=== PATIENT | male | born 1960 | race Caucasian/White ===

== ENCOUNTER → 2017-07-13 10:50 | Outpatient (CLI) | payer MEDICAID, SELFPAY ==
--- NOTE | 2017-07-13 11:01 | RAD_ITS ---
STUDY: X-RAY - RIGHT SHOULDER REASON FOR EXAM: Male, 56 years old. Shoulder pain TECHNIQUE: 4 view(s) of the shoulder. COMPARISON: None. FINDINGS: Normal glenohumeral articulation. There is degenerative arthrosis of the acromioclavicular joint without inferior osseous spur formation. Normal acromion. Normal humeral head and visualized proximal humerus. The soft tissue structures are unremarkable. Normal visualized pulmonary apex. RAD/Shoulder min 2 Views IMPRESSION: There is degenerative arthrosis of the acromioclavicular joint without inferior osseous spur formation. Electronically Signed: Lukas Fry MD at 16:56 EST , Service support ,
--- NOTE | 2017-07-13 11:01 | RAD_ITS ---
STUDY: X-RAY - LEFT KNEE REASON FOR EXAM: Male, 56 years old. BILATERAL KNEE PAIN TECHNIQUE: 4 view(s) of the knee. COMPARISON: None. FINDINGS: Normal visualized distal femur. Normal visualized proximal tibia and fibula. Normal proximal tibiofibular articulation. There is severe degenerative arthrosis of the medial femorotibial compartment with severe joint space narrowing. There is moderate degenerative arthrosis of the lateral femorotibial compartment with moderate joint space narrowing. There is severe degenerative arthrosis of the patellofemoral articulation. The soft tissue structures are unremarkable. RAD/Knee 4 or More Views IMPRESSION: Degenerative arthrosis. Electronically Signed: Lukas Fry MD at 16:56 EST , Service support ,
--- NOTE | 2017-07-13 11:01 | RAD_ITS ---
STUDY: X-RAY - LEFT SHOULDER REASON FOR EXAM: Male, 56 years old. Shoulder pain TECHNIQUE: 4 view(s) of the shoulder. COMPARISON: None. FINDINGS: Normal glenohumeral articulation. Normal acromioclavicular joint. Normal acromion. Normal humeral head and visualized proximal humerus. The soft tissue structures are unremarkable. Normal visualized pulmonary apex. RAD/Shoulder min 2 Views IMPRESSION: Normal x-ray examination of the shoulder. Electronically Signed: Lukas Fry MD at 16:55 EST , Service support ,
--- NOTE | 2017-07-13 11:01 | RAD_ITS ---
STUDY: X-RAY - CERVICAL SPINE REASON FOR EXAM: Male, 56 years old. Neck pain TECHNIQUE: 5 view(s) of the cervical spine were obtained. COMPARISON: None FINDINGS: Normal anterior atlantoaxial articulation. Normal odontoid process. There is straightening of the normal cervical lordosis. There is multi-level endplate spondylosis. There is multi-level degenerative disc disease with multilevel disc space narrowing. There is multi-level osseous foraminal stenosis. The soft tissue structures are unremarkable. RAD/Cerv Spine 4 or 5 Views IMPRESSION: There are degenerative changes as noted above. Electronically Signed: Lukas Fry MD at 16:54 EST , Service support ,
--- NOTE | 2017-07-13 11:01 | RAD_ITS ---
STUDY: X-RAY - RIGHT KNEE REASON FOR EXAM: Male, 56 years old. Bilateral knee pain. TECHNIQUE: 4 view(s) of the knee. COMPARISON: None. FINDINGS: Degenerative spurring along the medial femoral condyle. Degenerative spurring along the medial aspect of the medial tibial plateau. Normal visualized proximal tibia and fibula. Normal proximal tibiofibular articulation. There is severe degenerative arthrosis of the medial femorotibial compartment with severe joint space narrowing. Normal lateral femorotibial compartment. There is moderate degenerative arthrosis of the patellofemoral articulation. The soft tissue structures are unremarkable. RAD/Knee 4 or More Views IMPRESSION: Degenerative arthrosis. Electronically Signed: Roe Kwon MD at 15:33 EST Tel [phone], Service support ,
== END ==
PROVIDERS: Family Provider Internal Medicine; PCP Internal Medicine; Visit Provider Anesthesiology Pain Medicine
DX: M54.2 Cervicalgia (principal); M17.0 Bilateral primary osteoarthritis of knee; M75.102 Unspecified rotator cuff tear or rupture of left shoulder, not specified as traumatic; M75.101 Unspecified rotator cuff tear or rupture of right shoulder, not specified as traumatic
CPT/HCPCS: 72050; 73030; 73564

== ENCOUNTER → 2018-02-10 09:02 | Outpatient (CLI) | payer OTHER, SELFPAY ==
[2018-02-10 10:19] LABS: Microalbumin,Random Urine 13.5 mg/L (NO RANGE EST.); Microalbumin:Creatinine Ratio 14.2 mg/g CRE (<30 mg/g CRE)
[2018-02-10 10:20] LABS: Absolute Lymphocyte Count 1.97 X10^3/ul (0.83-4.51); Absolute Neutrophil Count 2.5 X10^3/uL (2.0-7.7); Basophil# 0.02 X10^3/uL; Basophil% 0.4 % (0-1); Eosinophil# 0.11 X10^3/uL; Eosinophils% 2.1 % (0-5); Hematocrit 38.7 % (40-54); Hemoglobin 13.2 g/dl (13.0-16.5); Lymphocyte # 1.97 X10^3/ul (4.0); Mean Corp Hgb Conc 34.1 g/gl (32-36); Mean Corpuscular Hgb 29.5 pg (27.0-32.0); Mean Corpuscular Volume 86.4 fL (80-94); Mean Platelet Vol. 9.7 fl (6.2-12.0); Monocyte# 0.57 X10^3/uL; Neutrophil # 2.49 X10^3/uL (2.7-7.7); Neutrophil % 48.1 % (47-70); POSITIVE COUNT NO; POSITIVE DIFFERENTIAL NO; POSITIVE MORPHOLOGY NO; Platelet Count 330 K/mm3 (150-450); RBC Distribution Width CV 12.7 % (11.6-14.6); RBC Distribution Width SD 38.9 fl (35.1-43.9); Red Blood Count 4.48 M/mm3 (4.6-6.2); White Blood Count 5.2 K/mm3 (4.4-11.0)
[2018-02-10 10:39] LABS: ALB/GLOB Ratio 1.2 RATIO (0.9-2.4); AST(SGOT) 22 U/L (15-37); Alanine Aminotransfer ALT/SGPT 41 U/L (16-61); Albumin, Serum 3.8 g/dL (3.2-5.0); Alkaline Phosphatase 74 U/L (45-117); Anion Gap 11 (5-15); BUN 24 mg/dL (7-18); BUN/Creat Ratio 28.4 RATIO (10-20); Calcium,Total 8.7 mg/dL (8.5-10.1); Chloride 105 mmol/L (98-107); Cholesterol 223 mg/dL (200); Creatinine, Serum 0.84 mg/dL (0.70-1.30); EST Glomerular Filtration Rate 100 mL/min (>60); Est Glom Filt Rate - Afr Amer 121 mL/min (>60); Globulin 3.3 g/dL (2.2-4.2); Glucose 118 mg/dL (74-106); High Density Lipoprotein 38 mg/dL; Potassium 3.7 mmol/L (3.5-5.1); Protein, Total 7.1 g/dL (6.4-8.2); Sodium Level 142 mmol/L (136-145); Triglycerides 268 mg/dL; Very Low Density Lipoprotein 54 mg/dL (5-40)
[2018-02-10 10:55] LABS: Hemoglobin A1c 6.7 % (4.2-6.3)
== END ==
PROVIDERS: Family Provider Internal Medicine; PCP Internal Medicine; Visit Provider Internal Medicine
DX: E11.9 Type 2 diabetes mellitus without complications (principal); E78.5 Hyperlipidemia, unspecified
CPT/HCPCS: 36415; 80053; 80061; 82043; 82570; 83036; 85025

== ENCOUNTER → 2018-06-19 07:45 | Outpatient (CLI) | payer OTHER, SELFPAY ==
[2018-06-19 10:23] LABS: ALB/GLOB Ratio 1.2 RATIO (0.9-2.4); AST(SGOT) 23 U/L (15-37); Alanine Aminotransfer ALT/SGPT 42 U/L (16-61); Albumin, Serum 3.9 g/dL (3.2-5.0); Alkaline Phosphatase 95 U/L (45-117); Anion Gap 9 (5-15); BUN 18 mg/dL (7-18); BUN/Creat Ratio 21.7 RATIO (10-20); Chloride 103 mmol/L (98-107); Creatinine, Serum 0.83 mg/dL (0.70-1.30); EST Glomerular Filtration Rate 102 mL/min (>60); Est Glom Filt Rate - Afr Amer 124 mL/min (>60); Globulin 3.3 g/dL (2.2-4.2); Glucose 148 mg/dL (74-106); Potassium 3.9 mmol/L (3.5-5.1); Protein, Total 7.2 g/dL (6.4-8.2); Sodium Level 140 mmol/L (136-145)
[2018-06-19 10:26] LABS: Hemoglobin A1c 7.6 % (4.2-6.3)
--- OUTSIDE RECORDS SUMMARY | 2018-08-21 15:14 | XMS RPT_ITS ---
:1960 Author Organization OHIP Care Team Providers Name Role Phone Vijaya Silva Attending Unavailable Shagufta Fam Primary Care Unavailable Lianne Mary Attending Unavailable Cristel, Shagufta Referring Unavailable Cristel, Shagufta Primary Care Unavailable Melanie Alaniz Attending Unavailable Nurse, Surgery Attending Unavailable Oleghe, Efewongbe Referring Unavailable Oleghe, Efewongbe Attending Unavailable Oleghe, Efewongbe Referring Unavailable Oleghe, Efewongbe Primary Care Unavailable Oleghe, Efewongbe Attending Unavailable Oleghe, Efewongbe Referring Unavailable Oleghe, Efewongbe Primary Care Unavailable Oleghe, Efewongbe Attending Unavailable Oleghe, Efewongbe Referring Unavailable Oleghe, Efewongbe Primary Care Unavailable Prachi Antonio Attending Unavailable No Doctor Assigned, Nodr Primary Care Unavailable Alecia Bruno Attending Unavailable Vijaya Silva Attending Unavailable Vijaya Silva Attending Unavailable Cristel, Shagufta Primary Care Unavailable Vijaya Silva Attending Unavailable No Family Physician given Primary Care Unavailable Vijaya Silva Attending Unavailable No Family Physician given Primary Care Unavailable Vijaya Silva Attending Unavailable No Family Physician given Primary Care Unavailable PROBLEMS PROBLEMS DATE TYPE CONDITION / CODE ATTENDING STATUS SOURCE 02/17/2018 Unknown E78.5 - Oleghe, Active [place] Hyperlipidemia, [facility] unspecified / Hospital E78.5(ICD-10) Repository 02/17/2018 Unknown E11.9 - Type 2 [place]leghe, Active [place] diabetes mellitus [facility] without Hospital complications / Repository E11.9(ICD-10) 02/17/2018 Unknown I10 - Essential [place]leghe, Active [place] (primary) [facility] hypertension / Hospital I10(ICD-10) Repository 02/17/2018 Unknown E66.9 - Obesity, [place], Active [place] unspecified / [facility] E66.9(ICD-10) Hospital Repository 01/09/2018 Unknown Z12.11 - Encounter [place]he, Active [place] for screening for [facility] malignant neoplasm [facility] colon / Repository Z12.11(ICD-10) 07/21/2017 Admitting Unknown / Fautas, Active [facility] Medical diagnosis UNK(Unknown) Alecia Cassidy [facility] Repository PROCEDURES PROCEDURES No Procedure Records FoundRESULTS RESULTS TOXASSURE COMPR Collected: 06/19/2018 Status: F Source: [facility] 10:48 AM [facility] REPOSITORY TYPE CODE TESTS RESULT OUT OF RANGE REFERENCE UNITS LAB L600.28481 () Normal TOXASSURE COMPR FINAL Result Comment: TOXASSURE COMP DRUG ANALYSIS,UR 6-Acetylmorphine,ToxAssure Add CREATININE,URINE Test Result Flag Units Drug Present Hydrocodone 384 ng/mg creat Norhydrocodone 861 ng/mg creat Sources of hydrocodone include scheduled prescription medications. Norhydrocodone is an expected metabolite of hydrocodone. Gabapentin PRESENT Bupropion PRESENT Hydroxybupropion PRESENT Hydroxybupropion is an expected metabolite of bupropion. Fluoxetine PRESENT Norfluoxetine PRESENT Norfluoxetine is an expected metabolite of fluoxetine. Acetaminophen PRESENT Test Result Flag Units Ref Range Creatinine 90 mg/dL >=20 Declared Medications: Medication list was not provided. For clinical consultation, please call . Performed By: #### L600.81573, L600.29389 #### [facility] [address] [place] [address] 6-ACETYLMORPHIN Collected: 06/19/2018 Status: F Source: [place] 10:48 AM [facility] REPOSITORY TYPE CODE TESTS RESULT OUT OF RANGE REFERENCE UNITS LAB L600.54167 () 6-JENNIFER Normal TOXASSURE NEGATIVE Performed By: #### L600.63363, L600.22896 #### [facility] [address] [place] [address] COMPREHENSIVE METABOLIC Collected: 06/19/2018 Status: F Source: [place] 7:50 AM [facility] REPOSITORY TYPE CODE TESTS RESULT OUT OF RANGE REFERENCE UNITS LAB L501.0100 74-106 mg/dL High GLU 148 Result Comment: Fasting Glucose result greater than or equal to 126 mg/dL suggests DIABETES MELLITUS per A.D.A. criteria. Please note revised GLUCOSE reference range effective 2017. LAB L501.1000 7-18 mg/dL Normal BUN 18 LAB L501.1100 0.70-1.30 mg/dL Normal CREAT,SERUM 0.83 Result Comment: The validity of the calculated GFR AND GFRAA in patients over 70 years has not been determined. Clinical correlation is essential. LAB L501.1110 >60 mL/min Normal EST GFR 102 Result Comment: Non- GFR Calc LAB L501.1115 >60 mL/min Normal EST GFR - AA 124 Result Comment: GFR Calc LAB L501.1300 10-20 RATIO High BUN/CRE 21.7 LAB L501.1500 6.4-8.2 g/dL T Normal PROT 7.2 LAB L501.1800 3.2-5.0 g/dL Normal ALB 3.9 LAB L501.1950 2.2-4.2 g/dL Normal GLOB 3.3 LAB L501.2000 0.9-2.4 RATIO Normal A/G 1.2 LAB L501.2200 8.5-10.1 mg/dL CA Normal 9.0 LAB L501.4100 15-37 U/L Normal AST 23 LAB L501.4305 45-117 U/L Normal ALK P 95 LAB L501.4405 16-61 U/L Normal ALT 42 LAB L501.4600 0.20-1.00 mg/dL T Normal BILI 0.60 LAB L501.5300 136-145 mmol/L NA Normal 140 LAB L501.5600 3.5-5.1 mmol/L K Normal 3.9 LAB L501.5900 98-107 mmol/L CL Normal 103 LAB L501.6100 21.0-32.0 mmol/L Normal CO2 28.0 LAB L501.6200 5-15 Normal GAP 9 Performed By: #### L500.4050 #### [facility] [address] [place], [address] HEMOGLOBIN A1C Collected: 06/19/2018 Status: F Source: [place] 7:50 AM [facility] REPOSITORY TYPE CODE TESTS RESULT OUT OF RANGE REFERENCE UNITS LAB L501.9985 4.2-6.3 % High HGB A1C 7.6 Performed By: #### L501.9985 #### [facility] [address] [facility] [place], [address] INTERNAL MEDICINE Observed: 02/17/2018 Status: F Source: [place] OFFICE VISIT 1:23 PM [facility] REPOSITORY [facility] [address] [place] [address] [place] [address] OFFICE VISIT Date of Service: 02/17/18 MR#: [id number] Acct: [id number] Name: WALEKARENABONY Rep #: [id number] : 1960 Provider: Lianne Mary MD Age/Sex: 57/M Location: [facility] Status: Signed Intake Vital Signs02/17/18 Height 5 ft 6 in 02/17/18 Weight: 233 lb 02/17/18 Body Mass Index (BMI) 37.5 02/17/18 Blood Pressure 146/88 Intake Visit Reasons: 1 MO FU Chief Complaint: 1 Mo FU Is patient in pain?: No Allergies No Known Allergies Allergy (Unverified 02/17/18 10:59) Medications budesonide-formoterol HFA 160 mcg-4.5 mcg/actuation aerosol inhaler 2 puff INHALATION BID #6 g 01/09/18 [Rx Confirmed 02/17/18] cholecalciferol (vitamin D3) 2,000 unit capsule 2,000 unit PO QDAY #60 cap 01/09/18 [Rx Confirmed 02/17/18] hydrocodone 7.5 mg-acetaminophen 325 mg tablet 1 tab PO TID PRN tab 01/09/18 [History Confirmed 02/17/18] ibuprofen 800 mg-famotidine 26.6 mg tablet 1 tab PO TID 01/09/18 [History Confirmed 02/17/18] omega-3 fatty acids 1,000 mg capsule 1,000 mg PO QDAY 01/09/18 [History Confirmed 02/17/18] pioglitazone 15 mg tablet 15 mg PO QDAY #60 tab 01/09/18 [Rx Confirmed 02/17/18] sitagliptin 100 mg tablet 100 mg PO QDAY #60 tab 01/09/18 [Rx Confirmed 02/17/18] gabapentin 300 mg capsule 600 mg PO TID #90 cap 01/10/18 [Rx Confirmed 02/17/18] bupropion HCl XL 300 mg 24 hr tablet, extended release 300 mg PO QAM #90 tab 01/20/18 [Rx Confirmed 02/17/18] fluoxetine 40 mg capsule 40 mg PO QDAY #60 cap 02/07/18 [Rx Confirmed 02/17/18] glimepiride 4 mg tablet 4 mg PO BID #60 tab 02/07/18 [Rx Confirmed 02/17/18] metformin 1,000 mg tablet 1,000 mg PO BID #60 tab 02/07/18 [Rx Confirmed 02/17/18] hydrochlorothiazide 25 mg tablet 25 mg PO DAILY #90 tab 02/17/18 [Rx Confirmed 02/17/18] lisinopril 40 mg tablet 40 mg PO QPM #90 tab 02/17/18 [Rx Confirmed 02/17/18] rosuvastatin 10 mg tablet 10 mg PO DAILY #90 tab 02/17/18 [Rx Confirmed 02/17/18] PFSH Medical History Asthma (Chronic) Neuropathy (Chronic) Hyperlipemia (Chronic) Hypertension (Chronic) Chronic pain (Chronic) Type 2 diabetes mellitus (Chronic) Arthritis (Chronic) History of traumatic head injury (Acute) Surgical History History of foot surgery (Acute) Family History Mother Hypertension Father Hyperlipemia Aunt Diabetes Social History Smoking Status: Former smoker how long ago did patient quit smokin alcohol intake: current alcohol intake frequency: holidays/special occasions only substance use type: does not use what type of physical activity do you participate in: none HPI HPI Chief Complaint: 1 Mo FU Details: BONY PAREKH, is a 57 M who presents to the office today for follow-up of the chronic medical conditions and to review blood work done. He has no acute complaints at this time. He reports compliance with his medications. ROS Const Constitutional: No chills, fatigue, fever(s), frequent falls, malaise, weakness, sleep problems or change in appetite Eyes Eyes: No blurry vision, change in vision, double vision, discharge or visual disturbances ENT ENT: No abnormal hearing, ear pain, ear pressure, tinnitus or dizziness/vertigo Resp Respiratory: No cough, shortness of breath or wheezing Cardio Cardiology: No chest pain at rest, chest pain with exertion, shortness of breath, dyspnea on exertion, generalized swelling, irregular heart rhythm, lightheadedness, orthopnea, fast heart rate or palpitations Gastro GI: No abdominal pain, change in bowel habits, constipation, diarrhea, nausea/dyspepsia or vomiting Genitourinary Male: No difficulty urinating, burning urination, painful urination, urinary incontinence, urinary frequency, urinary urgency, urinary hesitancy, urinary retention, blood in urine, Frequent nighttime urination/ nocturia, sexual problems, testicle lump or testicle pain Musc Musculoskeletal: No joint pain, back pain, joint swelling or limited range of motion Skin Skin: No change in skin color, itching, rash or wounds Breast Breast: No breast lump or breast pain Neuro Neurology: No frequent falls, weakness, abnormal hearing, unsteady gait/balance, dizziness, loss of vision, memory loss or visual disturbances Psych Psychiatric: No memory loss, No anxiety, No change in appetite, No depression, No Thoughts of harming yourself/Others Endo Endocrine: No fatigue, heat intolerance, increased thirst/drinking, increased hunger or increased urination Aller/Imm Allergy/Immunologic: No wheezing, itchy eyes or seasonal allergy symptoms Quinn/Lymp Hematologic/Lymphatic: No easy bleeding, easy bruising or enlarged lymph nodes Exam Const General: cooperative, no acute distress Orientation: alert, awake, oriented x3 HENWV Head: atraumatic, normocephalic Ears: hearing grossly normal bilaterally Resp Effort AND Inspection: normal respiratory effort, able to speak in complete sentences Auscultation: Bilateral: Clear to Auscultation Cardio Rate: regular rate Rhythm: regular rhythm Heart Sounds: S1 normal, S2 normal GI Palpation: soft, no hepatosplenomegaly Neuro General: alert, awake, oriented x3, moves all extremities, CN's II-XI intact bilaterally Extrem General: no clubbing, cyanosis or edema Psych Appearance: grossly normal Mood: congruent mood Affect: normal affect Assessment AND Plan 1. Hypertension I10 Plan Still not optimally controlled. I believe lifestyle changes will significantly help. Advised to take hydrochlorothiazide in the morning on 40 mg of lisinopril in the evenings. Dietary modifications discussed. Referred to the why weight program. Follow-up in 3 months Orders Orders: 2. Hyperlipemia E78.5 Plan Poorly controlled. Has been poorly tolerant of statins in the past. Will start on Crestor. Continue other management. CMP in 3 months. Orders Orders: 3. Type 2 diabetes mellitus E11.9 Plan Last A1c of 6.7. Continue current medications. I believe he will benefit from weight loss and education on his diet. Referred to the [facility] weight program. Repeat A1c in 3 month. Orders Orders: Referrals: 4. Obesity E66.9 Plan [facility] Weight program as above. This note was generated with [employer] dictation software. It may contain incorrect words, spelling, and punctuation that were not noted in checking the note before signing. Orders Referrals: Plan Detail Other Medications New: Discontinued: lisinopril-hydrochlorothiazide 20-25 mg Discontinued Reason: Order Chang1 tab PO BID ed Coding Level of Care Code Off vis,est,level 4 Diagnoses Hypertension I10 Hyperlipemia E78.5 Type 2 diabetes mellitus E11.9 Obesity E66.9 02/17/18 1323 <Electronically signed by Lianne Mary MD> Date Lianne Mary MD Cosigner Signature: Date (if applicable) CC: MICROALB:CREAT Collected: 02/10/2018 Status: F Source: [facility] 9:06 AM [facility] REPOSITORY TYPE CODE TESTS RESULT OUT OF RANGE REFERENCE UNITS LAB L501.1200 NO RANGE EST. mg/dL Normal UR CREAT 95.10 LAB L502.0500 NO RANGE EST. mg/L Normal 13.5 MICROALBUMIN ,UR LAB L502.0600 <30 mg/g CRE mg/g CRE Normal 14.2 MALB:CREAT Performed By: #### L502.0250 #### [facility] [place], [address] CBC W/DIFF, AUTOMATED Collected: 02/10/2018 Status: F Source: [place] 9:06 AM [facility] REPOSITORY TYPE CODE TESTS RESULT OUT OF RANGE REFERENCE UNITS LAB L100.1000 4.4-11.0 K/mm3 Normal WBC 5.2 LAB L100.1200 4.6-6.2 M/mm3 Low RBC 4.48 LAB L100.1300 13.0-16.5 g/dl Normal HGB 13.2 LAB L100.1400 40-54 % Low HCT 38.7 LAB L100.1500 80-94 fL Normal MCV 86.4 LAB L100.1600 27.0-32.0 pg Normal MCH 29.5 LAB L100.1700 32-36 g/gl Normal MCHC 34.1 LAB L100.1810 11.6-14.6 % Normal RDW CV 12.7 LAB L100.1820 35.1-43.9 fl Normal RDW SD 38.9 LAB L100.1900 150-450 K/mm3 Normal PLT 330 LAB L100.2000 6.2-12.0 fl Normal MPV 9.7 LAB L100.2100 47-70 % Normal NEUT% 48.1 LAB L100.2200 19-41 % Normal LY% 38.0 LAB L100.2300 0-10 % High MONO% 11.0 LAB L100.2400 0-5 % Normal EO% 2.1 LAB L100.2500 0-1 % Normal BASO% 0.4 LAB L100.2550 0.0-0.9 % Normal IM GRAN % 0.400 Result Comment: IG% - Immature Granulocytes (promyelocytes, myelocytes and metamyelocytes) > 1% indicates that a LEFT SHIFT is Present. LAB L100.2620 2.0-7.7 X10 3/uL Normal Absolute Neut 2.5 LAB L100.2720 0.83-4.51 X10 3/ul Normal Absolute Lymph 1.97 Performed By: #### L100.0100 #### [facility] [address] [place], [address] COMPREHENSIVE METABOLIC Collected: 02/10/2018 Status: F Source: [facility] 9:06 AM [facility] REPOSITORY TYPE CODE TESTS RESULT OUT OF RANGE REFERENCE UNITS LAB L501.0100 74-106 mg/dL High GLU 118 Result Comment: Fasting Glucose result from 100 to 125 mg/dL suggests IMPAIRED HOMEOSTASIS per A.D.A. criteria. Please note revised GLUCOSE reference range effective 2017. LAB L501.1000 7-18 mg/dL High BUN 24 LAB L501.1100 0.70-1.30 mg/dL Normal CREAT,SERUM 0.84 Result Comment: The validity of the calculated GFR AND GFRAA in patients over 70 years has not been determined. Clinical correlation is essential. LAB L501.1110 >60 mL/min Normal EST GFR 100 Result Comment: Non- GFR Calc LAB L501.1115 >60 mL/min Normal EST GFR - AA 121 Result Comment: GFR Calc LAB L501.1300 10-20 RATIO High BUN/CRE 28.4 LAB L501.1500 6.4-8.2 g/dL T Normal PROT 7.1 LAB L501.1800 3.2-5.0 g/dL Normal ALB 3.8 LAB L501.1950 2.2-4.2 g/dL Normal GLOB 3.3 LAB L501.2000 0.9-2.4 RATIO Normal A/G 1.2 LAB L501.2200 8.5-10.1 mg/dL CA Normal 8.7 LAB L501.4100 15-37 U/L Normal AST 22 LAB L501.4305 45-117 U/L Normal ALK P 74 LAB L501.4405 16-61 U/L Normal ALT 41 LAB L501.4600 0.20-1.00 mg/dL T Normal BILI 0.50 LAB L501.5300 136-145 mmol/L NA Normal 142 LAB L501.5600 3.5-5.1 mmol/L K Normal 3.7 LAB L501.5900 98-107 mmol/L CL Normal 105 LAB L501.6100 21.0-32.0 mmol/L Normal CO2 26.0 LAB L501.6200 5-15 Normal GAP 11 Performed By: #### L500.4050, L500.4100 #### [facility] [address] [place], [place], [address] LIPID PROFILE Collected: 02/10/2018 Status: F Source: [place] 9:06 AM [facility] REPOSITORY TYPE CODE TESTS RESULT OUT OF RANGE REFERENCE UNITS LAB L501.4900 200 mg/dL High CHOL 223 Result Comment: <200 mg/dL Desirable 200-240 mg/dL Borderline >240 mg/dL High Risk LAB L501.5000 mg/dL High TRIG 268 Result Comment: The drugs N-Acetylcysteine and Metamizole may falsely depress this assay. Serum Triglycerides Reference Interval Normal <150 mg/dL Borderline high 150 - 199 mg/dL High 200 - 499 mg/dL Very High > or = 500 mg/dL LAB L501.6400 mg/dL Low HDL 38 Result Comment: The drugs N-Acetylcysteine and Metamizole may falsely depress this assay. Reference Range HDL <40 mg/dL Low HDL Cholesterol HDL >or= 60 mg/dL High HDL Cholesterol LAB L501.6500 0-130 mg/dL High LDL 131 LAB L501.6600 5-40 mg/dL High VLDL 54 Performed By: #### L500.4050, L500.4100 #### [facility] [address] [place], [address] HEMOGLOBIN A1C Collected: 02/10/2018 Status: F Source: [place] 9:06 AM [facility] REPOSITORY TYPE CODE TESTS RESULT OUT OF RANGE REFERENCE UNITS LAB L501.9985 4.2-6.3 % High HGB A1C 6.7 Performed By: #### L501.9985 #### [facility] [address] [place], [address] INTERNAL MEDICINE Observed: 01/10/2018 Status: F Source: [place] OFFICE VISIT 4:28 PM [facility] REPOSITORY [facility] [address] [place] [address] [place] [address] OFFICE VISIT Date of Service: 01/09/18 MR#: [id number] Acct: [id number] Name: BONY PAREKH Rep #: [id number] : 1960 Provider: Lianne Mary MD Age/Sex: 57/M Location: [facility] Status: Signed Intake Vital Signs01/09/18 Height 5 ft 6 in Intake Visit Reasons: EST CARE, DIABETIC Chief Complaint: establish care Is patient in pain?: Yes (knees) Pain scale (1-10): 7 Allergies No Known Allergies Allergy (Unverified 01/09/18 08:09) Medications budesonide-formoterol HFA 160 mcg-4.5 mcg/actuation aerosol inhaler 2 puff INHALATION BID #6 g 01/09/18 [Rx Confirmed 01/09/18] cholecalciferol (vitamin D3) 2,000 unit capsule 2,000 unit PO QDAY #60 cap 01/09/18 [Rx Confirmed 01/09/18] fluoxetine 40 mg capsule 40 mg PO QDAY #60 cap 01/09/18 [Rx Confirmed 01/09/18] hydrocodone 7.5 mg-acetaminophen 325 mg tablet 1 tab PO TID PRN tab 01/09/18 [History Confirmed 01/09/18] ibuprofen 800 mg-famotidine 26.6 mg tablet 1 tab PO TID 01/09/18 [History Confirmed 01/09/18] lisinopril 20 mg-hydrochlorothiazide 25 mg tablet 1 tab PO BID #60 tab 01/09/18 [Rx Confirmed 01/09/18] metformin 1,000 mg tablet 1,000 mg PO BID #60 tab 01/09/18 [Rx Confirmed 01/09/18] omega-3 fatty acids 1,000 mg capsule 1,000 mg PO QDAY 01/09/18 [History Confirmed 01/09/18] pioglitazone 15 mg tablet 15 mg PO QDAY #60 tab 01/09/18 [Rx Confirmed 01/09/18] sitagliptin 100 mg tablet 100 mg PO QDAY #60 tab 01/09/18 [Rx Confirmed 01/09/18] gabapentin 300 mg capsule 600 mg PO TID #90 cap 01/10/18 [Rx] glimepiride 4 mg tablet 4 mg PO BID #60 tab 01/10/18 [Rx] PFSH Medical History Asthma (Chronic) Neuropathy (Chronic) Hyperlipemia (Chronic) Hypertension (Chronic) Chronic pain (Chronic) Type 2 diabetes mellitus (Chronic) Arthritis (Chronic) History of traumatic head injury (Acute) Surgical History History of foot surgery (Acute) Family History Mother Hypertension Father Hyperlipemia Aunt Diabetes Social History Smoking Status: Former smoker how long ago did patient quit smokin alcohol intake: current alcohol intake frequency: holidays/special occasions only substance use type: does not use what type of physical activity do you participate in: none HPI HPI Chief Complaint: establish care Details: BONY PAREKH, is a 57yo M who presents to the office today to establish care. He has no acute complaints. He has past medical history as stated above. He had followed up previously with [facility]. Last blood work was said to be several months ago. His last A1c was said to be somewhere around 6. He has been diabetic for at least 15 years. He has not had a screening colonoscopy done however, he is now open to this. ROS Const Constitutional: No weight change, body ache, chills, fatigue, sleep problems, fever(s), change in appetite, snoring, weakness, frequent falls, headache(s) or excessive sweating Eyes Eyes: No change in vision, eye pain, light sensitivity or blurry vision ENT ENT: No headache(s), abnormal hearing, ear pain, tinnitus, nasal congestion or sore throat Resp Respiratory: No snoring, cough, shortness of breath or wheezing Cardio Cardiology: No excessive sweating, chest pain at rest, chest pain with exertion, shortness of breath, dyspnea on exertion, palpitations, orthopnea or lightheadedness Gastro GI: No abdominal pain, change in bowel habits, constipation, diarrhea, vomiting, nausea/dyspepsia or cramping Genitourinary Male: No painful urination, urinary incontinence, urinary frequency, urinary urgency, blood in urine, testicle pain or other Musc Musculoskeletal: Positive for joint pain, back pain, numbness (hands) and tingling; no abnormal walking or limited range of motion Skin Skin: No redness, dry skin, itching, lesions, wounds or rash Neuro Neurology: Positive for numbness (hands) and tingling; no weakness, frequent falls, headache(s), abnormal hearing, abnormal walking, abnormal speech, dizziness or memory loss Psych Psychiatric: No change in appetite, No memory loss, No anxiety, No depression, No Thoughts of harming yourself/Others Endo Endocrine: No fatigue, excessive sweating, cold intolerance, increased thirst/drinking, heat intolerance, flushing or increased hunger Aller/Imm Allergy/Immunologic: No wheezing, itchy eyes, hives or seasonal allergy symptoms Quinn/Lymp Hematologic/Lymphatic: No easy bleeding, easy bruising or enlarged lymph nodes Exam Const General: cooperative, no acute distress Orientation: alert, awake, oriented x3 [facility] Head: atraumatic, normocephalic Ears: hearing grossly normal bilaterally Resp Effort AND Inspection: normal respiratory effort, able to speak in complete sentences Auscultation: Bilateral: Clear to Auscultation Cardio Rate: regular rate Rhythm: regular rhythm Heart Sounds: S1 normal, S2 normal GI Palpation: soft, no hepatosplenomegaly Neuro General: alert, awake, oriented x3, moves all extremities, CN's II-XI intact bilaterally Extrem General: no clubbing, cyanosis or edema Psych Appearance: grossly normal Mood: congruent mood Affect: normal affect Assessment AND Plan 1. Type 2 diabetes mellitus E11.9 Plan ? Controlled. A1c ordered. Microalbumin creatinine ratio also ordered. Continue current medications for now. As adjust meds as necessary. Orders Orders: Referrals: 2. Hypertension I10 Plan Stable. Slightly elevated during this office visit. Patient however states that he only just took his medications. Continue current medication and lifestyle modifications. Follow-up at next visit. 3. Hyperlipemia E78.5 Plan Stable. Lipid profile ordered. Follow-up with results. Orders Orders: 4. Neuropathy G62.9 Plan Possibly secondary to poor poorly controlled diabetes and DDD. 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 Optimal blood sugar control discussed. 5. Anxiety F41.9 Plan Chronic, stable. Continue fluoxetine 40 mg daily. Follow-up at next visit. 6. Health care maintenance Z00.00 Plan Referred for screening colonoscopy. This note was generated with [employer] software. It may contain incorrect words, spelling, and punctuation that were not noted in checking the note before signing. Plan Detail Other Orders Referrals: Other Medications New: Follow Up 1 Month Coding Level of Care Code Off vis,new,level 4 Diagnoses Type 2 diabetes mellitus E11.9 Hypertension I10 Hyperlipemia E78.5 Neuropathy G62.9 Anxiety F41.9 Health care maintenance Z00.00 01/10/18 1628 <Electronically signed by Lianne Mary MD> Date Lianne Mary MD Cosigner Signature: Date (if applicable) CC: FLUOROSCOPY IN OR/PAIN Observed: 08/24/2017 Status: F Source: [facility] MGT 7[facility] FLUOROSCOPY IN OR/PAIN MGT Ordering Physician: Vijaya Silva DO 08/24/2017 7:41 AM FLUOROSCOPY AND SPOT RADIOGRAPHS: Clinical Statement: Pain Comparison: None FINDINGS: 14.8 seconds of fluoroscopic time was utilized. Two spot radiographs were obtained. IMPRESSION: 1. Documentation of utilization of 14.8 seconds fluoroscopic time. 2. Two spot radiographs obtained. For details, refer to the procedure note by the physician performing this procedure. This report is for fluoroscopy documentation purposes only. ---- Electronic Signature on File ---- Signed By: Tracie De La Cruz MD [email or web address] Dictated: 08/24/2017 2:49 PM Signed: 08/24/2017 2:49 PM Reported By: TRACIE DE LA CRUZ M.D. Signed By: TRACIE DE LA CRUZ M.D. KNEE 4 OR MORE Observed: 07/13/2017 Status: F Source: [place] VIEWS 11:02 AM [facility] REPOSITORY [facility] Imaging Services [address] [place] [address] Knee 4 or More Views MR#: [id number] Acct: [id number] Name: BONY PAREKH Rep #: [id number] : 1960 M 56 From: Roe Kwon MD PCP: Shagufta Fam DO Status: REG CLI Study: Knee 4 or More Views Date of Exam: 07/13/17 Exam# [id number] Ordering Dr: Vijaya Silva DO STUDY: X-RAY - RIGHT KNEE REASON FOR EXAM: Male, 56 years old. Bilateral knee pain. TECHNIQUE: 4 view(s) of the knee. COMPARISON: None. FINDINGS: Degenerative spurring along the medial femoral condyle. Degenerative spurring along the medial aspect of the medial tibial plateau. Normal visualized proximal tibia and fibula. Normal proximal tibiofibular articulation. There is severe degenerative arthrosis of the medial femorotibial compartment with severe joint space narrowing. Normal lateral femorotibial compartment. There is moderate degenerative arthrosis of the patellofemoral articulation. The soft tissue structures are unremarkable. RAD/Knee 4 or More Views IMPRESSION: Degenerative arthrosis. Electronically Signed: Roe Kwon MD at 15:33 EST Tel [phone], Service support , CC: Vijaya Fam DO Ethnographic Materials Conservator: Signed CERV SPINE 4 OR 5 Observed: 07/13/2017 Status: F Source: [place] VIEWS 11:02 AM [facility] REPOSITORY [facility] Imaging Services [address] [place] [address] Cerv Spine 4 or 5 Views MR#: [id number] Acct: [id number] Name: BONY PAREKH Rep #: [id number] : 1960 M 56 From: Lukas Fry MD PCP: Shagufta aFm DO Status: REG CLI Study: Cerv Spine 4 or 5 Views Date of Exam: 07/13/17 Exam# [id number] Ordering Dr: Vijaya Silva DO STUDY: X-RAY - CERVICAL SPINE REASON FOR EXAM: Male, 56 years old. Neck pain TECHNIQUE: 5 view(s) of the cervical spine were obtained. COMPARISON: None FINDINGS: Normal anterior atlantoaxial articulation. Normal odontoid process. There is straightening of the normal cervical lordosis. There is multi-level endplate spondylosis. There is multi-level degenerative disc disease with multilevel disc space narrowing. There is multi- level osseous foraminal stenosis. The soft tissue structures are unremarkable. RAD/Cerv Spine 4 or 5 Views IMPRESSION: There are degenerative changes as noted above. Electronically Signed: Lukas Fry MD at 16:54 EST , Service support , CC: Vijaya Fam DO Ethnographic Materials Conservator: Signed SHOULDER MIN 2 VIEWS Observed: 07/13/2017 Status: F Source: [place] 11:02 AM [facility] REPOSITORY [facility] Imaging Services [address] [place] [address] Shoulder min 2 Views MR#: [id number] Acct: [id number] Name: BONY PAREKH Rep #: [id number] : 1960 M 56 From: Lukas Fry MD PCP: Shagufta Fam DO Status: REG CLI Study: Shoulder min 2 Views Date of Exam: 07/13/17 Exam# [id number] Ordering Dr: Vijaya Silva DO STUDY: X-RAY - LEFT SHOULDER REASON FOR EXAM: Male, 56 years old. Shoulder pain TECHNIQUE: 4 view(s) of the shoulder. COMPARISON: None. FINDINGS: Normal glenohumeral articulation. Normal acromioclavicular joint. Normal acromion. Normal humeral head and visualized proximal humerus. The soft tissue structures are unremarkable. Normal visualized pulmonary apex. RAD/Shoulder min 2 Views IMPRESSION: Normal x-ray examination of the shoulder. Electronically Signed: Lukas Fry MD at 16:55 EST , Service support , CC: Vijaya Silva; Shagufta Fam DO Ethnographic Materials Conservator: Signed SHOULDER MIN 2 VIEWS Observed: 07/13/2017 Status: F Source: [place] 11:02 AM [facility] Imaging Services [address] [place] [address] Shoulder min 2 Views MR#: [id number] Acct: [id number] Name: BONY PAREKH Rep #: [id number] : 1960 M 56 From: Lukas Fyr MD PCP: Shagufta Fam DO Status: REG CLI Study: Shoulder min 2 Views Date of Exam: 07/13/17 Exam# [id number] Ordering Dr: Vijaya Silva DO STUDY: X-RAY - RIGHT SHOULDER REASON FOR EXAM: Male, 56 years old. Shoulder pain TECHNIQUE: 4 view(s) of the shoulder. COMPARISON: None. FINDINGS: Normal glenohumeral articulation. There is degenerative arthrosis of the acromioclavicular joint without inferior osseous spur formation. Normal acromion. Normal humeral head and visualized proximal humerus. The soft tissue structures are unremarkable. Normal visualized pulmonary apex. RAD/Shoulder min 2 Views IMPRESSION: There is degenerative arthrosis of the acromioclavicular joint without inferior osseous spur formation. Electronically Signed: Lukas Fry MD at 16:56 EST , Service support , CC: Vijaya Silva; Shagufta Fam DO Ethnographic Materials Conservator: Signed KNEE 4 OR MORE Observed: 07/13/2017 Status: F Source: [facility] 11:02 AM [facility] REPOSITORY [facility] Imaging Services [address] [place] [address] Knee 4 or More Views MR#: [id number] Acct: [id number] Name: BONY PAREKH Rep #: [id number] : 1960 M 56 From: Lukas Fry MD PCP: Shagufta Fam DO Status: REG CLI Study: Knee 4 or More Views Date of Exam: 07/13/17 Exam# [id number] Ordering Dr: Vijaya Silva DO STUDY: X-RAY - LEFT KNEE REASON FOR EXAM: Male, 56 years old. BILATERAL KNEE PAIN TECHNIQUE: 4 view(s) of the knee. COMPARISON: None. FINDINGS: Normal visualized distal femur. Normal visualized proximal tibia and fibula. Normal proximal tibiofibular articulation. There is severe degenerative arthrosis of the medial femorotibial compartment with severe joint space narrowing. There is moderate degenerative arthrosis of the lateral femorotibial compartment with moderate joint space narrowing. There is severe degenerative arthrosis of the patellofemoral articulation. The soft tissue structures are unremarkable. RAD/Knee 4 or More Views IMPRESSION: Degenerative arthrosis. Electronically Signed: Lukas Fry MD at 16:56 EST , Service support , CC: Vijaya Silva; Shagufta Fam DO Ethnographic Materials Conservator: Signed ALLERGIES ALLERGIES DATE TYPE / CODE NAME / CODE REACTION SEVERITY SOURCE 02/17/2018 Drug No Known Unknown [place] Allergy/416 Allergies/[id number] Community 233913(SNOM 388(RXNORM) [facility] ED CT) Repository Drug/140036 No Known [facility] System Repository ENCOUNTERS ENCOUNTERS ADMIT/DISCHARGE ACCOUNT NUMBER ADMITTING ENCOUNTER LOCATION SOURCE CLASS 06/19/2018 [id number] Ambulatory [facility] Repository ng:H.PM 06/19/2018 [id number] Ambulatory [facility] ding:MTLAB Repository 03/20/2018 [id number] [facility] Repository ng:H.PM 02/17/2018/02/18/20 [id number] Ambulatory BMSBuilding: Thomas 18 BMS.[facility] Repository 02/10/2018 [id number] Ambulatory [facility] ding:MTLAB Repository 01/25/2018/01/26/20 [id number] Ambulatory BMSBuilding: [place]bel 18 BMS.[facility] Repository 01/20/2018 [id number] Ambulatory BMSBuilding: [place] BMS.[facility] Repository 01/09/2018/01/10/20 [id number] Ambulatory BMSBuilding: [place]bel 18 BMS.[facility] Repository 12/21/2017/12/22/19 [id number] Ambulatory [address] [facility] 12/20/2017 [id number] Ambulatory [facility] Repository ng:H.PM 11/08/2017 [id number] Ambulatory [facility] Repository ng:H.PM 08/24/2017 [id number] Inpatient [facility] Repository ng:H.PM 07/21/2017 [id number] Ambulatory [facility] Repository ng:H.PM 07/13/2017 [id number] Ambulatory [place]bel Rebel [facility] ding:MTRAD Repository PAYERS PAYERS ENCOUNTER GUARANTOR PAYER SUBSCRIBER SOURCE 06/19/2018 BONY L [facility] [id number] E Insurance:Mitchpedro ECHEVARRIA[address] [place]ository [place] [address]Kdj: Number: [id number] (HP) Date:[id number] [address] [address]OS: 06/19/2018 BONY L Primary BONY L [place]bel [id number] Insurance:CARECED[facility] HOSPITALLisbeth [facility]OSPITALB: [place] [address] [place] [address] Number: Repository [id number]: [phone] [id number] [phone] (HP) Date:[id number] [address] [address]TN: 06/19/2018 Secondary NOT GIVENUNK Rebel Insurance:SELF PAY [facility] Number: Effective Repository Date:2018-06-19 03/20/2018 BONY L Primary BONY L [facility] [id number] E Insurance:[facility] Hospitalpedro ECHEVARRIA[address] Repository [place] [address]Yzy: Number: [id number] (HP) Date:[id number] [address] [address]UL: 02/17/2018 BONY Primary BONY Rebel [id number] Insurance:[facility]ITALB: [address] [id number], [place] Number: 123Effective Repository [address]Kaw: [phone]) Date:5265-49-66VY [phone] (HP) [address], [place] [address]PX: 02/17/2018 Secondary NOT GIVENUNK Rebel Insurance:SELF PAY [facility] Number: Effective Repository Date:2018-02-17 02/10/2018 BONY Primary BONY [place] [id number] Insurance:CARESOURCE SHENBERGERDOB: [address] FOR [facility] [id number], [place] Number: Repository [address]Ene: [phone] [id number] [phone] (HP) Date:[id number], [place] [address]JF: 02/10/2018 Secondary NOT GIVENUNK [place] Insurance:SELF PAY [facility] Number: Effective Repository Date:2018-02-10 01/25/2018 BONY Primary BONY [place] [id number] Insurance:CARESOURCEPo IZABELLADOB: [address] Number: [id number], [place] [id number] Repository [address]Tpq: [phone] Date:2018-01-25[phone] (HP) [address]ATTN: [place] [address]TT: 01/25/2018 Secondary NOT GIVENUNK [place] Insurance:SELF PAY [facility] Number: Effective Repository Date:2018-01-25 01/20/2018 BONY Primary BONY [place] [id number] Insurance:CARESOJESSIEEPo IZABELLADOB: [address] Number: [id number], [place] [id number] Repository [address]Nqp: ([phone] Date:2018-01-20[phone] (HP) 2430ATTN: [place] [address]GX: 01/20/2018 Secondary NOT GIVENUNK Rebel Insurance:SELF PAY [facility] Number: Effective Repository Date:2018-01-20 01/09/2018 BONY Primary BONY [place] [id number] Insurance:CAREURCEPo [facility]: [facility] Number: [id number], [place] [id number] Repository [address]Hkv: [phone]) Date:2017-12-14[phone] (HP) 8730ATTN: [place] [address]CK: 01/09/2018 Secondary NOT GIVENUNK Rebel Insurance:SELF PAY [facility] Number: Effective Repository Date:2018-01-09 12/21/2017 BONY L Primary RADHA Pa [facility]ENTERD[facility]: Insurance:Medical SHENLOS ANGELESDOB: [facility] Number: [id number] E System [facility], Effective [address] [place] [address] Repository [place] Date:2017-12-07Tel: [phone]: [id number] Name:Medical MutualPO ()Tel: ([phone]) (HP) [address]EFYOMUZJU, [place] [phone] () [id number]: 12/20/2017 BONY L Primary BONY Cassidy [facility]342 E Insurance:[address] Repository [place] [address]Thg: Number: [id number] (HP) Date:2788-57-86JP [address] [place] [address]AH: 11/08/2017 BONY L Primary BONY L [facility]342 E Insurance:[address] Repository [place] [address]Goh: Number: [id number] (HP) Date:3177-95-48QE [address] [place] [address]HJ: 08/24/2017 BONY L Primary BONY Cassidy [facility]342 E Insurance:Milagro ECHEVARRIA[address] [place]ository [place] [address]Sii: Number: [id number] (HP) Date:3986-50-32YT [address] [place] [address]MH: 07/21/2017 bony Primary BONY [facility]342 E Insurance:Mitchpedro ECHEVARRIA[address] Repository [place] [address]Hli: Number: [id number] (HP) Date:[address] [place] [address]CW: 07/13/2017 BONY L Primary BONY Cassidy [facility]342 Insurance:Rinku IZABELLADOB: [facility] Number: [id number], [place] [id number] Repository [address]Cgp: ([phone] Date:2017-07-13[phone] (HP) 87[address]ATTN: [place] [address]KF: 07/13/2017 Secondary NOT GIVENUNK Rebel Insurance:SELF PAY [facility] Number: Effective Repository Date:2017-07-13
== END ==
LOC: MTLAB 07:47
PROVIDERS: Family Provider Internal Medicine; PCP Internal Medicine; Referring Provider Internal Medicine; Visit Provider Internal Medicine
DX: I10 Essential (primary) hypertension (principal); E11.9 Type 2 diabetes mellitus without complications; E78.5 Hyperlipidemia, unspecified
CPT/HCPCS: 36415; 80053; 83036

== ENCOUNTER → 2019-03-13 09:47 | Outpatient (CLI) | payer OTHER, SELFPAY ==
[2019-02-28 10:59] VITALS: BMI 37.3
[2019-03-13 12:25] LABS: Hematocrit 36.8 % (40-54); Hemoglobin 12.4 g/dL (13.0-16.5); Mean Corp Hgb Conc 33.7 g/dL (32-36); Mean Corpuscular Hgb 28.8 pg (27.0-32.0); Mean Corpuscular Volume 85.6 fL (80-94); Mean Platelet Vol. 9.7 fl (6.2-12.0); Platelet Count 349 K/mm3 (150-450); RBC Distribution Width CV 12.3 % (11.6-14.6); RBC Distribution Width SD 37.9 fl (35.1-43.9); White Blood Count 6.4 K/mm3 (4.4-11.0)
[2019-03-13 12:44] LABS: Microalbumin,Random Urine 14.6 mg/L (NO RANGE EST.); Microalbumin:Creatinine Ratio 18.4 mg/g CRE (<30 mg/g CRE)
[2019-03-13 13:02] LABS: ALB/GLOB Ratio 1.2 RATIO (0.9-2.4); AST(SGOT) 17 U/L (15-37); Alanine Aminotransfer ALT/SGPT 38 U/L (16-61); Alkaline Phosphatase 99 U/L (45-117); Anion Gap 6 (5-15); BUN 24 mg/dL (7-18); BUN/Creat Ratio 30.9 RATIO (10-20); Calcium,Total 9.2 mg/dL (8.5-10.1); Chloride 105 mmol/L (98-107); Cholesterol 147 mg/dL (200); Creatinine, Serum 0.78 mg/dL (0.70-1.30); EST Glomerular Filtration Rate 110 mL/min (>60); Est Glom Filt Rate - Afr Amer 133 mL/min (>60); Globulin 3.2 g/dL (2.2-4.2); Glucose 110 mg/dL (74-106); High Density Lipoprotein 44 mg/dL; PSA,Total - Annual Screen 1.27 ng/mL (0.00-4.00); Potassium 3.9 mmol/L (3.5-5.1); Protein, Total 7.2 g/dL (6.4-8.2); Sodium Level 139 mmol/L (136-145); Thyroid Stim Hormone (TSH) 0.46 uIU/mL (0.358-3.74); Triglycerides 242 mg/dL; Very Low Density Lipoprotein 48 mg/dL (5-40)
== END ==
PROVIDERS: Family Provider Internal Medicine; PCP Internal Medicine; Visit Provider Nurse Practitioner Family
DX: E11.9 Type 2 diabetes mellitus without complications (principal); I10 Essential (primary) hypertension; Z12.5 Encounter for screening for malignant neoplasm of prostate
CPT/HCPCS: 36415; 80053; 80061; 82043; 82570; 84153; 84443; 85027; G0103

== ENCOUNTER → 2019-12-12 10:20 | Outpatient (CLI) | payer OTHER, SELFPAY ==
[2019-12-12 09:55] VITALS: BMI 39.9
[2019-12-12 12:52] LABS: Absolute Lymphocyte Count 1.91 X10^3/uL (0.83-4.51); Absolute Neutrophil Count 3.8 X10^3/uL (2.0-7.7); Basophil# 0.02 X10^3/uL; Basophil% 0.3 % (0-1); Eosinophil# 0.15 X10^3/uL; Eosinophils% 2.3 % (0-5); Hematocrit 38.9 % (40-54); Hemoglobin 12.7 g/dL (13.0-16.5); Lymphocyte # 1.91 X10^3/ul (4.0); Lymphocyte % 29.7 % (19-41); Mean Corp Hgb Conc 32.6 g/dL (32-36); Mean Corpuscular Hgb 29.4 pg (27.0-32.0); Mean Platelet Vol. 9.9 fl (6.2-12.0); Monocyte# 0.49 X10^3/uL; Monocyte% 7.6 % (0-10); NRBC Flagged by Analyzer 0 % (0-5); Neutrophil # 3.83 X10^3/uL (2.7-7.7); Neutrophil % 59.6 % (47-70); Platelet Count 308 K/mm3 (150-450); RBC Distribution Width CV 12.4 % (11.6-14.6); RBC Distribution Width SD 40.6 fl (35.1-43.9); Red Blood Count 4.32 M/mm3 (4.6-6.2); White Blood Count 6.4 K/mm3 (4.4-11.0)
[2019-12-12 13:09] LABS: Microalbumin:Creatinine Ratio 13.6 mg/g CRE (<30 mg/g CRE)
[2019-12-12 14:13] LABS: ALB/GLOB Ratio 1.2 RATIO (0.9-2.4); AST(SGOT) 17 U/L (15-37); Alanine Aminotransfer ALT/SGPT 39 U/L (16-61); Alkaline Phosphatase 92 U/L (45-117); Anion Gap 9 (5-15); BUN 26 mg/dL (7-18); BUN/Creat Ratio 29.4 RATIO (10-20); Calcium,Total 9.4 mg/dL (8.5-10.1); Chloride 102 mmol/L (98-107); Cholesterol 126 mg/dL (200); Creatinine, Serum 0.88 mg/dL (0.70-1.30); EST Glomerular Filtration Rate 95 mL/min (>60); Est Glom Filt Rate - Afr Amer 114 mL/min (>60); Globulin 3.2 g/dL (2.2-4.2); Glucose 167 mg/dL (74-106); High Density Lipoprotein 40 mg/dL; Potassium 4.1 mmol/L (3.5-5.1); Protein, Total 7.2 g/dL (6.4-8.2); Sodium Level 138 mmol/L (136-145); Thyroid Stim Hormone (TSH) 0.27 uIU/mL (0.358-3.74); Triglycerides 153 mg/dL; Very Low Density Lipoprotein 31 mg/dL (5-40)
== END ==
PROVIDERS: PCP Internal Medicine; Referring Provider Nurse Practitioner Family; Visit Provider Nurse Practitioner Family
DX: E11.9 Type 2 diabetes mellitus without complications (principal); E78.5 Hyperlipidemia, unspecified; I10 Essential (primary) hypertension
CPT/HCPCS: 36415; 80053; 80061; 82043; 82570; 84443; 85025

== ENCOUNTER → 2020-08-22 11:41 | Outpatient (CLI) | payer OTHER, SELFPAY ==
[2020-08-22 10:33] VITALS: BMI 40.2
[2020-08-22 15:13] LABS: Hematocrit 41.3 % (40-54); Hemoglobin 13.6 g/dL (13.0-16.5); Mean Corp Hgb Conc 32.9 g/dL (32-36); Mean Corpuscular Hgb 29.6 pg (27.0-32.0); Mean Platelet Vol. 10.2 fl (6.2-12.0); Platelet Count 333 K/mm3 (150-450); RBC Distribution Width SD 39.6 fl (35.1-43.9); Red Blood Count 4.59 M/mm3 (4.6-6.2); White Blood Count 7.1 K/mm3 (4.4-11.0)
[2020-08-22 15:20] LABS: Vitamin D,25 Hydroxy 26.3 ng/mL
[2020-08-22 15:26] LABS: Anion Gap 7 (5-15); BUN 21 mg/dL (7-18); BUN/Creat Ratio 21.8 RATIO (10-20); Calcium,Total 9.8 mg/dL (8.5-10.1); Chloride 102 mmol/L (98-107); Cholesterol 167 mg/dL (200); Creatinine, Serum 0.96 mg/dL (0.70-1.30); EST Glomerular Filtration Rate 85 mL/min (>60); Est Glom Filt Rate - Afr Amer 103 mL/min (>60); Glucose 240 mg/dL (74-106); High Density Lipoprotein 43 mg/dL; Potassium 4.1 mmol/L (3.5-5.1); Sodium Level 140 mmol/L (136-145); T4 Free Direct 0.91 ng/dL (0.76-1.46); Thyroid Stim Hormone (TSH) 0.37 uIU/mL (0.358-3.74); Triglycerides 290 mg/dL; Very Low Density Lipoprotein 58 mg/dL (5-40)
[2020-08-22 16:06] LABS: Vitamin B12 > 2000 pg/mL (211-911)
== END ==
PROVIDERS: PCP Internal Medicine; Referring Provider Nurse Practitioner Family; Visit Provider Nurse Practitioner Family
DX: I10 Essential (primary) hypertension (principal); E78.5 Hyperlipidemia, unspecified; E11.9 Type 2 diabetes mellitus without complications; E56.9 Vitamin deficiency, unspecified; R79.89 Other specified abnormal findings of blood chemistry
CPT/HCPCS: 36415; 80048; 80061; 82306; 82607; 84439; 84443; 85027

== ENCOUNTER → 2020-11-04 13:38 | Outpatient (CLI) | payer OTHER, SELFPAY ==
[2020-09-10 08:57] VITALS: BMI 39.5
--- NOTE | 2020-11-04 13:45 | CT_ITS ---
STUDY: CT SCAN LOWER EXTREMITY LEFT.[facility] protocol. REASON FOR EXAM: Male, [address] TEMPLATING FOR LEFT TKA RADIATION DOSAGE (If Supplied By Facility): CTDIvol = ( 18.76 ) mGy, DLP = ( 2282.72 ) mGycm. Individualized dose optimization techniques were used for this CT.? TECHNIQUE: Multiple axial tomographic images were obtained of the left hip joint and left knee joint. Coronal and sagittal reconstruction were obtained as well. COMPARISON: None. FINDINGS: Imaging of the left hip joint was obtained. No significant abnormality is seen. Imaging of the left knee joint was then obtained. There is a marked degree of joint space narrowing with degenerative spur formation involving the medial compartment of the knee joint. Mild degree of joint space narrowing involving the lateral compartment of the knee joint with degenerative spurring of the distal femur. There is a moderate degree of joint space narrowing with degenerative spur formation of the patellofemoral joint. There is a 5 mm bony density in the midportion of the knee joint suggestive of a possible loose body. CT/Extremity Lower without Contra IMPRESSION: Marked degree of joint space narrowing of the medial compartment of the knee joint as well as moderate degree of joint space narrowing in the patellofemoral joint. Findings suggestive of a 5 mm loose body in the synovial cavity. Electronically Signed: Roe Kwon MD at 15:19 EDT , Service support ,
== END ==
PROVIDERS: PCP Internal Medicine; Referring Provider Orthopaedic Surgery; Visit Provider Orthopaedic Surgery
DX: M17.12 Unilateral primary osteoarthritis, left knee (principal)
CPT/HCPCS: 73700

== ENCOUNTER → 2020-11-05 13:54 | Outpatient (CLI) | payer OTHER, SELFPAY ==
[2020-11-05 13:26] VITALS: BMI 39.5
[2020-11-05 15:07] LABS: Absolute Lymphocyte Count 2.26 X10^3/uL (0.83-4.51); Absolute Neutrophil Count 5.3 X10^3/uL (2.0-7.7); Basophil# 0.02 X10^3/uL; Basophil% 0.2 % (0-1); Eosinophil# 0.11 X10^3/uL; Eosinophils% 1.3 % (0-5); Hematocrit 40.7 % (40-54); Hemoglobin 13.6 g/dL (13.0-16.5); Lymphocyte # 2.26 X10^3/ul (0.83-4.51); Lymphocyte % 27.2 % (19-41); Mean Corp Hgb Conc 33.4 g/dL (32-36); Mean Corpuscular Hgb 29.3 pg (27.0-32.0); Mean Corpuscular Volume 87.7 fL (80-94); Mean Platelet Vol. 9.7 fl (6.2-12.0); Monocyte# 0.58 X10^3/uL; NRBC Flagged by Analyzer 0 % (0-5); Neutrophil % 63.8 % (47-70); Platelet Count 339 K/mm3 (150-450); RBC Distribution Width CV 11.9 % (11.6-14.6); RBC Distribution Width SD 38.2 fl (35.1-43.9); Red Blood Count 4.64 M/mm3 (4.6-6.2); White Blood Count 8.3 K/mm3 (4.4-11.0)
[2020-11-05 15:32] LABS: Hemoglobin A1c 6.9 % (3.8-5.6)
[2020-11-05 15:35] LABS: Microalbumin,Random Urine 10.1 mg/L (NO RANGE EST.); Microalbumin:Creatinine Ratio 11.9 mg/g CRE (<30 mg/g CRE)
[2020-11-05 16:22] LABS: ALB/GLOB Ratio 1.2 RATIO (0.9-2.4); AST(SGOT) 27 U/L (15-37); Alanine Aminotransfer ALT/SGPT 49 U/L (16-61); Albumin, Serum 4.2 g/dL (3.2-5.0); Alkaline Phosphatase 107 U/L (45-117); Anion Gap 7 (5-15); BUN 19 mg/dL (7-18); BUN/Creat Ratio 22.3 RATIO (10-20); Calcium,Total 9.8 mg/dL (8.5-10.1); Chloride 103 mmol/L (98-107); Creatinine, Serum 0.85 mg/dL (0.70-1.30); EST Glomerular Filtration Rate 98 mL/min (>60); Est Glom Filt Rate - Afr Amer 119 mL/min (>60); Globulin 3.4 g/dL (2.2-4.2); Glucose 122 mg/dL (74-106); Potassium 4.1 mmol/L (3.5-5.1); Protein, Total 7.6 g/dL (6.4-8.2); Sodium Level 140 mmol/L (136-145); Thyroid Stim Hormone (TSH) 0.53 uIU/mL (0.358-3.74)
== END ==
PROVIDERS: PCP Internal Medicine; Referring Provider Nurse Practitioner Family; Visit Provider Nurse Practitioner Family
DX: Z01.818 Encounter for other preprocedural examination (principal); M17.10 Unilateral primary osteoarthritis, unspecified knee
CPT/HCPCS: 36415; 80053; 82043; 82570; 83036; 84443; 85025

== ENCOUNTER 2020-11-25 05:21 | Day surgery (SDC) | payer OTHER, SELFPAY ==
[2020-09-10 08:57] VITALS: BMI 39.5
[2020-11-05 13:26] VITALS: BMI 39.5
--- NOTE | 2020-11-10 09:58 | EKG12_ITS ---
Test Reason : PREOP Blood Pressure : / mmHG Vent. Rate : 092 BPM Atrial Rate : 092 BPM P-R Int : 164 ms QRS Dur : 084 ms QT Int : 350 ms P-R-T Axes : 037 -09 043 degrees QTc Int : 432 ms Normal sinus rhythm Normal ECG Confirmed by DONAL LYNCH, JEREMI ([id number]), social media editor JOSSY TURNER ([id number]) on 11/11/2020 9:03:55 AM Referred By: Tre Rhoades Confirmed By:JEREMI MANSFIELD MD
--- NOTE | 2020-11-10 10:03 | RAD_ITS ---
STUDY: X-RAY CHEST REASON FOR EXAM: Male, 59 years old. Preop TECHNIQUE: PA and lateral views of the chest. COMPARISON: None. FINDINGS: Mild increased linear markings at the lung bases likely more prominent on the right side suggestive of mild basilar scarring. The lungs are clear and expanded. There is no demonstrated pleural abnormality. Normal size heart. Normal mediastinum and shy. Normal visualized pulmonary arteries. Normal visualized aortic arch and descending thoracic aorta. There are diffuse degenerative changes of the visualized thoracic spine. Normal visualized ribs, clavicles, and shoulders. There is no demonstrated abnormality of the visualized soft tissue structures of the upper abdomen. RAD/Chest PA and Lateral IMPRESSION: Findings suggestive of mild scarring at the lung bases more prominent on the right side. Electronically Signed: Roe Kwon MD at 12:40 EDT , Service support ,
[2020-11-12 11:38] LABS: Hematocrit 38.9 % (40-54); Hemoglobin 12.8 g/dL (13.0-16.5); Mean Corp Hgb Conc 32.9 g/dL (32-36); Mean Corpuscular Hgb 29.1 pg (27.0-32.0); Mean Corpuscular Volume 88.4 fL (80-94); Platelet Count 325 K/mm3 (150-450); RBC Distribution Width CV 11.9 % (11.6-14.6); RBC Distribution Width SD 38.2 fl (35.1-43.9); White Blood Count 6.2 K/mm3 (4.4-11.0)
[2020-11-12 11:49] LABS: Prothrombin Time (Protime)PT. 12.4 SECONDS (11.7-14.9)
[2020-11-12 11:50] LABS: Partial Thromboplast Time 29.2 Seconds (24.1-36.2)
[2020-11-12 12:06] LABS: Magnesium 1.8 mg/dL (1.6-2.6)
[2020-11-13 10:21] LABS: Fructosamine 291 umol/L (0-285)
--- NOTE | 2020-11-24 15:48 | PCM.HP.BLA ---
History and Physical Date of Admission: 11/25/20 Date of Service: 09/10/20 MR#:[id number]:[id number]: BONY PAREKH [facility] #:[id number]:1960 Provider:Dr. Tre Rhoades, DOAge/Sex: 59/M [facility] [place]Signed Intake Vital Signs 09/10/20 Height 5 ft 6 in 09/10/20 Weight: 245 lb 09/10/20 BMI 39.5 Intake Visit Reasons: Bilat knee pain Accompanied by: Spouse Is patient in pain?: Yes Pain scale (1-10): 10 Allergies No Known Allergies Allergy (Verified 09/10/20 08:57) Medications ibuprofen 800 mg-famotidine 26.6 mg tablet 1 tab PO TID 01/09/18 [History Confirmed 09/10/20] gabapentin 300 mg capsule 600 mg PO TID #90 cap 02/22/18 [Rx Confirmed 09/10/20] glimepiride 4 mg tablet 4 mg PO BID #180 tab 10/05/19 [Rx Confirmed 09/10/20] duloxetine 30 mg capsule,delayed release 30 mg PO BID #180 cap 11/06/19 [Rx Confirmed 09/10/20] metformin 1,000 mg tablet 1,000 mg PO BID #180 tab 11/06/19 [Rx Confirmed 09/10/20] albuterol sulfate 90 mcg/actuation aerosol inhaler 2 puff INHALATION Q6H PRN #8.5 g 12/07/19 [Rx Confirmed 09/10/20] bupropion HCl 300 mg 24 hr tablet, extended release 300 mg PO QAM #90 tab 01/31/20 [Rx Confirmed 09/10/20] doxazosin 2 mg tablet 2 mg PO BID #180 tab 04/30/20 [Rx Confirmed 09/10/20] hydrochlorothiazide 25 mg tablet 25 mg PO DAILY #90 tab 04/30/20 [Rx Confirmed 09/10/20] lisinopril 40 mg tablet 40 mg PO QPM #90 tab 04/30/20 [Rx Confirmed 09/10/20] pioglitazone 30 mg tablet 30 mg PO QDAY #90 tab 04/30/20 [Rx Confirmed 09/10/20] beclomethasone dipropionate 40 mcg/actuation HFA breath activated aerosol 2 inh INHALATION BID #10.6 g 07/14/20 [Rx Confirmed 09/10/20] amlodipine 10 mg tablet 10 mg PO DAILY #30 tab 07/31/20 [Rx Confirmed 09/10/20] rosuvastatin 10 mg tablet 10 mg PO DAILY #60 tablet 08/20/20 [Rx Confirmed 09/10/20] cyanocobalamin (vitamin B-12) 1,000 mcg capsule 1,000 mcg PO DAILY 08/22/20 [History Confirmed 09/10/20] semaglutide 0.25 mg SC QWEEK 90 Days #1.5 ml 08/22/20 [Rx Confirmed 09/10/20] cetirizine 10 mg capsule 10 mg PO DAILY PRN 09/10/20 [History Confirmed 09/10/20] lactobacillus combination no.4 3 billion cell capsule 3,000 mmu cells PO DAILY 09/10/20 [History Confirmed 09/10/20] PFSH Medical History Asthma (Chronic) Neuropathy (Chronic) Hyperlipemia (Chronic) Hypertension (Chronic) Chronic pain (Chronic) Type 2 diabetes mellitus (Chronic) Arthritis (Chronic) History of traumatic head injury (Acute) Surgical History History of foot surgery (Acute) Family History Mother Hypertension Father Hyperlipemia Aunt Diabetes Social History (Updated 09/10/20 @ 10:[address] Tre Rhoades DO) household members: spouse housing: house Smoking Status: Former smoker how long ago did patient quit smokin alcohol intake: current alcohol intake frequency: holidays/special occasions only substance use type: does not use what type of physical activity do you participate in: none do you feel safe at home: Yes HPI Bilat knee pain: Details: Parts of this documentation were recorded by a scribe, this documentation accurately reflects the service provided and the decisions made by me, Dr. Tre Rhoades DO 09/10/20 0753. BONY PAREKH is a 59 year old M here today to establish as a new patient. Referred by Dr. Mary for bilateral knee pain. Onset: five years, worsening. Patient voiced in the past two years he has been going to pain management. Patient has been getting injections and nerve burning as well as viscosupplementation. Patient voiced the gel injection approx one month ago, did not provide any relief. Patient and spouse cannot recall which gel injection he received, however voiced it was just one. Voiced he has tried and failed knee bracing. Patient is currently on gabapentin, ibuprofen and oxycodone prescribed by Dr. Silva in pain management. Pain left knee: anterior and medial pain. Denies lateral and posterior pain. Patient voices popping, clicking and snapping. Voiced his left knee has gave out on him. Pain with his right knee: anterior and medial pain. Denies lateral and posterior pain. Voiced popping, clicking and snapping as well. Right knee has gave out at times, but not as severe as his left. Denies radiation of pain bilaterally. Patient denies previous formal physical therapy, previous injures and surgeries. Denies previous MRI's bilaterally. Denies previous hip surgery. Pain with stairs. ROS Const Denies system reviewed and no additional complaints, except as docu, Denies chills, Denies fatigue, Denies headache(s), Reports weakness ENT Denies headache(s) Card Denies system reviewed and no additional complaints, except as docu, Denies chest pain, Denies shortness of breath Resp Denies system reviewed and no additional complaints, except as docu, Denies cough, Denies shortness of breath GI Denies system reviewed and no additional complaints, except as docu, Denies abdominal pain, Denies constipation, Denies loose stools, Denies incontinent of stools, Denies nausea, Denies vomiting Denies system reviewed and no additional complaints, except as docu, Denies urinary incontinence Musc Reports system reviewed and no additional complaints, except as docu, Reports joint pain, Denies joint swelling, Denies numbness, Reports stiffness, Denies tingling Neuro Yes system reviewed and no additional complaints, except as docu, No headache(s), No numbness, No tingling, Yes weakness Endo Denies fatigue Ortho Exam General General: Yes no acute distress Neurologic: Yes alert Psychologic: Yes reasonable and appropriate Right Knee Skin/Wound: No erythema, No ecchymosis, No swelling Knee ROM: Yes ROM-Extension -20 to 0, No ROM-Flexion 0-140 (118) Examination: Yes Med jt line tenderness, Yes Lat jt line tenderness Stability: NML: Anterior Drawer, NML: Posterior Drawer, NML: Valgus 0, NML: Valgus 30, NML: Varus 0 Patella Translation: 1 Apprehension with Lateral Translation: No Patella Grind: Yes KNEE: no joint effusion fixed varus Left Knee Skin/Wound: No ecchymosis, No erythema, No swelling Knee ROM: Yes ROM-Extension -20 to 0, No ROM-Flexion 0-140 (115) Examination: Yes med jt line tenderness, Yes Lat jt line tenderness (mild), Yes Crepitus Stability: NML: Anterior Drawer, NML: Posterior Drawer, NML: Valgus 0, NML: Valgus 30, NML: Varus 0, NML: Varus 30 Apprehension with Lateral Translation: No Patella Translation: 1 Patella Grind: Yes KNEE: no joint effusion fixed varus deformity Supplemental Info 09/10/2020 x-ray left knee advanced knee arthrosis with varus deformity patellofemoral and medial compartments 09/10/2020 x-ray right knee: Similar to left to a lesser degree Assessment & Plan Problems 1. Primary osteoarthritis of both knees M17.0 Plan Personally reviewed the patient's medical history, medications, surgeries and recent exams if available. Obtained X-rays of patient's bilateral knees. Personally reviewed X-rays. See chart for further details. Advised patient he has advanced knee arthrosis worse on the left. Patient is bone on bone. Discussed treatment options: repeat steroid injections, formal physical therapy, bracing, weight loss and/or viscosupplementation. Demonstrated on a knee model on discussing a knee replacement. Explained and educated on where incisions are made for surgeries. Patient would start physical therapy in the first week, also educated on preventing stiffness to avoid manipulation. Explained patient will be on a blood thinner post-op for two weeks. Patient can take Tylenol for pain, however seven days prior to surgery he needs to stop NSAIDs. Recovery time, is said you are happy you had it done by three months and will continue to improve for up to two years. Discussed and educated on IOVERA treatment prior to surgery. Explained patient's last A1C was fine to keep up with his monitoring of his blood sugars. Advised patient he would need to have his pain medication managed by his pain management doctor out of [facility], Dr. Silva as he is already on 7.5 mg of oxycodone 3 times daily. Spoke with Nursing staff of Dr. Silva, patient recieved Gel-One on 08/13/2020. Patient does have to wait three month from his last injection to have surgery. Will sign surgery consent during his IOVERA treatment. All questions answered. Patient in agreement of plan. Risks, benefits and alternatives of surgery reviewed including but not limited to bleeding, infection, nerve, artery and/or tissue damage, fracture, VTE, mechanical feel of the knee, continued pain, stiffness and expected post-operative course. Follow up with IOVERA or sooner if pain, swelling, numbness or associated symptoms, or concerns develop. Will forward a copy of today's note to Dr. Mary Orders Orders: Knee 4 or More Views Today M25.561 Knee 4 or More Views Today M25.562 Coding Level of Care Code 92420 Diagnoses Primary osteoarthritis of both knees M17.0 09/10/20 1029<Electronically signed by Tre Rhoades DO>Date Tre Rhoades DO Cosigner Signature:Date I have re-examined the patient. There are no clinical changes since date of exam
[2020-11-25] VITALS (9 sets, daily range): BP systolic 121–152; BP diastolic 63–81; PULSE 77–88; RESP 16; TEMP 36.2–37.4; O2SAT 94–99; BMI 40.9
[2020-11-25] MEDS: Lactated Ringers 1,000 ML 100 ML IV (05:35)
[2020-11-25] MEDS: Celecoxib 200 MG Capsule 400 MG PO (06:22)
[2020-11-25] MEDS: Scopolamine 1mg/72hr Patch 1 PATCH TD (06:23)
[2020-11-25] MEDS: Insulin Lispro 100 UNIT/ML INSULN.PEN SC ×2 (06:23→10:15)
[2020-11-25] MEDS: Acetaminophen 500 MG Tablet 1000 MG PO ×2 (06:23→13:49)
[2020-11-25] MEDS: Gabapentin 600 MG Tablet PO (06:23)
[2020-11-25 06:36] LABS: Bedside Glucose 181 mg/dL (70-110)
[2020-11-25] MEDS: Cefazolin 2 GM in 0.9% Normal Saline 100 ML IV (07:36)
--- NOTE | 2020-11-25 07:45 | KNEE_PTH ---
PATIENT: BONY PAREKH LOC: [facility] [place] U#:[id number] AGE/SX: 59/M ROOM: RE11/25/[address]: Dr. Tre Rhoades DO : 1960 BED: DIS: 11/25/2020 SPEC #: [id number] RECD: 11/25/20 10:27 STATUS: MARIA GUADALUPE REJosefa #: [id number] MICHELLE: 11/25/20 07:[address]: Tre Rhoades DEPT: SURGICAL PATHOLOGY RECD BY: Jodie Estrada ENTERED: 11/25/20 13:01 SP TYPE: TOTAL KNEE OTHR DR: Dr. Lianne Mary MD Tissues: Knee, NOS Procedures: Decalcification bone/plaque Surgery Specimen Level IV HEADER OPERATION: ERAS, total knee replacement robotic arm assist PRE-OP DIAGNOSIS: Osteoarthritis of both knees TISSUE SUBMITTED: Bone and soft tissue left knee MICROSCOPIC DIAGNOSIS Bone and soft tissue, left knee, total knee replacement/resection: Pieces of bone with degenerative osteoarthritic changes. Fragments of fibrocartilaginous tissue. MARII:bill 11/28/2020 MICROSCOPIC DESCRIPTION Slides are reviewed. GROSS DESCRIPTION Received is one container designated bone and soft tissue left knee. The specimen consists of multiple fragments of church-yellow bone measuring in aggregate 11 x 10 x 3 cm. Also in the specimen container are multiple fragments of yellow-white soft tissue predominantly consisting of fibrocartilaginous tissue measuring in aggregate 6.5 x 1.5 x 1 cm. A number of bony fragments contain articular surfaces consistent with tibial plateau and femoral condyle and displaying prominent osteophyte formation, eburnation, and bone erosion. [employer] sections are submitted in three cassettes as follows: 1??fibrocartilaginous tissue, 2 & 3 - bone after decalcification. / MARII:bill 11/25/20 TC:5 CPT: 59793, 15213
[2020-11-25] MEDS: dexAMETHasone 10 MG/ML Vial IV (08:04)
[2020-11-25] MEDS: Epinephrine (1 mg/ml) 1 MG/ML VIAL (09:26)
[2020-11-25] MEDS: Betamethasone/Betamethasone 30 MG/5 ML Vial (09:27)
[2020-11-25] MEDS: 0.9% Normal Saline (Pres. free 10 ML Vial (09:27)
[2020-11-25] MEDS: Bupivacaine Mpf 0.5% 30 ML VIAL (09:27)
--- NOTE | 2020-11-25 09:58 | RAD_ITS ---
STUDY: X-RAY - LEFT KNEE REASON FOR EXAM: Postop left total knee arthroplasty. TECHNIQUE: 2 view(s) of the knee. COMPARISON: Radiographs 09/10/2020. FINDINGS: There is a left total knee arthroplasty without evidence of complication. There is postoperative gas in the soft tissues and overlying skin palmer. RAD/Knee 1 or 2 Views IMPRESSION: Uncomplicated left total knee arthroplasty. Electronically Signed: Onel Elliott MD at 15:00 EDT Tel , Service support ,
--- NOTE | 2020-11-25 10:00 | OP.PCM_ITS ---
Report of Operation Date of Procedure: 11/25/20 Description of Surgical Findings:: Preoperative diagnosis: Left knee DJD Postoperative diagnosis: Same Procedure: Left total knee arthroplasty CT guided Robotic Assisted Implant: Arnaud triathlon press fit femoral component size 4, press-fit tibial baseplate size 5, press fit asymmetric patella size 35, polyethylene X3 size 9 CS Anesthesia: Spinal with adductor canal block Tourniquet time: 51 minutes at 300 mmHg Complications: None Condition: Stable to PACU Estimated blood loss: 150 cc Indication for procedure: This is a 59-year-old male with long standing degenerative joint disease of the knee who has failed conservative treatment and wished to proceed with elective total knee arthroplasty. Risk benefits and alternatives were reviewed including; risk of bleeding, infection, nerve artery and tissue damage, continued pain, postoperative stiffness, venous thromboembolism, need for postoperative rehabilitation, mechanical feel to the knee, and expected postoperative course. The operative CT and templating was performed with component sizing Procedure: The patient was met in the preoperative holding area. The operative extremity was identified by both patient and physician and was marked. Patient was met by anesthesia. An adductor canal block was placed by anesthesia postoperatively the patient was brought back to the operating room on a wheeled cart and transferred to the operating table in the supine position. Anesthesia was started. A well-padded tourniquet was placed on the operative extremity. The patient was prepped and draped in the usual sterile fashion. A timeout was called to ensure the proper patient procedure and extremity were being contemplated. An Esmarch was used to exsanguinate the extremity. The tourniquet was inflated. A 10 blade scalpel was used to make a midline incision down through the skin and subcutaneous tissue. Skin retractors placed. Bovie was used to perform meticulous hemostasis. full-thickness flaps were elevated medial and lateral along the joint capsule. A deep blade scalpel was used to perform a medial parapatellar arthrotomy. The knee was brought to full extension. A Bovie was used to release the soft tissues off the most proximal aspect of the medial tibial plateau, a three-quarter inch curved osteotome was also used for this process. The infrapatellar fat pad was excised. The superior fat pad was excised partially anteriorolateraly and portion the anterioromedial pad was elevated from the femur. At this point our intra- articular femoral array was placed of a 45 degree angle proximal and posterior to the medial epicondyle. Our tibial array was placed greater than 1 hands breath below the incision at a 20 degree angle stab incisions were used for this case were attached and checked with the robotic software. Tourniquet was let down. At this point registration valenzuela were taken throughout the knee as well as checkpoints placed in the femur and tibia once the knee was registered then tensioned the medial and lateral ligaments in extension and 90 degrees of flexion. We then used these numbers to adjust our components within parameters to balance the knee in both flexion and extension once this was done on our monitor we then proceeded with using the robotic arm to make our tibial plateau cut and anterior posterior and chamfer cuts and distal on the femur we then trialed and achieved the desired plan with a well-balanced knee. Lug holes were drilled in the femur the tibia preparation was completed with a fin punch and the patella was prepared by first using a caliper to ensure sufficient bone stock and a patellar reamer to remove the desired amount of bone locals were drilled for an asymmetric poly-. We then brought the knee through range of motion with excellent patellar tracking. We thoroughly irrigated the knee with a trial components were removed a posterior capsular injection with her standard cocktail was performed the aqua Mantis was also used to aid in hemostasis. Betadine rinse was allowed to sit and washed out components were press-fit into place. Aricept rinse was then used followed by several more rate liters of irrigation after it was allowed to sit. Joint capsule was closed with #1 Ethibond [id number] followed by Vicryl in the subcutaneous tissues staple in the skin arrays and checkpoints were removed prior to closure all counts were correct stab incisions were closed with a stable standard dressing in the form of Mepilex for the main incision Xeroform 4 x 4 and Tegaderm over pin site holes. Thigh-high SHIRA hose applied over top of dressing. Patient tolerated the procedure well and was directed to PACU in stable condition no intraoperative complications
--- NOTE | 2020-11-25 10:10 | PCM.DC ---
Discharge Instructions Diet Discharge Diet: 2000 Calorie Control Diet (High sugar diet increases risk of infection keep sweets to a minimum) Activity Weight Bearing Status: Weight bearing as tolerated Keep extremity elevated above heart level: Operative Extremity Dressing / Incision Additional Dressing/Incision Instructions:: Ice and elevate one week while not ambulating. Ambulation is encouraged, however do not overdo it as too much activity will slow recovery and increased swelling, no strenuous activity. Weightbearing as tolerated. Use assistive devise for stability. Encourage FULL knee extension and flexion 1 time EVERY time you get up and down and MULTIPLE times per day. No showering 72 hours after surgery. Begin showering postop day #3. Remove the dressing prior to shower and gently wash with warm water and antibacterial soap then pat dry and place abdominal pad (or plain gauze) and SHIRA hose over top. This is to be done daily. Do not submerge for 3 weeks. If not showering daily after the initial 72 hours then you must clean incision and change dressing daily. Do not allow animals near the incision area. Keep clean. Follow anticoagulation recommendations as prescribed. Do not take any NSAIDs while on blood thinner. Do not take any additional narcotic pain medication other than what was prescribed on your surgery day without discussing with physician. Narcotic medication can be addictive. Do not drink alcohol while taking narcotics. Start physical therapy. If you are not currently scheduled for physical therapy or you are unsure of appointment time please call office [facility] to arrange. Call Dr. Rhoades with any concerns. Follow Up Care Please Follow Up With: Tre Rhoades DO When: 2 weeks Test Results: Test results from this visit will be discussed in further detail at your follow-up appointment, if applicable. Discharge Plan Admission Attending Provider: Tre Rhoades Primary Care Provider: Lianne Mary Discharge Orders/Prescriptions Prescriptions: New acetaminophen [acetaminophen] 500 MG tablet 1,000 mg PO Q6H PRN Qty: 100 RF: 0 cephalexin [cephalexin] 500 MG capsule 1,000 mg PO Q8 Qty: 4 RF: 0 oxycodone 5 mg capsule 5 mg PO Q4H PRN (Reason: pain) 7 Days Qty: 60 RF: 0 Eliquis 2.5 MG tablet 2.5 mg PO BID Qty: 30 RF: 0 ondansetron HCl [Zofran] 4 MG tablet 4 mg PO Q6H PRN PRN (Reason: Nausea) 5 Days Qty: 5 RF: 0 Continued cyanocobalamin (vitamin B-12) 1,000 mcg capsule 1,000 mcg PO DAILY RF: 0 Probiotic 3 billion cell capsule 3,000 mmu cells PO DAILY RF: 0 Allergy Relief (cetirizine) 10 mg capsule 10 mg PO DAILY PRN (Reason: ALLERGIES) RF: 0 gabapentin 300 mg capsule 600 mg PO TID Qty: 90 RF: 1 metformin 1,000 mg tablet 1,000 mg PO BID Qty: 180 RF: 3 albuterol sulfate 90 mcg/actuation HFA aerosol inhaler 2 puff INHALATION Q6H PRN (Reason: shortness of breath or wheezing) Qty: 8.5 RF: 3 bupropion HCl 300 mg tablet extended release 24 hr 300 mg PO QAM Qty: 90 RF: 3 hydrochlorothiazide 25 mg tablet 25 mg PO DAILY Qty: 90 RF: 3 lisinopril 40 mg tablet 40 mg PO QPM Qty: 90 RF: 3 Qvar RediHaler 40 mcg/actuation HFA aerosol breath activated 2 inh INHALATION BID Qty: 10.6 RF: 3 glimepiride 4 mg tablet 4 mg PO BID Qty: 180 RF: 3 duloxetine 30 mg capsule,delayed release(DR/EC) 30 mg PO BID Qty: 180 RF: 3 amlodipine 10 mg tablet 10 mg PO DAILY Qty: 90 RF: 3 doxazosin 2 mg tablet 2 mg PO BID Qty: 180 RF: 3 pioglitazone 30 mg tablet 30 mg PO QDAY Qty: 90 RF: 3 rosuvastatin 10 mg tablet 10 mg PO DAILY Qty: 90 RF: 3 Ozempic 0.25 mg or 0.5 mg(2 mg/1.5 mL) pen injector 0.25 mg SC FR Qty: 1.5 RF: 1 Discontinued ibuprofen-famotidine [Duexis] 800-26.6 mg tablet 1 tab PO TID RF: 0 Referrals / Follow Up: Lianne Mary MD [Primary Care Provider] - Disposition Disposition (needs filled in before D/C Order can be placed): Home, Self Care
[2020-11-25 10:21] LABS: Bedside Glucose 213 mg/dL (70-110)
[2020-11-25] MEDS: Cefazolin 1 GM/50 ML BAG IV (13:49)
[2020-11-25] MEDS: oxyCODONE 5 MG Tablet PO (13:49)
== END 2020-11-25 13:59 ==
LOC: SDC 05:21 → AC 05:22
PROVIDERS: Anesthesiology; PCP Internal Medicine; Referring Provider Orthopaedic Surgery; Visit Provider Orthopaedic Surgery
PROC: 0SRD0JZ Replacement of Left Knee Joint with Synthetic Substitute, Open Approach (ICD-10-PCS; CPT 27447; principal; 2020-11-25 07:15)
DX: M17.0 Bilateral primary osteoarthritis of knee (principal); G89.29 Other chronic pain; E11.42 Type 2 diabetes mellitus with diabetic polyneuropathy; I10 Essential (primary) hypertension; E78.5 Hyperlipidemia, unspecified; J45.909 Unspecified asthma, uncomplicated; Z79.1 Long term (current) use of non-steroidal anti-inflammatories (NSAID); Z79.84 Long term (current) use of oral hypoglycemic drugs; Z87.891 Personal history of nicotine dependence; Z96.652 Presence of left artificial knee joint
CPT/HCPCS: 01402; 27447; 64447; S2900; 36415; 71046; 73560; 82962; 82985; 83735; 85027; 85610; 85730; 86850; 86900; 86901; 87081; 88305; 88311; 93005; 97162; C1776; J7120; J0702; J2405; J3490

== ENCOUNTER 2021-01-02 09:00 | Outpatient (RCR) | payer OTHER, SELFPAY ==
[2020-09-10 08:57] VITALS: BMI 39.5
[2020-11-25 06:24] VITALS: BMI 40.9
--- NOTE | 2020-11-27 11:00 | HP.PTEVAL_ITS ---
Patient's Visit Information BONY PAREKH is a 59 year old M referred to Physical Therapy by Dr. Tre Rhoades DO with a diagnosis of L TKA. Date of Evaluation: 11/27/20 Physical Therapist: Lukas Baird PT, ATC - Visit Plan Frequency: 3x /Week Duration: 6 Weeks Plan: L knee PROM/mobs, stretching and strengthening, balance and proprio, core strengthening, wilda, and HEP - Subjective DOS: 11/25/2020. Pt reports having L knee pain for 3 years prior to having his L TKR. Pt reports there was nothing left in his knee prior to having this surgery. Pt reports he is glad he had the surgery at this time. Pt reports he is still in a lot of pain this date. Pt notes he is still having sleep difficulty at this time secondary to pain. Pt reports tingling down his L LE at toes, but notes he has neuropathy which may be causing it. Pt notes no L LE numbness. Pt reports he is still having a hard time lifting his leg which makes stair negotiation and ambulation difficult. 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 six stairs to go into house, and 13 steps to go up to the top level of his 2 story house. 9/10 pain at rest, 10/10 pain at worst. - Pain L TKA Pain Intensity (Out of 10): 9 Pain Intensity Range: 10 - Objective Neuro: B LE sensation is WNL to light touch. ROM: R knee 0-5-125, L knee 0-20-80. MMT: flex= 23.7, ext= 20.7 R knee, L knee flex= 6.7, ext= 9.7. Girth at patella: L knee 49 cm, L knee 42 cm. Tu.53 - Goals Goal 1:: Decrease L knee pain x 50% to aid with sleep Goal Time Frame: 4-6 Weeks Goal 2:: Increase L knee ROM x 40 degrees to aid with restoring a more normalized gait pattern Goal Time Frame: 4-6 Weeks Goal 3:: Increase L knee strength x 10-15 #F to aid with stair negotiation Goal Time Frame: 4-6 Weeks Goal 4:: I with HEP Goal Time Frame: 4-6 Weeks - Rehabilitation Potential Physical Therapy Diagnosis: L knee pain, weakness, and limited ROM secondary to L TKA Rehabilitation Potential: Good - Anticipated Interventions Patient/Client Instruction: Educate patient on: Condition, Plan of Care For the Purpose of:: To improve self management Therapeutic Exercise to Include: Strength training, Endurance training, Balance training, Flexibilty training, Gait and locomotor training, Passive ROM, Active ROM, Dynamic Lumbar Stabilization For the Purpose of:: To decrease pain, To increase ROM, To improve muscle performance and motor function Cryotherapy (ice pack, ice massage): Yes For the Purpose of:: To decrease pain Thank you for the opportunity to evaluate your patient. For Medicare and Medicare HMO plans, please review the plan of care and approve it. It will need to be FAXED BACK to us at [phone] for Medicare purposes. For Medicare only, by signing this I certify the plan of care. Please let me know if there are questions or concerns regarding this plan of care. Physician Signature: Date:
--- NOTE | 2020-12-29 10:28 | HP.PTREVAL ---
Dr. Tre Rhoades, DO, It has been my pleasure to treat BONY PAREKH over the last 12 visits for L TKA - 11/25. Please see the progress note below for an update on the physical therapy plan of care! Subjective: Pt reports mild pain this date Objective/Function: L knee pain is consistently rated at 2/10. L knee ROM: 0-5-105. L knee MMT: L knee flex and ext are rated at 4/5. Pt is progressing well towards Rx goals but needs further skilled therapy to progress L knee ROM and strength Plan Plan: L knee PROM/mobs, stretching and strengthening, balance and proprio, core strengthening, bike, and HEP Balance/Gait/Functional tests - Balance/Special Test Scores Lower Extremity Functional Score: 15 Goals Goal 1:: Decrease L knee pain x 50% to aid with sleep Goal Time Frame: 4-6 Weeks Goal 2:: Increase L knee ROM x 40 degrees to aid with restoring a more normalized gait pattern Goal Time Frame: 4-6 Weeks Goal 3:: Increase L knee strength x 10-15 #F to aid with stair negotiation Goal Time Frame: 4-6 Weeks Goal 4:: I with HEP Goal Time Frame: 4-6 Weeks Anticipated Interventions Patient/Client Instruction: Educate patient on: Condition, Plan of Care For the Purpose of:: To improve self management Therapeutic Exercise to Include: Strength training, Endurance training, Balance training, Flexibilty training, Gait and locomotor training, Passive ROM, Active ROM, Dynamic Lumbar Stabilization For the Purpose of:: To decrease pain, To increase ROM, To improve muscle performance and motor function Cryotherapy (ice pack, ice massage): Yes For the Purpose of:: To decrease pain Please do not hesitate to contact me at [phone] by phone or if you have questions or concerns regarding this new plan of care! Sincerely, Lukas Baird, PT, ATC
--- NOTE | 2021-06-15 14:36 | HP.PT.NRP ---
BONY PAREKH was seen in my office for initial evaluation on 11/27/20. The following Plan of Care was established for this patient: Initial Frequency: 3x /Week Initial Duration: 6 Weeks Patient/Client Instruction: Educate patient on: Condition, Plan of Care For the Purpose of:: To improve self management Therapeutic Exercise to Include: Strength training, Endurance training, Balance training, Flexibilty training, Gait and locomotor training, Passive ROM, Active ROM, Dynamic Lumbar Stabilization For the Purpose of:: To decrease pain, To increase ROM, To improve muscle performance and motor function Cryotherapy (ice pack, ice massage): Yes For the Purpose of:: To decrease pain This patient was last seen in our office . Pertinent comments regarding their Physical therapy will appear below: Pt was treated for 13 PT visits for L TKA through the date of 01/02/21. Pt has not returned today and is therefore discontinued at this time. At this point I will be discontinuing this patient from physical therapy. I would be happy to see this patient again in the future if found appropriate by the physician. Thank you! Lukas Baird, PT, ATC Balance/Gait/Functional tests - Balance/Special Test Scores Lower Extremity Functional Score: 15
== END 2021-01-02 19:00 | disposition home or self-care (01) ==
LOC: PT 09:00
PROVIDERS: PCP Internal Medicine; Referring Provider Orthopaedic Surgery; Visit Provider Orthopaedic Surgery
DX: Z98.890 Other specified postprocedural states (principal)
CPT/HCPCS: 97110; 97140; 97161; 97164

== ENCOUNTER → 2022-02-26 | Outpatient (CLI) | payer OTHER, SELFPAY ==
[2022-02-26 12:04] LABS: Absolute Lymphocyte Count 2.03 X10^3/uL (0.83-4.51); Absolute Neutrophil Count 3.1 X10^3/uL (2.0-7.7); Basophil# 0.02 X10^3/uL; Basophil% 0.3 % (0-1); Eosinophil# 0.13 X10^3/uL; Eosinophils% 2.2 % (0-5); Hematocrit 37.3 % (40-54); Hemoglobin 12.5 g/dL (13.0-16.5); Lymphocyte # 2.03 X10^3/ul (0.83-4.51); Lymphocyte % 34.9 % (19-41); Mean Corp Hgb Conc 33.5 g/dL (32-36); Mean Corpuscular Hgb 29.6 pg (27.0-32.0); Mean Corpuscular Volume 88.4 fL (80-94); Mean Platelet Vol. 10.4 fl (6.2-12.0); Monocyte% 8.6 % (0-10); NRBC Flagged by Analyzer 0 % (0-5); Neutrophil # 3.11 X10^3/uL (2.7-7.7); Neutrophil % 53.5 % (47-70); Platelet Count 294 K/mm3 (150-450); RBC Distribution Width CV 12.3 % (11.6-14.6); RBC Distribution Width SD 38.8 fl (35.1-43.9); Red Blood Count 4.22 M/mm3 (4.6-6.2); White Blood Count 5.8 K/mm3 (4.4-11.0)
[2022-02-26 12:27] LABS: Microalbumin,Random Urine 10.6 mg/L (NO RANGE EST.); Microalbumin:Creatinine Ratio 7.3 mg/g CRE (<30 mg/g CRE)
[2022-02-26 12:31] LABS: ALB/GLOB Ratio 1.2 RATIO (0.9-2.4); AST(SGOT) 19 U/L (15-37); Alanine Aminotransfer ALT/SGPT 38 U/L (16-61); Albumin, Serum 3.8 g/dL (3.2-5.0); Alkaline Phosphatase 96 U/L (45-117); Anion Gap 8 (5-15); BUN 18 mg/dL (7-18); BUN/Creat Ratio 20.8 RATIO (10-20); Calcium,Total 9.4 mg/dL (8.5-10.1); Chloride 105 mmol/L (98-107); Cholesterol 133 mg/dL (200); Creatinine, Serum 0.87 mg/dL (0.70-1.30); EST Glomerular Filtration Rate 96 mL/min (>60); Est Glom Filt Rate - Afr Amer 116 mL/min (>60); Globulin 3.2 g/dL (2.2-4.2); Glucose 215 mg/dL (74-106); High Density Lipoprotein 38 mg/dL; Sodium Level 140 mmol/L (136-145); Triglycerides 209 mg/dL; Very Low Density Lipoprotein 42 mg/dL (5-40)
== END | disposition home or self-care (01) ==
LOC: BIMLAB 10:22
PROVIDERS: PCP Internal Medicine; Referring Provider Nurse Practitioner Family; Visit Provider Nurse Practitioner Family
DX: I10 Essential (primary) hypertension (principal); E11.9 Type 2 diabetes mellitus without complications; E78.5 Hyperlipidemia, unspecified
CPT/HCPCS: 36415; 80053; 80061; 82043; 82570; 84443; 85025

== ENCOUNTER → 2023-10-13 | Outpatient (CLI) | payer OTHER, SELFPAY ==
[2023-10-13 12:30] LABS: Absolute Lymphocyte Count 1.85 X10^3/uL (0.83-4.51); Absolute Neutrophil Count 4.1 X10^3/uL (2.0-7.7); Basophil# 0.03 X10^3/uL; Basophil% 0.5 % (0-1); Eosinophil# 0.08 X10^3/uL; Eosinophils% 1.2 % (0-5); Hematocrit 41.6 % (40-54); Hemoglobin 14.1 g/dL (13.0-16.5); Lymphocyte # 1.85 X10^3/ul (0.83-4.51); Lymphocyte % 28.5 % (19-41); Mean Corp Hgb Conc 33.9 g/dL (32-36); Mean Corpuscular Hgb 28.8 pg (27.0-32.0); Mean Corpuscular Volume 84.9 fL (80-94); Mean Platelet Vol. 10.3 fl (6.2-12.0); Monocyte# 0.45 X10^3/uL; Monocyte% 6.9 % (0-10); NRBC Flagged by Analyzer 0 % (0-5); Neutrophil # 4.08 X10^3/uL (2.7-7.7); Neutrophil % 62.7 % (47-70); Platelet Count 319 K/mm3 (150-450); RBC Distribution Width CV 11.8 % (11.6-14.6); RBC Distribution Width SD 35.9 fl (35.1-43.9); White Blood Count 6.5 K/mm3 (4.4-11.0)
[2023-10-13 13:08] LABS: ALB/GLOB Ratio 1.1 RATIO (0.9-2.4); AST(SGOT) 21 U/L (15-37); Alanine Aminotransfer ALT/SGPT 34 U/L (16-61); Alkaline Phosphatase 94 U/L (45-117); Anion Gap 4 (5-15); BUN 14 mg/dL (7-18); BUN/Creat Ratio 15.7 RATIO (10-20); Calcium,Total 9.5 mg/dL (8.5-10.1); Chloride 103 mmol/L (98-107); Cholesterol 111 mg/dL (200); Creatinine, Serum 0.89 mg/dL (0.70-1.30); EST Glomerular Filtration Rate 93 mL/min (>60); Est Glom Filt Rate - Afr Amer 112 mL/min (>60); Globulin 3.5 g/dL (2.2-4.2); Glucose 252 mg/dL (74-106); High Density Lipoprotein 39 mg/dL; PSA,Total- Diagnostic 1.51 ng/mL (0.0-4.0); Protein, Total 7.5 g/dL (6.4-8.2); Sodium Level 136 mmol/L (136-145); Thyroid Stim Hormone (TSH) 0.46 uIU/mL (0.358-3.74); Triglycerides 197 mg/dL; Very Low Density Lipoprotein 39 mg/dL (5-40)
[2023-10-13 13:24] LABS: Microalbumin,Random Urine 9.9 mg/L (NO RANGE EST.)
== END | disposition home or self-care (01) ==
LOC: MTLAB 11:02
PROVIDERS: PCP Nurse Practitioner Family; Referring Provider Nurse Practitioner Family; Visit Provider Nurse Practitioner Family
DX: E11.9 Type 2 diabetes mellitus without complications (principal)
CPT/HCPCS: 36415; 80053; 80061; 82043; 84153; 84443; 85025

== ENCOUNTER → 2024-02-02 | Outpatient (CLI) | payer OTHER, SELFPAY ==
[2024-02-03 12:09] LABS: Fructosamine 286 umol/L (0-285)
== END | disposition home or self-care (01) ==
LOC: MTLAB 09:30
PROVIDERS: PCP Nurse Practitioner Family; Referring Provider Orthopaedic Surgery; Visit Provider Orthopaedic Surgery
DX: E11.9 Type 2 diabetes mellitus without complications (principal)
CPT/HCPCS: 36415; 82985

== ENCOUNTER → 2024-03-13 | Outpatient (CLI) | payer OTHER, SELFPAY ==
--- NOTE | 2024-03-13 13:03 | CT_ITS ---
EXAM: CT RIGHT LOWER EXTREMITY WITHOUT INTRAVENOUS CONTRAST CLINICAL INDICATION: templating for right TKA TECHNIQUE: Helically acquired images were obtained of the right lower extremity without intravenous contrast. 2-D reformats were performed by the technologist. CTDIvol = ( 27.35 ) mGy, DLP = ( 1833.60 ) mGycm This CT exam was performed using one or more of the following dose reduction techniques: automated exposure control, adjustment of the mA and/or kV according to patient size, and/or use of iterative reconstruction technique. COMPARISON: October 26, 2023 FINDINGS: BONES/JOINTS: Moderate hip osteoarthrosis. Severe right knee tricompartmental osteoarthrosis, worse at the medial femorotibial compartment with mild lateral subluxation of the tibia relative to the femur. Preservation of the joint space. No sclerotic or destructive changes. No acute or healing fracture or other malalignment. SOFT TISSUES: Small fat-containing inguinal hernias bilaterally, right larger than left. [id number] suprapatellar joint effusion. Herzog''s cyst measuring 2.8 x 2.4 cm is identified also. No soft tissue swelling or gas. No radiopaque foreign body. CT/Extremity Lower without Contra IMPRESSION: 1. Severe right knee tricompartmental osteoarthrosis, worse at the medial femorotibial compartment with mild lateral subluxation of the tibia relative to the femur. 2. [id number] suprapatellar joint effusion. Herzog''s cyst measuring 2.8 x 2.4 cm is identified also. Electronically Signed: Adrian Artis MD at 23:00 EDT ,
== END | disposition home or self-care (01) ==
LOC: CT 12:58
PROVIDERS: PCP Nurse Practitioner Family; Referring Provider Orthopaedic Surgery; Visit Provider Orthopaedic Surgery
DX: M17.11 Unilateral primary osteoarthritis, right knee (principal)
CPT/HCPCS: 73700

== ENCOUNTER 2024-03-27 05:17 | Day surgery (SDC) | payer OTHER, SELFPAY ==
[2024-03-13 14:02] LABS: Absolute Lymphocyte Count 2.31 X10^3/uL (0.83-4.51); Absolute Neutrophil Count 3.9 X10^3/uL (2.0-7.7); Basophil# 0.03 X10^3/uL; Basophil% 0.4 % (0-1); Eosinophil# 0.09 X10^3/uL; Eosinophils% 1.3 % (0-5); Hematocrit 44.3 % (40-54); Hemoglobin 14.8 g/dL (13.0-16.5); Lymphocyte # 2.31 X10^3/ul (0.83-4.51); Mean Corp Hgb Conc 33.4 g/dL (32-36); Mean Corpuscular Hgb 28.8 pg (27.0-32.0); Mean Corpuscular Volume 86.4 fL (80-94); Mean Platelet Vol. 9.5 fl (6.2-12.0); Monocyte# 0.62 X10^3/uL; Monocyte% 8.8 % (0-10); NRBC Flagged by Analyzer 0 % (0-5); Neutrophil # 3.94 X10^3/uL (2.7-7.7); Neutrophil % 56.2 % (47-70); Platelet Count 326 K/mm3 (150-450); RBC Distribution Width CV 11.9 % (11.6-14.6); RBC Distribution Width SD 37.9 fl (35.1-43.9); Red Blood Count 5.13 M/mm3 (4.6-6.2)
[2024-03-13 14:15] LABS: Prothrombin Time (Protime)PT. 12.9 SECONDS (11.7-14.9)
[2024-03-13 14:33] LABS: Anion Gap 6 (5-15); BUN 26 mg/dL (7-18); Calcium,Total 9.8 mg/dL (8.5-10.1); Chloride 107 mmol/L (98-107); Creatinine, Serum 0.93 mg/dL (0.70-1.30); EST Glomerular Filtration Rate 88 mL/min (>60); Est Glom Filt Rate - Afr Amer 107 mL/min (>60); Glucose 110 mg/dL (74-106); Sodium Level 139 mmol/L (136-145)
[2024-03-13 14:41] LABS: Partial Thromboplast Time 26.9 Seconds (24.1-36.2)
[2024-03-13 15:29] LABS: AST(SGOT) 18 U/L (15-37); Alanine Aminotransfer ALT/SGPT 31 U/L (16-61); Albumin, Serum 4.2 g/dL (3.2-5.0); Alkaline Phosphatase 99 U/L (45-117); Bilirubin, Direct 0.15 mg/dL (0.00-0.30); Globulin 3.4 g/dL (2.2-4.2); Protein, Total 7.6 g/dL (6.4-8.2)
[2024-03-13 15:36] LABS: Hemoglobin A1c 6.9 % (3.8-5.6)
[2024-03-20 09:09] LABS: Fructosamine 288 umol/L (0-285)
[2024-03-27] VITALS (10 sets, daily range): BP systolic 110–150; BP diastolic 54–70; PULSE 51–85; RESP 16–18; TEMP 36.3–37.1; O2SAT 93–96; BMI 38.3
--- OUTSIDE RECORDS SUMMARY | 2024-03-27 05:22 | XMS RPT_ITS | CCD ---
Author Organization [facility] Care Team Providers Care Label Tacker Name Role Phone Braulio Antonioah Clement Unavailable Unavailable No Doctor Assigned, Nodr Unavailable Unavail able Cristel Shagufta Unavailable Ludmila Silva Unavailable Salbador Conner Unavailable Jamar Olivas Unavailable Bessy Marley Unavailable Unavailable Barby Alfaro Unavailable Unavailable Unavailable Unavailable Unavailable Primary Care Provider Unavailabl e Unavailable Primary Care Provider Unavailabl e Miranda Argueta (Physical Scientist) Primary Care Provider Miranda Argueta (Physical Scientist) Primary Care Provider Argueta Miranda MOORE Primary Care Provider Argueta Miranda MOORE Primary Care Provider SALBADOR GORE Attending Unavailable SALBADOR GORE Referring Unavailable ARGUETA, MIRANDA Primary Care Unavailable SALBADOR GORE Attending Unavailable SALBADOR GORE Referring Unavailable ARGUETA, MIRANDA Primary Care Unavailable SALBADOR GORE Attending Unavailable SALBADOR GORE Referring Unavailable ARGUETA, MIRANDA Primary Care Unavailable SALBADOR GORE Attending Unavailable SALBADOR GORE Referring Unavailable ARGUETA, MIRANDA Primary Care Unavailable Allergies Allergy Classification Reported Allergen(s) Allergy Type Date of Onset Reaction(s) Facility (1 source) No Known Medication Allergies; Translations: [No Known Medication Allergies] Propensity to adverse reactions to drug (disorder) [facility] Medications Current Medications Medication Drug Class(es) Dates Sig (Normalized) Sig (Original) acetaminophen 325 mg / HYDROcodone bitartrate 10 mg oral tablet (20 sources) Opioid Agonist Start: 02-07-2023 End: 01-12-2024 take 1 tablet by mouth three times daily as needed for pain HYDROcodone-Aceta minophen (NORCO) 10-325 mg per tablet Indications: Chronic pain syndrome , Myofascial pain syndrome Take 1 tablet by mouth three times a day as needed for pain for up to 30 days. 90 tablet 0 05/11/2023 06/10/2023 Active Start: 01-06-2023 End: 02-05-2023 take 1 tablet by mouth three times daily as needed for pain HYDROcodone-Acetaminophen (NORCO) 10-325 mg per tablet Indications: Chronic pain syndrome , Myofascial pain syndrome Take 1 tablet by mouth three times daily as needed for pain for up to 30 days. 90 tablet 0 01/06/2023 02/05/2023 Active Start: 06-28-2015 End: 05-27-2022 HYDROcodone-acetaminophen (N ORCO) 5-325 mg per tablet Start: 06-27-2015 End: 10-24-2015 take 1 tablet by mouth every six hours NORCO, 5-325MG (Oral Tablet) 1 (one) Tab let Tablet every six hours, as needed for 0 days Quantity: 30 {Tablet} Refills: 0 Ordered: 24-Oct-2015 Bessy Marley LPN Start : 27-Jun-2015 End : 24-Oct-2015 Inactive Comments: Medication taken as needed. thirty Comment on above: Medication taken as needed. thirty Take 1 tablet by leroy th three times daily as needed for pain for up to 30 days. Take 1 tablet by leroy th three times daily as needed for pain for up to 30 days. Do not start before February 07, 2023. Take 1 tablet by leroy th three times a day as needed for pain for up to 30 days. Take 1 tablet by leroy th three times a day as needed for pain for up to 30 days. Do not start before March 09, 2023. Take 1 tablet by leroy th three times a day as needed for pain for up to 30 days. Do not start before April 08, 2023. acetaminophen 325 mg / oxyCODONE hydrochloride 7.5 mg oral tablet (20 sources) Opioid Agonist Start: 4 End: 4 take 1 tablet by mouth three times daily as needed for pain oxyCODONE-acetamino phen (PERCOCET) 7.5-325 mg tablet Indications: High risk medication use , Chronic pain syndrome Take 1 tablet by mouth three times a day as needed for pain for up to 30 days. 90 tablet 02/07/2024 Active Start: 11-08-2022 End: 01-07-2023 take 1 tablet by mouth three times daily as needed for pain oxyCODONE-acetaminophen (PERCOCET) 7.5-3 25 mg tablet Indications: High risk medication use , Chronic pain syndrome Take 1 tablet by mouth three times daily as needed for pain for up to 30 days. 90 tablet 0 12/08/2022 Active Start: 09-19-2022 End: 10-21-2022 take 1 tablet by mouth three times daily as needed for pain oxyCODONE-acetaminophen (PERCOCET) 7.5-3 25 mg tablet Indications: High risk medication use , Chronic pain syndrome Take 1 tablet by mouth three times daily as needed for pain for up to 30 days. 90 tablet 0 10/07/2022 10/07/2022 Discontinued Start: 03-23-2022 End: 08-20-2022 take 1 tablet by mouth three times daily as needed for pain oxyCODONE-acetaminophen (PERCOCET) 7.5-3 25 mg tablet Indications: High risk medication use , Chronic pain syndrome Take 1 tablet by mouth three times daily as needed for pain for up to 30 days. DTF 05/23/22 OK TO FILL 05/22/22 D/T THE HOLIDAY Do not start before June 21, 2022. 90 tablet 0 06/21/2022 07/16/2022 Discontinued Start: 11-20-2021 End: 03-21-2022 take 1 tablet by mouth three times daily as needed for pain oxyCODONE-acetaminophen (PERCOCET) 7.5-3 25 mg tablet Indications: High risk medication use , Chronic pain syndrome Take 1 tablet by mouth three times daily as needed for pain for up to 30 days. Do not start before February 19, 2022. 90 tablet 0 02/19/2022 03/21/2022 Active Start: 10-21-2021 oxyCODONE-acet aminophen (PERCOCET) 7.5-325 mg tablet Comment on above: Take 1 tablet by leroy th three times daily as needed for pain for up to 30 days. Do not start before November 20, 2021. Take 1 tablet by leroy th three times daily as needed for pain for up to 30 days. Do not start before December 20, 2021. Take 1 tablet by leroy th three times daily as needed for pain for up to 30 days. Take 1 tablet by leroy th three times daily as needed for pain for up to 30 days. Do not start before February 19, 2022. Take 1 tablet by leroy th three times daily as needed for pain for up to 30 days. Do not start before April 23, 2022. Take 1 tablet by leroy th three times daily as needed for pain for up to 30 days. DTF 05/23/22 OK TO FILL 05/22/22 D/T THE HOLIDAY Do not start before May 22, 2022. Take 1 tablet by leroy th three times daily as needed for pain for up to 30 days. DTF 05/23/22 OK TO FILL 05/22/22 D/T THE HOLIDAY Do not start before June 21, 2022. Take 1 tablet by leroy th three times daily as needed for pain for up to 30 days. DTF 05/23/22 OK TO FILL 05/22/22 D/T THE HOLIDAY Do not start before July 21, 2022. Take 1 tablet by leroy th three times daily as needed for pain for up to 30 days. Do not start before September 19, 2022. Take 1 tablet by leroy th three times a day as needed for pain for up to 30 days. [id number] 200 actuat albuterol 0.09 mg/actuat metered dose inhaler (20 sources) beta2-Adrenergic Agonist Start: 01-15-2022 albuterol HFA (PROVENTIL HFA, VENTOLIN HFA) 90 mcg/actuation inhaler 01/15/2022 Active Start: 12-07-2019 albuterol HFA (PROVENTIL HFA, VENTOLIN HFA) 90 mcg/actuation inhaler Inhale as instructed. 0 12/07/2019 Active Comment on above: Inhale as instructed . amLODIPine 10 mg oral tablet (20 sources) Dihydropyridine Calcium Channel Harman Start: 12-30-19 amLODIPine (NORVASC) 10 mg tablet 12/29/2021 Active 12 hr buPROPion hydrochloride 200 mg extended release oral tablet (20 sources) Aminoketone Start: 10-13-19 take 1 tablet by mouth every twelve hours buPROPion SR (WELLBUTRIN SR) 200 mg 12 hr tablet Take 1 tablet by mouth every 12 hours. 10/13/2023 Active Start: 07-15-2023 take 1 tablet by leroy th twice daily buPROPion SR (WELLBUTRIN SR) 150 mg 12 hr tablet 1 TAB BY MOUTH TWICE A DAY, DAILY FOR THE FIRST WEEK 07/15/2023 Active Start: 12-22-2017 take 1 tablet by leroy th once daily BuPROPion HCl ER (XL) 300 MG Oral Tablet Extended Release 24 Hour 1 (one) Tablet ER 24HR daily for 0 days Quantity: 21 {Tablet} Refills: 0 Ordered: 22-Dec-2017 Shagufta Fam DO, DO, Kathleen Start : 22-Dec-2017 Active Start: 10-27-2016 End: 05-27-2022 buPROPion XL (WELLBUTRIN XL) 300 mg 24 hr tablet bupropion HCl 300 mg tablet extended release 24 hr 0 10/27/2016 05/27/2022 Discontinued Start: 02-04-2015 End: 06-12-2015 take 1 tablet by mouth once daily WELLBUTRIN XL, 300MG (Oral Tablet Extended Release 24 Hour) 1 (one) Tablet ER 24HR qd for 0 days Quantity: 30 {Tablet} Refills: 3 Ordered: 12-Jun-2015 Bessy Marley LPN Start : 04-Feb-2015 End : 12-Jun-2015 Inactive Comment on above: bupropion HCl 300 mg tablet extended release 24 hr 1 TAB BY MOUTH TWICE A DAY, DAILY FOR THE FIRST WEEK chlorhexidine gluconate 1.2 mg/ml mouthwash (10 sources) Start: 4 Chlorhexidine Gluconate (PERIDEX) 0.12 % solution RINSE MOUTH WITH 15ML (1 CAPFUL) FOR 30 SECONDS IN MORNING AND EVENING AFTER BRUSHING, THEN SPIT 11/17/2023 Active doxazosin 2 mg oral tablet (20 sources) alpha-Adrenergic Harman Start: 3 take 1 tablet by mouth twice daily doxazosin (CARDURA) 2 mg tablet Take 2 mg by mouth twice daily. 08/16/2022 Active Comment on above: Take 2 mg by mouth t wice daily. FLUoxetine 40 mg oral capsule (20 sources) Serotonin Reuptake Inhibitor Start: 7 End: 8 FLUoxetine (PROZAC) 40 mg capsule fluoxetine 40 mg capsule 10/27/2016 Active Comment on above: fluoxetine 40 mg cap cy gabapentin 600 mg oral tablet (20 sources) Anti-epileptic Agent Start: End: take 1 tablet by mouth three times daily gabapentin (NEURONTIN) 600 mg tablet Take 1 tablet by mouth three times a day for 90 days. 90 tablet 02/20/2024 05/20/2024 Active Start: 11-18-2022 End: 04-18-2023 take 1 tablet by mouth three times daily gabapentin (NEURONTIN) 600 mg tablet Take 1 tablet by mouth three times a day for 30 days. Do not start before March 18, 2023. 90 tablet 0 03/18/2023 04/18/2023 Discontinued Start: 10-19-2022 End: 11-15-2022 take 1 tablet by mouth three times daily gabapentin (NEURONTIN) 600 mg tablet Take 1 tablet by mouth three times daily for 30 days. 90 tablet 0 10/19/2022 11/15/2022 Discontinued Start: 08-30-2022 End: 09-29-2022 take 1 tablet by mouth three times daily gabapentin (NEURONTIN) 600 mg tablet Take 1 tablet by mouth three times daily for 30 days. 90 tablet 0 08/30/2022 Active Start: 11-23-2021 End: 05-31-2022 gabapentin (NEURONTIN) 600 m g tablet Take 1 tablet by mouth three times daily for 30 days. Do not start before May 01, 2022. 90 tablet 0 05/01/2022 05/27/2022 Discontinued Start: 10-24-2021 gabapentin (NE URONTIN) 600 mg tablet Comment on above: Take 1 tablet by leroy th three times daily for 30 days. Do not start before November 23, 2021. Take 1 tablet by leroy th three times daily for 30 days. Take 1 tablet by leroy th three times daily for 30 days. Do not start before May 01, 2022. Take 1 tablet by leroy th three times daily for 30 days. Do not start before November 18, 2022. Take 1 tablet by leory th three times daily for 30 days. Do not start before December 18, 2022. Take 1 tablet by leroy th three times a day for 30 days. Do not start before March 18, 2023. Take 1 tablet by leroy th three times a day for 30 days. Take 1 tablet by leroy th three times a day for 90 days. glimepiride 4 mg oral tablet (20 sources) Sulfonylurea Start: 09-08-2021 glimepiride (AMARYL) 4 mg tablet 09/08/2021 Active Start: 12-08-2017 End: 12-22-2017 take 1 tablet by mouth twice daily Glimepiride 4 MG Oral Tablet 1 (one) Tablet bid for 14 days Quantity: 30 {Tablet} Refills: 0 Ordered: 08-Dec-2017 Shagufta Fam DO, DO, Kathleen Start : 08-Dec-2017 End : 22-Dec-2017 Inactive hydroCHLOROthiazide 25 mg oral tablet (20 sources) Thiazide Diuretic Start: 02-25-2022 hydroCHLOROthiazide (HYDRODIURIL, ESIDRIX) 25 mg tablet 02/25/2022 Active ibuprofen 800 mg oral tablet (20 sources) Nonsteroidal Anti-inflammator y Drug Start: 04-20-2023 End: 09-18-2023 take 1 tablet by mouth every eight hours as needed ibuprofen (MOTRIN) 800 mg tablet Take 1 tablet by mouth three times a day as needed for pain. 90 tablet 08/19/2023 Active Start: 10-19-2022 End: 04-18-2023 take 1 tablet by mouth every eight hours as needed ibuprofen (MOTRIN) 800 mg tablet Take 1 tablet by mouth three times a day as needed for pain. 90 tablet 0 03/14/2023 04/18/2023 Discontinued Start: 09-15-2022 End: 10-15-2022 take 1 tablet by mouth every eight hours as needed ibuprofen (MOTRIN) 800 mg tablet Take 1 tablet by mouth three times daily as needed for pain. 90 tablet 0 09/15/2022 10/15/2022 Active Start: 06-16-2022 End: 08-15-2022 take 1 tablet by mouth every eight hours as needed ibuprofen (MOTRIN) 800 mg tablet Take 1 tablet by mouth three times daily as needed for pain. 90 tablet 0 07/16/2022 08/15/2022 Active Start: 02-12-2022 End: 06-14-2022 take 1 tablet by mouth every eight hours as needed ibuprofen (MOTRIN) 800 mg tablet Take 1 tablet by mouth three times daily as needed for pain. 90 tablet 0 05/15/2022 06/14/2022 Active Start: 10-11-2021 End: 01-29-2022 take 1 tablet by mouth every eight hours as needed ibuprofen (MOTRIN) 800 mg tablet Take 1 tablet by mouth three times daily as needed for pain. 90 tablet 0 12/30/2021 01/29/2022 Active Comment on above: Take 1 tablet by leroy th three times daily as needed for pain. Take 1 tablet by leroy th three times a day as needed for pain. take 1 tablet by leroy th three times a day as needed for pain 3 ml insulin glargine 100 unt/ml pen injector (20 sources) Insulin Analog Start: 2022 BASAGLAR KWIKPEN U-100 INSULIN 100 unit/mL (3 mL) INJECT 20 UNITS EVERY DAY AT BEDTIME 02/09/2023 Active Comment on above: INJECT 20 UNITS EVER Y DAY AT BEDTIME lisinopril 40 mg oral tablet (20 sources) Angiotensin Converting Enzyme Inhibitor Start: 2022 take 1 tablet by mouth once daily at bedtime lisinopril (ZESTRIL) 40 mg tablet Take 40 mg by mouth daily at bedtime. 06/30/2022 Active Comment on above: Take 40 mg by mouth daily at bedtime. meloxicam 15 mg oral tablet (10 sources) Nonsteroidal Anti-inflammatory Drug Start: 2023 take 1 tablet by mouth once meloxicam (MOBIC) 15 mg tablet Take 1 tablet by mouth every afternoon. 10/13/2023 Active metFORMIN hydrochloride 1000 mg oral tablet (20 sources) Biguanide Start: 2016 End: 2017 metFORMIN (GLUCOPHAGE) 1,000 mg tablet metformin 1,000 mg tablet 10/27/2016 Active Comment on above: metformin 1,000 mg t ablet methylPREDNISolone (20 sources) Corticosteroid Start: 2017 methylPREDNISolone (MEDROL DOSE-PACK) 4 mg Dose-Pack Medrol (Jonnie) 4 mg tablets,dose pack 06/23/2017 Active Start: 06-23-2017 methylPREDNISo lone (MEDROL DOSE-PACK) 4 mg Dose-Pack Medrol (Jonnie) 4 mg tablets,dose pack 0 06/23/2017 Active Start: 06-23-2017 methylPREDNISo lone (MEDROL, JONNIE,) 4 mg Dose-Pack Medrol (Jonnie) 4 mg tablets,dose pack 0 06/23/2017 Active Start: 06-04-2015 End: 06-12-2015 MEDROL (JONNIE), 4MG (Oral Tabl et) 1 (one) Tablet TAD for 0 days Quantity: 1 {Package} Refills: 0 Ordered: 12-Jun-2015 Bessy Marley LPN Start : 04-Jun-2015 End : 12-Jun-2015 Inactive Comment on above: Medrol (Jonnie) 4 mg ta blets,dose pack montelukast 10 mg oral tablet (20 sources) Leukotriene Receptor Antagonist Start: 01-16-20 montelukast (SINGULAIR) 10 mg tablet 01/15/2022 Active nystatin 288940 unt/ml oral suspension (20 sources) Polyene Antifungal Start: 01-16-20 nystatin (MYCOSTATIN) 100,000 unit/mL suspension 01/15/2022 Active rosuvastatin calcium 20 mg oral tablet (20 sources) HMG-CoA Reductase Inhibitor Start: 01-20-20 23 take 1 tablet by mouth once daily at bedtime rosuvastatin (CRESTOR) 20 mg tablet Take 20 mg by mouth daily at bedtime. 01/19/2023 Active Start: 09-21-2021 End: 03-14-2023 rosuvastatin (CRESTOR) 10 mg tablet Comment on above: Take 20 mg by mouth daily at bedtime. sertraline 100 mg oral tablet (20 sources) Serotonin Reuptake Inhibitor Start: 3 take 1 tablet by mouth once daily sertraline (ZOLOFT) 100 mg tablet Take 100 mg by mouth once daily. 05/31/2022 Active Comment on above: Take 100 mg by mouth once daily. SITagliptin 100 mg oral tablet (20 sources) Dipeptidyl Peptidase 4 Inhibitor Start: 7 SITagliptin (JANUVIA) 100 mg tablet Januvia 100 mg tablet 10/27/2016 Active Comment on above: Januvia 100 mg table t Completed/Discontinued Medications Medication Drug Class(es) Dates Sig (Normalized) Sig (Original) ABC PLUS (Oral Tablet) (3 sources) Start: 04-29-2014 End: 05-29-2014 take 1 tablet by mouth once daily ABC PLUS (Oral Tablet) 1 (one) Tablet qd for 30 days Quantity: 30 {Tablet} Refills: 0 Ordered: 17-Jun-2014 Shagufta Fam DO, DO, Kathleen Start : 29-Apr-2014 End : 29-May-2014 Inactive amLODIPine 5 mg / olmesartan medoxomil 20 mg oral tablet (18 sources) Dihydropyridine Calcium Channel Harman, Angiotensin 2 Receptor Harman Start: 09-20-2018 End: 05-27-2022 amLODIPine-[place] 5-20 mg tab amlodipine-[place] 5-20 mg tablet 0 09/20/2018 05/27/2022 Discontinued Comment on above: amlodipine-olmesarta n 5-20 mg tablet amoxicillin 875 mg / clavulanate 125 mg oral tablet (3 sources) Penicillin-class Antibacterial Start: 07-22-2015 End: 08-01-2015 take 1 tablet by mouth twice daily AUGMENTIN, 875-125MG (Oral Tablet) 1 (one) Tablet bid for 10 days Quantity: 20 {Tablet} Refills: 0 Ordered: 22-Jul-2015 Laurenanaliangel Christin MOORE Start : 22-Jul-2015 End : 01-Aug-2015 Inactive 60 actuat budesonide 0.16 mg/actuat / formoterol fumarate 0.0045 mg/actuat metered dose inhaler (20 sources) Corticosteroid, beta2-Adrenergic Agonist Start: 12-08-2017 End: 12-22-2017 Symbicort 160-4.5 MCG/ACT Inhalation Aerosol 2 (two) Aerosol bid for 14 days Quantity: 1 {Box} Refills: 0 Ordered: 08-Dec-2017 Shagufta Fam DO, DO, Kathleen Start : 08-Dec-2017 End : 22-Dec-2017 Inactive Start: 06-23-2017 End: 05-27-2022 budesonide-formoterol (SYMBI GREGORY) 160-4.5 mcg/actuation inhaler Symbicort 160-4.5 mcg/actuation HFA aerosol inhaler 0 06/23/2017 05/27/2022 Discontinued Start: 06-23-2017 budesonide-for moterol (SYMBICORT) 160-4.5 mcg/actuation inhaler Symbicort 160-4.5 mcg/actuation HFA aerosol inhaler 0 06/23/2017 Active Comment on above: Symbicort 160-4.5 mc g/actuation HFA aerosol inhaler canagliflozin 100 mg oral tablet (3 sources) Sodium-Glucose Cotransporter 2 Inhibitor Start: End: take 1 tablet by mouth once daily Invokana 100 MG Oral Tablet 1 (one) Tablet Tablet qd for 30 days Quantity: 30 {Tablet} Refills: 2 Ordered: 25-Aug-2016 Bessy Marley LPN Start : 24-Feb-2016 End : 25-Aug-2016 Inactive Comments: #20 pills given Comment on above: #20 pills given cholecalciferol 1000 unt oral capsule (3 sources) Vitamin D take 1 [IU] by mouth once daily Vitamin D3 1000 UNIT Oral Capsule qd (1000 UNIT) Active chromium picolinate 0.5 mg oral tablet (3 sources) Start: End: take 1 tablet by mouth once daily CHROMIUM PICOLINATE, 500MCG (Oral Tablet) 1 (one) Tablet qd for 30 days Quantity: 30 {Tablet} Refills: 0 Ordered: 17-Jun-2014 Shagufta Fam DO, DO, Kathleen Start : 29-Apr-2014 End : 29-May-2014 Inactive cinnamon bark 500 mg oral capsule (3 sources) Start: End: take 1 capsule by mouth once daily CINNAMON, 500MG (Oral Capsule) 1 (one) Capsule qd for 30 days Quantity: 30 {Capsule} Refills: 0 Ordered: 17-Jun-2014 Shagufta Fam DO, DO, Kathleen Start : 29-Apr-2014 End : 29-May-2014 Inactive clarithromycin 500 mg oral tablet (3 sources) Macrolide Antimicrobial Start: End: take 2 tablets by mouth once daily BIAXIN XL PAC, 500MG (Oral Tablet Extended Release 24 Hour) 2 (two) Tablet ER 24HR daily for 10 days Quantity: 20 {Tablet} Refills: 0 Ordered: 11-Dec-2014 Christin Loredo CNP Start : 11-Dec-2014 End : 21-Dec-2014 Inactive DEPLIN 15, 15-90.314MG (Oral Capsule) (3 sources) Start: End: take 1 capsule by mouth once daily DEPLIN 15, 15-90.314MG (Oral Capsule) 1 (one) Capsule qd for 0 days Quantity: 30 {Capsule} Refills: 1 Ordered: 24-Oct-2015 Bessy Marley GAGE Start : 04-Apr-2015 End : 24-Oct-2015 Inactive diclofenac sodium 75 mg delayed release oral tablet (3 sources) Nonsteroidal Anti-inflammatory Drug take 1 mg by mouth once daily Diclofenac Sodium 75 MG Oral Tablet Delayed Release qd (75 MG) Active 0.5 ml dulaglutide 3 mg/ml auto-injector (3 sources) GLP-1 Receptor Agonist Start: End: TRULICITY, 1.5MG/0.5ML (Subcutaneous Solution Pen-injector) 1 (one) Soln Pen-inj qweek for 0 days Quantity: 4 {Box} Refills: 0 Ordered: 05-Nov-2014 Bettye Waldrop Start : 23-Oct-2014 End : 05-Nov-2014 Discontinued DULoxetine 20 mg delayed release oral capsule (18 sources) Serotonin and Norepinephrine Reuptake Inhibitor Start: End: DULoxetine (CYMBALTA) 20 mg capsule duloxetine 20 mg capsule,delayed release(DR/EC) 0 09/20/2018 05/27/2022 Discontinued Comment on above: duloxetine 20 mg cap cy,delayed release(DR/EC) empagliflozin 25 mg oral tablet (3 sources) Sodium-Glucose Cotransporter 2 Inhibitor Start: take 1 tablet by mouth once daily Jardiance 25 MG Oral Tablet 1 (one) Tablet qd for 0 days Quantity: 30 {Tablet} Refills: 1 Ordered: 29-Jun-2017 Shagufta Fam DO, DO, Kathleen Start : 29-Jun-2017 Active 24 hr etodolac 400 mg extended release oral tablet (3 sources) Nonsteroidal Anti-inflammatory Drug Start: End: 017 take 2 tablets by mouth every twenty-four hours, then take 1 tablet by mouth once daily Etodolac ER 400 MG Oral Tablet Extended Release 24 Hour 2 (two) Tablet ER 24HR Tablet ER 24HR qd for 0 days Quantity: 60 {Tablet} Refills: 0 Ordered: 25-Aug-2016 Bessy Marley LPN Start : 21-Nov-2015 End : 25-Aug-2016 Inactive ezetimibe 10 mg oral tablet (3 sources) Dietary Cholesterol Absorption Inhibitor Start: 016 End: 017 take 1 tablet by mouth once daily Zetia 10 MG Oral Tablet 1 (one) Tablet qd for 0 days Quantity: 90 {Tablet} Refills: 0 Ordered: 25-Aug-2016 Bessy Marley LPN Start : 31-Oct-2015 End : 25-Aug-2016 Inactive hydroCHLOROthiazide 25 mg / lisinopril 20 mg oral tablet (20 sources) Thiazide Diuretic, Angiotensin Converting Enzyme Inhibitor Start: 018 End: take 1 tablet by mouth twice daily Lisinopril-Hydroch lorothiazide 20-25 MG Oral Tablet 1 (one) Tablet bid for 14 days Quantity: 30 {Tablet} Refills: 0 Ordered: 08-Dec-2017 Shagufta Fam DO, DO, Kathleen Start : 08-Dec-2017 End : 22-Dec-2017 Inactive Start: 10-27-2016 lisinopril-hyd roCHLOROthiazide (PRINZIDE, ZESTORETIC) 20-25 mg per tablet lisinopril-hydrochlorothiazide 20-25 mg tablet 10/27/2016 Active Comment on above: lisinopril-hydrochlo rothiazide 20-25 mg tablet icosapent ethyl 1000 mg oral capsule (3 sources) Star t: 09-28 16 End: 07-29 17 take 2 capsules by mouth twice daily Vascepa 1 GM Oral Capsule 2 (two) Capsule Capsule bid for 0 days Quantity: 120 {Capsule} Refills: 3 Ordered: 25-Aug-2016 Bessy Marley LPN Start : 24-Oct-2015 End : 25-Aug-2016 Inactive levoFLOXacin 500 mg oral tablet (3 sources) Quinolone Antimicrobial Star t: 07-01 16 End: 09-28 16 take 1 tablet by mouth once daily LEVAQUIN, 500MG (Oral Tablet) 1 (one) Tablet daily for 0 days Quantity: 10 {Tablet} Refills: 0 Ordered: 24-Oct-2015 Bessy Marely LPN Start : 24-Jul-2015 End : 24-Oct-2015 Inactive 3 ml liraglutide 6 mg/ml pen injector (3 sources) GLP-1 Receptor Agonist Star t: 03-30 14 End: 05-31 15 VICTOZA, 18MG/3ML (Subcutaneous Solution Pen-injector) 1 (one) Soln Pen-inj Soln Pen-inj qd 0.6 x 1 wk, 1.2 x 1 wk, 1.8 there after for 0 days Quantity: 3 {Each} Refills: 2 Ordered: 18-Jun-2014 Ling Grande Start : 09-Apr-2014 End : 18-Jun-2014 Inactive Comments: 3 pens Comment on above: 3 pens Lutein (3 sources) Star t: 06-18 14 End: 05-01 14 take 1 capsule by mouth once daily LUTEIN 20 (Oral Capsule) 1 (one) Capsule qd for 30 days Quantity: 30 {Capsule} Refills: 0 Ordered: 17-Jun-2014 Shagufta Fam DO, DO, Kathleen Start : 29-Apr-2014 End : 29-May-2014 Inactive meclizine hydrochloride 25 mg oral tablet (3 sources) Antiemetic Star t: 09-28 16 End: 07-29 17 take 1 tablet by mouth every eight hours as needed Meclizine HCl 25 MG Oral Tablet 1 (one) Tablet Tablet q 8hrs prn for 0 days Quantity: 60 {Tablet} Refills: 3 Ordered: 25-Aug-2016 Bessy Marley LPN Start : 24-Oct-2015 End : 25-Aug-2016 Inactive mometasone furoate 0.05 mg/actuat metered dose nasal spray (3 sources) Corticosteroid Star t: 11-28 14 End: 12-16 14 NASONEX, 50MCG/ACT (Nasal Suspension) 2 (two) [place] daily for 0 days Quantity: 1 {[place]} Refills: 0 Ordered: 05-Apr-2014 Bessy Marley LPN Start : 19-Dec-2013 End : 05-Apr-2014 Inactive oxyCODONE hydrochloride 5 mg oral capsule (9 sources) Opioid Agonist Star t: 10-29 21 End: 04-30 22 oxyCODONE ir (OXYIR) 5 mg capsule Take by mouth. 0 11/25/2020 05/27/2022 Discontinued Comment on above: Take by mouth. pioglitazone 30 mg oral tablet (13 sources) Peroxisome Proliferator Receptor alpha Agonist, Peroxisome Proliferator Receptor gamma Agonist, Thiazolidinedione Star t: 08-16 End: 09-16 pioglitazone (ACTOS) 30 mg tablet Start: 12-22-2017 take 1 tablet by leroy once daily Actos 15 MG Oral Tablet 1 (one) Tablet qd for 0 days Quantity: 21 {Tablet} Refills: 0 Ordered: 22-Dec-2017 Shagufta Fam DO, DO, Kathleen Start : 22-Dec-2017 Active pravastatin sodium 40 mg oral tablet (3 sources) HMG-CoA Reductase Inhibitor Start: 11-09-2013 End: 11-09-2013 take 1 tablet by mouth once daily PRAVASTATIN SODIUM, 40MG (Oral Tablet) 1 (one) Tablet qd for 30 days Refills: 0 Ordered: 09-Nov-2013 Shaugfta Fam DO, DO, Kathleen Start : 09-Nov-2013 End : 09-Nov-2013 Discontinued Comments: bones hurt Comment on above: bones hurt predniSONE 20 mg oral tablet (3 sources) Start: 07-24-2015 End: 10-24-2015 take 1 tablet by mouth once daily PREDNISONE, 20MG (Oral Tablet) 1 (one) Tablet daily for 0 days Quantity: 7 {Tablet} Refills: 0 Ordered: 24-Oct-2015 Bessy Marley LPN Start : 24-Jul-2015 End : 24-Oct-2015 Inactive thioctic acid 200 mg oral capsule (3 sources) Start: 04-29-2014 End: 05-29-2014 take 1 capsule by mouth once daily ALPHA LIPOIC ACID, 200MG (Oral Capsule) 1 (one) Capsule qd for 30 days Quantity: 30 {Capsule} Refills: 0 Ordered: 17-Jun-2014 Shagufta Fam DO, DO, Kathleen Start : 29-Apr-2014 End : 29-May-2014 Inactive vitamin b 12 0.1 mg oral tablet (3 sources) Vitamin B12 Start: 04-29-2014 End: 05-29-2014 take 1 tablet by mouth once daily VITAMIN B12, 100MCG (Oral Tablet) 1 (one) Tablet qd for 30 days Quantity: 30 {Tablet} Refills: 0 Ordered: 17-Jun-2014 Cristel GODINEZ Shaguftajosseline Fam DO Shagufta Start : 29-Apr-2014 End : 29-May-2014 Inactive VITAMIN D3 COMPLETE (Oral Tablet) (3 sources) Start: 10-24-2015 End: 11-23-2015 take 1 tablet by mouth once daily VITAMIN D3 COMPLETE (Oral Tablet) 1 (one) Tablet Tablet qd for 30 days Quantity: 30 {Tablet} Refills: 0 Ordered: 24-Oct-2015 Cristel GODINEZShagufta Cristel DO, Shagufta Start : 24-Oct-2015 End : 23-Nov-2015 Inactive Problems Active Problems Problem Classification Problem Date Documented Date Episodic/Chronic Anxiety disorders (20 sources) Anxiety; Translations: [Anxiety disorder, unspecified] Onset: 2 03-02-2022 Chronic Asthma (20 sources) Asthma; Translations: [Cough variant asthma] Resolved: 4 04-28-2017 Chronic Diabetes mellitus with complications (20 sources) Type II diabetes mellitus uncontrolled; Translations: [Uncontrolled type 2 diabetes mellitus] Onset: 2 04-28-2017 Chronic Diabetes mellitus with complications (6 sources) Diabetes mellitus with complications Diabetes mellitus without complication (20 sources) Type 2 diabetes mellitus without complication; Translations: [Type 2 diabetes mellitus without complications] Onset: 2 04-28-2017 Chronic Diabetes mellitus without complication (20 sources) Diabetes mellitus without complication Diseases of white blood cells (20 sources) Leukocytosis; Translations: [Elevated white blood cell count, unspecified] Onset: 2 04-28-2017 Chronic Disorders of lipid metabolism (20 sources) Hypercholesterolemia; Translations: [Hyperlipidemia] Onset: 2 04-28-2017 Chronic Essential hypertension (20 sources) Benign essential hypertension; Translations: [Essential hypertension] Onset: 2 Resolved: 5 11-05-2014 Chronic Mood disorders (20 sources) Depression; Translations: [Depressive disorder] Onset: 2 04-28-2017 Chronic Comment on above: stable Nutritional deficiencies (20 sources) Vitamin D deficiency, unspecified; Translations: [Vitamin D deficiency] Onset: 2 04-28-2017 Chronic Osteoarthritis (20 sources) Arthritis; Translations: [Degenerative joint disease involving multiple joints] Onset: 7 04-28-2017 Chronic Other connective tissue disease (1 source) Bilateral weakness of upper limbs; Translations: [Other symptoms and signs involving the musculoskeletal system] 03-14-2023 Episodic Other endocrine disorders (20 sources) Hypoglycemia; Translations: [Hypoglycemia, unspecified] Onset: 2 04-28-2017 Chronic Other nervous system disorders (20 sources) Chronic pain syndrome; Translations: [Chronic pain syndrome] Onset: 7 11-03-2021 Chronic Other nervous system disorders (20 sources) Chronic pain; Translations: [Other chronic pain] Onset: 7 03-02-2022 Chronic Other nervous system disorders (20 sources) Bilateral carpal tunnel syndrome; Translations: [Carpal tunnel syndrome, bilateral upper limbs] Onset: 2 03-02-2022 Chronic Other nervous system disorders (20 sources) Neuropathy; Translations: [Polyneuropathy, unspecified] Onset: 2 03-02-2022 Chronic Other nervous system disorders (1 source) Other chronic pain; Translations: [Other chronic pain] Onset: 2 Chronic Other nervous system disorders (1 source) Chronic pain syndrome; Translations: [Chronic pain syndrome] Onset: 2 Chronic Other nutritional; endocrine; and metabolic disorders (3 sources) Body mass index 30+ - obesity; Translations: [BMI 39.0-39.9,adult] 04-28-2017 Chronic Other nutritional; endocrine; and metabolic disorders (9 sources) Morbid obesity; Translations: [Morbid (severe) obesity due to excess calories] Onset: 7 11-03-2021 Chronic Other nutritional; endocrine; and metabolic disorders (20 sources) Obesity; Translations: [Obesity, unspecified] Onset: 7 03-02-2022 Chronic Other nutritional; endocrine; and metabolic disorders (20 sources) Body mass index 40+ - severely obese; Translations: [Morbid (severe) obesity due to excess calories] Onset: 2 04-11-2022 Chronic Other upper respiratory disease (20 sources) Allergic rhinitis; Translations: [Allergic rhinitis, unspecified] Onset: 2 04-28-2017 Chronic Paralysis (20 sources) Right hemiparesis; Translations: [Hemiplegia, unspecified affecting right dominant side] Onset: 2 04-28-2017 Chronic Substance-related disorders (20 sources) Tobacco dependence in remission; Translations: [Nicotine dependence, unspecified, in remission] Onset: 2 04-28-2017 Chronic Unclassified (20 sources) Deficiency of vitamin B12 Unclassified (12 sources) Benign essential HTN Unclassified (15 sources) Hypercholesteremia (272.0) Unclassified (20 sources) Unclassified (3 sources) Witnessed apneic spells Unclassified (9 sources) Screening status; Translations: [Encounter for screening for malignant neoplasm of colon (Renamed from Special screening for malignant neoplasms, colon)] Resolved: 04-28-2017 Comment on above: ordered cologard Unclassified (6 sources) Dizzy Unclassified (6 sources) Influenza vaccination declined; Translations: [Influenza vaccination declined (Renamed from Refused influenza vaccine)] 04-28-2017 Unclassified (9 sources) Non-smoker; Translations: [Non-smoker] 04-28-2017 Unclassified (3 sources) Carpal tunnel syndrome, bilateral Unclassified (12 sources) Polyarthralgia Unclassified (12 sources) Hypercholesteremia Unclassified (3 sources) BMI 39.0-39.9,adult Past or Other Problems Problem Classification Problem Date Documented Da te Episodic/Chronic Chronic obstructive pulmonary disease and bronchiectasis (9 sources) Bronchitis; Translations: [Bronchitis] Resolved: 07-24-2015 07-24-2015 Episodic Conditions associated with dizziness or vertigo (3 sources) Dizziness and giddiness; Translations: [Dizzy] Resolved: 07-24-2015 07-24-2015 Episodic Comment on above: occurs with bending down neg thu halpike Essential hypertension (3 sources) Essential hypertension Mycoses (20 sources) Candidiasis of mouth; Translations: [Candidal stomatitis] Onset: 12-27-2022 12-27-2022 Episodic Nutritional deficiencies (20 sources) Cobalamin deficiency; Translations: [Deficiency of other specified B group vitamins] Onset: 03-02-2022 04-28-2017 Episodic Other aftercare (20 sources) Patient encounter status; Translations: [rat exterminator (current) use of opiate analgesic] Onset: 10-27-2016 11-03-2021 Episodic Other aftercare (20 sources) Taking high risk medication; Translations: [Other mcc (current) drug therapy] Onset: 08-30-2022 Episodic Other aftercare (8 sources) Long-term current use of drug therapy; Translations: [long-term (current) use of opiate analgesic] Onset: 10-27-2016 11-03-2021 Episodic Other bone disease and musculoskeletal deformities (20 sources) Disorder of skull; Translations: [Disorder of bone, unspecified] Onset: 06-26-2015 03-02-2022 Episodic Other connective tissue disease (20 sources) Fibromyositis; Translations: [Fibromyalgia] Onset: 12-20-2017 11-03-2021 Episodic Other connective tissue disease (20 sources) Disorder of rotator cuff; Translations: [Unspecified rotator cuff tear or rupture of unspecified shoulder, not specified as traumatic] Onset: 10-27-2016 11-03-2021 Episodic Other connective tissue disease (20 sources) Myofascial pain syndrome; Translations: [Myalgia, other site] Onset: 08-30-2022 08-30-2022 Episodic Other ear and sense organ disorders (3 sources) Impacted cerumen; Translations: [Cerumen impaction] Resolved: 04-05-2014 03-04-2015 Episodic Other lower respiratory disease (18 sources) Cough; Translations: [Cough] Resolved: 10-24-2015 07-24-2015 Episodic Other lower respiratory disease (20 sources) Apnea; Translations: [Apnea, not elsewhere classified] Onset: 03-02-2022 Resolved: 11-05-2022 04-28-2017 Episodic Other nervous system disorders (20 sources) Acute postoperative pain; Translations: [Other acute postprocedural pain] Onset: 03-02-2022 03-02-2022 Episodic Other nervous system disorders (3 sources) Bilateral carpal tunnel syndrome; Translations: [Carpal tunnel syndrome, bilateral] 04-28-2017 Comment on above: wear otc splints and see if helps -- neck painas well so will need ncs and emg to determine level of compression Other non-traumatic joint disorders (20 sources) Multiple joint pain; Translations: [Pain in unspecified joint] Onset: 03-02-2022 04-28-2017 Episodic Comment on above: unable to get out of bed without help, Other non-traumatic joint disorders (20 sources) Pain in lower limb; Translations: [Pain in unspecified knee] Onset: 06-23-2017 11-03-2021 Episodic Other screening for suspected conditions (not mental disorders or infectious disease) (9 sources) CT of head abnormal; Translations: [Blood chemistry abnormal] Resolved: 04-28-2017 04-28-2017 Episodic Comment on above: elev crp and elev Rh factor Other upper respiratory infections (9 sources) Acute sinusitis; Translations: [Acute maxillary sinusitis] Resolved: 10-24-2015 09-23-2016 Episodic Comment on above: willnot resolve on inex augmentin and nasal spray. add oral prednisone change to levaquin and nettipo. if not better by tuesday then CT sinus. consider ENT for cx use nornv have for pain from cough and cough Residual codes; unclassified (3 sources) Influenza-like symptoms; Translations: [Flu-like symptoms] Resolved: 07-24-2015 07-24-2015 Episodic Residual codes; unclassified (20 sources) Non-smoker; Translations: [Other specified health status] Onset: 03-02-2022 03-02-2022 Episodic Spondylosis; intervertebral disc disorders; other back problems (20 sources) Neck pain; Translations: [Cervicalgia] Onset: 06-23-2017 04-28-2017 Episodic Unclassified (3 sources) BMI 39.0-39.9, ADULT (V85.39) Unclassified (3 sources) SCREENING FOR CANCER OF THE PROSTATE (V76.44) Unclassified (6 sources) Abnormal TSH (794.5) Unclassified (3 sources) Cerumen Impaction (380.4) Unclassified (3 sources) Weakness of right side of body Unclassified (6 sources) Abnormal CT of the head Unclassified (3 sources) Leukocytosis, unspecified type Unclassified (3 sources) Abnormal blood chemistry Unclassified (3 sources) Rhinitis, allergic Unclassified (3 sources) Flu-like symptoms Unclassified (3 sources) Tobacco abuse, in remission (Renamed from Tobacco dependence in remission) Unclassified (3 sources) Acute maxillary sinusitis, recurrence not specified Results Test Name Value Interpretation Reference Range Facility CNOV 03-14-2024 CNOV Office Visit (YAYA ) ----- JEREMY FREEMAN ([id number]) 1960 M Date Time Provider Department 03/14/24 10:15 AM SALBADOR GORE During your visit today, we recorded the following information about you: Pulse Respiration Blood pressure Weight 84/minute 16/minute 140/77 108.5 kg Height 1.651 m Salbador Gore MD 03/14/2024 10:39 AM Signed Dragon was used to dictate this note and therefore there may be some typographical errors. I attest to the fact that I spent a total of 16 min with the patient to include: Face to face time and non face to face time such as: Reviewing test's, reviewing medical records, reviewing imaging studies, ordering tests, etc. The patient was last seen on 12/14/2023. Treatment plan at that time included the following: Continue on Percocet as prescribed by Dr. Silva and her staff, patient was scheduled to have upcoming knee surgery. He was awaiting dental and medical clearance. I spoke with him in depth about weaning off the Percocet prior to surgery in order to up regulate or reset his opioid receptors. He voiced understanding and told me that this is something his surgeon had mentioned to him as well. He returns today for follow-up visit. PE: Alert and oriented no acute distress. Mood and affect within normal limits. Vital signs as indicated. Slightly antalgic gait favoring his right leg putting more weight on the left. Dx: Right knee osteoarthritis, right knee pain, severe degenerative changes right knee with [id number] phenomena, status post left total knee arthroplasty, gait disturbance, cervical DDD, cervical DJD, cervical's arthropathy, cervical set syndrome, cervical spondylosis, cervical radiculitis, cervical pain, history of right-sided hemiparesis, hypertension, hyperlipidemia, diabetes with diabetic neuropathy, history of rotator cuff syndrome, chronic pain syndrome, chronic opioid usage. Patient is on the above analgesic regimen. Patient denies any systemic side effects. Patient believes the pain meds have helped (as indicated by VAS). Patient has signed Medication Management Agreement and Informed Consent Form ( contract ). I have also utilized the Intractable Pain and Drug Prescription Checklist as promulgated by [facility] Board. Furthermore, I have adhered to the [facility] Administrative Code 4731-11. The medication clearly improves this patient's functionality and quality of life as evidence by improved social, recreational activities. There is no evidence of any: drug abuse, drug addiction nor drug diversion. The patient has never called in early for a refill, is not particularly focused on pain medication, has never shown up in our office unexpectedly without appointment, nor called in stating a lost prescription. The patient has been instructed not to drive if any [employer] side effects to pain medication. The patient has been informed that the analgesics are potentially addicting and need to be taken strictly as prescribed. I have checked an OARRS on this patient which came back as expected. The patient has received an opioid education handout and filled out an opioid screener (SOAPP). I have had the patient submit a random urine drug screen AND the patient does have biological markers which would corroborate and substantiate chronic pain (see prior imaging studies). Additionally I did discuss Narcan with the patient and informed the patient that Narcan is now available at their pharmacy if they so request. Plan: As above, patient was last seen on 12/14/2023. Treatment plan at that time included the following: Continue on Percocet as prescribed by Dr. Silva and her staff, patient was scheduled to have upcoming knee surgery. He was awaiting dental and medical clearance. I spoke with him in depth about weaning off the Percocet prior to surgery in order to up regulate or reset his opioid receptors. He voiced understanding and told me that this is something his surgeon had mentioned to him as well. Patient is having upcoming right total knee arthroplasty with orthopedic surgeon in [place]. He states that postoperatively, he will not need any more pain medication. He has been weaning himself off of the Percocet in preparation for surgery and also weaning himself off of the gabapentin. He again reiterated that he will not be any more pain medicine from our office after surgery If he recovers from surgery. He therefore we will follow-up with us on appearing basis only. Patient is much to be commended. Referring Provider: SALBADOR GORE [[id number]] Allergies As of Date: 03/14/2024 (No Known Allergies) Date Reviewed: 03/14/2024 Reviewed by: Sade Truong MA - Fully Assessed Reason for Visit: Knee Pain [132] Cmt: Right Primary Visit Diagnosis:Chronic pain syndrome [G89.4] Other Visit Diagnosis:O (more content not included)... [facility] 02-07-2024 CNPN Telephone (YAYA) ----- JEREMY FREEMAN ([id number]) 1960 M Date Time Provider Department 02/07/24 SALBADOR GORE During your visit today, we recorded the following information about you: Bessy Bojorquez MA 02/07/2024 11:36 AM Signed Oxycodone acetaminophen pa sent through [facility]: [id number] Bessy Bojorquez MA February 07, 2024 11:36 AM Allergies As of Date: 02/07/2024 (No Known Allergies) Date Reviewed: 12/14/2023 Reviewed by: Tarun Trejo MA - Fully Assessed Reason for Visit: oxycodone samina pa [Other] Prescriptions as of 02/07/2024 - oxyCODONE-acetaminophen (PERCOCET) 7.5-325 mg tablet Take 1 tablet by mouth three times a day as needed for pain for up to 30 days. - gabapentin (NEURONTIN) 600 mg tablet Take 1 tablet by mouth three times a day for 90 days. - buPROPion SR (WELLBUTRIN SR) 200 mg 12 hr tablet Take 1 tablet by mouth every 12 hours. - meloxicam (MOBIC) 15 mg tablet Take 1 tablet by mouth every afternoon. - Chlorhexidine Gluconate (PERIDEX) 0.12 % solution RINSE MOUTH WITH 15ML (1 CAPFUL) FOR 30 SECONDS IN MORNING AND EVENING AFTER BRUSHING, THEN SPIT - buPROPion SR (WELLBUTRIN SR) 150 mg 12 hr tablet 1 TAB BY MOUTH TWICE A DAY, DAILY FOR THE FIRST WEEK - ibuprofen (MOTRIN) 800 mg tablet Take 1 tablet by mouth three times a day as needed for pain. - BASAGLAR SANDRO U-100 INSULIN 100 unit/mL (3 mL) INJECT 20 UNITS EVERY DAY AT BEDTIME - BD ULTRAFINE III MINI PEN 31 gauge x 3/16 USE THREE TIMES A DAY FOR DM 2 - rosuvastatin (CRESTOR) 20 mg tablet Take 20 mg by mouth daily at bedtime. - doxazosin (CARDURA) 2 mg tablet Take 2 mg by mouth twice daily. - lisinopril (ZESTRIL) 40 mg tablet Take 40 mg by mouth daily at bedtime. - sertraline (ZOLOFT) 100 mg tablet Take 100 mg by mouth once daily. - albuterol HFA (PROVENTIL HFA, VENTOLIN HFA) 90 mcg/actuation inhaler - hydroCHLOROthiazide (HYDRODIURIL, ESIDRIX) 25 mg tablet - amLODIPine (NORVASC) 10 mg tablet - montelukast (SINGULAIR) 10 mg tablet - nystatin (MYCOSTATIN) 100,000 unit/mL suspension - FLUoxetine (PROZAC) 40 mg capsule fluoxetine 40 mg capsule - glimepiride (AMARYL) 4 mg tablet - lisinopril-hydroCHLOROthi azide (PRINZIDE, ZESTORETIC) 20-25 mg per tablet lisinopril-hydrochlorothi azide 20-25 mg tablet - metFORMIN (GLUCOPHAGE) 1,000 mg tablet metformin 1,000 mg tablet - methylPREDNISolone (MEDROL DOSE-PACK) 4 mg Dose-Pack Medrol (Jonnie) 4 mg tablets,dose pack - SITagliptin (JANUVIA) 100 mg tablet Januvia 100 mg tablet Problem List As Of Date 02/07/2024 Noted Resolved Neck pain [M54.2] 06/23/2017 Chronic pain [G89.29] 10/27/2016 Encounter for long-term methadone use [Z79.891] 10/27/2016 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] 12/20/2017 Generalized osteoarthritis [M15.9] 10/27/2016 Obesity [E66.9] 10/27/2016 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] 01/15/2019 Osteoarthritis of right knee [M17.11] 10/27/2016 Pain in joint, lower leg [M25.569] 06/23/2017 Rotator cuff syndrome [M75.100] 10/27/2016 Acute postoperative pain [G89.18] 03/02/2022 Allergic rhinitis [J30.9] 03/02/2022 Anxiety [F41.9] 03/02/2022 Apnea [R06.81] 03/02/2022 11/05/2022 Arthralgia of multiple joints [M25.50] 03/02/2022 DJD (degenerative joint disease) [M19.90] 03/02/2022 Bilateral carpal tunnel syndrome [G56.03] 03/02/2022 Cobalamin deficiency [E53.8] 03/02/2022 Depressive disorder [F32.A] 03/02/2022 Essential (primary) hypertension [I10] 02/26/2022 Hyperlipidemia, unspecified [E78.5] 02/26/2022 Hypoglycemia [E16.2] 03/02/2022 Leukocytosis [D72.829] 03/02/2022 Neuropathy [G62.9] 03/02/2022 Non-smoker [Z78.9] 03/02/2022 Right hemiparesis (HCC) [G81.91] 03/02/2022 Skull lesion [M89.9] 06/26/2015 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] 03/02/2022 Type 2 diabetes mellitus without complications *08/14/2021 Uncontrolled type 2 diabetes mellitus [[id number]] 03/02/2022 Vitamin D deficiency [E55.9] 03/02/2022 Obesity, Class III, BMI >= 40 [E66.01] 04/11/2022 High risk medication use [Z79.899] 08/30/2022 Myofascial pain syndrome [M79.18] 08/30/2022 Candidiasis of mouth [B37.0] 12/27/2022 Diagnosed: 12/27/2022 Encounter Status:Closed by BESSY BOJORQUEZ on 02/07/24 [facility] CNPN Telephone (PAIMER) ----- JEREMY FREEMAN ([id number]) 1960 M Date Time Provider Department 02/07/24 SALBADOR GORE During your visit today, we recorded the following information about you: Cyndy La MA 02/07/2024 1:38 PM Signed oxyCODONE-acetaminophen (PERCOCET) 7.5-325 mg tablet APPROVED Letter index to chart Cyndy La MA February 07, 2024 1:38 PM Allergies As of Date: 02/07/2024 (No Known Allergies) Date Reviewed: 12/14/2023 Reviewed by: Tarun Trejo MA - Fully Assessed Reason for Visit: percocet approved [Other] Prescriptions as of 02/07/2024 - oxyCODONE-acetaminophen (PERCOCET) 7.5-325 mg tablet Take 1 tablet by mouth three times a day as needed for pain for up to 30 days. - gabapentin (NEURONTIN) 600 mg tablet Take 1 tablet by mouth three times a day for 90 days. - buPROPion SR (WELLBUTRIN SR) 200 mg 12 hr tablet Take 1 tablet by mouth every 12 hours. - meloxicam (MOBIC) 15 mg tablet Take 1 tablet by mouth every afternoon. - Chlorhexidine Gluconate (PERIDEX) 0.12 % solution RINSE MOUTH WITH 15ML (1 CAPFUL) FOR 30 SECONDS IN MORNING AND EVENING AFTER BRUSHING, THEN SPIT - buPROPion SR (WELLBUTRIN SR) 150 mg 12 hr tablet 1 TAB BY MOUTH TWICE A DAY, DAILY FOR THE FIRST WEEK - ibuprofen (MOTRIN) 800 mg tablet Take 1 tablet by mouth three times a day as needed for pain. - BASAGLAR KWIKPEN U-100 INSULIN 100 unit/mL (3 mL) INJECT 20 UNITS EVERY DAY AT BEDTIME - BD ULTRAFINE III MINI PEN 31 gauge x 3/16 USE THREE TIMES A DAY FOR DM 2 - rosuvastatin (CRESTOR) 20 mg tablet Take 20 mg by mouth daily at bedtime. - doxazosin (CARDURA) 2 mg tablet Take 2 mg by mouth twice daily. - lisinopril (ZESTRIL) 40 mg tablet Take 40 mg by mouth daily at bedtime. - sertraline (ZOLOFT) 100 mg tablet Take 100 mg by mouth once daily. - albuterol HFA (PROVENTIL HFA, VENTOLIN HFA) 90 mcg/actuation inhaler - hydroCHLOROthiazide (HYDRODIURIL, ESIDRIX) 25 mg tablet - amLODIPine (NORVASC) 10 mg tablet - montelukast (SINGULAIR) 10 mg tablet - nystatin (MYCOSTATIN) 100,000 unit/mL suspension - FLUoxetine (PROZAC) 40 mg capsule fluoxetine 40 mg capsule - glimepiride (AMARYL) 4 mg tablet - lisinopril-hydroCHLOROthi azide (PRINZIDE, ZESTORETIC) 20-25 mg per tablet lisinopril-hydrochlorothi azide 20-25 mg tablet - metFORMIN (GLUCOPHAGE) 1,000 mg tablet metformin 1,000 mg tablet - methylPREDNISolone (MEDROL DOSE-PACK) 4 mg Dose-Pack Medrol (Jonnie) 4 mg tablets,dose pack - SITagliptin (JANUVIA) 100 mg tablet Januvia 100 mg tablet Problem List As Of Date 02/07/2024 Noted Resolved Neck pain [M54.2] 06/23/2017 Chronic pain [G89.29] 10/27/2016 Encounter for long-term methadone use [Z79.891] 10/27/2016 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] 12/20/2017 Generalized osteoarthritis [M15.9] 10/27/2016 Obesity [E66.9] 10/27/2016 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] 01/15/2019 Osteoarthritis of right knee [M17.11] 10/27/2016 Pain in joint, lower leg [M25.569] 06/23/2017 Rotator cuff syndrome [M75.100] 10/27/2016 Acute postoperative pain [G89.18] 03/02/2022 Allergic rhinitis [J30.9] 03/02/2022 Anxiety [F41.9] 03/02/2022 Apnea [R06.81] 03/02/2022 11/05/2022 Arthralgia of multiple joints [M25.50] 03/02/2022 DJD (degenerative joint disease) [M19.90] 03/02/2022 Bilateral carpal tunnel syndrome [G56.03] 03/02/2022 Cobalamin deficiency [E53.8] 03/02/2022 Depressive disorder [F32.A] 03/02/2022 Essential (primary) hypertension [I10] 02/26/2022 Hyperlipidemia, unspecified [E78.5] 02/26/2022 Hypoglycemia [E16.2] 03/02/2022 Leukocytosis [D72.829] 03/02/2022 Neuropathy [G62.9] 03/02/2022 Non-smoker [Z78.9] 03/02/2022 Right hemiparesis (HCC) [G81.91] 03/02/2022 Skull lesion [M89.9] 06/26/2015 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] 03/02/2022 Type 2 diabetes mellitus without complications *08/14/2021 Uncontrolled type 2 diabetes mellitus [[id number]] 03/02/2022 Vitamin D deficiency [E55.9] 03/02/2022 Obesity, Class III, BMI >= 40 [E66.01] 04/11/2022 High risk medication use [Z79.899] 08/30/2022 Myofascial pain syndrome [M79.18] 08/30/2022 Candidiasis of mouth [B37.0] 12/27/2022 Diagnosed: 12/27/2022 Encounter Status:Closed by CYNDY LA on 02/07/24 [facility] CNOVon 12-14-2023 CN Office Visit (YAYA ) ----- JEREMY FREEMAN ([id number]) 1960 M Date Time Provider Department 12/14/23 9:15 AM [facility] GORE During your visit today, we recorded the following information about you: Pulse Blood pressure Weight 83/minute 142/71 110.7 kg Salbador Gore MD 12/14/2023 9:36 AM Signed Tree was used to dictate this note and therefore there may be some typographical errors. I attest to the fact that I spent a total of 16 min with the patient to include: Face to face time and non face to face time such as: Reviewing test's, reviewing medical records, reviewing imaging studies, ordering tests, etc. The patient was last seen on 09/15/2023. Treatment plan at that time included the following: Urine drug screen updated. Patient was doing fairly well on Percocet. No side effects. He wanted to hold off on the EMG nerve conduction study for presumed carpal tunnel syndrome. We spoke about using cock-up splints. He voiced understanding. I again spoke with him about the possibility of total knee arthroplasty and weaning off of medications prior to surgery in order to up regulate or reset his opioid receptors. He voiced understanding. He asked for refill his Motrin which she had been on for 10 years. He indicated to me that no one checks his blood work during that time. Explained to him this something he would have to address with his primary care physician he voiced understanding. The chronic Percocet have been prescribed by Dr. Silva and her staff. He returns today for follow-up visit. PE: Alert and oriented no acute distress. Mood and affect within normal limits. Vital signs as indicated. No difficulty rising from a chair and or descending into a chair. Gait within normal limits. Dx: Right knee osteoarthritis, right knee pain, severe degenerative changes right knee with [id number] phenomena, status post left total knee arthroplasty, gait disturbance, cervical DDD, cervical DJD, cervical's arthropathy, cervical set syndrome, cervical spondylosis, cervical radiculitis, cervical pain, history of right-sided hemiparesis, hypertension, hyperlipidemia, diabetes with diabetic neuropathy, history of rotator cuff syndrome, chronic pain syndrome, chronic opioid usage. Patient is on the above analgesic regimen. Patient denies any systemic side effects. Patient believes the pain meds have helped (as indicated by VAS). Patient has signed Medication Management Agreement and Informed Consent Form ( contract ). I have also utilized the Intractable Pain and Drug Prescription Checklist as promulgated by [facility]. Furthermore, I have adhered to the [facility] Medical Board [facility] Administrative Code 4731-11. The medication clearly improves this patient's functionality and quality of life as evidence by improved social, recreational activities. There is no evidence of any: drug abuse, drug addiction nor drug diversion. The patient has never called in early for a refill, is not particularly focused on pain medication, has never shown up in our office unexpectedly without appointment, nor called in stating a lost prescription. The patient has been instructed not to drive if any [employer] side effects to pain medication. The patient has been informed that the analgesics are potentially addicting and need to be taken strictly as prescribed. I have checked an OARRS on this patient which came back as expected. The patient has received an opioid education handout and filled out an opioid screener (SOAPP). I have had the patient submit a random urine drug screen AND the patient does have biological markers which would corroborate and substantiate chronic pain (see prior imaging studies). Additionally I did discuss Narcan with the patient and informed the patient that Narcan is now available at their pharmacy if they so request. Plan: As above, the patient was last seen on 09/15/2023. Treatment plan at that time included the following: Urine drug screen updated. Patient was doing fairly well on Percocet. No side effects. He wanted to hold off on the EMG nerve conduction study for presumed carpal tunnel syndrome. We spoke about using cock-up splints. He voiced understanding. I again spoke with him about the possibility of total knee arthroplasty and weaning off of medications prior to surgery in order to up regulate or reset his opioid receptors. He voiced understanding. He asked for refill his Motrin which she had been on for 10 years. He indicated to me that no one checks his blood work during that time. Explained to him this something he would have to address with his primary care physician he voiced understanding. The chronic Percocet have been prescribed by Dr. Silva and her staff. I again spoke with the patient about his upcoming knee surgery. He is waiting for dental and m (more content not included)... [facility] CNOVon 09-15-2023 CNOV Office Visit (YAYA ) ----- JEREMY FREEMAN ([id number]) 1960 M Date Time Provider Department 09/15/23 9:30 AM [facility]BADOR GORE During your visit today, we recorded the following information about you: Pulse Blood pressure Weight 72/minute 160/82 114 kg Salbador Gore MD 09/15/2023 9:43 AM Signed Dragon was used to dictate this note and therefore there may be some typographical errors. I attest to the fact that I spent a total of 16 min with the patient to include: Face to face time and non face to face time such as: Reviewing test's, reviewing medical records, reviewing imaging studies, ordering tests, etc. The patient was last seen on 06/22/2023 by me. Treatment plan at that time included the following: We spoke with the fact that he should consider weaning off of his opioids if indeed he needs a total knee arthroplasty in the future, possibly EMG nerve conduction study of the upper extremities to confirm diagnosis of carpal tunnel syndrome (he wanted to hold off on that), continue on gabapentin 6 mg 3 times a day, and Percocet 7.5/325 as prescribed [address] Dr[address] Silva. He returns today for follow-up visit. PE: Alert and oriented no acute distress. Mood and affect within normal limits. Vital signs as indicated. No difficulty rising from a chair and or descending into a chair. Dx: Right knee osteoarthritis, right knee pain, severe degenerative changes right knee with [id number] phenomena, status post left total knee arthroplasty, gait disturbance, cervical DDD, cervical DJD, cervical's arthropathy, cervical set syndrome, cervical spondylosis, cervical radiculitis, cervical pain, history of right-sided hemiparesis, hypertension, hyperlipidemia, diabetes with diabetic neuropathy, history of rotator cuff syndrome, chronic pain syndrome, chronic opioid usage. Patient is on the above analgesic regimen. Patient denies any systemic side effects. Patient believes the pain meds have helped (as indicated by VAS). Patient has signed Medication Management Agreement and Informed Consent Form ( contract ). I have also utilized the Intractable Pain and Drug Prescription Checklist as promulgated by [facility]. Furthermore, I have adhered to the [facility] Administrative Code 4731-11. The medication clearly improves this patient's functionality and quality of life as evidence by improved social, recreational activities. There is no evidence of any: drug abuse, drug addiction nor drug diversion. The patient has never called in early for a refill, is not particularly focused on pain medication, has never shown up in our office unexpectedly without appointment, nor called in stating a lost prescription. The patient has been instructed not to drive if any FIELD C[employer] ADVOCATE side effects to pain medication. The patient has been informed that the analgesics are potentially addicting and need to be taken strictly as prescribed. I have checked an OARRS on this patient which came back as expected. The patient has received an opioid education handout and filled out an opioid screener (SOAPP). I have had the patient submit a random urine drug screen AND the patient does have biological markers which would corroborate and substantiate chronic pain (see prior imaging studies). Additionally I did discuss Narcan with the patient and informed the patient that Narcan is now available at their pharmacy if they so request. Plan: As above, patient The patient was last seen on 06/22/2023 by me. Treatment plan at that time included the following: We spoke with the fact that he should consider weaning off of his opioids if indeed he needs a total knee arthroplasty in the future, possibly EMG nerve conduction study of the upper extremities to confirm diagnosis of carpal tunnel syndrome (he wanted to hold off on that), continue on gabapentin 600 mg 3 times a day, and Percocet 7.5/325 [address] prescribed [address] Silva. UDS updated Patient is doing fairly well on the Percocet. No side effects. He again wants to hold off on EMG nerve conduction study for presumed carpal tunnel syndrome. We spoke about possibility of using cock-up splints. He voiced understanding. We again discussed the possibility of a total knee arthroplasty and weaning off medications prior to surgery in order to up regulate or reset his opioid receptors. He voiced understanding. He did ask for refill of his Motrin. Apparently he has been on this medication for 10 years. He states no one has checked blood work and he does not history of hypertension. I explained to him this is something I would not be willing to write for since he is at increased risk of stroke and heart attack and certainly elevated blood pressure and renal dysfunction on this medication. He will need to address this with his primary care phys (more content not included)... [facility] 07-12-2023 OSCARN Telephone (YAYA) ----- JEREMY FREEMAN ([id number]) 1960 M Date Time Provider Department 07/12/23 [facility] During your visit today, we recorded the following information about you: Bessy Bojorquez MA 07/12/2023 7:08 AM Signed Oxycodone acetaminophen pa sent through the [facility] Allergies As of Date: 07/12/2023 (No Known Allergies) Date Reviewed: 06/22/2023 Reviewed by: Tejal-Eliane Alcantar MA - Fully Assessed Reason for Visit: oxycodone acetaminophen pa [Other] Prescriptions as of 07/12/2023 - oxyCODONE-acetaminophen (PERCOCET) 7.5-325 mg tablet Take 1 tablet by mouth three times a day as needed for pain for up to 30 days. - ibuprofen (MOTRIN) 800 mg tablet Take 1 tablet by mouth three times a day as needed for pain. - gabapentin (NEURONTIN) 600 mg tablet Take 1 tablet by mouth three times a day for 30 days. - BASAGLAR KWIKPEN U-100 INSULIN 100 unit/mL (3 mL) INJECT 20 UNITS EVERY DAY AT BEDTIME - BD ULTRAFINE III MINI PEN 31 gauge x 3/16 USE THREE TIMES A DAY FOR DM 2 - rosuvastatin (CRESTOR) 20 mg tablet Take 20 mg by mouth daily at bedtime. - doxazosin (CARDURA) 2 mg tablet Take 2 mg by mouth twice daily. - lisinopril (ZESTRIL) 40 mg tablet Take 40 mg by mouth daily at bedtime. - sertraline (ZOLOFT) 100 mg tablet Take 100 mg by mouth once daily. - albuterol HFA (PROVENTIL HFA, VENTOLIN HFA) 90 mcg/actuation inhaler - hydroCHLOROthiazide (HYDRODIURIL, ESIDRIX) 25 mg tablet - amLODIPine (NORVASC) 10 mg tablet - montelukast (SINGULAIR) 10 mg tablet - nystatin (MYCOSTATIN) 100,000 unit/mL suspension - FLUoxetine (PROZAC) 40 mg capsule fluoxetine 40 mg capsule - glimepiride (AMARYL) 4 mg tablet - lisinopril-hydroCHLOROthi azide (PRINZIDE, ZESTORETIC) 20-25 mg per tablet lisinopril-hydrochlorothi azide 20-25 mg tablet - metFORMIN (GLUCOPHAGE) 1,000 mg tablet metformin 1,000 mg tablet - methylPREDNISolone (MEDROL DOSE-PACK) 4 mg Dose-Pack Medrol (Jonnie) 4 mg tablets,dose pack - SITagliptin (JANUVIA) 100 mg tablet Januvia 100 mg tablet Problem List As Of Date 07/12/2023 Noted Resolved Neck pain [M54.2] 06/23/2017 Chronic pain [G89.29] 10/27/2016 Encounter for long-term methadone use [Z79.891] 10/27/2016 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] 12/20/2017 Generalized osteoarthritis [M15.9] 10/27/2016 Obesity [E66.9] 10/27/2016 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] 01/15/2019 Osteoarthritis of right knee [M17.11] 10/27/2016 Pain in joint, lower leg [M25.569] 06/23/2017 Rotator cuff syndrome [M75.100] 10/27/2016 Acute postoperative pain [G89.18] 03/02/2022 Allergic rhinitis [J30.9] 03/02/2022 Anxiety [F41.9] 03/02/2022 Apnea [R06.81] 03/02/2022 11/05/2022 Arthralgia of multiple joints [M25.50] 03/02/2022 DJD (degenerative joint disease) [M19.90] 03/02/2022 Bilateral carpal tunnel syndrome [G56.03] 03/02/2022 Cobalamin deficiency [E53.8] 03/02/2022 Depressive disorder [F32.A] 03/02/2022 Essential (primary) hypertension [I10] 02/26/2022 Hyperlipidemia, unspecified [E78.5] 02/26/2022 Hypoglycemia [E16.2] 03/02/2022 Leukocytosis [D72.829] 03/02/2022 Neuropathy [G62.9] 03/02/2022 Non-smoker [Z78.9] 03/02/2022 Right hemiparesis (HCC) [G81.91] 03/02/2022 Skull lesion [M89.9] 06/26/2015 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] 03/02/2022 Type 2 diabetes mellitus without complications *08/14/2021 Uncontrolled type 2 diabetes mellitus [[id number]] 03/02/2022 Vitamin D deficiency [E55.9] 03/02/2022 Obesity, Class III, BMI >= 40 [E66.01] 04/11/2022 High risk medication use [Z79.899] 08/30/2022 Myofascial pain syndrome [M79.18] 08/30/2022 Candidiasis of mouth [B37.0] 12/27/2022 Encounter Status:Closed by BESSY BOJORQUEZ on 07/12/23 [facility] CNPN Telephone (YAYA) ----- JEREMY FREEMAN ([id number]) 1960 Date Time Provider Department 07/12/23 [facility] During your visit today, we recorded the following information about you: Cyndy La MA 07/12/2023 10:42 AM Signed Items addressed in this encounter: Prior Authorization Percocet was approved Prior authorization approved Case ID: [id number] Payer: [facility] Approved. Approval Details Authorized from June 11, 2023 to January 10, 2024 Able to close encounter. Cyndy La MA July 12, 2023 10:41 AM 10:41 AM Allergies As of Date: 07/12/2023 (No Known Allergies) Date Reviewed: 06/22/2023 Reviewed by: Tejal-Eliane Alcantar MA - Fully Assessed Reason for Visit: percocet approved [Other] Prescriptions as of 07/12/2023 - oxyCODONE-acetaminophen (PERCOCET) 7.5-325 mg tablet Take 1 tablet by mouth three times a day as needed for pain for up to 30 days. - ibuprofen (MOTRIN) 800 mg tablet Take 1 tablet by mouth three times a day as needed for pain. - gabapentin (NEURONTIN) 600 mg tablet Take 1 tablet by mouth three times a day for 30 days. - BASAGLAR KWIKPEN U-100 INSULIN 100 unit/mL (3 mL) INJECT 20 UNITS EVERY DAY AT BEDTIME - BD ULTRAFINE III MINI PEN 31 gauge x 3/16 USE THREE TIMES A DAY FOR DM 2 - rosuvastatin (CRESTOR) 20 mg tablet Take 20 mg by mouth daily at bedtime. - doxazosin (CARDURA) 2 mg tablet Take 2 mg by mouth twice daily. - lisinopril (ZESTRIL) 40 mg tablet Take 40 mg by mouth daily at bedtime. - sertraline (ZOLOFT) 100 mg tablet Take 100 mg by mouth once daily. - albuterol HFA (PROVENTIL HFA, VENTOLIN HFA) 90 mcg/actuation inhaler - hydroCHLOROthiazide (HYDRODIURIL, ESIDRIX) 25 mg tablet - amLODIPine (NORVASC) 10 mg tablet - montelukast (SINGULAIR) 10 mg tablet - nystatin (MYCOSTATIN) 100,000 unit/mL suspension - FLUoxetine (PROZAC) 40 mg capsule fluoxetine 40 mg capsule - glimepiride (AMARYL) 4 mg tablet - lisinopril-hydroCHLOROthi azide (PRINZIDE, ZESTORETIC) 20-25 mg per tablet lisinopril-hydrochlorothi azide 20-25 mg tablet - metFORMIN (GLUCOPHAGE) 1,000 mg tablet metformin 1,000 mg tablet - methylPREDNISolone (MEDROL DOSE-PACK) 4 mg Dose-Pack Medrol (Jonnie) 4 mg tablets,dose pack - SITagliptin (JANUVIA) 100 mg tablet Januvia 100 mg tablet Problem List As Of Date 07/12/2023 Noted Resolved Neck pain [M54.2] 06/23/2017 Chronic pain [G89.29] 10/27/2016 Encounter for long-term methadone use [Z79.891] 10/27/2016 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] 12/20/2017 Generalized osteoarthritis [M15.9] 10/27/2016 Obesity [E66.9] 10/27/2016 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] 01/15/2019 Osteoarthritis of right knee [M17.11] 10/27/2016 Pain in joint, lower leg [M25.569] 06/23/2017 Rotator cuff syndrome [M75.100] 10/27/2016 Acute postoperative pain [G89.18] 03/02/2022 Allergic rhinitis [J30.9] 03/02/2022 Anxiety [F41.9] 03/02/2022 Apnea [R06.81] 03/02/2022 11/05/2022 Arthralgia of multiple joints [M25.50] 03/02/2022 DJD (degenerative joint disease) [M19.90] 03/02/2022 Bilateral carpal tunnel syndrome [G56.03] 03/02/2022 Cobalamin deficiency [E53.8] 03/02/2022 Depressive disorder [F32.A] 03/02/2022 Essential (primary) hypertension [I10] 02/26/2022 Hyperlipidemia, unspecified [E78.5] 02/26/2022 Hypoglycemia [E16.2] 03/02/2022 Leukocytosis [D72.829] 03/02/2022 Neuropathy [G62.9] 03/02/2022 Non-smoker [Z78.9] 03/02/2022 Right hemiparesis (HCC) [G81.91] 03/02/2022 Skull lesion [M89.9] 06/26/2015 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] 03/02/2022 Type 2 diabetes mellitus without complications *08/14/2021 Uncontrolled type 2 diabetes mellitus [[id number]] 03/02/2022 Vitamin D deficiency [E55.9] 03/02/2022 Obesity, Class III, BMI >= 40 [E66.01] 04/11/2022 High risk medication use [Z79.899] 08/30/2022 Myofascial pain syndrome [M79.18] 08/30/2022 Candidiasis of mouth [B37.0] 12/27/2022 Encounter Status:Closed by CYNDY LA on 07/12/23 [facility] CNPN Telephone (YAYA) ----- IZABELLAJEREMY ([id number]) 1960 M Date Time Provider Department 07/12/23 [facility] During your visit today, we recorded the following information about you: Bessy Bojorquez MA 07/12/2023 11:02 AM Signed Indexed approval letter Bessy Bojorquez MA July 12, 2023 11:01 AM Allergies As of Date: 07/12/2023 (No Known Allergies) Date Reviewed: 06/22/2023 Reviewed by: Eliane Dior MA - Fully Assessed Reason for Visit: indexed approval letter [Other] Prescriptions as of 07/12/2023 - oxyCODONE-acetaminophen (PERCOCET) 7.5-325 mg tablet Take 1 tablet by mouth three times a day as needed for pain for up to 30 days. - ibuprofen (MOTRIN) 800 mg tablet Take 1 tablet by mouth three times a day as needed for pain. - gabapentin (NEURONTIN) 600 mg tablet Take 1 tablet by mouth three times a day for 30 days. - BASAGLAR KWIKPEN U-100 INSULIN 100 unit/mL (3 mL) INJECT 20 UNITS EVERY DAY AT BEDTIME - BD ULTRAFINE III MINI PEN 31 gauge x 3/16 USE THREE TIMES A DAY FOR DM 2 - rosuvastatin (CRESTOR) 20 mg tablet Take 20 mg by mouth daily at bedtime. - doxazosin (CARDURA) 2 mg tablet Take 2 mg by mouth twice daily. - lisinopril (ZESTRIL) 40 mg tablet Take 40 mg by mouth daily at bedtime. - sertraline (ZOLOFT) 100 mg tablet Take 100 mg by mouth once daily. - albuterol HFA (PROVENTIL HFA, VENTOLIN HFA) 90 mcg/actuation inhaler - hydroCHLOROthiazide (HYDRODIURIL, ESIDRIX) 25 mg tablet - amLODIPine (NORVASC) 10 mg tablet - montelukast (SINGULAIR) 10 mg tablet - nystatin (MYCOSTATIN) 100,000 unit/mL suspension - FLUoxetine (PROZAC) 40 mg capsule fluoxetine 40 mg capsule - glimepiride (AMARYL) 4 mg tablet - lisinopril-hydroCHLOROthi azide (PRINZIDE, ZESTORETIC) 20-25 mg per tablet lisinopril-hydrochlorothi azide 20-25 mg tablet - metFORMIN (GLUCOPHAGE) 1,000 mg tablet metformin 1,000 mg tablet - methylPREDNISolone (MEDROL DOSE-PACK) 4 mg Dose-Pack Medrol (Jonnie) 4 mg tablets,dose pack - SITagliptin (JANUVIA) 100 mg tablet Januvia 100 mg tablet Problem List As Of Date 07/12/2023 Noted Resolved Neck pain [M54.2] 06/23/2017 Chronic pain [G89.29] 10/27/2016 Encounter for long-term methadone use [Z79.891] 10/27/2016 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] 12/20/2017 Generalized osteoarthritis [M15.9] 10/27/2016 Obesity [E66.9] 10/27/2016 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] 01/15/2019 Osteoarthritis of right knee [M17.11] 10/27/2016 Pain in joint, lower leg [M25.569] 06/23/2017 Rotator cuff syndrome [M75.100] 10/27/2016 Acute postoperative pain [G89.18] 03/02/2022 Allergic rhinitis [J30.9] 03/02/2022 Anxiety [F41.9] 03/02/2022 Apnea [R06.81] 03/02/2022 11/05/2022 Arthralgia of multiple joints [M25.50] 03/02/2022 DJD (degenerative joint disease) [M19.90] 03/02/2022 Bilateral carpal tunnel syndrome [G56.03] 03/02/2022 Cobalamin deficiency [E53.8] 03/02/2022 Depressive disorder [F32.A] 03/02/2022 Essential (primary) hypertension [I10] 02/26/2022 Hyperlipidemia, unspecified [E78.5] 02/26/2022 Hypoglycemia [E16.2] 03/02/2022 Leukocytosis [D72.829] 03/02/2022 Neuropathy [G62.9] 03/02/2022 Non-smoker [Z78.9] 03/02/2022 Right hemiparesis (HCC) [G81.91] 03/02/2022 Skull lesion [M89.9] 06/26/2015 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] 03/02/2022 Type 2 diabetes mellitus without complications *08/14/2021 Uncontrolled type 2 diabetes mellitus [[id number]] 03/02/2022 Vitamin D deficiency [E55.9] 03/02/2022 Obesity, Class III, BMI >= 40 [E66.01] 04/11/2022 High risk medication use [Z79.899] 08/30/2022 Myofascial pain syndrome [M79.18] 08/30/2022 Candidiasis of mouth [B37.0] 12/27/2022 Encounter Status:Closed by BESSY BOJORQUEZ on 07/12/23 [facility] CNPN Telephone (YAYA) ----- JEREMY FREEMAN ([id number]) 1960 [place] Date Time Provider Department 07/12/23 [facility] During your visit today, we recorded the following information about you: Lauren Couch MA 07/12/2023 12:56 PM Signed Items addressed in this encounter: Prior Authorization Able to close encounter. Lauren Couch MA July 12, 2023 12:54 PM 12:54 PM Allergies As of Date: 07/12/2023 (No Known Allergies) Date Reviewed: 06/22/2023 Reviewed by: Tejal-Eliane Alcantar MA - Fully Assessed Reason for Visit: Other [1320] Prescriptions as of 07/12/2023 - oxyCODONE-acetaminophen (PERCOCET) 7.5-325 mg tablet Take 1 tablet by mouth three times a day as needed for pain for up to 30 days. - ibuprofen (MOTRIN) 800 mg tablet Take 1 tablet by mouth three times a day as needed for pain. - gabapentin (NEURONTIN) 600 mg tablet Take 1 tablet by mouth three times a day for 30 days. - BASAGLAR KWIKPEN U-100 INSULIN 100 unit/mL (3 mL) INJECT 20 UNITS EVERY DAY AT BEDTIME - BD ULTRAFINE III MINI PEN 31 gauge x 3/16 USE THREE TIMES A DAY FOR DM 2 - rosuvastatin (CRESTOR) 20 mg tablet Take 20 mg by mouth daily at bedtime. - doxazosin (CARDURA) 2 mg tablet Take 2 mg by mouth twice daily. - lisinopril (ZESTRIL) 40 mg tablet Take 40 mg by mouth daily at bedtime. - sertraline (ZOLOFT) 100 mg tablet Take 100 mg by mouth once daily. - albuterol HFA (PROVENTIL HFA, VENTOLIN HFA) 90 mcg/actuation inhaler - hydroCHLOROthiazide (HYDRODIURIL, ESIDRIX) 25 mg tablet - amLODIPine (NORVASC) 10 mg tablet - montelukast (SINGULAIR) 10 mg tablet - nystatin (MYCOSTATIN) 100,000 unit/mL suspension - FLUoxetine (PROZAC) 40 mg capsule fluoxetine 40 mg capsule - glimepiride (AMARYL) 4 mg tablet - lisinopril-hydroCHLOROthi azide (PRINZIDE, ZESTORETIC) 20-25 mg per tablet lisinopril-hydrochlorothi azide 20-25 mg tablet - metFORMIN (GLUCOPHAGE) 1,000 mg tablet metformin 1,000 mg tablet - methylPREDNISolone (MEDROL DOSE-PACK) 4 mg Dose-Pack Medrol (Jonnie) 4 mg tablets,dose pack - SITagliptin (JANUVIA) 100 mg tablet Januvia 100 mg tablet Problem List As Of Date 07/12/2023 Noted Resolved Neck pain [M54.2] 06/23/2017 Chronic pain [G89.29] 10/27/2016 Encounter for long-term methadone use [Z79.891] 10/27/2016 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] 12/20/2017 Generalized osteoarthritis [M15.9] 10/27/2016 Obesity [E66.9] 10/27/2016 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] 01/15/2019 Osteoarthritis of right knee [M17.11] 10/27/2016 Pain in joint, lower leg [M25.569] 06/23/2017 Rotator cuff syndrome [M75.100] 10/27/2016 Acute postoperative pain [G89.18] 03/02/2022 Allergic rhinitis [J30.9] 03/02/2022 Anxiety [F41.9] 03/02/2022 Apnea [R06.81] 03/02/2022 11/05/2022 Arthralgia of multiple joints [M25.50] 03/02/2022 DJD (degenerative joint disease) [M19.90] 03/02/2022 Bilateral carpal tunnel syndrome [G56.03] 03/02/2022 Cobalamin deficiency [E53.8] 03/02/2022 Depressive disorder [F32.A] 03/02/2022 Essential (primary) hypertension [I10] 02/26/2022 Hyperlipidemia, unspecified [E78.5] 02/26/2022 Hypoglycemia [E16.2] 03/02/2022 Leukocytosis [D72.829] 03/02/2022 Neuropathy [G62.9] 03/02/2022 Non-smoker [Z78.9] 03/02/2022 Right hemiparesis (HCC) [G81.91] 03/02/2022 Skull lesion [M89.9] 06/26/2015 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] 03/02/2022 Type 2 diabetes mellitus without complications *08/14/2021 Uncontrolled type 2 diabetes mellitus [RKJ3759] 03/02/2022 Vitamin D deficiency [E55.9] 03/02/2022 Obesity, Class III, BMI >= 40 [E66.01] 04/11/2022 High risk medication use [Z79.899] 08/30/2022 Myofascial pain syndrome [M79.18] 08/30/2022 Candidiasis of mouth [B37.0] 12/27/2022 Encounter Status:Closed by HAREN, LAUREN M on 07/12/23 [facility] CNOVon 06-22-2023 CNOV Office Visit (YAYA ) ----- IZABELLAJEREMY ([id number]) 1960 M Date Time Provider Department 06/22/23 3:45 PM SALBADOR GORE During your visit today, we recorded the following information about you: Pulse Respiration Blood pressure Weight 85/minute 19/minute 164/95 114.8 kg Height 1.676 m Salbador Gore MD 06/22/2023 3:58 PM Signed Dragon was used to dictate this note and therefore there may be some typographical errors. I attest to the fact that I spent a total of 21 min with the patient to include: Face to face time and non face to face time such as: Reviewing test's, reviewing medical records, reviewing imaging studies, ordering tests, etc. Patient was last seen by Dr. Silva on 03/14/2023. The patient is been followed by Dr. Silva and her staff. This is a first visit for this patient with me. The notes indicate the patient was to be maintained on gabapentin 600 mg 3 times a day, continue Percocet 7.5/325 3 times a day, continue to be as active as possible. This again is a first visit for this patient with me. PE: Alert and oriented in some discomfort. Mood and affect within normal limits. Vital signs indicated. Antalgic gait favoring his right leg and right knee more than his left. Dx: Right knee osteoarthritis, right knee pain, severe degenerative changes right knee with [id number] phenomena, status post left total knee arthroplasty, gait disturbance, cervical DDD, cervical DJD, cervical's arthropathy, cervical set syndrome, cervical spondylosis, cervical radiculitis, cervical pain, history of right-sided hemiparesis, hypertension, hyperlipidemia, diabetes with diabetic neuropathy, history of rotator cuff syndrome, chronic pain syndrome, chronic opioid usage. Patient is on the above analgesic regimen. Patient denies any systemic side effects. Patient believes the pain meds have helped (as indicated by VAS). Patient has signed Medication Management Agreement and Informed Consent Form ( contract ). I have also utilized the Intractable Pain and Drug Prescription Checklist as promulgated by [facility]. Furthermore, I have adhered to the [facility] Administrative Code 4731-11. The medication clearly improves this patient's functionality and quality of life as evidence by improved social, recreational activities. There is no evidence of any: drug abuse, drug addiction nor drug diversion. The patient has never called in early for a refill, is not particularly focused on pain medication, has never shown up in our office unexpectedly without appointment, nor called in stating a lost prescription. The patient has been instructed not to drive if any [employer] side effects to pain medication. The patient has been informed that the analgesics are potentially addicting and need to be taken strictly as prescribed. I have checked an OARRS on this patient which came back as expected. The patient has received an opioid education handout and filled out an opioid screener (SOAPP). I have had the patient submit a random urine drug screen AND the patient does have biological markers which would corroborate and substantiate chronic pain (see prior imaging studies). Additionally I did discuss Narcan with the patient and informed the patient that Narcan is now available at their pharmacy if they so request. Plan: As above, the patient was last seen by Dr. Silva on 03/14/2023. The patient is been followed by Dr. Silva and her staff. This is a first visit for this patient with me. The notes indicate the patient was to be maintained on gabapentin 600 mg 3 times a day, continue Percocet 7.5/325 3 times a day, continue to be as active as possible. This again is a first visit for this patient with me. Patient counseled about chronic opioids, tolerance, the moderate dose of opioids that he is currently taking, the need to wean off of the opioids IF indeed he is going to have a painful elective surgery in the future, compliant usage, etc. 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 Etc. Clearly His quality life is improved on the above medication. He denies any systemic side effects such as [employer] side effects, constipation, etc. And agrees to continue to use the medication compliantly. He has been told that he will need a right total knee arthroplasty. He already did have the left side done. We again spoke about weaning off his medication to reset her up regulate his opioid receptors if indeed he needs a total knee arthroplasty in the future. He voiced understanding. Patient continues to work in a demanding position. We did speak about his bilateral upper extremity paresthesias dysesthesias in his hands espec (more content not included)... Normal [facility] CBC W Auto Differential pane l (Bld)on 01-11-2023 Basophils (Bld) [#/Vol] 0.04 10*3/uL Normal <0.11 [facility] Comment on above: Order Comment: Raza yi Type: BLOOD SPECIMEN Ordering Facility: [facility] Address: [address] [place] [address] Performed By: #### 5 7021-8 #### [facility] CLIA [id number] [address] [place] [address] [place] Basophils/100 WBC (Bld) 0.6 % Normal [facility] Comment on above: Order Comment: Raza yi Type: BLOOD SPECIMEN Ordering Facility: [facility] Address: [address] [place] [address] Performed By: #### 5 7021-8 #### [facility] CLIA [id number] [address] [place] [address] [place] Differential cell count method Nom (Bld) Auto Normal [facility] Comment on above: Order Comment: Raza yi Type: BLOOD SPECIMEN Ordering Facility: [facility] Address: [address] [place] [address] Performed By: #### 5 7021-8 #### [facility] CLIA [id number] [address] [place] [id number] [place] Eosinophils (Bld) [#/Vol] 0.13 10*3/uL Normal <0.46 [facility] Comment on above: Order Comment: Speci men Type: BLOOD SPECIMEN Ordering Facility: [facility] Address: [address] [place] [address], [place] [address] Performed By: #### 5 7021-8 #### [facility] CLIA [id number] [address] [place] [address] [place] Eosinophils/100 WBC (Bld) 1.9 % Normal [facility] Comment on above: Order Comment: Speci men Type: BLOOD SPECIMEN Ordering Facility: [facility] Address: [address] [place] [address] Performed By: #### 5 7021-8 #### [facility] CLIA [id number] [address] [place] [address] [place] Erythrocyte distribution width (RBC) [Ratio] 12.3 % Normal 11.5-15.0 [facility] Comment on above: Order Comment: Speci men Type: BLOOD SPECIMEN Ordering Facility: [facility] Address: [address] [place] [address] Performed By: #### 5 7021-8 #### [facility] CLIA [id number] [address] [place] [address] [place] Hematocrit (Bld) [Volume fraction] 39.3 % Normal 39.0-51.0 [facility] Comment on above: Order Comment: Speci men Type: BLOOD SPECIMEN Ordering Facility: [facility] Address: [address] [place] [address], [place] [address] Performed By: #### 5 7021-8 #### [facility] CLIA [id number] [address] [place] [address] [place] Hemoglobin (Bld) [Mass/Vol] 13.2 g/dL Normal 13.0-17.0 [facility] Comment on above: Order Comment: Speci men Type: BLOOD SPECIMEN Ordering Facility: [facility] Address: [address] [place] [address] Performed By: #### 5 7021-8 #### [facility] CLIA [id number] [address] [place] [address] [place] Immature granulocytes (Bld) [#/Vol] 10*3/uL Normal <0.10 [facility] Comment on above: Order Comment: Speci men Type: BLOOD SPECIMEN Ordering Facility: [facility] Address: [address] [place] [address] Performed By: #### 5 7021-8 #### [facility] CLIA [id number] [address] [place] [address] [place] Immature granulocytes/100 WBC (Bld) 0.3 % Normal [facility] Comment on above: Order Comment: Speci men Type: BLOOD SPECIMEN Ordering Facility: [facility] Address: [address] [place] [address] Performed By: #### 5 7021-8 #### [facility] CLIA [id number] [address] [place] [address] [place] Lymphocytes (Bld) [#/Vol] 1.76 10*3/uL Normal 1.00-4.00 [facility] Comment on above: Order Comment: Speci men Type: BLOOD SPECIMEN Ordering Facility: [facility] Address: [address] [place] [address] Performed By: #### 5 7021-8 #### [facility] CLIA [id number] [address] [place] [address] [place] Lymphocytes/100 WBC (Bld) 25.5 % Normal [facility] Comment on above: Order Comment: Speci men Type: BLOOD SPECIMEN Ordering Facility: [facility] Address: [address] [place] [address] Performed By: #### 5 7021-8 #### [facility] CLIA [id number] [address] [place] [address] [place] MCH (RBC) [Entitic mass] 29.4 pg Normal 26.0-34.0 [facility] Comment on above: Order Comment: Speci men Type: BLOOD SPECIMEN Ordering Facility: [facility] Address: [address] [place] [address] Performed By: #### 5 7021-8 #### [facility] CLIA [id number] [address] [place] [address] [place] MCHC (RBC) [Mass/Vol] 33.6 g/dL Normal 30.5-36.0 [facility] Comment on above: Order Comment: Speci men Type: BLOOD SPECIMEN Ordering Facility: [facility] Address: [address] [place] [address] Performed By: #### 5 7021-8 #### [facility] CLIA [id number] [address] [place] [address] [place] MCV (RBC) [Entitic vol] 87.5 fL Normal 80.0-100.0 [facility] Comment on above: Order Comment: Speci men Type: BLOOD SPECIMEN Ordering Facility: [facility] Address: [address] [place] [address] Performed By: #### 5 7021-8 #### [facility] CLIA [id number] [address] [place] [address] [place] Monocytes (Bld) [#/Vol] 0.53 10*3/uL Normal <0.87 [facility] Comment on above: Order Comment: Speci men Type: BLOOD SPECIMEN Ordering Facility: [facility] Address: [address] [place] [address] Performed By: #### 5 7021-8 #### [facility] CLIA [id number] [address] [place] [address] [place] Monocytes/100 WBC (Bld) 7.7 % Normal [facility] Comment on above: Order Comment: Speci men Type: BLOOD SPECIMEN Ordering Facility: [facility] Address: [address] [place] [address], [place] [address] Performed By: #### 5 7021-8 #### [facility] CLIA [id number] [address] [place] [address] [place] Neutrophils (Bld) [#/Vol] 4.42 10*3/uL Normal 1.45-7.50 [facility] Comment on above: Order Comment: Speci men Type: BLOOD SPECIMEN Ordering Facility: [facility] Address: [address] [place] [address], [place] [address] Performed By: #### 5 7021-8 #### [facility] CLIA [id number] [address] [place] [address] [place] Neutrophils/100 WBC (Bld) 64.0 % Normal [facility] Comment on above: Order Comment: Speci men Type: BLOOD SPECIMEN Ordering Facility: [facility] Address: [address] [place] [address] Performed By: #### 5 7021-8 #### [facility] CLIA [id number] [address] [place] [address] [place] Nucleated RBC (Bld) [#/Vol] 10*3/uL Normal <0.01 [facility] Comment on above: Order Comment: Speci men Type: BLOOD SPECIMEN Ordering Facility: [facility] Address: [address] [place] [address], [place] [address] Performed By: #### 5 7021-8 #### [facility] CLIA [id number] [address] [place] [address] [place] Nucleated RBC/100 WBC (Bld) [Ratio] 0.0 /100 WBC Normal [facility] Comment on above: Order Comment: Speci men Type: BLOOD SPECIMEN Ordering Facility: [facility] Address: [address] [place] [address] Performed By: #### 5 7021-8 #### [facility] CLIA [id number] [address] [place] [address] [place] Platelet mean volume (Bld) [Entitic vol] 10.8 fL Normal 9.0-12.7 [facility] Comment on above: Order Comment: Speci men Type: BLOOD SPECIMEN Ordering Facility: [facility] Address: [address] [place] [address] Performed By: #### 5 7021-8 #### [facility] CLIA [id number] [address] [place] [address] [place] Platelets (Bld) [#/Vol] 302 10*3/uL Normal 150-400 [facility] Comment on above: Order Comment: Speci men Type: BLOOD SPECIMEN Ordering Facility: [facility] Address: [address] [place] [address] Performed By: #### 5 7021-8 #### [facility] CLIA [id number] [address] [place] [address] [place] RBC (Bld) [#/Vol] 4.49 10*6/uL Normal 4.20-6.00 [facility] Comment on above: Order Comment: Speci men Type: BLOOD SPECIMEN Ordering Facility: [facility] Address: [address] [place] [address] Performed By: #### 5 7021-8 #### [facility] CLIA [id number] [address] [place] [address] [place] WBC (Bld) [#/Vol] 6.90 10*3/uL Normal 3.70-11.00 [facility] Comment on above: Order Comment: Speci men Type: BLOOD SPECIMEN Ordering Facility: [facility] Address: [address] [place] [address] Performed By: #### 5 7021-8 #### [facility] CLIA [id number] [address] [place] [address] [place] Comprehensive metabolic 2000 panelon 01-11-2023 Albumin [Mass/Vol] 4.7 g/dL Normal 3.9-4.9 [facility] Comment on above: Order Comment: Speci men Type: BLOOD SPECIMEN Ordering Facility: [facility] Address: [address] [place] [address], [place] [address] Performed By: #### 2 4331-1, 55571-0 #### [facility] CLIA [id number] [address] [place] [address] [place] ALP [Catalytic activity/Vol] 88 U/L Normal 38-113 [facility] Comment on above: Order Comment: Speci men Type: BLOOD SPECIMEN Ordering Facility: [facility] Address: [address] [place] [address], [place] [address] Performed By: #### 2 4331-1, 99442-7 #### [facility] CLIA [id number] [address] [place] [address] [place] ALT [Catalytic activity/Vol] 25 U/L Normal 10-54 [facility] Comment on above: Order Comment: Speci men Type: BLOOD SPECIMEN Ordering Facility: [facility] Address: [address] [place] [address], [place] [address] Performed By: #### 2 4331-1, 53594-3 #### [facility] CLIA [id number] [address] [place] [address] [place] Anion gap [Moles/Vol] 15 mmol/L Normal 9-18 [facility] Comment on above: Order Comment: Speci men Type: BLOOD SPECIMEN Ordering Facility: [facility] Address: [address] [place] [address], [place] [address] Performed By: #### 2 4331-1, 40314-4 #### [facility] CLIA [id number] [address] [place] [id number] [place] AST [Catalytic activity/Vol] 23 U/L Normal 14-40 [facility] Comment on above: Order Comment: Speci men Type: BLOOD SPECIMEN Ordering Facility: [facility] Address: [address], [place] [address] Performed By: #### 2 4331-1, 29731-7 #### [facility] CLIA [id number] [address] [place] [id number] [place] Bilirubin [Mass/Vol] 0.5 mg/dL Normal 0.2-1.3 [facility] Comment on above: Order Comment: Speci men Type: BLOOD SPECIMEN Ordering Facility: [facility] Address: [address] [facility], [place] [address] Performed By: #### 2 4331-1, 33675-7 #### [facility] CLIA [id number] [address] [place] [address] [place] Calcium [Mass/Vol] 10.0 mg/dL Normal 8.5-10.2 [facility] Comment on above: Order Comment: Speci men Type: BLOOD SPECIMEN Ordering Facility: [facility] Address: [address] [place] [address], [place] [address] Performed By: #### 2 4331-1, 02489-3 #### [facility] CLIA [id number] [address] [place] [address] [place] Chloride [Moles/Vol] 101 mmol/L Normal 97-105 [facility] Comment on above: Order Comment: Speci men Type: BLOOD SPECIMEN Ordering Facility: [facility] Address: [address], [place] [address] Performed By: #### 2 4331-1, 24556-0 #### [facility] CLIA [id number] [address] [place] [id number] [place] CO2 [Moles/Vol] 24 mmol/L Normal 22-30 [facility] Comment on above: Order Comment: Speci men Type: BLOOD SPECIMEN Ordering Facility: [facility] Address: [address] [facility], [place] [address] Performed By: #### 2 4331-1, 64752-1 #### [facility] CLIA [id number] [address] [place] [address] [place] Creatinine [Mass/Vol] 0.70 mg/dL Low 0.73-1.22 [facility] Comment on above: Order Comment: Speci men Type: BLOOD SPECIMEN Ordering Facility: [facility] Address: [address] [place] [address], [place] [address] Performed By: #### 2 4331-1, 13312-1 #### [facility] IA [id number] [address] [place] [address] [place] Creatinine and Glomerular filtration rate.predicted panel (S/P/Bld) 105 mL/min/1.73m??? Normal >=60 [facility] Comment on above: Order Comment: Raza yi Type: BLOOD SPECIMEN Ordering Facility: [facility] Address: [address] [place] [address], [place] [address] Result Comment: Tika mated Glomerular Filtration Rate (eGFR) is calculated using the 2020 CKD-EPI creatinine equation. This equation utilizes serum creatinine, sex, and age as parameters. The creatinine assay has traceable calibration to isotope dilution-mass spectrometry. Refer to KDIGO guidelines for clinical interpretation. In patients with unstable renal function, e.g. those with acute kidney injury, the eGFR may not accurately reflect actual GFR. Performed By: #### 2 4331-1, 53386-8 #### [facility] CLIA [id number] [address] [place] [address] [place] Glucose [Mass/Vol] 192 mg/dL High 74-99 [facility] Comment on above: Order Comment: Speci men Type: BLOOD SPECIMEN Ordering Facility: [facility] Address: [address] [place] [address], [place] [address] Result Comment: The [place] [employer] (ADA) provides guidance for cutoff values for fasting glucose and random glucose. The ADA defines fasting as no caloric intake for at least 8 hours. Fasting plasma glucose results between 100 to 125 mg/dL indicate increased risk for diabetes (prediabetes). Fasting plasma glucose results greater than or equal to 126 mg/dL meet the criteria for diagnosis of diabetes. In the absence of unequivocal hyperglycemia, results should be confirmed by repeat testing. In a patient with classic symptoms of hyperglycemia or hyperglycemic crisis, random plasma glucose results greater than or equal to 200 mg/dL meet the criteria for diagnosis of diabetes. Reference: Standards of Medical Care in Diabetes 2016, [place] [employer]. Diabetes Care. 2016.39(Suppl 1). Performed By: #### 2 4331-1, #### [facility] CLIA [id number] [address] [place] [address] [place] Potassium [Moles/Vol] 3.8 mmol/L Normal 3.7-5.1 [facility] Comment on above: Order Comment: Speci men Type: BLOOD SPECIMEN Ordering Facility: [facility] Address: [address] [place] [address] Performed By: #### 2 433-, 43722-1 #### [facility] CLIA [id number] [address] [place] [address] [place] Protein [Mass/Vol] 7.3 g/dL Normal 6.3-8.0 [facility] Comment on above: Order Comment: Speci men Type: BLOOD SPECIMEN Ordering Facility: [facility] Address: [address] [place] [address] Performed By: #### 2 433-, 70245-6 #### [facility] CLIA [id number] [address] [place] [id number] [place] Sodium [Moles/Vol] 140 mmol/L Normal 136-144 [facility] Comment on above: Order Comment: Speci men Type: BLOOD SPECIMEN Ordering Facility: [facility] Address: [address] [place] [address] Performed By: #### 2 433-, 38831-8 #### [facility] CLIA [id number] [address] [place] [id number] [place] Urea nitrogen [Mass/Vol] 17 mg/dL Normal 9-24 [facility] Comment on above: Order Comment: Speci men Type: BLOOD SPECIMEN Ordering Facility: [facility] Address: [address] [place] [address], [place] [address] Performed By: #### 2 4331-1, 31810-1 #### [facility] CLIA [id number] [address] [place] [id number] [place] Lipid 1996 panelon 3 Cholesterol [Mass/Vol] 144 mg/dL Normal <200 [facility] Comment on above: Order Comment: Speci men Type: BLOOD SPECIMEN Ordering Facility: [facility] Address: [address] [place] [address], [place] [address] Result Comment: <200 mg/dL, Desirable 200-239 mg/dL, Borderline high >239 mg/dL, High Performed By: #### 2 4331-1, 42377-5 #### [facility] CLIA [id number] [address] [place] [id number] [place] Cholesterol in HDL [Mass/Vol] 34 mg/dL Low >39 [facility] Comment on above: Order Comment: Speci men Type: BLOOD SPECIMEN Ordering Facility: [facility] Address: [address] [place] [address], [place] [address] Result Comment: 40-5 9 mg/dL, Acceptable >59 mg/dL, High: Negative risk factor for coronary heart disease <40 mg/dL, Low: Positive risk factor for coronary heart disease Performed By: #### 2 4331-1, 26855-1 #### [facility] CLIA [id number] [address] [place] [id number] [place] Cholesterol in LDL [Mass/Vol] 44 mg/dL Normal <100 [facility] Comment on above: Order Comment: Speci men Type: BLOOD SPECIMEN Ordering Facility: [facility] Address: [address] [place] [address], [place] [address] Result Comment: <100 mg/dL, Optimal 100-129 mg/dL, Near optimal/above optimal 130-159 mg/dL, Borderline high 160-189 mg/dL, High >189 mg/dL, Very high Secondary prevention optimal LDL Cholesterol levels are recommended to be < 70 mg/dL Performed By: #### 2 4331-1, 08598-7 #### [facility] CLIA [id number] [address] [place] [address] [place] Cholesterol in LDL/Cholesterol in HDL [Mass ratio] 1.29 {ratio} Normal <2.54 [facility] Comment on above: Order Comment: Raza men Type: BLOOD SPECIMEN Ordering Facility: [facility] Address: [address] [place] [address] Result Comment: Refe orquideace: 1. National Cholesterol Education Program ATP III Guideline At-A-Glance Quick Desk Reference: National Heart, Lung, and Blood [place]. National Institutes of Health. 2001: NIH Publication No. 01-3305. 2. An International Atherosclerosis Society position paper: global recommendations for the management of dyslipidemia: executive summary, Atherosclerosis. 2014: 232(2):410-413. Performed By: #### 2 4331-1, 79920-0 #### [facility] CLIA [id number] [address] [place] [address] [place] Cholesterol in VLDL [Mass/Vol] 66 mg/dL High <30 [facility] Comment on above: Order Comment: Raza men Type: BLOOD SPECIMEN Ordering Facility: [facility] Address: [address] [place] [address] Performed By: #### 2 4331-1, 87505-1 #### [facility] CLIA [id number] [address] [place] [address] [place] Cholesterol non HDL [Mass/Vol] 110 mg/dL Normal <130 [facility] Comment on above: Order Comment: Raza men Type: BLOOD SPECIMEN Ordering Facility: [facility] Address: [address] [place] [address], [place] [address] Result Comment: <130 mg/dL, Optimal 130-159 mg/dL, Near optimal/above optimal 160-189 mg/dL, Borderline high 190-219 mg/dL, High >219 mg/dL, Very high Secondary prevention optimal non HDL Cholesterol levels are recommended to be <100 mg/dL Performed By: #### 2 4331-1, #### [facility] CLIA [id number] [address] [place] [address] [place] Cholesterol.total/Cho lesterol in HDL [Mass ratio] 4.24 {ratio} Normal <5.10 [facility] Comment on above: Order Comment: Speci men Type: BLOOD SPECIMEN Ordering Facility: [facility] Address: [address] [place] [address], [place] [address] Performed By: #### 2 4331-1, #### [facility] CLIA [id number] [address] [place] [address] [place] FASTING TIME unknown Normal [facility] Comment on above: Order Comment: Speci men Type: BLOOD SPECIMEN Ordering Facility: [facility] Address: [address] [place] [address], [place] [address] Performed By: #### 2 4331-1, #### [facility] CLIA [id number] [address] [place] [address] [place] Triglyceride [Mass/Vol] 332 mg/dL High <150 [facility] Comment on above: Order Comment: Speci men Type: BLOOD SPECIMEN Ordering Facility: [facility] Address: [address] [place] [address], [place] [address] Result Comment: <150 mg/dL, Normal 150-199 mg/dL, Borderline high 200-499 mg/dL, High >499 mg/dL, Very high Performed By: #### 2 4331-1, #### [facility] CLIA [id number] [address] [place] [id number] [place] Microalbumin Ur-mCncon 01-11 Albumin DL <= 20 mg/L (U) [Mass/Vol] 12.7 mg/L Normal [facility] Comment on above: Order Comment: Speci men Type: URINE SPECIMEN Ordering Facility: [facility] Address: [address] [place] [address] Performed By: #### 1 4957-5 #### [facility] CLIA [id number] [address] [place] [address] [place] PSA/PROSTSPECAG SCRNon 01-11 Prostate specific Ag [Mass/Vol] 1.03 ng/mL Normal <2.60 [facility] Comment on above: Order Comment: Speci men Type: BLOOD SPECIMEN Ordering Facility: [facility] Address: [address] [place] [address] Result Comment: Tota l PSA test methodology used is the Electrochemiluminescence Immunoassay by [employer]. Total PSA values by differing methodologies cannot be interchanged. Performed By: #### P SAS1 #### [facility] CLIA [id number] [address] [place] [address] [place] FLUOROSCOPY IN OR/PAIN MGTon 08-13-2020 FLUOROSCOPY IN OR/PAIN MGT FLUOROSCOPY IN OR/PAIN MGT Ordering Physician: Vijaya Silva DO 08/13/2020 9:18 AM FLUOROSCOPY LEFT KNEE, PAIN MANAGEMENT: Clinical Statement: Osteoarthritis. REPORT: 5.5 seconds of fluoroscopy time utilized by pain management during a left knee injection. Two fluoroscopic images of the left knee were obtained to document needle placement. Contrast was injected. IMPRESSION: Documentation of fluoroscopy. ---- Electronic Signature on File ---- Signed By: Abram Floyd MD [email or web address] Dictated: 08/13/2020 10:14 AM Signed: 08/13/2020 10:14 AM Reported By: ABRAM FLOYD M.D. Signed By: ABRAM FLOYD M.D. [facility] FLUOROSCOPY IN OR/PAIN MGT FLUOROSCOPY IN OR/PAIN MGT Ordering Physician: Vijaya Silva DO 08/13/2020 9:18 AM FLUOROSCOPY RIGHT KNEE, PAIN MANAGEMENT: Clinical Statement: Osteoarthritis. REPORT: 4.8 seconds of fluoroscopy time utilized by pain management during a right knee injection. Two fluoroscopic images of the right knee were obtained to document needle placement. Contrast was injected. IMPRESSION: Documentation of fluoroscopy. ---- Electronic Signature on File ---- Signed By: Abram Floyd MD [email or web address] Dictated: 08/13/2020 10:13 AM Signed: 08/13/2020 10:14 AM Reported By: ABRAM FLOYD M.D. Signed By: ABRAM FLOYD M.D. [facility] Blood Glucose , Office ([phone])Ordered By: Barby Alfaro on 04-28-2017 Glucose Glucometer (BldC) [Moles/Vol] 141 1 Normal [facility] Work Phone: HgA1C , Office ([phone])Ordere d By: Shagufta Fam on 04-28-2017 HbA1c (Bld) [Mass fraction] 6.7 % Normal 4.6 - 7.1 [facility] Work Phone: Blood Glucose , Office ([phone])Ordered By: Bessy Marley on 08-25-2016 Glucose Glucometer (BldC) [Moles/Vol] 189 1 Normal [facility] Work Phone: HgA1C , Office ([phone])Ordere d By: Bessy Marley on 08-25-2016 HbA1c (Bld) [Mass fraction] 6.8 % Normal 4.6 - 7.1 [facility] Work Phone: CALCIFIDIOL ([phone]) VIT D 25 Ordered By: Shank Boner on 10-24-2015 25-Hydroxyvitamin D2+25-Hydroxyvitamin D3 [Mass/Vol] 43.6 ng/mL Normal 30.0-100.0 [facility] Work Phone: Comment on above: Vitamin D deficiency has been defined by the [place] ofMedicine and an Endocrine Society practice guideline as alevel of serum 25-OH vitamin D less than 20 ng/mL (1,2).The Endocrine Society went on to further define vitamin Dinsufficiency as a level between 21 and 29 ng/mL (2).1. IOM ([place] of Medicine). 2010. Dietary reference intakes for calcium and D. [place]: The National Academies Press.2. Shabana MF, Ruddy SIMPSON, Reba HUBBARD, et al. Evaluation, treatment, and prevention of vitamin D deficiency: an Endocrine Society clinical practice guideline. JCEM. 2010; 96(7):1911-30. PATIENT WAS FASTINGP ERFORMED BY: [facility] Eoubqa5250 [address] [facility] [place] [id number] CBC W/AUTO DIFF WBC (86333)O rdered By: Shank Boner on 10-24-2015 Basophils (Bld) [#/Vol] 0.0 {x10E3/uL} Normal 0.0-0.2 [facility] Work Phone: Comment on above: PATIENT WAS FASTINGP ERFORMED BY: [facility] Buxlau7398 [facility] [id number] Information: [id number],[id number] Basophils/100 WBC (Bld) 0 % Normal [facility] Work Phone: Comment on above: PATIENT WAS FASTINGP ERFORMED BY: [facility] Wkobed4399 [facility] [id number] Information: 458421,[id number] Eosinophils (Bld) [#/Vol] 0.1 {x10E3/uL} Normal 0.0-0.4 [facility] Work Phone: Comment on above: PATIENT WAS FASTINGP ERFORMED BY: [facility] Rhndbz8573 [address] [facility] [place] [id number] Information: [id number] Eosinophils/100 WBC (Bld) 2 % Normal [facility] Work Phone: Comment on above: PATIENT WAS FASTINGP ERFORMED BY: [facility] Aodajv2357 [facility] [id number] Information: [id number] Erythrocyte distribution width (RBC) [Ratio] 13.9 % Normal 12.3-15.4 [facility] Work Phone: Comment on above: PATIENT WAS FASTINGP ERFORMED BY: [address]ika[address] [id number] Information: [id number],[id number] Hematocrit (Bld) [Volume fraction] 45.6 % Normal 37.5-51.0 [facility] Work Phone: Comment on above: PATIENT WAS FASTINGP ERFORMED BY: [address] [id number] Information: [id number],[id number] Hemoglobin (Bld) [Mass/Vol] 15.3 g/dL Normal 12.6-17.7 [facility] Work Phone: Comment on above: PATIENT WAS FASTINGP ERFORMED BY: [address] [id number] Information: 470315,[id number] Immature granulocytes (Bld) [#/Vol] 0.0 {x10E3/uL} Normal 0.0-0.1 [facility] Work Phone: Comment on above: PATIENT WAS FASTINGP ERFORMED BY: [address] [id number] Information: [id number] Immature granulocytes/100 WBC (Bld) 0 % Normal [facility] Work Phone: Comment on above: PATIENT WAS FASTINGP ERFORMED BY: [address] [id number] Information: [id number] Lymphocytes (Bld) [#/Vol] 2.0 {x10E3/uL} Normal 0.7-3.1 [facility] Work Phone: Comment on above: PATIENT WAS FASTINGP ERFORMED BY: [address] [id number] Information: [id number] Lymphocytes/100 WBC (Bld) 36 % Normal [facility] Work Phone: Comment on above: PATIENT WAS FASTINGP ERFORMED BY: [place] [address]1270 [facility] [id number] Information: [id number],[id number] MCH (RBC) [Entitic mass] 29.3 pg Normal 26.6-33.0 [facility] Work Phone: Comment on above: PATIENT WAS FASTINGP ERFORMED BY: [address] [id number] Information: [id number],[id number] MCHC (RBC) [Mass/Vol] 33.6 g/dL Normal 31.5-35.7 [facility] Work Phone: Comment on above: PATIENT WAS FASTINGP ERFORMED BY: [address] [id number] Information: [id number] MCV (RBC) [Entitic vol] 87 fL Normal 79-97 [facility] Work Phone: Comment on above: PATIENT WAS FASTINGP ERFORMED BY: [address] [id number] Information: [id number] Monocytes (Bld) [#/Vol] 0.5 {x10E3/uL} Normal 0.1-0.9 [facility] Work Phone: Comment on above: PATIENT WAS FASTINGP ERFORMED BY: [place] 3041270 [facility] [id number] Information: [id number] Monocytes/100 WBC (Bld) 9 % Normal [facility] Work Phone: Comment on above: PATIENT WAS FASTINGP ERFORMED BY: [address] [id number] Information: [id number],[id number] Neutrophils (Bld) [#/Vol] 3.0 {x10E3/uL} Normal 1.4-7.0 [facility] Work Phone: Comment on above: PATIENT WAS FASTINGP ERFORMED BY: LEOBARDO [facility] Zphknn9090 [facility] [id number] Information: [id number],[id number] Neutrophils/100 WBC (Bld) 53 % Normal [facility] Work Phone: Comment on above: PATIENT WAS FASTINGP ERFORMED BY: LEOBARDO [facility] Gbnfwx8483 [facility] [id number] Information: [id number],[id number] Platelets (Bld) [#/Vol] 303 {x10E3/uL} Normal 150-379 [facility] Work Phone: Comment on above: PATIENT WAS FASTINGP ERFORMED BY: LEOBARDO Britt Tmmdku7255 [facility] [id number] Information: 621114,[id number] RBC (Bld) [#/Vol] 5.22 {x10E6/uL} Normal 4.14-5.80 [facility] Work Phone: Comment on above: PATIENT WAS FASTINGP ERFORMED BY: LEOBARDO [facility] Lvpvfc8262 [facility] [id number] Information: 133026,[id number] WBC (Bld) [#/Vol] 5.5 {x10E3/uL} Normal 3.4-10.8 [facility] Work Phone: Comment on above: PATIENT WAS FASTINGP ERFORMED BY: LEOBARDO [facility]6370 [facility] [id number] Information: 297085,[id number] HGB A1C (13918)Ordered By: S ystem Dietitian Research on 10-24-2015 HbA1c (Bld) [Mass fraction] 6.3 % Abnormal 4.8-5.6 [facility] Work Phone: Comment on above: . Pre-diabetes: 5.7 - 6.4 Diabetes: >6.4 Glycemic control for adults with diabetes: <7.0 PATIENT WAS FASTINGP ERFORMED BY: LEOBARDO Victorino Trotter6370 [facility] [id number] LIPID PANEL (84245)Ordered B y: Shank Boner on 10-24-2015 Cholesterol [Mass/Vol] 242 mg/dL Abnormal 100-199 [facility] Work Phone: Comment on above: PATIENT WAS FASTINGP ERFORMED BY: LEOBARDO Victorino Trotter6370 [facility] [id number] Cholesterol in HDL [Mass/Vol] 40 mg/dL Normal [facility] Work Phone: Comment on above: According to ATP-III Guidelines, HDL-C >59 mg/dL is considered anegative risk factor for CHD. PATIENT WAS FASTINGP ERFORMED BY: LEOBARDO Victorino Trotter6370 [facility] [id number] Cholesterol in LDL [Mass/Vol] 134 mg/dL Abnormal 0-99 [facility] Work Phone: Comment on above: PATIENT WAS FASTINGP ERFORMED BY: LEOBARDO Britttaqueria VillaEzhcze9009 [facility] [id number] Cholesterol in LDL/Cholesterol in HDL [Mass ratio] 3.4 {ratio_units} Normal 0.0-3.6 [facility] Work Phone: Comment on above: LDL/HDL Ratio Men Wo men 1/2 Avg.Risk 1.0 1.5 Avg.Risk 3.6 3.2 2X Avg.Risk 6.2 5.0 3X Avg.Risk 8.0 6.1 PATIENT WAS FASTINGP ERFORMED BY: LEOBARDO Britttaqueria Llgqwf3185 [facility] [id number] Cholesterol in VLDL [Mass/Vol] 68 mg/dL Abnormal 5-40 [facility] Work Phone: Comment on above: PATIENT WAS FASTINGP ERFORMED BY: LEOBARDO Victorino Trotter6370 [facility] [id number] Triglyceride [Mass/Vol] 340 mg/dL Abnormal 0-149 [facility] Work Phone: Comment on above: PATIENT WAS FASTINGP ERFORMED BY: LEOBARDO Britttaqueria Fwmveg2866 [facility] [id number] METABOLIC PANEL, COMPREHENSI VE (15730)Ordered By: Shank Boner on 10-24-2015 Albumin [Mass/Vol] 4.4 g/dL Normal 3.5-5.5 [facility] Work Phone: Comment on above: PATIENT WAS FASTINGP ERFORMED BY: LEOBARDO [facility] Rtkbcf7962 [address] RoadDublin [place] [id number] Albumin/Globulin [Mass ratio] 1.8 {ratio} Normal 1.1-2.5 [facility] Work Phone: Comment on above: PATIENT WAS FASTINGP ERFORMED BY: LEOBARDO [facility] Ukswiu3924 [address] RoadDublin [place] [id number] ALP [Catalytic activity/Vol] 69 [iU]/L Normal 39-117 [facility] Work Phone: Comment on above: PATIENT WAS FASTINGP ERFORMED BY: LEOBARDO [facility] Hsosdq1793 [address] RoadDublin [place] [id number] ALT [Catalytic activity/Vol] 26 [iU]/L Normal 0-44 [facility] Work Phone: Comment on above: PATIENT WAS FASTINGP ERFORMED BY: LEOBARDO [facility] Phifud5787 [address] RoadDublin [place] [id number] AST [Catalytic activity/Vol] 21 [iU]/L Normal 0-40 [facility] Work Phone: Comment on above: PATIENT WAS FASTINGP ERFORMED BY: LEOBARDO [facility] Lbunjw4899 [address] RoadDublin [place] [id number] Bilirubin [Mass/Vol] 0.5 mg/dL Normal 0.0-1.2 [facility] Work Phone: Comment on above: PATIENT WAS FASTINGP ERFORMED BY: CB [facility] Nlabrw9082 [address] RoadDublin [place] [id number] Calcium [Mass/Vol] 9.6 mg/dL Normal 8.7-10.2 [facility] Work Phone: Comment on above: PATIENT WAS FASTINGP ERFORMED BY: CB [facility] Aqjvbd1591 [address] RoadDublin [place] [id number] Chloride [Moles/Vol] 98 mmol/L Normal 97-108 [facility] Work Phone: Comment on above: PATIENT WAS FASTINGP ERFORMED BY: [facility]6370 [facility] [id number] CO2 [Moles/Vol] 25 mmol/L Normal 18-29 [facility] Work Phone: Comment on above: PATIENT WAS FASTINGP ERFORMED BY: [facility]6370 [facility] [id number] Creatinine [Mass/Vol] 0.69 mg/dL Abnormal 0.76-1.27 [facility] Work Phone: Comment on above: PATIENT WAS FASTINGP ERFORMED BY: [facility]6370 [facility] [id number] GFR/1.73 sq M predicted among blacks CKD-EPI (S/P/Bld) [Vol rate/Area] 126 mL/min/1.73 Normal [facility] Work Phone: Comment on above: PATIENT WAS FASTINGP ERFORMED BY: [facility]6370 [facility] [id number] GFR/1.73 sq M predicted among non-blacks CKD-EPI (S/P/Bld) [Vol rate/Area] 109 mL/min/1.73 Normal [facility] Work Phone: Comment on above: PATIENT WAS FASTINGP ERFORMED BY: [facility]6370 [facility] [id number] Globulin (S) [Mass/Vol] 2.4 g/dL Normal 1.5-4.5 [facility] Work Phone: Comment on above: PATIENT WAS FASTINGP ERFORMED BY: [facility]6370 [facility] [id number] Glucose [Mass/Vol] 120 mg/dL Abnormal 65-99 [facility] Work Phone: Comment on above: PATIENT WAS FASTINGP ERFORMED BY: LEOBARDO [facility] Rxrnxo0283 [address] RoadDublin [place] [id number] Potassium [Moles/Vol] 4.3 mmol/L Normal 3.5-5.2 [facility] Work Phone: Comment on above: PATIENT WAS FASTINGP ERFORMED BY: LEOBARDO [facility] Sphqqm6498 [address] RoadDublin [place] [id number] Protein [Mass/Vol] 6.8 g/dL Normal 6.0-8.5 [facility] Work Phone: Comment on above: PATIENT WAS FASTINGP ERFORMED BY: LEOBARDO [facility] Jrztyz8353 [address] RoadDublin [place] [id number] Sodium [Moles/Vol] 142 mmol/L Normal 134-144 [facility] Work Phone: Comment on above: PATIENT WAS FASTINGP ERFORMED BY: LEOBARDO LabSusie VillaDmpmev9315 Elliott RoadDosher Memorial Hospitalin [place] [id number] Urea nitrogen [Mass/Vol] 19 mg/dL Normal 6-24 [facility] Work Phone: Comment on above: PATIENT WAS FASTINGP ERFORMED BY: LEOBARDO LabSusie VillaDafpby0923 [address] Roadblin [place] [id number] Urea nitrogen/Creatinine [Mass ratio] 28 mg/mg Abnormal 9-20 [facility] Work Phone: Comment on above: PATIENT WAS FASTINGP ERFORMED BY: LEOBARDO LabPricsilla Uxehio7[address] [facility]in [place] [id number] MICROALBUMINOrdered By: Syst em Dietitian Research on 10-24-2015 Albumin DL <= 20 mg/L (U) [Mass/Vol] 4.7 ug/mL Normal [facility] Work Phone: Comment on above: Please note refere nce interval change PATIENT WAS FASTINGP ERFORMED BY: LEOBARDO [facility] Hhtbng0860 [address] RoadDublin [place] [id number] Albumin/Creatinine (U) [Mass ratio] 5.4 {mg/g_creat} Normal 0.0-30.0 [facility] Work Phone: Comment on above: PATIENT WAS FASTINGP ERFORMED BY: LEOBARDO [facility] Uwhvxr3530 [address] RoadDublin [place] [id number] Creatinine (U) [Mass/Vol] 86.9 mg/dL Normal [facility] Work Phone: Comment on above: Please note refere nce interval change PATIENT WAS FASTINGP ERFORMED BY: LEOBARDO [facility] Vvwzkf3764 [address] RoadDublin [place] [id number] TSH (15759)Ordered By: iLost Dietitian Research on 10-24-2015 TSH Qn 0.631 {uIU/mL} Normal 0.450-4.50 0 [facility] Work Phone: Comment on above: PATIENT WAS FASTINGP ERFORMED BY: LEOBARDO Villalin6370 [address] RoadDublin [place] [id number] URINALYSIS, W/ MICRO (98602) Ordered By: Shank Boner on 10-24-2015 Appearance (U) Clear Normal Comprehens rachelle Internal Medicine Work Phone: Comment on above: PATIENT WAS FASTINGP ERFORMED BY: LEOBARDO [facility]Haw[facility] Lluqtv2781 [address] RoadDublin [place] [id number] Bilirubin Ql (U) Negative Normal Comprehe nsive Internal Medicine Work Phone: Comment on above: PATIENT WAS FASTINGP ERFORMED BY: LEOBARDO LabSusie VillaMwzbid2722 [address] RoadDublin [place] [id number] Color (U) Yellow Normal [facility] Work Phone: Comment on above: PATIENT WAS FASTINGP ERFORMED BY: LEOBARDO [facility] Obalpf7507 [address] RoadDublin [place] [id number] Glucose Ql (U) 3+ Abnormal Comprehens rachelle [facility] Work Phone: Comment on above: PATIENT WAS FASTINGP ERFORMED BY: LEOBARDO [facility] Wylhjq8088 [address] RoadDublin [place] [id number] Hemoglobin Ql (U) Negative Normal Compreh ensive [facility] Work Phone: Comment on above: PATIENT WAS FASTINGP ERFORMED BY: LEOBARDO Britt Kpyjyl5603 [address] RoadDublin [place] [id number] Ketones Ql (U) Negative Normal Comprehens rachelle [facility] Work Phone: Comment on above: PATIENT WAS FASTINGP ERFORMED BY: LEOBARDO Victorino Villalin6370 [address] [place] [id number] Leukocyte esterase Test strip Ql (U) Negative Normal [facility] Work Phone: Comment on above: PATIENT WAS FASTINGP ERFORMED BY: LEOBARDO Britt Gljzwq9619 [address] RoadDublin [place] [id number] Microscopic observation LM Nom (Urine sed) See below: Normal [facility] Work Phone: Comment on above: Microscopic was brian cated and was performed. PATIENT WAS FASTINGP ERFORMED BY: LEOBARDO Britt Dmmpmx5144 [address] RoadDublin [place] [id number] Microscopic observation LM Nom (Urine sed) MICRON Normal [facility] Work Phone: Comment on above: Microscopic follows if indicated. PATIENT WAS FASTINGP ERFORMED BY: LEOBARDO [facility]Haw[facility] Ygvsit9173 [address] RoadDuin [place] [id number] Nitrite Ql (U) Negative Normal Comprehens rachelle [facility] Work Phone: Comment on above: PATIENT WAS FASTINGP ERFORMED BY: LEOBARDO Britt Opecxc4070 [address] [facility]in [place] [id number] pH (U) 6.0 [pH] Normal 5.0-7.5 [facility] Work Phone: Comment on above: PATIENT WAS FASTINGP ERFORMED BY: LEOBARDO [facility]Haw[facility] Dpicaq0123 [address]bl[address] [place] [id number] Protein Ql (U) Negative Normal Comprehens rachelle [facility] Work Phone: Comment on above: PATIENT WAS FASTINGP ERFORMED BY: LEOBARDO LabHaw[facility] Tjlxkw1409 [address] RoadDublin [place] [id number] Specific gravity (U) [Rel density] 1.027 1 Normal 1.005-1.03 0 [facility] Work Phone: Comment on above: PATIENT WAS FASTINGP ERFORMED BY: LEOBARDO [facility]omiHawth[facility] Nkubiy6427 [facility]in [place] [id number] Urobilinogen Test strip (U) [Mass/Vol] 0.2 mg/dL Normal 0.2-1.0 [facility] Internal Medicine Work Phone: Comment on above: PATIENT WAS FASTINGP ERFORMED BY: [facility] Vdqhgj4413 [facility] [id number] VITAMIN B-12 (CYANOCOBALAMIN ) (28027)Ordered By: Shank Boner on 10-24-2015 Cobalamin (Vitamin B12) [Mass/Vol] pg/mL Abnormal 211-946 [facility] Work Phone: Comment on above: PATIENT WAS FASTINGP ERFORMED BY: LEOBARDO [facility] Nkxyam6266 [facility] [id number] Rapid Flu (73914 x 2)Ordered By: Ling Grande on 07-22-2015 FLUAV Ag IA Ql (Throat) neg a and b Normal [facility] Work Phone: C-REACTIVE PROTEIN (15741)Or dered By: Shank Boner on 06-16-2015 CRP [Mass/Vol] 2.1 mg/L Normal 0.0-4.9 [facility] Internal Medicine Work Phone: Comment on above: PATIENT NOT FASTINGP ERFORMED BY: LEOBARDO [facility] Yxyuwm5637 [facility] [id number] CBC W/AUTO DIFF WBC (65722)O rdered By: Shank Boner on 06-16-2015 Basophils (Bld) [#/Vol] 0.0 {x10E3/uL} Normal 0.0-0.2 [facility] Work Phone: Comment on above: PATIENT NOT FASTINGP ERFORMED BY: LEOBARDO [facility] Lfxrwc8981 [facility] [id number] Information: 839658,[id number] Basophils/100 WBC (Bld) 0 % Normal [facility] Work Phone: Comment on above: PATIENT NOT FASTINGP ERFORMED BY: [place] 3041270 [facility] [id number] Information: 519744,B00100 Eosinophils (Bld) [#/Vol] 0.1 {x10E3/uL} Normal 0.0-0.4 [facility] Work Phone: Comment on above: PATIENT NOT FASTINGP ERFORMED BY: [address] [id number] Information: 622761,E30945 Eosinophils/100 WBC (Bld) 1 % Normal [facility] Work Phone: Comment on above: PATIENT NOT FASTINGP ERFORMED BY: [address] [id number] Information: 533748,D55931 Erythrocyte distribution width (RBC) [Ratio] 13.1 % Normal 12.3-15.4 [facility] Work Phone: Comment on above: PATIENT NOT FASTINGP ERFORMED BY: [address] [id number] Information: 790563,X24217 Hematocrit (Bld) [Volume fraction] 44.3 % Normal 37.5-51.0 [facility] Work Phone: Comment on above: PATIENT NOT FASTINGP ERFORMED BY: [address] [id number] Information: 357045,L06450 Hemoglobin (Bld) [Mass/Vol] 15.9 g/dL Normal 12.6-17.7 [facility] Work Phone: Comment on above: PATIENT NOT FASTINGP ERFORMED BY: [address] [id number] Information: 982037,I34459 Immature granulocytes (Bld) [#/Vol] 0.0 {x10E3/uL} Normal 0.0-0.1 [facility] Work Phone: Comment on above: PATIENT NOT FASTINGP ERFORMED BY: [facility]6370 [facility] [id number] Information: 210475,Q84161 Immature granulocytes/100 WBC (Bld) 0 % Normal [facility] Work Phone: Comment on above: PATIENT NOT FASTINGP ERFORMED BY: LEOBARDO De La Torre[address] [id number] Information: 761869,A82639 Lymphocytes (Bld) [#/Vol] 2.2 {x10E3/uL} Normal 0.7-3.1 [facility] Work Phone: Comment on above: PATIENT NOT FASTINGP ERFORMED BY: LEOBARDO Yost[address] [id number] Information: 554547,X20264 Lymphocytes/100 WBC (Bld) 27 % Normal [facility] Work Phone: Comment on above: PATIENT NOT FASTINGP ERFORMED BY: Ritika[address] [id number] Information: 230334,U29517 MCH (RBC) [Entitic mass] 29.7 pg Normal 26.6-33.0 [facility] Internal Medicine Work Phone: Comment on above: PATIENT NOT FASTINGP ERFORMED BY: LEOBARDO Yost[address] [id number] Information: 919677,[id number] MCHC (RBC) [Mass/Vol] 35.9 g/dL Abnormal 31.5-35.7 [facility] Internal Medicine Work Phone: Comment on above: PATIENT NOT FASTINGP ERFORMED BY: [place] 3041270 [facility] [id number] Information: 792621,Z34774 MCV (RBC) [Entitic vol] 83 fL Normal 79-97 [facility] Work Phone: Comment on above: PATIENT NOT FASTINGP ERFORMED BY: [address] [id number] Information: 343803,A40152 Monocytes (Bld) [#/Vol] 0.7 {x10E3/uL} Normal 0.1-0.9 [facility] Work Phone: Comment on above: PATIENT NOT FASTINGP ERFORMED BY: LEOBARDO [facility] Tyeecp9112 [facility] [place] [id number] Information: 714865,B74703 Monocytes/100 WBC (Bld) 8 % Normal [facility] Work Phone: Comment on above: PATIENT NOT FASTINGP ERFORMED BY: CB LabCoHoboken University Medical CenterVlyalv3002 [facility] [id number] Information: 362791,F82099 Neutrophils (Bld) [#/Vol] 5.0 {x10E3/uL} Normal 1.4-7.0 [facility] Work Phone: Comment on above: PATIENT NOT FASTINGP ERFORMED BY: [facility] Hamefo4667 [facility] [id number] Information: 846143,[id number] Neutrophils/100 WBC (Bld) 64 % Normal [facility] Work Phone: Comment on above: PATIENT NOT FASTINGP ERFORMED BY: [facility] Jkbxxa4176 [facility] [id number] Information: 415361,W07749 Platelets (Bld) [#/Vol] 345 {x10E3/uL} Normal 150-379 [facility] Work Phone: Comment on above: PATIENT NOT FASTINGP ERFORMED BY: CB [facility] Drkkgk2330 [facility] [id number] Information: 395867,M63913 RBC (Bld) [#/Vol] 5.35 {x10E6/uL} Normal 4.14-5.80 [facility] Internal Medicine Work Phone: Comment on above: PATIENT NOT FASTINGP ERFORMED BY: [facility] Qxaenj9355 [facility] [id number] Information: 189192,D86112 WBC (Bld) [#/Vol] 8.0 {x10E3/uL} Normal 3.4-10.8 [facility] prehensive Internal Medicine Work Phone: Comment on above: PATIENT NOT FASTINGP ERFORMED BY: LEOBARDO SumomiCo Knunyy3893 [facility] [id number] Information: 029060,D28498 KELVIN (ANTINUCLEAR ANTIBODY) ( 77167)Ordered By: Shank Boner on 06-04-2015 Nuclear Ab Ql (S) Negative Normal Compreh ensive Internal Medicine Work Phone: Comment on above: PATIENT NOT FASTINGP ERFORMED BY: LEOBARDO LabCoAllison Ville 5803470 [facility] [id number] BY: Portapure[address] [id number] C-REACTIVE PROTEIN (58730)Or dered By: Shank Boner on 06-04-2015 CRP [Mass/Vol] 117.9 mg/L Abnormal 0.0-4.9 [facility] Internal [facility] Work Phone: Comment on above: PATIENT NOT FASTINGP ERFORMED BY: LEOBARDO LabKelwayHoboken University Medical CenterTomhkq3538 [facility] [id number] BY: Portapure[address] [id number] CBC, Platelets & Auto Diff ( 71932)Ordered By: Shank Boner on 06-04-2015 Basophils (Bld) [#/Vol] 0.0 {x10E3/uL} Normal 0.0-0.2 [facility] Work Phone: Comment on above: PATIENT NOT FASTINGP ERFORMED BY: [facility] Sbakqa9987 [facility] [id number] Information: G50285,2ND ORDER Basophils/100 WBC (Bld) 0 % Normal [facility] Work Phone: Comment on above: PATIENT NOT FASTINGP ERFORMED BY: [facility] Wpbshc2714 [facility] [id number] Information: F93719,2ND ORDER Eosinophils (Bld) [#/Vol] 0.0 {x10E3/uL} Normal 0.0-0.4 [facility] Work Phone: Comment on above: PATIENT NOT FASTINGP ERFORMED BY: LEOBARDO [facility] Sucmpi4215 [facility] [id number] Information: O78139,2ND ORDER Eosinophils/100 WBC (Bld) 0 % Normal [facility] Work Phone: Comment on above: PATIENT NOT FASTINGP ERFORMED BY: LabCo[address] [id number] Information: Z55398,2ND ORDER Erythrocyte distribution width (RBC) [Ratio] 13.3 % Normal 12.3-15.4 [facility] Work Phone: Comment on above: PATIENT NOT FASTINGP ERFORMED BY: Lab[address] [id number] Information: Y98044,2ND ORDER Hematocrit (Bld) [Volume fraction] 40.4 % Normal 37.5-51.0 [facility] Work Phone: Comment on above: PATIENT NOT FASTINGP ERFORMED BY: [facility] Wspwme4651 [facility] [id number] Information: F60391,2ND ORDER Hemoglobin (Bld) [Mass/Vol] 13.8 g/dL Normal 12.6-17.7 [facility] Work Phone: Comment on above: PATIENT NOT FASTINGP ERFORMED BY: [facility] Twdmgz3617 [facility] [id number] Information: T11278,2ND ORDER Immature granulocytes (Bld) [#/Vol] 0.0 {x10E3/uL} Normal 0.0-0.1 [facility] Work Phone: Comment on above: PATIENT NOT FASTINGP ERFORMED BY: LabSuzanne [place] 4917070 [facility] [id number] Information: B75018,2ND ORDER Immature granulocytes/100 WBC (Bld) 0 % Normal [facility] Work Phone: Comment on above: PATIENT NOT FASTINGP ERFORMED BY: LEOBARDO Trotter6370 [facility] [id number] Information: O34647,2ND ORDER Lymphocytes (Bld) [#/Vol] 2.1 {x10E3/uL} Normal 0.7-3.1 [facility] Work Phone: Comment on above: PATIENT NOT FASTINGP ERFORMED BY: LEOBARDO [facility] Fnejhi8350[address] [id number] Information: A87275,2ND ORDER Lymphocytes/100 WBC (Bld) 19 % Normal [facility] Work Phone: Comment on above: PATIENT NOT FASTINGP ERFORMED BY: LEOBARDO Yost[address] [id number] Information: Y13760,2ND ORDER MCH (RBC) [Entitic mass] 29.4 pg Normal 26.6-33.0 [facility] Work Phone: Comment on above: PATIENT NOT FASTINGP ERFORMED BY: LEOBARDO De La Torre Lscvgc[address] [id number] Information: U60920,2ND ORDER MCHC (RBC) [Mass/Vol] 34.2 g/dL Normal 31.5-35.7 [facility] prehensive Internal Medicine Work Phone: Comment on above: PATIENT NOT FASTINGP ERFORMED BY: LEOBARDO YostSuzanne V[place] 4917070 [facility] [id number] Information: Z08507,2ND ORDER MCV (RBC) [Entitic vol] 86 fL Normal 79-97 [facility] Work Phone: Comment on above: PATIENT NOT FASTINGP ERFORMED BY: LEOBARDO Yost[address] [id number] Information: P09246,2ND ORDER Monocytes (Bld) [#/Vol] 0.8 {x10E3/uL} Normal 0.1-0.9 [facility] Work Phone: Comment on above: PATIENT NOT FASTINGP ERFORMED BY: LEOBARDO Trotter6370 [facility] [id number] Information: I04221,2ND ORDER Monocytes/100 WBC (Bld) 7 % Normal [facility] Work Phone: Comment on above: PATIENT NOT FASTINGP ERFORMED BY: LEOBARDO YostCo Xzyccs8734 [facility] [id number] Information: R28617,2ND ORDER Neutrophils (Bld) [#/Vol] 8.5 {x10E3/uL} Abnormal 1.4-7.0 [facility] Work Phone: Comment on above: PATIENT NOT FASTINGP ERFORMED BY: LEOBARDO De La Torre Wavbfs4762 [facility] [id number] Information: C13703,2ND ORDER Neutrophils/100 WBC (Bld) 74 % Normal [facility] Work Phone: Comment on above: PATIENT NOT FASTINGP ERFORMED BY: LEOBARDO De La Torre Zblbgy2164 [facility] [id number] Information: L46219,2ND ORDER Platelets (Bld) [#/Vol] 289 {x10E3/uL} Normal 150-379 [facility] Work Phone: Comment on above: PATIENT NOT FASTINGP ERFORMED BY: LEOBARDO [facility]Haw[facility] Cmwznb3898 [facility] [id number] Information: D72961,2ND ORDER RBC (Bld) [#/Vol] 4.69 {x10E6/uL} Normal 4.14-5.80 [facility] Work Phone: Comment on above: PATIENT NOT FASTINGP ERFORMED BY: LEOBARDO [facility] Jbhwlj8885 [facility] [id number] Information: A19077,2ND ORDER WBC (Bld) [#/Vol] 11.5 {x10E3/uL} Abnormal 3.4-10.8 [facility] Work Phone: Comment on above: PATIENT NOT FASTINGP ERFORMED BY: nGame LabKelwayrp Aohhpf3215 [facility] [id number] Information: P58573,2ND ORDER CCP ANTIBODY (00775)Ordered By: Shank Boner on 06-04-2015 Cyclic citrullinated peptide IgA+IgG IA Qn 17 {units} Normal 0-19 Comprehens rachelle Internal Medicine Work Phone: Comment on above: Negative <20 Weak po sitive 20 - 39 Moderate positive 40 - 59 Strong positive >59 PATIENT NOT FASTINGP ERFORMED BY: MyWebzz Fvpyvj0231 [facility] [id number] BY: Portapure[address] [id number] Lyme Disease Antibody W/ Ref ryne (21967)Ordered By: Shank Boner on 06-04-2015 B. burgdorferi IgG+IgM Qn (S) {index_val} Normal 0.00-0.90 [facility] Work Phone: Comment on above: Negative <0.91 Equiv ocal 0.91 - 1.09 Positive >1.09 PATIENT NOT FASTINGP ERFORMED BY: Squee6370 [facility] [id number] BY: Portapure[address] [id number] METABOLIC PANEL, COMPREHENSI VE (23443)Ordered By: Shank Boner on 06-04-2015 Albumin [Mass/Vol] 4.1 g/dL Normal 3.5-5.5 [facility] Internal Medicine Work Phone: Comment on above: PATIENT NOT FASTINGP ERFORMED BY: MyWebzz Pyfldx1977 [facility] [id number] BY: Portapure[address] [id number] Information: 718144,I31335 Albumin/Globulin [Mass ratio] 1.6 {ratio} Normal 1.1-2.5 [facility] Work Phone: Comment on above: PATIENT NOT FASTINGP ERFORMED BY: CB [facility] Ygichp4804 [facility] [id number] BY: LabCo[address] [id number] Information: 171814,D96400 ALP [Catalytic activity/Vol] 78 [iU]/L Normal 39-117 [facility] Work Phone: Comment on above: PATIENT NOT FASTINGP ERFORMED BY: CB [facility] Rncoih9383 [facility] [id number] BY: Lab[address] [id number] Information: 248678,O82646 ALT [Catalytic activity/Vol] 18 [iU]/L Normal 0-44 [facility] Work Phone: Comment on above: PATIENT NOT FASTINGP ERFORMED BY: CB [facility] Sgknbk9866 [facility] [id number] BY: Lab[address] [id number] Information: 768837,N83234 AST [Catalytic activity/Vol] 13 [iU]/L Normal 0-40 [facility] Work Phone: Comment on above: PATIENT NOT FASTINGP ERFORMED BY: CB [facility] Tkannf7513 [facility] [id number] BY: Lab[address] [id number] Information: 130219,T61637 Bilirubin [Mass/Vol] 0.6 mg/dL Normal 0.0-1.2 Comp [facility] Internal Medicine Work Phone: Comment on above: PATIENT NOT FASTINGP ERFORMED BY: CB [facility] Faprmo6770 [place] [facility] [place] [id number] BY: [address] [id number] Information: 237852,X46900 Calcium [Mass/Vol] 9.3 mg/dL Normal 8.7-10.2 [facility] Internal Medicine Work Phone: Comment on above: PATIENT NOT FASTINGP ERFORMED BY: CB [facility] Huyrpo3596 Elliott RoadDublin [place] [id number] BY: LabCo[address] [id number] Information: 965362,K54171 Chloride [Moles/Vol] 99 mmol/L Normal 97-108 [facility] Work Phone: Comment on above: PATIENT NOT FASTINGP ERFORMED BY: CB [facility] Isbirh9682 Elliott RoadDublin [place] [id number] BY: [facility] [address] [id number] Information: 821016,V22700 CO2 [Moles/Vol] 22 mmol/L Normal 18-29 [facility] Internal Medicine Work Phone: Comment on above: PATIENT NOT FASTINGP ERFORMED BY: CB [facility] Pppzuy9125 Elliott RoadDublin [place] [id number] BY: [facility] [address] [id number] Information: 539857,N85900 Creatinine [Mass/Vol] 0.98 mg/dL Normal 0.76-1.27 [facility] Internal Medicine Work Phone: Comment on above: PATIENT NOT FASTINGP ERFORMED BY: CB [facility] Zviypi0122 Elliott RoadDosher Memorial Hospitalin [place] [id number] BY: [facility] [address] [id number] Information: 468393,P71687 GFR/1.73 sq M predicted among blacks CKD-EPI (S/P/Bld) [Vol rate/Area] 102 mL/min/1.73 Normal [facility] Work Phone: Comment on above: PATIENT NOT FASTINGP ERFORMED BY: CB [facility] Zzxkmb7797 Elliott RoadDublin [place] [id number] BY: LabCo[address] [id number] Information: 429033,W47882 GFR/1.73 sq M predicted among non-blacks CKD-EPI (S/P/Bld) [Vol rate/Area] 88 mL/min/1.73 Normal [facility] Internal Medicine Work Phone: Comment on above: PATIENT NOT FASTINGP ERFORMED BY: CB [facility] Fmavyj4016 [facility] [id number] BY: LabCo[address] [id number] Information: 494539,L01440 Globulin (S) [Mass/Vol] 2.5 g/dL Normal 1.5-4.5 [facility] Internal Medicine Work Phone: Comment on above: PATIENT NOT FASTINGP ERFORMED BY: CB [facility] Zopyur0083 [facility] [id number] BY: LabCo[address] [id number] Information: 394758,H77114 Glucose [Mass/Vol] 137 mg/dL Abnormal 65-99 [facility] Internal [facility] Work Phone: Comment on above: PATIENT NOT FASTINGP ERFORMED BY: CB [facility] Ybeder5091 [facility] [id number] BY: LabCo[address] [id number] Information: 350038,T94758 Potassium [Moles/Vol] 4.0 mmol/L Normal 3.5-5.2 [facility] Internal Medicine Work Phone: Comment on above: PATIENT NOT FASTINGP ERFORMED BY: CB [facility] Qziecs6079 [facility] [id number] BY: Lab[address] [id number] Information: 868536,B27883 Protein [Mass/Vol] 6.6 g/dL Normal 6.0-8.5 [facility] Internal Medicine Work Phone: Comment on above: PATIENT NOT FASTINGP ERFORMED BY: CB [facility] Hktfub3596 Elliott RoadDublin [place] [id number] BY: Lab[address] [id number] Information: 316793,U11585 Sodium [Moles/Vol] 140 mmol/L Normal 134-144 [facility] Internal Medicine Work Phone: Comment on above: PATIENT NOT FASTINGP ERFORMED BY: CB [facility] Vhcvce9512 [facility] RoadAt[facility] [id number] BY: LabCo[address] [id number] Information: 486397,S27491 Urea nitrogen [Mass/Vol] 22 mg/dL Normal 6-24 [facility] Internal Medicine Work Phone: Comment on above: PATIENT NOT FASTINGP ERFORMED BY: CB [facility] Afggtu7420 [facility] [id number] BY: LabCo[address] [id number] Information: 105630,O42537 Urea nitrogen/Creatinine [Mass ratio] 22 mg/mg Abnormal 9-20 [facility] Internal Medicine Work Phone: Comment on above: PATIENT NOT FASTINGP ERFORMED BY: CB [facility] Wglejp6804 [facility] [id number] BY: LabCo[address] [id number] Information: 623609,Y39995 RHEUMATOID FACTOR-QUANT (608 20)Ordered By: Shank Boner on 06-04-2015 Rheumatoid factor Qn 15.2 {IU/mL} Abnormal 0.0-13.9 Co [facility] Internal Medicine Work Phone: Comment on above: PATIENT NOT FASTINGP ERFORMED BY: CB [facility] Eigdqz6730 [facility] [id number] BY: eMinor Mmsqsgnrgj1088 [facility] [id number] SED RATE ERYTHROCYTE (67558) Ordered By: Shank Boner on 06-04-2015 ESR (Bld) [Velocity] 9 mm/h Normal 0-30 Comp rehensive Internal Medicine Work Phone: Comment on above: PATIENT NOT FASTINGP ERFORMED BY: [employer] Sales70 [address] RoadRealDeckblin [place] [id number] BY: PortapureSt. Mary's HospitalFymhhvpqyu2764 [facility] [id number] URIC ACID BLOOD (82464)Order ed By: Shank Boner on 06-04-2015 Urate [Mass/Vol] 7.3 mg/dL Normal 3.7-8.6 Comprehe nsive Internal Medicine Work Phone: Comment on above: Therapeutic target f or gout patients: <6.0 PATIENT NOT FASTINGP ERFORMED BY: [employer]70 WinDensityblin [place] [id number] VITAMIN B12 AND FOLATES (826 07)Ordered By: Shank Boner on 06-04-2015 Cobalamin (Vitamin B12) [Mass/Vol] 370 pg/mL Normal 211-946 [facility] Work Phone: Comment on above: PATIENT NOT FASTINGP ERFORMED BY: [employer] Sales70 WinDensityblin [place] [id number] Folate [Mass/Vol] ng/mL Normal Compreh ensive Internal Medicine Work Phone: Comment on above: A serum folate shaunna ntration of less than 3.1 ng/mL isconsidered to represent clinical deficiency. PATIENT NOT FASTINGP ERFORMED BY: [employer] Sales[address] Everyday.meblin [place] [id number] CALCIFIDIOL (60508) VIT D 25 Ordered By: Shank Boner on 04-15-2015 25-Hydroxyvitamin D2+25-Hydroxyvitamin D3 [Mass/Vol] 52.4 ng/mL Normal 30.0-100.0 [facility] Work Phone: Comment on above: Vitamin D deficiency has been defined by the [place] of[place]icine and an Endocrine Society practice guideline as alevel of serum 25-OH vitamin D less than 20 ng/mL (1,2).The Endocrine Society went on to further define vitamin Dinsufficiency as a level between 21 and 29 ng/mL (2).1. IOM ([place] of [employer]). 2010. Dietary reference intakes for calcium and D. [place]: The National Academies Press.2. Shabana MF, Ruddy NC, Reba HUBBARD, et al. Evaluation, treatment, and prevention of vitamin D deficiency: an Endocrine Society clinical practice guideline. JCEM. 2010; 96(7):1911-30. PATIENT WAS FASTINGP ERFORMED BY: CB [facility] Rjuurf8856 Elliott RoadDublin [place] [id number] CBC WITH MANUAL DIFF (50124) Ordered By: Shank Boner on 04-15-2015 Basophils (Bld) [#/Vol] 0.0 {x10E3/uL} Normal 0.0-0.2 [facility] Work Phone: Comment on above: PATIENT WAS FASTINGP ERFORMED BY: CB [facility] Cuzhyo8844 [address] RoadDublin [place] [id number] Information: 189521,C38897 Basophils/100 WBC (Bld) 0 % Normal [facility] Work Phone: Comment on above: PATIENT WAS FASTINGP ERFORMED BY: CB [facility] Ibaurj0529 Elliott RoadDublin [place] [id number] Information: 425062,L86692 Eosinophils (Bld) [#/Vol] 0.1 {x10E3/uL} Normal 0.0-0.4 [facility] Work Phone: Comment on above: PATIENT WAS FASTINGP ERFORMED BY: CB [facility] Bjegxn6470 [address] RoadDublin [place] [id number] Information: 233192,T76085 Eosinophils/100 WBC (Bld) 1 % Normal [facility] Work Phone: Comment on above: PATIENT WAS FASTINGP ERFORMED BY: CB [facility] Ngatnk7707 [address] RoadDublin [place] [id number] Information: 323227,B87694 Erythrocyte distribution width (RBC) [Ratio] 13.5 % Normal 12.3-15.4 [facility] Work Phone: Comment on above: PATIENT WAS FASTINGP ERFORMED BY: [address] [id number] Information: [id number] Hematocrit (Bld) [Volume fraction] 44.0 % Normal 37.5-51.0 [facility] Work Phone: Comment on above: PATIENT WAS FASTINGP ERFORMED BY: [address] [id number] Information: [id number] Hemoglobin (Bld) [Mass/Vol] 15.2 g/dL Normal 12.6-17.7 [facility] Work Phone: Comment on above: PATIENT WAS FASTINGP ERFORMED BY: [address] [id number] Information: 446554,G68118 Immature granulocytes (Bld) [#/Vol] 0.0 {x10E3/uL} Normal 0.0-0.1 [facility] Work Phone: Comment on above: PATIENT WAS FASTINGP ERFORMED BY: [place] 3041270 [facility] [id number] Information: 390045,R15798 Immature granulocytes/100 WBC (Bld) 0 % Normal [facility] Work Phone: Comment on above: PATIENT WAS FASTINGP ERFORMED BY: [address] [id number] Information: [id number] Lymphocytes (Bld) [#/Vol] 2.0 {x10E3/uL} Normal 0.7-3.1 [facility] Work Phone: Comment on above: PATIENT WAS FASTINGP ERFORMED BY: [address] [id number] Information: [id number] Lymphocytes/100 WBC (Bld) 28 % Normal [facility] Work Phone: Comment on above: PATIENT WAS FASTINGP ERFORMED BY: [place] [id number] [facility] [id number] Information: [id number] MCH (RBC) [Entitic mass] 29.7 pg Normal 26.6-33.0 [facility] Work Phone: Comment on above: PATIENT WAS FASTINGP ERFORMED BY: [address] [id number] Information: [id number],[id number] MCHC (RBC) [Mass/Vol] 34.5 g/dL Normal 31.5-35.7 [facility] prehensive Internal Medicine Work Phone: Comment on above: PATIENT WAS FASTINGP ERFORMED BY: [address] [id number] Information: [id number] MCV (RBC) [Entitic vol] 86 fL Normal 79-97 [facility] Work Phone: Comment on above: PATIENT WAS FASTINGP ERFORMED BY: [address] [id number] Information: [id number] Monocytes (Bld) [#/Vol] 0.8 {x10E3/uL} Normal 0.1-0.9 [facility] Work Phone: Comment on above: PATIENT WAS FASTINGP ERFORMED BY: [address] [id number] Information: [id number] Monocytes/100 WBC (Bld) 11 % Normal [facility] Work Phone: Comment on above: PATIENT WAS FASTINGP ERFORMED BY: [address] [id number] Information: [id number] Neutrophils (Bld) [#/Vol] 4.4 {x10E3/uL} Normal 1.4-7.0 [facility] Work Phone: Comment on above: PATIENT WAS FASTINGP ERFORMED BY: LEOBARDO Victorino Trotter6370 [facility] [id number] Information: [id number] Neutrophils/100 WBC (Bld) 60 % Normal [facility] Work Phone: Comment on above: PATIENT WAS FASTINGP ERFORMED BY: LEOBARDO RitikaCo Ygrwna6685 [facility] [id number] Information: [id number] Platelets (Bld) [#/Vol] 343 {x10E3/uL} Normal 150-379 [facility] Work Phone: Comment on above: PATIENT WAS FASTINGP ERFORMED BY: LEOBARDO Britt Qivoub7901 [facility] [id number] Information: [id number] RBC (Bld) [#/Vol] 5.12 {x10E6/uL} Normal 4.14-5.80 [facility] Internal Medicine Work Phone: Comment on above: PATIENT WAS FASTINGP ERFORMED BY: LEOBARDO Britttaqueria Ucmpyp5212 [facility] [id number] Information: [id number] WBC (Bld) [#/Vol] 7.3 {x10E3/uL} Normal 3.4-10.8 [facility] Internal Medicine Work Phone: Comment on above: PATIENT WAS FASTINGP ERFORMED BY: LEOBARDO [facility] Wsgqbr1245 [facility] [id number] Information: [id number] Lipid Panel (83108)Ordered B y: Shank Boner on 04-15-2015 Cholesterol [Mass/Vol] 228 mg/dL Abnormal 100-199 [facility] Work Phone: Comment on above: PATIENT WAS FASTINGP ERFORMED BY: LEOBARDO LabCo Yzveyr2861 [facility] [id number] Cholesterol in HDL [Mass/Vol] 43 mg/dL Normal [facility] Work Phone: Comment on above: According to ATP-III Guidelines, HDL-C >59 mg/dL is considered anegative risk factor for CHD. PATIENT WAS FASTINGP ERFORMED BY: LEOBARDO [facility] Zzddir4896 [address] Desire2LearnDublin [place] [id number] Cholesterol in LDL [Mass/Vol] 138 mg/dL Abnormal 0-99 [facility] Work Phone: Comment on above: PATIENT WAS FASTINGP ERFORMED BY: LEOBARDO [facility] Syjhql1059 [address] Desire2LearnDosher Memorial Hospitalin [place] [id number] Cholesterol in LDL/Cholesterol in HDL [Mass ratio] 3.2 {ratio_units} Normal 0.0-3.6 [facility] Work Phone: Comment on above: LDL/HDL Ratio Men Wo men 1/2 Avg.Risk 1.0 1.5 Avg.Risk 3.6 3.2 2X Avg.Risk 6.2 5.0 3X Avg.Risk 8.0 6.1 PATIENT WAS FASTINGP ERFORMED BY: [facility] Fyfmkn4958 [address] [facility] [place] [id number] Cholesterol in VLDL [Mass/Vol] 47 mg/dL Abnormal 5-40 [facility] Work Phone: Comment on above: PATIENT WAS FASTINGP ERFORMED BY: LabCo Cgkqja8356 [address] Desire2LearnDosher Memorial Hospitalin [place] [id number] Triglyceride [Mass/Vol] 236 mg/dL Abnormal 0-149 [facility] Work Phone: Comment on above: PATIENT WAS FASTINGP ERFORMED BY: CB [facility] Rdxomv5681 [address] [facility]in [place] [id number] Metabolic Panel, Comprehensi ve (60934)Ordered By: Shank Boner on 04-15-2015 Albumin [Mass/Vol] 4.5 g/dL Normal 3.5-5.5 [facility] Internal Medicine Work Phone: Comment on above: PATIENT WAS FASTINGP ERFORMED BY: [facility] Zvmmnq8543 [address] Desire2LearnDosher Memorial Hospitalin [place] [id number] Albumin/Globulin [Mass ratio] 1.9 {ratio} Normal 1.1-2.5 [facility] Work Phone: Comment on above: PATIENT WAS FASTINGP ERFORMED BY: Lab[facility] Fezrkk7568 Elliott RoadDublin [place] [id number] ALP [Catalytic activity/Vol] 87 [iU]/L Normal 39-117 [facility] Work Phone: Comment on above: PATIENT WAS FASTINGP ERFORMED BY: [facility] Yheccd2484 Elliott RoadDublin [place] [id number] ALT [Catalytic activity/Vol] 27 [iU]/L Normal 0-44 [facility] Work Phone: Comment on above: PATIENT WAS FASTINGP ERFORMED BY: [facility] Iprebr2681 Elliott RoadDublin [place] [id number] AST [Catalytic activity/Vol] 20 [iU]/L Normal 0-40 [facility] Work Phone: Comment on above: PATIENT WAS FASTINGP ERFORMED BY: [facility] Snrxuu4598 Elliott RoadDublin [place] [id number] Bilirubin [Mass/Vol] 0.3 mg/dL Normal 0.0-1.2 [facility] Work Phone: Comment on above: PATIENT WAS FASTINGP ERFORMED BY: Lab[facility] Mtxxct3881 Elliott RoadDublin [place] [id number] Calcium [Mass/Vol] 9.8 mg/dL Normal 8.7-10.2 [facility] Internal Medicine Work Phone: Comment on above: PATIENT WAS FASTINGP ERFORMED BY: [facility] Vaxshz1653 Elliott RoadDublin [place] [id number] Chloride [Moles/Vol] 99 mmol/L Normal 97-108 [facility] Work Phone: Comment on above: PATIENT WAS FASTINGP ERFORMED BY: [facility] Pvvwze0702 [address] RoadDublin [place] [id number] CO2 [Moles/Vol] 23 mmol/L Normal 18-29 [facility] Internal [facility] Work Phone: Comment on above: PATIENT WAS FASTINGP ERFORMED BY: CB [facility] Frpwph5408 [address] RoadDublin [place] [id number] Creatinine [Mass/Vol] 0.83 mg/dL Normal 0.76-1.27 [facility] Internal Medicine Work Phone: Comment on above: PATIENT WAS FASTINGP ERFORMED BY: CB [facility] Xekzyl3699 [address] RoadDublin [place] [id number] GFR/1.73 sq M predicted among blacks CKD-EPI (S/P/Bld) [Vol rate/Area] 117 mL/min/1.73 Normal [facility] Internal Medicine Work Phone: Comment on above: PATIENT WAS FASTINGP ERFORMED BY: CB [facility] Nznizo4021 [address] RoadDublin [place] [id number] GFR/1.73 sq M predicted among non-blacks CKD-EPI (S/P/Bld) [Vol rate/Area] 101 mL/min/1.73 Normal [facility] Internal Medicine Work Phone: Comment on above: PATIENT WAS FASTINGP ERFORMED BY: CB [facility] Rfgkxt3678 Elliott RoadDublin [place] [id number] Globulin (S) [Mass/Vol] 2.4 g/dL Normal 1.5-4.5 [facility] Internal Medicine Work Phone: Comment on above: PATIENT WAS FASTINGP ERFORMED BY: CB [facility] Lnkopt2901 [address] RoadDublin [place] [id number] Glucose [Mass/Vol] 133 mg/dL Abnormal 65-99 [facility] Internal Medicine Work Phone: Comment on above: PATIENT WAS FASTINGP ERFORMED BY: CB [facility] Xkmtvm8670 [address] RoadDublin [place] [id number] Potassium [Moles/Vol] 4.8 mmol/L Normal 3.5-5.2 [facility] Internal Medicine Work Phone: Comment on above: PATIENT WAS FASTINGP ERFORMED BY: CB [facility] Jqkyix5025 [address] RoadDublin [place] [id number] Protein [Mass/Vol] 6.9 g/dL Normal 6.0-8.5 [facility] Internal Medicine Work Phone: Comment on above: PATIENT WAS FASTINGP ERFORMED BY: [facility] Rdqtae1158 [address] [facility] [id number] Sodium [Moles/Vol] 140 mmol/L Normal 134-144 [facility] Internal Medicine Work Phone: Comment on above: PATIENT WAS FASTINGP ERFORMED BY: [facility] Jmpkwl2673 [facility] [id number] Urea nitrogen [Mass/Vol] 23 mg/dL Normal 6-24 [facility] Work Phone: Comment on above: PATIENT WAS FASTINGP ERFORMED BY: Lab[facility] Vbeovl9542 [facility] [id number] Urea nitrogen/Creatinine [Mass ratio] 28 mg/mg Abnormal 9-20 [facility] Work Phone: Comment on above: PATIENT WAS FASTINGP ERFORMED BY: [facility] Pyfwmz4081 [facility] [id number] TSH (90221)Ordered By: Kim Gamino on 04-15-2015 TSH Qn 0.587 {uIU/mL} Normal 0.450-4.50 0 [facility] Work Phone: Comment on above: PATIENT WAS FASTINGP ERFORMED BY: [facility] Gjwzvq0682 [facility] [id number] Blood Glucose , Office ([phone])Ordered By: Bessy Marley on 10-23-2014 Glucose Glucometer (BldC) [Moles/Vol] 203 1 Normal [facility] Work Phone: HgA1C , Office ([phone])Ordere d By: Bessy Marley on 10-23-2014 HbA1c (Bld) [Mass fraction] 6.7 % Normal 4.6 - 7.1 [facility] Work Phone: Blood Glucose , Office ([phone])Ordered By: Bessy Marley on 07-26-2014 Glucose Glucometer (BldC) [Moles/Vol] 153 1 Normal [facility] Work Phone: HgA1C , Office (74396)Ordere d By: Bessy Marley on 07-26-2014 HbA1c (Bld) [Mass fraction] 6.2 % Normal 4.6 - 7.1 [facility] Work Phone: T3, FREE (TRIDOTHYRONINE) ([phone])Ordered By: Shank Boner on 04-29-2014 Free T3 [Mass/Vol] 3.3 pg/mL Normal 2.0-4.4 [facility] Internal Medicine Work Phone: Comment on above: PATIENT NOT FASTINGP ERFORMED BY: LEOBARDO LabShoutfitCritical access hospital [id number] T4, FREE (THYROXINE) (38139) Ordered By: Shank Boner on 04-29-2014 Free T4 [Mass/Vol] 1.14 ng/dL Normal 0.82-1.77 [facility] Internal Medicine Work Phone: Comment on above: PATIENT NOT FASTINGP ERFORMED BY: LEOBARDO LabPartschannel70 WinDensityCritical access hospital [id number] Information: [id number] TSH (33168)Ordered By: Kim madsen Dietitian Research on 04-29-2014 TSH Qn 0.573 {uIU/mL} Normal 0.450-4.50 0 [facility] Work Phone: Comment on above: PATIENT NOT FASTINGP ERFORMED BY: nGame LabKelwayrp Lnmvra7276 [address] Desire2LearnAtrium Health [facility] [id number] Blood Glucose , Office ([phone])Ordered By: Bessy Marley on 04-05-2014 Glucose Glucometer (BldC) [Moles/Vol] 114 1 Normal [facility] Work Phone: CBC W/AUTO DIFF WBC (62571)O rdered By: Shank Boner on 04-05-2014 Basophils (Bld) [#/Vol] 0.0 {x10E3/uL} Normal 0.0-0.2 [facility] Work Phone: Comment on above: PATIENT WAS FASTINGP ERFORMED BY: [place] [id number] [facility] [id number] Information: [id number] Basophils/100 WBC (Bld) 0 % Normal [facility] Work Phone: Comment on above: PATIENT WAS FASTINGP ERFORMED BY: [place] 3041270 [facility] [id number] Information: [id number] Eosinophils (Bld) [#/Vol] 0.1 {x10E3/uL} Normal 0.0-0.4 [facility] Work Phone: Comment on above: PATIENT WAS FASTINGP ERFORMED BY: [address] [id number] Information: [id number] Eosinophils/100 WBC (Bld) 1 % Normal [facility] Work Phone: Comment on above: PATIENT WAS FASTINGP ERFORMED BY: [address] [id number] Information: [id number] Erythrocyte distribution width (RBC) [Ratio] 13.1 % Normal 12.3-15.4 [facility] Work Phone: Comment on above: PATIENT WAS FASTINGP ERFORMED BY: [address] [id number] Information: 440681,[id number] Hematocrit (Bld) [Volume fraction] 43.2 % Normal 37.5-51.0 [facility] Work Phone: Comment on above: PATIENT WAS FASTINGP ERFORMED BY: [address] [id number] Information: 112463,[id number] Hemoglobin (Bld) [Mass/Vol] 15.0 g/dL Normal 12.6-17.7 [facility] Work Phone: Comment on above: PATIENT WAS FASTINGP ERFORMED BY: [address] [id number] Information: [id number] Immature granulocytes (Bld) [#/Vol] 0.0 {x10E3/uL} Normal 0.0-0.1 [facility] Work Phone: Comment on above: PATIENT WAS FASTINGP ERFORMED BY: [facility]6370 [facility] [id number] Information: [id number],[id number] Immature granulocytes/100 WBC (Bld) 0 % Normal [facility] Work Phone: Comment on above: PATIENT WAS FASTINGP ERFORMED BY: [address] [id number] Information: [id number],[id number] Lymphocytes (Bld) [#/Vol] 1.7 {x10E3/uL} Normal 0.7-3.1 [facility] Work Phone: Comment on above: PATIENT WAS FASTINGP ERFORMED BY: [place] 3041270 [facility] [id number] Information: 445138,[id number] Lymphocytes/100 WBC (Bld) 27 % Normal [facility] Work Phone: Comment on above: PATIENT WAS FASTINGP ERFORMED BY: [place] 3041270 [facility] [id number] Information: [id number] MCH (RBC) [Entitic mass] 29.5 pg Normal 26.6-33.0 [facility] Internal Medicine Work Phone: Comment on above: PATIENT WAS FASTINGP ERFORMED BY: [facility]6370 [facility] [id number] Information: [id number],[id number] MCHC (RBC) [Mass/Vol] 34.7 g/dL Normal 31.5-35.7 [facility] prehensive Internal Medicine Work Phone: Comment on above: PATIENT WAS FASTINGP ERFORMED BY: [place] 3041270 [facility] [id number] Information: 356081,[id number] MCV (RBC) [Entitic vol] 85 fL Normal 79-97 [facility] Work Phone: Comment on above: PATIENT WAS FASTINGP ERFORMED BY: [facility] Tctwbc8102 [facility] [id number] Information: [id number],[id number] Monocytes (Bld) [#/Vol] 0.6 {x10E3/uL} Normal 0.1-0.9 [facility] Work Phone: Comment on above: PATIENT WAS FASTINGP ERFORMED BY: LabSuzanne Ville 4917070 [facility] [id number] Information: [id number] Monocytes/100 WBC (Bld) 10 % Normal [facility] Work Phone: Comment on above: PATIENT WAS FASTINGP ERFORMED BY: [address] [id number] Information: [id number],[id number] Neutrophils (Bld) [#/Vol] 3.9 {x10E3/uL} Normal 1.4-7.0 [facility] Work Phone: Comment on above: PATIENT WAS FASTINGP ERFORMED BY: [facility]Core[facility]6370 [facility] [id number] Information: 632005,[id number] Neutrophils/100 WBC (Bld) 62 % Normal [facility] Work Phone: Comment on above: PATIENT WAS FASTINGP ERFORMED BY: LabSuzanne [place]ille 4917070 [facility] [id number] Information: [id number] Platelets (Bld) [#/Vol] 365 {x10E3/uL} Normal 150-379 [facility] Work Phone: Comment on above: PATIENT WAS FASTINGP ERFORMED BY: LabCore[facility]6370 [facility] [id number] Information: [id number] RBC (Bld) [#/Vol] 5.08 {x10E6/uL} Normal 4.14-5.80 [facility] Work Phone: Comment on above: PATIENT WAS FASTINGP ERFORMED BY: LEOBARDO Victorino Trotter6370 [facility] [id number] Information: 796250,[id number] WBC (Bld) [#/Vol] 6.3 {x10E3/uL} Normal 3.4-10.8 [facility] Internal [facility] Work Phone: Comment on above: PATIENT WAS FASTINGP ERFORMED BY: LEOBARDO Britt Rhpput5122 [facility] [id number] Information: [id number] HgA1C , Office (25452)Ordere d By: Bessy Marley on 04-05-2014 HbA1c (Bld) [Mass fraction] 6.0 % Normal 4.6 - 7.1 [facility] Work Phone: LIPID PANEL ([phone])Ordered B y: Shank Boner on 04-05-2014 Cholesterol [Mass/Vol] 196 mg/dL Normal 100-199 [facility] Work Phone: Comment on above: PATIENT WAS FASTINGP ERFORMED BY: LEOBARDO Victorino Trotter6370 [facility] [id number] Cholesterol in HDL [Mass/Vol] 34 mg/dL Abnormal [facility] Work Phone: Comment on above: According to ATP-III Guidelines, HDL-C >59 mg/dL is considered anegative risk factor for CHD. PATIENT WAS FASTINGP ERFORMED BY: LEOBARDO Britt Rpsjhf1576 [facility] [id number] Cholesterol in LDL [Mass/Vol] 84 mg/dL Normal 0-99 [facility] Work Phone: Comment on above: PATIENT WAS FASTINGP ERFORMED BY: LEOBARDO Villalin6370 [facility] [id number] Cholesterol in LDL/Cholesterol in HDL [Mass ratio] 2.5 {ratio_units} Normal 0.0-3.6 [facility] Work Phone: Comment on above: LDL/HDL Ratio Men Wo men 1/2 Avg.Risk 1.0 1.5 Avg.Risk 3.6 3.2 2X Avg.Risk 6.2 5.0 3X Avg.Risk 8.0 6.1 PATIENT WAS FASTINGP ERFORMED BY: LEOBARDO LabCotaqueria Tksdvj8736 [address] [facility] Centerbl[facility] [place] [id number] Cholesterol in VLDL [Mass/Vol] 78 mg/dL Abnormal 5-40 [facility] Work Phone: Comment on above: PATIENT WAS FASTINGP ERFORMED BY: LEOBARDO [facility] Oqujjo9578 [address] Roadblin [place] [id number] Triglyceride [Mass/Vol] 388 mg/dL Abnormal 0-149 [facility] Work Phone: Comment on above: PATIENT WAS FASTINGP ERFORMED BY: LEOBARDO LabCotaqueria Kvprgu6188 [address] [facility]in [place] [id number] METABOLIC PANEL, COMPREHENSI VE (14717)Ordered By: Shank Boner on 04-05-2014 Albumin [Mass/Vol] 4.6 g/dL Normal 3.5-5.5 [facility] Internal Medicine Work Phone: Comment on above: PATIENT WAS FASTINGP ERFORMED BY: LEOBARDO [facility]Co Zmtoty9198 [address] [facility] [id number] Albumin/Globulin [Mass ratio] 2.2 {ratio} Normal 1.1-2.5 [facility] Work Phone: Comment on above: PATIENT WAS FASTINGP ERFORMED BY: LEOBARDO LabCo Cfkces1753 [address] [facility] Centerbl[facility] [place] [id number] ALP [Catalytic activity/Vol] 77 [iU]/L Normal 39-117 [facility] Work Phone: Comment on above: PATIENT WAS FASTINGP ERFORMED BY: LEOBARDO [facility] Qgnzcy9114 [address] [facility]in [place] [id number] ALT [Catalytic activity/Vol] 24 [iU]/L Normal 0-44 [facility] Work Phone: Comment on above: PATIENT WAS FASTINGP ERFORMED BY: LEOBARDO LabCo Rpvogt6057 [address] RoadDublin [place] [id number] AST [Catalytic activity/Vol] 17 [iU]/L Normal 0-40 [facility] Internal Medicine Work Phone: Comment on above: PATIENT WAS FASTINGP ERFORMED BY: LEOBARDO [facility] Tlkqrg6167 [address] RoadDublin [place] [id number] Bilirubin [Mass/Vol] 0.5 mg/dL Normal 0.0-1.2 [facility] Work Phone: Comment on above: PATIENT WAS FASTINGP ERFORMED BY: [facility] Muezbj6127 [address] RoadDublin [place] [id number] Calcium [Mass/Vol] 10.0 mg/dL Normal 8.7-10.2 [facility] Internal Medicine Work Phone: Comment on above: PATIENT WAS FASTINGP ERFORMED BY: LEOBARDO [facility] Gaqwwj6508 [address] RoadDublin [place] [id number] Chloride [Moles/Vol] 97 mmol/L Normal 97-108 [facility] Internal Medicine Work Phone: Comment on above: PATIENT WAS FASTINGP ERFORMED BY: [facility] Nvohho9655 [address] RoadDublin [place] [id number] CO2 [Moles/Vol] 22 mmol/L Normal 18-29 [facility] Internal Medicine Work Phone: Comment on above: PATIENT WAS FASTINGP ERFORMED BY: [facility] Ylkvoe5350 [address] RoadDublin [place] [id number] Creatinine [Mass/Vol] 0.73 mg/dL Abnormal 0.76-1.27 [facility] Internal Medicine Work Phone: Comment on above: PATIENT WAS FASTINGP ERFORMED BY: [facility] Hprktv6051 [address] RoadDublin [place] [id number] GFR/1.73 sq M predicted among blacks CKD-EPI (S/P/Bld) [Vol rate/Area] 124 mL/min/1.73 Normal [facility] Internal Medicine Work Phone: Comment on above: PATIENT WAS FASTINGP ERFORMED BY: [facility] Bolgst8494 [address] RoadDublin [place] [id number] GFR/1.73 sq M predicted among non-blacks CKD-EPI (S/P/Bld) [Vol rate/Area] 107 mL/min/1.73 Normal [facility] Internal Medicine Work Phone: Comment on above: PATIENT WAS FASTINGP ERFORMED BY: LEOBARDO LabPriscilla Lojwfs6953 [address] [facility] [id number] Globulin (S) [Mass/Vol] 2.1 g/dL Normal 1.5-4.5 [facility] Internal Medicine Work Phone: Comment on above: PATIENT WAS FASTINGP ERFORMED BY: LEOBARDO [facility] Jltozg4314 [address] [facility]in [place] [id number] Glucose [Mass/Vol] 108 mg/dL Abnormal 65-99 [facility] Internal Medicine Work Phone: Comment on above: PATIENT WAS FASTINGP ERFORMED BY: LEOBARDO Villalin6370 [address] [facility] [id number] Potassium [Moles/Vol] 4.4 mmol/L Normal 3.5-5.2 [facility] Internal Medicine Work Phone: Comment on above: PATIENT WAS FASTINGP ERFORMED BY: LEOBARDO Villalin6370 [address] [facility] [place] [id number] Protein [Mass/Vol] 6.7 g/dL Normal 6.0-8.5 [facility] Internal Medicine Work Phone: Comment on above: PATIENT WAS FASTINGP ERFORMED BY: LEOBARDO [facility] Cqmpaa6143 [address] [facility]in [place] [id number] Sodium [Moles/Vol] 139 mmol/L Normal 134-144 [facility] Internal Medicine Work Phone: Comment on above: PATIENT WAS FASTINGP ERFORMED BY: LEOBARDO [facility] Dekana5958 [address] [facility]in [place] [id number] Urea nitrogen [Mass/Vol] 22 mg/dL Normal 6-24 [facility] Internal Medicine Work Phone: Comment on above: PATIENT WAS FASTINGP ERFORMED BY: LEOBARDO [facility] Tcjqic6829 [facility] [id number] Urea nitrogen/Creatinine [Mass ratio] 30 mg/mg Abnormal 9-20 [facility] Work Phone: Comment on above: PATIENT WAS FASTINGP ERFORMED BY: LEOBARDO Victorino Villalin6370 [address] [facility]bl[facility] [place] [id number] MICROALBUMINOrdered By: Syst Dietitian Research on 04-05-2014 Albumin DL <= 20 mg/L (U) [Mass/Vol] 7.9 ug/mL Normal 0.0-17.0 [facility] Work Phone: Comment on above: PATIENT WAS FASTINGP ERFORMED BY: LEOBARDO [facility]Haw[facility] Icomyv9402 [facility] [id number] Albumin/Creatinine (U) [Mass ratio] 6.3 {mg/g_creat} Normal 0.0-30.0 [facility] Work Phone: Comment on above: PATIENT WAS FASTINGP ERFORMED BY: LEOBARDO [facility] Gjjgyt2392 [facility] [id number] Creatinine (U) [Mass/Vol] 125.2 mg/dL Normal 22.0-328.0 [facility] Work Phone: Comment on above: PATIENT WAS FASTINGP ERFORMED BY: LEOBARDO [facility] Ztzclv3107 [facility] [id number] TSH ([id number])Ordered By: LearnStreete Dietitian Research on 04-05-2014 TSH Qn 0.404 {uIU/mL} Abnormal 0.450-4.50 0 [facility] Work Phone: Comment on above: PATIENT WAS FASTINGP ERFORMED BY: LEOBARDO [facility] Lzhrga8703 [facility] [id number] URINALYSIS, W/ MICRO (52516) Ordered By: Shank Boner on 04-05-2014 Appearance (U) Clear Normal Comprehens rachelle Internal Medicine Work Phone: Comment on above: PATIENT WAS FASTINGP ERFORMED BY: LEOBARDO [facility] Ipagoo3929 [facility] [id number] Bilirubin Ql (U) Negative Normal Comprehe nsive Internal Medicine Work Phone: Comment on above: PATIENT WAS FASTINGP ERFORMED BY: LEOBARDO [facility] Rsxttm3559 [address] RoadDublin [place] [id number] Color (U) Yellow Normal [facility] Work Phone: Comment on above: PATIENT WAS FASTINGP ERFORMED BY: LEOBARDO [facility] Cskxqc9020 [address] RoadDublin [place] [id number] Glucose Ql (U) Negative Normal Comprehens rachelle Internal Medicine Work Phone: Comment on above: PATIENT WAS FASTINGP ERFORMED BY: LEOBARDO [facility] Ytceiw9374 [address] RoadDublin [place] [id number] Hemoglobin Ql (U) Negative Normal Compreh ensive Internal Medicine Work Phone: Comment on above: PATIENT WAS FASTINGP ERFORMED BY: LEOBARDO [facility] Xremsu7175 [address] RoadDublin [place] [id number] Ketones Ql (U) Negative Normal Comprehens rachelle Internal Medicine Work Phone: Comment on above: PATIENT WAS FASTINGP ERFORMED BY: LEOBARDO [facility] Ufgfiy0274 [address] RoadDublin [place] [id number] Leukocyte esterase Test strip Ql (U) Negative Normal [facility] Work Phone: Comment on above: PATIENT WAS FASTINGP ERFORMED BY: LEOBARDO [facility] Rhbznn2782 [address] RoadDublin [place] [id number] Microscopic observation LM Nom (Urine sed) See below: Normal [facility] Work Phone: Comment on above: Microscopic was brian cated and was performed. PATIENT WAS FASTINGP ERFORMED BY: LEOBARDO [facility] Dmibcv6547 [address] RoadDublin [place] [id number] Microscopic observation LM Nom (Urine sed) MICRON Normal [facility] Work Phone: Comment on above: Microscopic follows if indicated. PATIENT WAS FASTINGP ERFORMED BY: LEOBARDO [facility] Irpjwa5686 [address] RoadDublin [place] [id number] Nitrite Ql (U) Negative Normal Comprehens rachelle Internal Medicine Work Phone: Comment on above: PATIENT WAS FASTINGP ERFORMED BY: LEOBARDO [facility] Vlguju4864 [address] RoadDublin [place] [id number] pH (U) 6.0 [pH] Normal 5.0-7.5 [facility] Work Phone: Comment on above: PATIENT WAS FASTINGP ERFORMED BY: CB [facility] Qefoik0322 [address] RoadDublin [place] [id number] Protein Ql (U) Negative Normal Comprehens rachelle Internal Medicine Work Phone: Comment on above: PATIENT WAS FASTINGP ERFORMED BY: CB [facility] Yrtobc8288 [address] RoadDublin [place] [id number] Specific gravity (U) [Rel density] 1.025 1 Normal 1.005-1.03 0 [facility] Internal Medicine Work Phone: Comment on above: PATIENT WAS FASTINGP ERFORMED BY: [facility] Jvfntt9290 [address] RoadDublin [place] [id number] Urobilinogen Test strip (U) [Mass/Vol] 0.2 mg/dL Normal 0.0-1.9 Comprehensi Internal Medicine Work Phone: Comment on above: PATIENT WAS FASTINGP ERFORMED BY: CB [facility] Fipknd1929 [address] RoadDublin [place] [id number] Vitamin D Hydroxy (18589)Ord ered By: Shank Boner on 04-05-2014 25-Hydroxyvitamin D2+25-Hydroxyvitamin D3 [Mass/Vol] 51.2 ng/mL Normal 30.0-100.0 [facility] Internal Medicine Work Phone: Comment on above: Vitamin D deficiency has been defined by the [place] ofMedicine and an Endocrine Society practice guideline as alevel of serum 25-OH vitamin D less than 20 ng/mL (1,2).The Endocrine Society went on to further define vitamin Dinsufficiency as a level between 21 and 29 ng/mL (2).1. IOM ([place] of Medicine). 2010. Dietary reference intakes for calcium and D. [place]: The National Academies Press.2. Shabana MF, Ruddy NC, Reba HUBBARD, et al. Evaluation, treatment, and prevention of vitamin D deficiency: an Endocrine Society clinical practice guideline. JCEM. 2010; 96(7):1911-30. PATIENT WAS FASTINGP ERFORMED BY: Squee6370 [facility] [id number] CALCIFIDIOL (37819) VIT D 25 Ordered By: Shank Boner on 03-29-2014 25-Hydroxyvitamin D2+25-Hydroxyvitamin D3 [Mass/Vol] 54.4 ng/mL Normal 30.0-100.0 [facility] Work Phone: Comment on above: Vitamin D deficiency has been defined by the [place] of[place]icine and an Endocrine Society practice guideline as alevel of serum 25-OH vitamin D less than 20 ng/mL (1,2).The Endocrine Society went on to further define vitamin Dinsufficiency as a level between 21 and 29 ng/mL (2).1. IOM ([place] of Medicine). 2010. Dietary reference intakes for calcium and D. [place]: The National Academies Press.2. Shabana MF, Ruddy SIMPSON, Reba HUBBARD, et al. Evaluation, treatment, and prevention of vitamin D deficiency: an Endocrine Society clinical practice guideline. JCEM. 2010; 96(7):1911-30. PATIENT NOT FASTINGP ERFORMED BY: Squee6370 [facility] [id number] Information: [id number] TSH (96458)Ordered By: LearnStreete m Dietitian Research on 12-19-2013 TSH Qn 0.371 {uIU/mL} Abnormal 0.450-4.50 0 [facility] Work Phone: Comment on above: PATIENT NOT FASTINGP ERFORMED BY: Squee6370 [facility] [id number] Information: [id number] Blood Glucose , Office (4896 2)Ordered By: Ling Grande on 11-09-2013 Glucose Glucometer (BldC) [Moles/Vol] 122 1 Normal [facility] Work Phone: HgA1C , Office (73386)Ordere d By: Ling Grande on 11-09-2013 HbA1c (Bld) [Mass fraction] 7.0 % Normal 4.6 - 7.1 [facility] Work Phone: T3, FREE (TRIDOTHYRONINE) (4 0447)Ordered By: Shank Boner on 10-16-2013 Free T3 [Mass/Vol] 3.0 pg/mL Normal 2.0-4.4 [facility] Internal Medicine Work Phone: Comment on above: PATIENT NOT FASTINGP ERFORMED BY: LEOBARDO [facility] Kqehyr9475 [address] [facility]in [place] [id number] T4, FREE (THYROXINE) (02214) Ordered By: Shank Boner on 10-16-2013 Free T4 [Mass/Vol] 1.17 ng/dL Normal 0.82-1.77 [facility] Internal Medicine Work Phone: Comment on above: PATIENT NOT FASTINGP ERFORMED BY: LEOBARDO [facility] Examxd4317 [facility] [id number] TSH (32832)Ordered By: iLost Dietitian Research on 10-16-2013 TSH Qn 0.429 {uIU/mL} Abnormal 0.450-4.50 0 [facility] Work Phone: Comment on above: PATIENT NOT FASTINGP ERFORMED BY: LEOBARDO [facility] Buhkyv6366 [facility] [id number] Information: [id number] CBC WITH MANUAL DIFF (82384) Ordered By: Shank Boner on 10-08-2013 Basophils (Bld) [#/Vol] 0.0 {x10E3/uL} Normal 0.0-0.2 [facility] Work Phone: Comment on above: PATIENT WAS FASTINGP ERFORMED BY: CB [facility] Yqebpf9290 [facility] [id number] Information: [id number] Basophils/100 WBC (Bld) 0 % Normal 0-3 [facility] Work Phone: Comment on above: PATIENT WAS FASTINGP ERFORMED BY: [facility] Ssvljp9026 [facility] [id number] Information: [id number] Eosinophils (Bld) [#/Vol] 0.1 {x10E3/uL} Normal 0.0-0.4 [facility] Work Phone: Comment on above: PATIENT WAS FASTINGP ERFORMED BY: [place] [id number] [facility] [id number] Information: [id number] Eosinophils/100 WBC (Bld) 1 % Normal 0-5 [facility] Work Phone: Comment on above: PATIENT WAS FASTINGP ERFORMED BY: [address] [id number] Information: [id number] Erythrocyte distribution width (RBC) [Ratio] 13.5 % Normal 12.3-15.4 [facility] Work Phone: Comment on above: PATIENT WAS FASTINGP ERFORMED BY: [address] [id number] Information: [id number] Hematocrit (Bld) [Volume fraction] 41.8 % Normal 37.5-51.0 [facility] Work Phone: Comment on above: PATIENT WAS FASTINGP ERFORMED BY: [address] [id number] Information: [id number] Hemoglobin (Bld) [Mass/Vol] 14.6 g/dL Normal 12.6-17.7 [facility] Work Phone: Comment on above: PATIENT WAS FASTINGP ERFORMED BY: [place] 3041270 [facility] [id number] Information: [id number] Immature granulocytes (Bld) [#/Vol] 0.0 {x10E3/uL} Normal 0.0-0.1 [facility] Work Phone: Comment on above: PATIENT WAS FASTINGP ERFORMED BY: [address] [id number] Information: [id number] Immature granulocytes/100 WBC (Bld) 0 % Normal 0-2 [facility] Work Phone: Comment on above: PATIENT WAS FASTINGP ERFORMED BY: [address] [id number] Information: [id number] Lymphocytes (Bld) [#/Vol] 2.0 {x10E3/uL} Normal 0.7-3.1 [facility] Work Phone: Comment on above: PATIENT WAS FASTINGP ERFORMED BY: [address] [id number] Information: [id number] Lymphocytes/100 WBC (Bld) 36 % Normal 14-46 [facility] Work Phone: Comment on above: PATIENT WAS FASTINGP ERFORMED BY: [address] [id number] Information: [id number] MCH (RBC) [Entitic mass] 29.4 pg Normal 26.6-33.0 [facility] Internal Medicine Work Phone: Comment on above: PATIENT WAS FASTINGP ERFORMED BY: [address] [id number] Information: [id number] MCHC (RBC) [Mass/Vol] 34.9 g/dL Normal 31.5-35.7 [facility] Internal Medicine Work Phone: Comment on above: PATIENT WAS FASTINGP ERFORMED BY: [place] 3041270 [facility] [id number] Information: [id number] MCV (RBC) [Entitic vol] 84 fL Normal 79-97 [facility] Work Phone: Comment on above: PATIENT WAS FASTINGP ERFORMED BY: [address] [id number] Information: [id number] Monocytes (Bld) [#/Vol] 0.5 {x10E3/uL} Normal 0.1-0.9 [facility] Work Phone: Comment on above: PATIENT WAS FASTINGP ERFORMED BY: LEOBARDO [facility] Ftexqn3700 [facility] [id number] Information: [id number] Monocytes/100 WBC (Bld) 9 % Normal 4-12 [facility] Work Phone: Comment on above: PATIENT WAS FASTINGP ERFORMED BY: Lab[address] [id number] Information: [id number] Neutrophils (Bld) [#/Vol] 3.0 {x10E3/uL} Normal 1.4-7.0 [facility] Work Phone: Comment on above: PATIENT WAS FASTINGP ERFORMED BY: [place] 3041270 [facility] [id number] Information: [id number],[id number] Neutrophils/100 WBC (Bld) 54 % Normal 40-74 [facility] Work Phone: Comment on above: PATIENT WAS FASTINGP ERFORMED BY: LabCore[facility]6370 [facility] [id number] Information: [id number] Platelets (Bld) [#/Vol] 333 {x10E3/uL} Normal 155-379 [facility] Work Phone: Comment on above: PATIENT WAS FASTINGP ERFORMED BY: LabCorewell [facility]6370 [facility] [id number] Information: [id number] RBC (Bld) [#/Vol] 4.97 {x10E6/uL} Normal 4.14-5.80 [facility] Internal Medicine Work Phone: Comment on above: PATIENT WAS FASTINGP ERFORMED BY: LabSuzanne Ville 4917070 [facility] [id number] Information: [id number],[id number] WBC (Bld) [#/Vol] 5.6 {x10E3/uL} Normal 3.4-10.8 [facility] prehensive Internal Medicine Work Phone: Comment on above: PATIENT WAS FASTINGP ERFORMED BY: CB [facility] Xcoaew3439 [address] RoadDublin [place] [id number] Information: [id number] LIPID PANEL (05704)Ordered B y: Shank Boner on 10-08-2013 Cholesterol [Mass/Vol] 177 mg/dL Normal 100-199 [facility] Work Phone: Comment on above: PATIENT WAS FASTINGP ERFORMED BY: CB [facility] Qzoawh0779 [address] RoadDublin [place] [id number] Cholesterol in HDL [Mass/Vol] 32 mg/dL Abnormal [facility] Work Phone: Comment on above: According to ATP-III Guidelines, HDL-C >59 mg/dL is considered anegative risk factor for CHD. PATIENT WAS FASTINGP ERFORMED BY: CB [facility] Xfxvrz1537 [address] RoadDublin [place] [id number] Cholesterol in LDL [Mass/Vol] 68 mg/dL Normal 0-99 [facility] Work Phone: Comment on above: PATIENT WAS FASTINGP ERFORMED BY: CB [facility] Ovowvm9988 [address] RoadDublin [place] [id number] Cholesterol in LDL/Cholesterol in HDL [Mass ratio] 2.1 {ratio_units} Normal 0.0-3.6 [facility] Work Phone: Comment on above: PATIENT WAS FASTINGP ERFORMED BY: CB [facility] Ackrxr8340 [address] RoadDublin [place] [id number] Cholesterol in VLDL [Mass/Vol] 77 mg/dL Abnormal 5-40 [facility] Work Phone: Comment on above: PATIENT WAS FASTINGP ERFORMED BY: CB [facility] Wjcske2416 [address] RoadDublin [place] [id number] Triglyceride [Mass/Vol] 385 mg/dL Abnormal 0-149 [facility] Work Phone: Comment on above: PATIENT WAS FASTINGP ERFORMED BY: CB [facility] Rxaamc6444 [address] RoadDublin [place] [id number] METABOLIC PANEL, COMPREHENSI MORENITA (75234)Ordered By: Shank Boner on 10-08-2013 Albumin [Mass/Vol] 4.4 g/dL Normal 3.5-5.5 [facility] Internal Medicine Work Phone: Comment on above: PATIENT WAS FASTINGP ERFORMED BY: CB [facility] Asmcbh6158 [address] RoadDublin [place] [id number] Albumin/Globulin [Mass ratio] 1.8 {ratio} Normal 1.1-2.5 [facility] Work Phone: Comment on above: PATIENT WAS FASTINGP ERFORMED BY: CB [facility] Xognbh0381 [address] RoadDublin [place] [id number] ALP [Catalytic activity/Vol] 81 [iU]/L Normal 39-117 [facility] Work Phone: Comment on above: PATIENT WAS FASTINGP ERFORMED BY: CB [facility] Immroi0740 [address] RoadDublin [place] [id number] ALT [Catalytic activity/Vol] 28 [iU]/L Normal 0-44 [facility] Work Phone: Comment on above: PATIENT WAS FASTINGP ERFORMED BY: CB [facility] Ksmiab1980 [address] RoadD[address] [place] [id number] AST [Catalytic activity/Vol] 21 [iU]/L Normal 0-40 [facility] Work Phone: Comment on above: PATIENT WAS FASTINGP ERFORMED BY: CB [facility] Qdnypr4623 [address] RoadDublin [place] [id number] Bilirubin [Mass/Vol] 0.5 mg/dL Normal 0.0-1.2 [facility] Internal Medicine Work Phone: Comment on above: PATIENT WAS FASTINGP ERFORMED BY: CB [facility] Dvvzne9874 [address] RoadDublin [place] [id number] Calcium [Mass/Vol] 9.8 mg/dL Normal 8.7-10.2 [facility] Internal Medicine Work Phone: Comment on above: PATIENT WAS FASTINGP ERFORMED BY: CB [facility] Idildy8086 [address] RoadDublin [place] [id number] Chloride [Moles/Vol] 100 mmol/L Normal 97-108 Comp m[facility] hospitalensive Internal Medicine Work Phone: Comment on above: PATIENT WAS FASTINGP ERFORMED BY: CB [facility] Afwkxp8557 [address] RoadDublin [place] [id number] CO2 [Moles/Vol] 25 mmol/L Normal 19-28 [facility] Internal [facility] Work Phone: Comment on above: PATIENT WAS FASTINGP ERFORMED BY: CB [facility] Lxfxkm4035 [address] RoadDublin [place] [id number] Creatinine [Mass/Vol] 0.73 mg/dL Abnormal 0.76-1.27 [facility] Internal Medicine Work Phone: Comment on above: PATIENT WAS FASTINGP ERFORMED BY: CB [facility] Gxqxrn3465 [address] RoadDublin [place] [id number] GFR/1.73 sq M predicted among blacks CKD-EPI (S/P/Bld) [Vol rate/Area] 125 mL/min/1.73 Normal [facility] Work Phone: Comment on above: PATIENT WAS FASTINGP ERFORMED BY: CB [facility] Fehrzz5996 [address] RoadDublin [place] [id number] GFR/1.73 sq M predicted among non-blacks CKD-EPI (S/P/Bld) [Vol rate/Area] 108 mL/min/1.73 Normal [facility] Work Phone: Comment on above: PATIENT WAS FASTINGP ERFORMED BY: CB [facility] Cospst9989 [address] RoadDublin [place] [id number] Globulin (S) [Mass/Vol] 2.4 g/dL Normal 1.5-4.5 [facility] Work Phone: Comment on above: PATIENT WAS FASTINGP ERFORMED BY: CB [facility] Lacukd2074 [address] RoadDublin [place] [id number] Glucose [Mass/Vol] 158 mg/dL Abnormal 65-99 Compre hensive Internal Medicine Work Phone: Comment on above: PATIENT WAS FASTINGP ERFORMED BY: LEOBARDO [facility] Kftsqa7535 [address] RoadDublin [place] [id number] Potassium [Moles/Vol] 4.1 mmol/L Normal 3.5-5.2 [facility] Internal Medicine Work Phone: Comment on above: PATIENT WAS FASTINGP ERFORMED BY: LEOBARDO [facility] Yarieu7880 [address] RoadDublin [place] [id number] Protein [Mass/Vol] 6.8 g/dL Normal 6.0-8.5 [facility] Internal Medicine Work Phone: Comment on above: PATIENT WAS FASTINGP ERFORMED BY: LEOBARDO [facility] Cexeir0088 [address] RoadDublin [place] [id number] Sodium [Moles/Vol] 140 mmol/L Normal 134-144 [facility] Internal Medicine Work Phone: Comment on above: PATIENT WAS FASTINGP ERFORMED BY: LEOBARDO [facility] Hlwhcg6169 [address] RoadDublin [place] [id number] Urea nitrogen [Mass/Vol] 12 mg/dL Normal 6-24 [facility] Internal Medicine Work Phone: Comment on above: PATIENT WAS FASTINGP ERFORMED BY: LEOBARDO [facility] Ucjxsl0266 [address] RoadDublin [place] [id number] Urea nitrogen/Creatinine [Mass ratio] 16 mg/mg Normal 9-20 [facility] Internal Medicine Work Phone: Comment on above: PATIENT WAS FASTINGP ERFORMED BY: LEOBARDO [facility] Rzxgfi3326 [address] RoadDublin [place] [id number] MICROALBUMINOrdered By: Syst em Dietitian Research on 10-08-2013 Albumin DL <= 20 mg/L (U) [Mass/Vol] 7.9 ug/mL Normal 0.0-17.0 [facility] Internal Medicine Work Phone: Comment on above: PATIENT WAS FASTINGP ERFORMED BY: LEOBARDO [facility] Ckippb5484 [address] RoadD[address] [place] [id number] Albumin/Creatinine (U) [Mass ratio] 7.5 {mg/g_creat} Normal 0.0-30.0 [facility] Work Phone: Comment on above: PATIENT WAS FASTINGP ERFORMED BY: LEOBARDO LabCotaqueria VillaQfmlte6412 [address] RoadDublin [place] [id number] Creatinine (U) [Mass/Vol] 105.4 mg/dL Normal 22.0-328.0 [facility] Work Phone: Comment on above: PATIENT WAS FASTINGP ERFORMED BY: LEOBARDO [facility] Klhbyk2474 [address] RoadDublin [place] [id number] TSH (05794)Ordered By: XimoXi m Dietitian Research on 10-08-2013 TSH Qn 0.438 {uIU/mL} Abnormal 0.450-4.50 0 [facility] Work Phone: Comment on above: PATIENT WAS FASTINGP ERFORMED BY: LEOBARDO LabPriscilla Gpmzov5889 [address] RoadDublin [place] [id number] URINALYSIS, W/ MICRO (97653) Ordered By: Shank Boner on 10-08-2013 Appearance (U) Clear Normal Comprehens rachelle Internal Medicine Work Phone: Comment on above: PATIENT WAS FASTINGP ERFORMED BY: LEOBARDO LabSusie VillaCjlsmb2242 [address] RoadDublin [place] [id number] Bilirubin Ql (U) Negative Normal Comprehe nsive Internal Medicine Work Phone: Comment on above: PATIENT WAS FASTINGP ERFORMED BY: LEOBARDO [facility] Nayuwc2698 [address] RoadD[address] [place] [id number] Color (U) Yellow Normal [facility] Work Phone: Comment on above: PATIENT WAS FASTINGP ERFORMED BY: LEOBARDO [facility] Nqbnuk2061 [address] RoadD[address] [place] [id number] Glucose Ql (U) Negative Normal Comprehens rachelle Internal Medicine Work Phone: Comment on above: PATIENT WAS FASTINGP ERFORMED BY: LEOBARDO [facility] Ntxnlk6734 [address] RoadD[address] [place] [id number] Hemoglobin Ql (U) Negative Normal Compreh ensive Internal Medicine Work Phone: Comment on above: PATIENT WAS FASTINGP ERFORMED BY: LEOBARDO [facility] Mvokzw2639 [address] RoadD[address] [place] [id number] Ketones Ql (U) Negative Normal Comprehens rachelle Internal Medicine Work Phone: Comment on above: PATIENT WAS FASTINGP ERFORMED BY: LEOBARDO [facility] Efnulz7189 [address] RoadD[address] [place] [id number] Leukocyte esterase Test strip Ql (U) Negative Normal [facility] Work Phone: Comment on above: PATIENT WAS FASTINGP ERFORMED BY: LEOBARDO [facility] Ryzbwy4249 [address] RoadD[address] [place] [id number] Microscopic observation LM Nom (Urine sed) See below: Normal [facility] Work Phone: Comment on above: PATIENT WAS FASTINGP ERFORMED BY: LEOBARDO [facility] Sguiqs3144 [address] RoadD[address] [place] [id number] Microscopic observation LM Nom (Urine sed) MICRON Normal [facility] Work Phone: Comment on above: Microscopic follows if indicated. PATIENT WAS FASTINGP ERFORMED BY: LEOBARDO [facility] Zglmxm1066 [address] RoadDublin [place] [id number] Nitrite Ql (U) Negative Normal Comprehens rachelle Internal Medicine Work Phone: Comment on above: PATIENT WAS FASTINGP ERFORMED BY: LEOBARDO [facility] Kituii0631 [address] RoadDublin [place] [id number] pH (U) 6.5 [pH] Normal 5.0-7.5 [facility] Work Phone: Comment on above: PATIENT WAS FASTINGP ERFORMED BY: LEOBARDO [facility] Ejpmfz2550 [address] RoadD[address] [place] [id number] Protein Ql (U) Negative Normal Comprehens rachelle Internal Medicine Work Phone: Comment on above: PATIENT WAS FASTINGP ERFORMED BY: LEOBARDO [facility] Anhfml4854 [address] RoadDublin [place] [id number] Specific gravity (U) [Rel density] 1.016 1 Normal 1.005-1.03 0 [facility] Work Phone: Comment on above: PATIENT WAS FASTINGP ERFORMED BY: [facility] Pumdwe8168 [facility] [id number] Urobilinogen Test strip (U) [Mass/Vol] 0.2 mg/dL Normal 0.0-1.9 Comprehensi Internal Medicine Work Phone: Comment on above: PATIENT WAS FASTINGP ERFORMED BY: [employer] Fairgu6550 [facility] [id number] Vitamin D Hydroxy (74649)Ord ered By: Shank Boner on 10-08-2013 25-Hydroxyvitamin D2+25-Hydroxyvitamin D3 [Mass/Vol] 23.9 ng/mL Abnormal 30.0-100.0 [facility] Work Phone: Comment on above: Vitamin D deficiency has been defined by the [place] ofMedicine and an Endocrine Society practice guideline as alevel of serum 25-OH vitamin D less than 20 ng/mL (1,2).The Endocrine Society went on to further define vitamin Dinsufficiency as a level between 21 and 29 ng/mL (2).1. IOM ([place] [employer]). 2010. Dietary reference intakes for calcium and D. [place]: The National Academies Press.2. Shabana MF, Ruddy NC, Reba HUBBARD, et al. Evaluation, treatment, and prevention of vitamin D deficiency: an Endocrine Society clinical practice guideline. JCEM. 2010; 96(7):1911-30. PATIENT WAS FASTINGP ERFORMED BY: [employer] Ffeflw3071 [facility] [id number] Blood Glucose , Office (4396 2)Ordered By: Ling Grande on 08-13-2013 Glucose Glucometer (BldC) [Moles/Vol] 186 1 Normal [facility] Work Phone: HgA1C , Office (02090)Ordere d By: Ling Grande on 08-13-2013 HbA1c (Bld) [Mass fraction] 8.8 % Abnormal 4.6 - 7.1 [facility] Work Phone: PSA (PROSTATE SPECIFIC ANTIG EN) (V76.44)Ordered By: Shank Boner on 08-13-2013 Prostate specific Ag [Mass/Vol] 1.0 ng/mL Normal 0.0-4.0 [facility] Work Phone: Comment on above: Latanya ECLIA methodol ogy. .According to the [place] [employer], Serum PSA shoulddecrease and remain at undetectable levels after radicalprostatectomy. The AUA defines biochemical recurrence as an initialPSA value 0.2 ng/mL or greater followed by a subsequent confirmatoryPSA value 0.2 ng/mL or greater.Values obtained with different assay methods or kits cannot be usedinterchangeably. Results cannot be interpreted as absolute evidenceof the presence or absence of malignant disease. PATIENT NOT FASTINGP ERFORMED BY: [facility] [facility] [id number] Information: [id number] Vital Signs Date Time Vital Sign Value Performing Clinician Facility 03-14-2024 10:08-0400 Body height 165.1 cm Salbador Gore MD Work Phone: [facility] 03-14-2024 10:08-0400 Body mass index (BMI) [Ratio] 39.8 kg/m2 Salbador Gore MD Work Phone: [facility] 03-14-2024 10:08-0400 Body weight 108.5 kg Salbador Gore MD Work Phone: [facility] 03-14-2024 10:08-0400 Diastolic blood pressure 77 mm[Hg] Salbador Gore MD Work Phone: [facility] 03-14-2024 10:08-0400 Heart rate 84 /min Salbador Gore MD Work Phone: [facility] 03-14-2024 10:08-0400 Respiratory rate 16 /min Salbador Gore MD Work Phone: [facility] 03-14-2024 10:08-0400 SaO2% (BldA) [Mass fraction] 96 % Salbador Gore MD Work Phone: [facility] 03-14-2024 10:08-0400 Systolic blood pressure 140 mm[Hg] Salbador Gore MD Work Phone: [facility] 12-14-2023 09:07-0400 Body mass index (BMI) [Ratio] 39.38 kg/m2 Salbador Gore MD Work Phone: [facility] 12-14-2023 09:07-0400 Body weight 110.68 kg Salbador Gore MD Work Phone: [facility] 12-14-2023 09:07-0400 Diastolic blood pressure 71 mm[Hg] Salbador Gore MD Work Phone: [facility] 12-14-2023 09:07-0400 Heart rate 83 /min Salbador Gore MD Work Phone: [facility] 12-14-2023 09:07-0400 SaO2% (BldA) [Mass fraction] 93 % Salbador Gore MD Work Phone: [facility] 12-14-2023 09:07-0400 Systolic blood pressure 142 mm[Hg] Salbador Gore MD Work Phone: [facility] 09-15-2023 09:19-0400 Body weight 114.03 kg Salbador Gore MD Work Phone: [facility] 09-15-2023 09:19-0400 Diastolic blood pressure 82 mm[Hg] Salbador Gore MD Work Phone: [facility] 09-15-2023 09:19-0400 Heart rate 72 /min Salbador Gore MD Work Phone: [facility] 09-15-2023 09:19-0400 SaO2% (BldA) [Mass fraction] 96 % Salbador Gore MD Work Phone: [facility] 09-15-2023 09:19-0400 Systolic blood pressure 160 mm[Hg] Salbador Gore MD Work Phone: [facility] 03-14-2023 10:36-0400 Body height 165.1 cm Vijaya Silva DO Work Phone: [facility] 03-14-2023 10:36-0400 Body weight 113.4 kg Vijaya Silva DO Work Phone: [facility] 03-14-2023 10:36-0400 Diastolic blood pressure 84 mm[Hg] Chaddashleigh Silva DO Work Phone: [facility] 03-14-2023 10:36-0400 Heart rate 79 /min Vijaya Silva DO Work Phone: [facility] 03-14-2023 10:36-0400 Respiratory rate 18 /min Vijaya Ricardo DO Work Phone: [facility] 03-14-2023 10:36-0400 SaO2% (BldA) [Mass fraction] 96 % Chaddashleigh Silva DO Work Phone: [facility] 03-14-2023 10:36-0400 Systolic blood pressure 159 mm[Hg] Vijaya Silva DO Work Phone: [facility] 12-27-2022 10:59-0400 Body height 167.6 cm Vijaya Silva DO Work Phone: [facility] 12-27-2022 10:59-0400 Body weight 111.13 kg Vijaya Silva DO Work Phone: [facility] 12-27-2022 10:59-0400 Diastolic blood pressure 76 mm[Hg] Vijaya Silva DO Work Phone: [facility] 12-27-2022 10:59-0400 Heart rate 80 /min Vijaya Silva DO Work Phone: [facility] 12-27-2022 10:59-0400 Respiratory rate 19 /min Vijaya Silva DO Work Phone: [facility] 12-27-2022 10:59-0400 SaO2% (BldA) [Mass fraction] 95 % Vijaya Silva DO Work Phone: [facility] 12-27-2022 10:59-0400 Systolic blood pressure 168 mm[Hg] Vijaya Silva DO Work Phone: [facility] 05-27-2022 15:14-0500 Diastolic blood pressure 77 mm[Hg] Angie Rockport NEUROSCIENTIST.FIELD CARE ADVOCATE Work Phone: [facility] 05-27-2022 15:14-0500 Heart rate 86 /min Angie Rockport NEUROSCIENTIST.FIELD CARE ADVOCATE Work Phone: [facility] 05-27-2022 15:14-0500 SaO2% (BldA) [Mass fraction] 94 % Angie Rockport NEUROSCIENTIST.FIELD CARE ADVOCATE Work Phone: [facility] 05-27-2022 15:14-0500 Systolic blood pressure 157 mm[Hg] Angie Rockport NEUROSCIENTIST.FIELD CARE ADVOCATE Work Phone: [facility] 03-02-2022 11:28-0400 Body height 167.6 cm Vijaya Silva DO Work Phone: [facility] 03-02-2022 11:28-0400 Body weight 113.4 kg Vijaya Silva DO Work Phone: [facility] 03-02-2022 11:28-0400 Diastolic blood pressure 71 mm[Hg] Vijaya Silva DO Work Phone: [facility] 03-02-2022 11:28-0400 Heart rate 90 /min Vijaya Silva DO Work Phone: [facility] 03-02-2022 11:28-0400 Respiratory rate 19 /min Vijaya Silva DO Work Phone: [facility] 03-02-2022 11:28-0400 SaO2% (BldA) [Mass fraction] 94 % Vijaya Silva DO Work Phone: [facility] 03-02-2022 11:28-0400 Systolic blood pressure 170 mm[Hg] Vijaya Silva DO Work Phone: [facility] 03-17-2021 23:35-0400 Body height 165.1 cm 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 03-17-2021 23:35-0400 Body weight 112.04 kg 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 03-17-2021 23:35-0400 Diastolic blood pressure 54 mm[Hg] 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 03-17-2021 23:35-0400 Heart rate 85 /min 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 03-17-2021 23:35-0400 Respiratory rate 19 /min 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 03-17-2021 23:35-0400 SaO2% (BldA) [Mass fraction] 94 % 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 03-17-2021 23:35-0400 Systolic blood pressure 123 mm[Hg] 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 04-28-2017 10:14-0500 BMI (Body Mass Index) 39.46 kg/m2 [facility] Work Phone: 04-28-2017 10:14-0500 Body weight 107.56 kg [facility] Work Phone: 04-28-2017 10:14-0500 BP Diastolic 70 mm[Hg] [facility] Work Phone: Comment on above: Patient Position: Sitting; Cuff Location : Left Arm; Cuff Size: Standard 04-28-2017 10:14-0500 BP Systolic 138 mm[Hg] [facility] Work Phone: Comment on above: Patient Position: Sitting; Cuff Location : Left Arm; Cuff Size: Standard 04-28-2017 10:14-0500 BSA (Body Surface Area) 2.13 m2 [facility]: 04-28-2017 10:14-0500 Height 165.1 cm [facility] Work Phone: 04-28-2017 10:14-0500 Pulse (Heart Rate) 97 /min [facility] Work Phone: Comment on above: Pattern: Regular 04-28-2017 10:14-0500 Pulse Oximetry 98 % [facility] Work Phone: Comment on above: Room air 04-28-2017 10:14-0500 Respiratory Rate 16 /min [facility] Work Phone: Comment on above: Pattern: Unlabored 08-25-2016 11:07-0400 BMI (Body Mass Index) 39.29 kg/m2 [facility] Work Phone: 08-25-2016 11:07-0400 Body weight 107.11 kg [facility] Work Phone: 08-25-2016 11:07-0400 BP Diastolic 88 mm[Hg] [facility] Work Phone: Comment on above: Patient Position: Sitting; Cuff Location : Left Arm; Cuff Size: Large 08-25-2016 11:07-0400 BP Systolic 148 mm[Hg] [facility] Work Phone: Comment on above: Patient Position: Sitting; Cuff Location : Left Arm; Cuff Size: Large 08-25-2016 11:07-0400 BSA (Body Surface Area) 2.12 m2 [facility] Work Phone: 08-25-2016 11:07-0400 Height 165.1 cm [facility] Work Phone: 08-25-2016 11:07-0400 Pulse (Heart Rate) 88 /min [facility] Work Phone: Comment on above: Pattern: Regular 08-25-2016 11:07-0400 Pulse Oximetry 95 % [facility] Work Phone: Comment on above: Room air 08-25-2016 11:07-0400 Respiratory Rate 18 /min Shagufta Fam [facility] Work Phone: Comment on above: Pattern: Unlabored 10-24-2015 08:24-0400 BMI (Body Mass Index) 36.98 kg/m2 [facility] Work Phone: 10-24-2015 08:24-0400 Body weight 100.81 kg Shagufta F[facility] Work Phone: 10-24-2015 08:24-0400 BP Diastolic 78 mm[Hg] Shagufta F[facility] Work Phone: Comment on above: Patient Position: Sitting; Cuff Location : Left Arm; Cuff Size: Large 10-24-2015 08:24-0400 BP Systolic 128 mm[Hg] Shagufta Fam [facility] Work Phone: Comment on above: Patient Position: Sitting; Cuff Location : Left Arm; Cuff Size: Large 10-24-2015 08:24-0400 BSA (Body Surface Area) 2.07 m2 Sh[facility]fta [facility] Work Phone: 10-24-2015 08:24-0400 Height 165.1 cm Shagufta F[facility] Work Phone: 10-24-2015 08:24-0400 Pulse (Heart Rate) 79 /min Sh[facility]fta [facility] Work Phone: Comment on above: Pattern: Regular 10-24-2015 08:24-0400 Pulse Oximetry 97 % [facility] Work Phone: Comment on above: Room air 10-24-2015 08:24-0400 Respiratory Rate 18 /min Shagufta [facility] Work Phone: Comment on above: Pattern: Unlabored 07-24-2015 10:59-0500 BMI (Body Mass Index) 36.61 kg/m2 [facility] Work Phone: 07-24-2015 10:59-0500 Body Temperature 97.9 [degF] Shagufta F[facility] Work Phone: Comment on above: Method: Temporal 07-24-2015 10:59-0500 Body weight 99.79 kg Shagufta F[facility] Work Phone: 07-24-2015 10:59-0500 BP Diastolic 84 mm[Hg] Shagufta Fam [facility] Work Phone: Comment on above: Patient Position: Sitting; Cuff Location : Left Arm; Cuff Size: Large 07-24-2015 10:59-0500 BP Systolic 124 mm[Hg] Sh[facility]fta [facility] Work Phone: Comment on above: Patient Position: Sitting; Cuff Location : Left Arm; Cuff Size: Large 07-24-2015 10:59-0500 BSA (Body Surface Area) 2.06 m2 Sh[facility] Work Phone: 07-24-2015 10:59-0500 Height 165.1 cm Shagufta F[facility] Work Phone: 07-24-2015 10:59-0500 Pulse (Heart Rate) 84 /min Shagufta [facility] Work Phone: Comment on above: Pattern: Regular 07-24-2015 10:59-0500 Pulse Oximetry 95 % Sh[facility]a [facility] Work Phone: Comment on above: Room air 07-24-2015 10:59-0500 Respiratory Rate 18 /min Shagufta F[facility] Work Phone: Comment on above: Pattern: Unlabored 07-22-2015 09:39-0500 BMI (Body Mass Index) 36.61 kg/m2 Shagufta F[facility] [place] Work Phone: Comment on above: Pulse ox 95 resting, but drops to 91 wit h activity 07-22-2015 09:39-0500 Body Temperature 97.8 [degF] Shagufta Fam [facility] [place] Work Phone: Comment on above: Pulse ox 95 resting, but drops to 91 wit h activity 07-22-2015 09:39-0500 Body weight 99.79 kg [facility] Work Phone: Comment on above: Pulse ox 95 resting, but drops to 91 wit h activity 07-22-2015 09:39-0500 BP Diastolic 76 mm[Hg] Shagufta F[facility] Work Phone: Comment on above: Patient Position: Sitting; Cuff Location : Left Arm; Cuff Size: Standard Pulse ox 95 resting, but drops to 91 with activity 07-22-2015 09:39-0500 BP Systolic 136 mm[Hg] [facility] Work Phone: Comment on above: Patient Position: Sitting; Cuff Location : Left Arm; Cuff Size: Standard Pulse ox 95 resting, but drops to 91 with activity 07-22-2015 09:39-0500 BSA (Body Surface Area) 2.06 m2 [facility] Work Phone: Comment on above: Pulse ox 95 resting, but drops to 91 wit h activity 07-22-2015 09:39-0500 Height 165.1 cm [facility] Work Phone: Comment on above: Pulse ox 95 resting, but drops to 91 wit h activity 07-22-2015 09:39-0500 Pulse (Heart Rate) 109 /min [facility] Work Phone: Comment on above: Pattern: Regular Pulse ox 95 resting, but drops to 91 with activity 07-22-2015 09:39-0500 Pulse Oximetry 95 % [facility] Work Phone: Comment on above: Room air Pulse ox 95 resting, but drops to 91 with activity 07-22-2015 09:39-0500 Respiratory Rate 18 /min [facility] Work Phone: Comment on above: Pattern: Unlabored Pulse ox 95 resting, but drops to 91 with activity 06-12-2015 09:41-0500 BMI (Body Mass Index) 36.61 kg/m2 [facility] Work Phone: 06-12-2015 09:41-0500 Body weight 99.79 kg Shagufta [facility] Work Phone: 06-12-2015 09:41-0500 BP Diastolic 78 mm[Hg] Shagufta Fam [facility] Work Phone: Comment on above: Patient Position: Sitting; Cuff Location : Left Arm; Cuff Size: Large 06-12-2015 09:41-0500 BP Systolic 128 mm[Hg] Shagufta Fam [facility] Work Phone: Comment on above: Patient Position: Sitting; Cuff Location : Left Arm; Cuff Size: Large 06-12-2015 09:41-0500 BSA (Body Surface Area) 2.06 m2 Shagufta Fam [facility] Work Phone: 06-12-2015 09:41-0500 Height 165.1 cm Shagufta Fam [facility] Work Phone: 06-12-2015 09:41-0500 Pulse (Heart Rate) 88 /min Shagufta F[facility] Work Phone: Comment on above: Pattern: Regular 06-12-2015 09:41-0500 Pulse Oximetry 95 % Shagufta Fam [facility] Work Phone: Comment on above: Room air 06-12-2015 09:41-0500 Respiratory Rate 18 /min Shagufta F[facility] [place] Work Phone: Comment on above: Pattern: Unlabored 06-04-2015 11:52-0500 BMI (Body Mass Index) 36.61 kg/m2 Shagufta F[facility] Work Phone: 06-04-2015 11:52-0500 Body Temperature 98.2 [degF] Shagufta F[facility] Work Phone: 06-04-2015 11:52-0500 Body weight 99.79 kg Shagufta F[facility] Work Phone: 06-04-2015 11:52-0500 BP Diastolic 66 mm[Hg] Shagufta F[facility] Work Phone: Comment on above: Patient Position: Sitting; Cuff Location : Left Arm; Cuff Size: Standard 06-04-2015 11:52-0500 BP Systolic 122 mm[Hg] Shagufta Fam [facility] [place] Work Phone: Comment on above: Patient Position: Sitting; Cuff Location : Left Arm; Cuff Size: Standard 06-04-2015 11:52-0500 BSA (Body Surface Area) 2.06 m2 Shagufta [facility] Work Phone: 06-04-2015 11:52-0500 Height 165.1 cm Shagufta Fam [facility] Work Phone: 06-04-2015 11:52-0500 Pulse (Heart Rate) 99 /min Shagufta [facility] Work Phone: Comment on above: Pattern: Regular 06-04-2015 11:52-0500 Pulse Oximetry 96 % Shagufta F[facility] Work Phone: Comment on above: Room air 06-04-2015 11:52-0500 Respiratory Rate 16 /min Shagufta F[facility] Work Phone: Comment on above: Pattern: Unlabored 12-11-2014 10:37-0400 BMI (Body Mass Index) 36.61 kg/m2 Shagufta F[facility] Work Phone: 12-11-2014 10:37-0400 Body Temperature 97.4 [degF] Shagufta F[facility] Work Phone: 12-11-2014 10:37-0400 Body weight 99.79 kg Shagufta F[facility] Work Phone: 12-11-2014 10:37-0400 BP Diastolic 64 mm[Hg] Shagufta F[facility] Work Phone: Comment on above: Patient Position: Sitting; Cuff Location : Left Arm; Cuff Size: Standard 12-11-2014 10:37-0400 BP Systolic 132 mm[Hg] Shagufta Fam [facility] Work Phone: Comment on above: Patient Position: Sitting; Cuff Location : Left Arm; Cuff Size: Standard 12-11-2014 10:37-0400 BSA (Body Surface Area) 2.06 m2 Shagufta [facility] Work Phone: 12-11-2014 10:37-0400 Height 165.1 cm Shagufta F[facility] Work Phone: 12-11-2014 10:37-0400 Pulse (Heart Rate) 93 /min Shagufta F[facility] Work Phone: Comment on above: Pattern: Regular 12-11-2014 10:37-0400 Pulse Oximetry 96 % Shagufta F[facility] Work Phone: Comment on above: Room air 12-11-2014 10:37-0400 Respiratory Rate 18 /min Shagufta [facility] Work Phone: Comment on above: Pattern: Unlabored 10-23-2014 08:42-0400 BMI (Body Mass Index) 36.5 kg/m2 Shagufta F[facility] Work Phone: 10-23-2014 08:42-0400 Body Temperature 97.1 [degF] Shagufta F[facility] Work Phone: 10-23-2014 08:42-0400 Body weight 99.48 kg Shagufta F[facility] Work Phone: 10-23-2014 08:42-0400 BP Diastolic 72 mm[Hg] Shagufta F[facility] Work Phone: Comment on above: Patient Position: Sitting; Cuff Location : Left Arm; Cuff Size: Standard 10-23-2014 08:42-0400 BP Systolic 120 mm[Hg] Shagufta F[facility] Work Phone: Comment on above: Patient Position: Sitting; Cuff Location : Left Arm; Cuff Size: Standard 10-23-2014 08:42-0400 BSA (Body Surface Area) 2.06 m2 Shagufta [facility] Work Phone: 10-23-2014 08:42-0400 Height 165.1 cm Shagufta F[facility] Work Phone: 10-23-2014 08:42-0400 Pulse (Heart Rate) 97 /min [facility] Work Phone: Comment on above: Pattern: Regular 10-23-2014 08:42-0400 Pulse Oximetry 95 % [facility] Work Phone: Comment on above: Room air 10-23-2014 08:42-0400 Respiratory Rate 18 /min [facility] Work Phone: Comment on above: Pattern: Unlabored 07-26-2014 07:34-0500 BMI (Body Mass Index) 35.83 kg/m2 [facility] Work Phone: 07-26-2014 07:34-0500 Body Temperature 97.4 [degF] [facility] Work Phone: Comment on above: Method: Oral 07-26-2014 07:34-0500 Body weight 97.67 kg [facility] Work Phone: 07-26-2014 07:34-0500 BP Diastolic 80 mm[Hg] [facility] Work Phone: Comment on above: Patient Position: Sitting; Cuff Location : Left Arm; Cuff Size: Large 07-26-2014 07:34-0500 BP Systolic 116 mm[Hg] [facility] Work Phone: Comment on above: Patient Position: Sitting; Cuff Location : Left Arm; Cuff Size: Large 07-26-2014 07:34-0500 BSA (Body Surface Area) 2.04 m2 [facility] Work Phone: 07-26-2014 07:34-0500 Height 165.1 cm [facility] Work Phone: 07-26-2014 07:34-0500 Pulse (Heart Rate) 88 /min [facility] Work Phone: Comment on above: Pattern: Regular 07-26-2014 07:34-0500 Pulse Oximetry 95 % [facility] Work Phone: Comment on above: Room air 07-26-2014 07:34-0500 Respiratory Rate 18 /min Shagufta [facility] Work Phone: Comment on above: Pattern: Unlabored 04-05-2014 08:01-0500 BMI (Body Mass Index) 35.16 kg/m2 Shagufta F[facility] Work Phone: 04-05-2014 08:01-0500 Body weight 95.85 kg Shagufta F[facility] Work Phone: 04-05-2014 08:01-0500 BP Diastolic 70 mm[Hg] Shagufta F[facility] Work Phone: Comment on above: Patient Position: Sitting; Cuff Location : Left Arm; Cuff Size: Large 04-05-2014 08:01-0500 BP Systolic 118 mm[Hg] Shagufta F[facility] Work Phone: Comment on above: Patient Position: Sitting; Cuff Location : Left Arm; Cuff Size: Large 04-05-2014 08:01-0500 BSA (Body Surface Area) 2.03 m2 Shagufta F[facility] Work Phone: 04-05-2014 08:01-0500 Height 165.1 cm Shagufta F[facility] Work Phone: 04-05-2014 08:01-0500 Pulse (Heart Rate) 92 /min Shagufta F[facility] Work Phone: Comment on above: Pattern: Regular 04-05-2014 08:01-0500 Pulse Oximetry 98 % Shagufta F[facility] Work Phone: Comment on above: Room air 04-05-2014 08:01-0500 Respiratory Rate 18 /min Shagufta Patel [facility] Work Phone: Comment on above: Pattern: Unlabored 02-20-2014 10:45-0400 BMI (Body Mass Index) 35.85 kg/m2 Shagufta [facility] Work Phone: 02-20-2014 10:45-0400 Body Temperature 98.4 [degF] [facility] Work Phone: Comment on above: Method: Oral 02-20-2014 10:45-0400 Body weight 97.72 kg [facility] Work Phone: 02-20-2014 10:45-0400 BP Diastolic 78 mm[Hg] [facility] Work Phone: Comment on above: Patient Position: Sitting; Cuff Location : Left Arm; Cuff Size: Large 02-20-2014 10:45-0400 BP Systolic 120 mm[Hg] [facility] Work Phone: Comment on above: Patient Position: Sitting; Cuff Location : Left Arm; Cuff Size: Large 02-20-2014 10:45-0400 BSA (Body Surface Area) 2.04 m2 [facility] Work Phone: 02-20-2014 10:45-0400 Height 165.1 cm [facility] Work Phone: 02-20-2014 10:45-0400 Pulse (Heart Rate) 86 /min [facility] Work Phone: Comment on above: Pattern: Regular 02-20-2014 10:45-0400 Pulse Oximetry 96 % [facility] Work Phone: Comment on above: Room air 12-19-2013 09:33-0400 BMI (Body Mass Index) 36.13 kg/m2 [facility] Work Phone: 12-19-2013 09:33-0400 Body Temperature 98.2 [degF] [facility] Work Phone: Comment on above: Method: Oral 12-19-2013 09:33-0400 Body weight 98.49 kg [facility] Work Phone: 12-19-2013 09:33-0400 BP Diastolic 72 mm[Hg] [facility] Work Phone: Comment on above: Patient Position: Sitting; Cuff Location : Left Arm; Cuff Size: Standard 12-19-2013 09:33-0400 BP Systolic 120 mm[Hg] Shagufta Fam [facility] [place] [facility] Work Phone: Comment on above: Patient Position: Sitting; Cuff Location : Left Arm; Cuff Size: Standard 12-19-2013 09:33-0400 BSA (Body Surface Area) 2.05 m2 Shagufta Fam [facility] [place] Work Phone: 12-19-2013 09:33-0400 Height 165.1 cm Shagufta Fam [facility] [place] Work Phone: 12-19-2013 09:33-0400 Pulse (Heart Rate) 97 /min Shagufta Fam [facility] [place] Work Phone: Comment on above: Pattern: Regular 12-19-2013 09:33-0400 Pulse Oximetry 98 % Shagufta Fam [facility] [place] Work Phone: Comment on above: Room air 12-19-2013 09:33-0400 Respiratory Rate 18 /min Shagufta Fam [facility] [place] Work Phone: Comment on above: Pattern: Unlabored 11-09-2013 08:42-0400 BMI (Body Mass Index) 37.28 kg/m2 Shagufta Fam [facility] [place] Work Phone: 11-09-2013 08:42-0400 Body Temperature 96.7 [degF] Shagufta Fam [facility] [place] Work Phone: Comment on above: Method: Temporal 11-09-2013 08:42-0400 Body weight 101.61 kg Shagufta Fam [facility] [place] Work Phone: 11-09-2013 08:42-0400 BP Diastolic 76 mm[Hg] Shagufta Fam [facility] [place] Work Phone: Comment on above: Patient Position: Sitting; Cuff Location : Left Arm; Cuff Size: Standard 11-09-2013 08:42-0400 BP Systolic 128 mm[Hg] Shagufta Fam [facility] [place] Work Phone: Comment on above: Patient Position: Sitting; Cuff Location : Left Arm; Cuff Size: Standard 11-09-2013 08:42-0400 BSA (Body Surface Area) 2.08 m2 Shagufta Fam [facility] [place] Work Phone: 11-09-2013 08:42-0400 Height 165.1 cm Shagufta Fam [facility] [place] Work Phone: 11-09-2013 08:42-0400 Pulse (Heart Rate) 72 /min Shagufta Fam [facility] [place] Work Phone: Comment on above: Pattern: Regular 11-09-2013 08:42-0400 Pulse Oximetry 96 % Shagufta Fam [facility] [place] Work Phone: Comment on above: Room air 11-09-2013 08:42-0400 Respiratory Rate 16 /min Shagufta Fam [facility] [place] Work Phone: Comment on above: Pattern: Unlabored 10-16-2013 10:16-0400 BMI (Body Mass Index) 37.46 kg/m2 Shagufta Fam [facility] [place] Work Phone: 10-16-2013 10:16-0400 Body Temperature 98.9 [degF] Shagufta Fam [facility] [place] Work Phone: Comment on above: Method: Oral 10-16-2013 10:16-0400 Body weight 102.12 kg Shagufta Fam [facility] [place] [facility] Work Phone: 10-16-2013 10:16-0400 BP Diastolic 82 mm[Hg] Shagufta Fam [facility] [place] [facility] Work Phone: Comment on above: Patient Position: Sitting; Cuff Location : Left Arm; Cuff Size: Large 10-16-2013 10:16-0400 BP Systolic 140 mm[Hg] Shagufta Fam [facility] [place] [facility] Work Phone: Comment on above: Patient Position: Sitting; Cuff Location : Left Arm; Cuff Size: Large 10-16-2013 10:16-0400 BSA (Body Surface Area) 2.08 m2 Shagufta Fam [facility] [place] [facility] Work Phone: 10-16-2013 10:16-0400 Height 165.1 cm [facility] Work Phone: 10-16-2013 10:16-0400 Pulse (Heart Rate) 90 /min Shagufta Fam [facility] [place] [facility] Work Phone: Comment on above: Pattern: Regular 10-16-2013 10:16-0400 Pulse Oximetry 97 % Shagufta Fam [facility] [place] [facility] Work Phone: Comment on above: Room air 10-16-2013 10:16-0400 Respiratory Rate 18 /min Shagufta Fam [facility] [place] [facility] Work Phone: Comment on above: Pattern: Unlabored 08-13-2013 14:15-0400 BMI (Body Mass Index) 39.97 kg/m2 Shagufta Fam [facility] [place] [facility] Work Phone: 08-13-2013 14:15-0400 Body Temperature 98.6 [degF] Shagufta Fam [facility] [place] [facility] Work Phone: Comment on above: Method: Oral 08-13-2013 14:15-0400 Body weight 108.95 kg Shagufta Fam [facility] [place] [facility] Work Phone: 08-13-2013 14:15-0400 BP Diastolic 78 mm[Hg] Shagufta Fam [facility] [place] [facility] Work Phone: Comment on above: Patient Position: Sitting; Cuff Location : Left Arm; Cuff Size: Large 08-13-2013 14:15-0400 BP Systolic 160 mm[Hg] Shagufta Fam [facility] [place] [facility] Work Phone: Comment on above: Patient Position: Sitting; Cuff Location : Left Arm; Cuff Size: Large 08-13-2013 14:15-0400 BSA (Body Surface Area) 2.14 m2 Shagufta Fam [facility] [place] Work Phone: 08-13-2013 14:15-0400 Height 165.1 cm Shagufta Fam [facility] [place] Work Phone: 08-13-2013 14:15-0400 Pulse (Heart Rate) 96 /min [facility] Work Phone: Comment on above: Pattern: Regular 08-13-2013 14:15-0400 Pulse Oximetry 94 % Shagufta Fam [facility] [place] [facility] Work Phone: Comment on above: Room air 08-13-2013 14:15-0400 Respiratory Rate 18 /min Shagufta Fam [facility] [place] Work Phone: Comment on above: Pattern: Unlabored Encounters Encounter Date Encounter Type Care Provider Facility Start: 03-14-2024 End: 03-14-2024 Patient encounter procedure Salbador Gore MD Work Phone: Pain Management Comment on above: Chronic pain syndrom e (Primary Dx); Other chronic pain Start: 03-14-2024 End: 03-14-2024 ambulatory SALBADOR GORE Facility:[id number] Start: 02-20-2024 End: 02-20-2024 Refill Salbador Gore MD Work Phone: Pain Management Comment on above: Refill Request Start: 02-07-2024 End: 02-07-2024 Patient encounter procedure [facility] Provider [facility] Department Start: 02-07-2024 End: 02-07-2024 Refill Salbador Gore MD Work Phone: Pain Management Comment on above: Refill Request oxycodone samina pa percocet approved Start: 01-23-2024 End: 01-23-2024 Refill Salbador Gore MD Work Phone: Pain Management Comment on above: Refill Request Start: 01-09-2024 Refill Salbador alatorre MD Work Phone: Pain Management Comment on above: Refill Request Start: 12-22-2023 Refill Salbador alatorre MD Work Phone: Pain Management Comment on above: Refill Request Start: 12-14-2023 End: 12-14-2023 Patient encounter procedure Salbador Gore MD Work Phone: Pain Management Comment on above: Chronic pain syndrom e (Primary Dx) Start: 12-14-2023 End: 12-14-2023 ambulatory SALBADOR GORE Facility:[id number] Start: 12-08-2023 Refill Salbador alatorre MD Work Phone: Pain Management Comment on above: Refill Request Start: 11-22-2023 Refill Salbador alatorre MD Work Phone: Pain Management Start: 11-09-2023 Refill Salbador alatorre MD Work Phone: Pain Management Comment on above: Refill Request Start: 10-25-2023 Refill Salbador alatorre MD Work Phone: Pain Management Comment on above: Refill Request Start: 10-10-2023 Refill Salbador alatorre MD Work Phone: Pain Management Comment on above: Refill Request Start: 09-21-2023 Refill Salbador alatorre MD Work Phone: Pain Management Comment on above: Refill Request Start: 09-17-2023 Refill Salbador alatorre MD Work Phone: Pain Management Comment on above: Refill Request Start: 09-15-2023 End: 09-15-2023 Patient encounter procedure Salbador Gore MD Work Phone: Pain Management Comment on above: Chronic pain syndrom e (Primary Dx) Start: 09-15-2023 End: 09-15-2023 ambulatory SALBADOR GORE Facility:[id number] Start: 09-08-2023 Refill Salbador alatorre MD Work Phone: Pain Management Comment on above: Refill Request Start: 09-06-2023 Refill Salbador alatorre MD Work Phone: Pain Management Comment on above: Refill Request Start: 08-22-2023 Refill Salbador alatorre MD Work Phone: Pain Management Comment on above: Refill Request Start: 08-21-2023 Refill Salbador alatorre MD Work Phone: Pain Management Comment on above: Refill Request Start: 08-19-2023 Refill Salbador alatorre MD Work Phone: Pain Management Comment on above: Refill Request Start: 08-18-2023 Refill Salbador alatorre MD Work Phone: Pain Management Comment on above: Refill Request Start: 08-09-2023 Refill Salbador alatorre MD Work Phone: Pain Management Comment on above: Refill Request Start: 07-19-2023 Refill Salbador alatorre MD Work Phone: Pain Management Comment on above: Refill Request Start: 07-15-2023 Refill Salbador alatorre MD Work Phone: Pain Management Comment on above: Refill Request Start: 07-12-2023 Patient encounter procedure [facility] Provider [facility] Department Start: 07-12-2023 Telephone encounter Salbador Gore MD Work Phone: Pain Management Comment on above: oxycodone acetaminop hen pa percocet approved indexed approval let ter Other Start: 07-11-2023 Refill Salbador alatorre MD Work Phone: Pain Management Comment on above: Refill Request Start: 06-22-2023 End: 06-22-2023 ambulatory SALBADOR GORE Facility:[id number] Start: 05-18-2023 Refill Salbador alatorre MD Work Phone: Pain Management Comment on above: Refill Request Start: 04-18-2023 Refill Vijaya Baumann DO Work Phone: Pain Management Comment on above: Refill Request Start: 04-11-2023 Refill Vijaya Baumann DO Work Phone: Pain Management Comment on above: Refill Request Start: 04-06-2023 Refill Vijaya Baumann DO Work Phone: Pain Management Comment on above: Refill Request Start: 03-14-2023 End: 03-14-2023 Patient encounter procedure Vijaya Silva DO Work Phone: Pain Management Comment on above: Chronic pain syndrom e (Primary Dx); Myofascial pain syndrome; High risk medication use; Osteoarthritis of right knee, unspecified osteoarthritis type; Other secondary osteoarthritis of both knees; Cervical radiculopathy; Cervical pain; Bilateral arm weakness Start: 03-09-2023 Telephone encounter Vijaya Silva DO Work Phone: Pain Management Comment on above: Medication Problem Start: 03-07-2023 Refill Vijaya Baumann DO Work Phone: Pain Management Comment on above: Refill Request Start: 02-14-2023 Refill Vijaya Baumann DO Work Phone: Pain Management Comment on above: Refill Request Start: 02-08-2023 Telephone encounter Albert blackwell NEUROSCIENTIST.END TOUCHING MACHINE OPERATOR Work Phone: Pain Management Comment on above: Medication Problem ( [facility] pharmacy closed) Start: 01-14-2023 Refill Vijaya Baumann DO Work Phone: Pain Management Comment on above: Refill Request Start: 01-06-2023 Patient encounter procedure [facility] Provider [facility] Department Start: 01-06-2023 Telephone encounter Vijaya Silva DO Work Phone: Pain Management Comment on above: Prior Auth Sent for [place]-Acet 10-325 PA approved for [facility] o approval letter inde x for Currie calling back about n orco Start: 12-27-2022 End: 12-27-2022 Patient encounter procedure Vijaya Silva DO Work Phone: Pain Management Comment on above: High risk medication use (Primary Dx); Chronic pain syndrome; Osteoarthritis of right knee, unspecified osteoarthritis type; Other secondary osteoarthritis of both knees; Myofascial pain syndrome Start: 12-15-2022 Refill Angie Blackwood APRN.FIELD CARE ADVOCATE Work Phone: Pain Management Comment on above: Refill Request Start: 12-08-2022 Patient encounter procedure [facility] Provider [facility] Department Start: 12-08-2022 Refill Vijaya Baumann DO Work Phone: Pain Management Comment on above: Refill Request med pa oxycodone approval approval letter indkatarzyna xed Start: 11-15-2022 Refill Angie Blackwood NEUROSCIENTIST.FIELD CARE ADVOCATE Work Phone: Pain Management Comment on above: Refill Request Start: 10-05-2022 Telephone encounter Vijaya Almeida Ricardo DO Work Phone: Pain Management Comment on above: Medication Problem Start: 09-21-2022 Telephone encounter Chaddashleigh Almeida Ricardo DO Work Phone: Pain Management Comment on above: Medication Problem Start: 07-16-2022 Refill Angie Blackwood NEUROSCIENTIST.FIELD CARE ADVOCATE Work Phone: Pain Management Comment on above: Refill Request Start: 05-27-2022 End: 05-27-2022 Office outpatient visit 25 minutes Angie Blackwood NEUROSCIENTIST.FIELD CARE ADVOCATE Work Phone: Pain Management Comment on above: Osteoarthritis of ri ght knee, unspecified osteoarthritis type (Primary Dx); High risk medication use; Chronic pain syndrome Start: 05-18-2022 Refill Albert Mix APRN.END TOUCHING MACHINE OPERATOR Work Phone: Pain Management Comment on above: Refill Request Start: 05-14-2022 Refill Vijaya Juan Pablo Leslie freedman DO Work Phone: Pain Management Comment on above: Refill Request Start: 04-30-2022 Refill Albert Mix NEUROSCIENTIST.END TOUCHING MACHINE OPERATOR Work Phone: Pain Management Comment on above: Refill Request Start: 04-19-2022 Refill Vijaya Juan Pablo Leslie freedman DO Work Phone: Pain Management Comment on above: Refill Request Start: 04-12-2022 Refill Albert Mix NEUROSCIENTIST.END TOUCHING MACHINE OPERATOR Work Phone: Pain Management Comment on above: Refill Request Start: 03-15-2022 Refill Albert Mix NEUROSCIENTIST.END TOUCHING MACHINE OPERATOR Work Phone: Pain Management Comment on above: Refill Request Start: 03-12-2022 Refill Albert Mix NEUROSCIENTIST.END TOUCHING MACHINE OPERATOR Work Phone: Pain Management Comment on above: Refill Request Start: 03-02-2022 End: 03-02-2022 Patient encounter procedure Vijaya Silva DO Work Phone: Pain Management Comment on above: Other secondary oste oarthritis of both knees (Primary Dx) Start: 03-01-2022 Refill Albert E Mix NEUROSCIENTIST.END TOUCHING MACHINE OPERATOR Work Phone: Pain Management Comment on above: Refill Request Start: 01-19-2022 Refill Albert E Mix NEUROSCIENTIST.END TOUCHING MACHINE OPERATOR Work Phone: Pain Management Comment on above: Refill Request Start: 01-12-2022 End: 01-12-2022 ambulatory Albert E Mix NEUROSCIENTIST.END TOUCHING MACHINE OPERATOR Work Phone: Pain Management Comment on above: Chronic pain syndrom e (Primary Dx) Start: 01-12-2022 End: 01-12-2022 Telemedicine consultation with patient Albert E Mix NEUROSCIENTIST.END TOUCHING MACHINE OPERATOR Work Phone: [facility] Start: 12-29-2021 Refill Albert E Mix NEUROSCIENTIST.END TOUCHING MACHINE OPERATOR Work Phone: Pain Management Comment on above: Refill Request Start: 12-22-2021 Telephone encounter Albert blackwell NEUROSCIENTIST.END TOUCHING MACHINE OPERATOR Work Phone: Pain Management Comment on above: [facility] Start: 12-17-2021 Refill Albert E Mix NEUROSCIENTIST.END TOUCHING MACHINE OPERATOR Work Phone: Pain Management Comment on above: Refill Request Start: 12-11-2021 Refill Albert E Mix NEUROSCIENTIST.END TOUCHING MACHINE OPERATOR Work Phone: Pain Management Comment on above: Refill Request Start: 12-02-2021 Telephone encounter Albert blackwell NEUROSCIENTIST.END TOUCHING MACHINE OPERATOR Work Phone: Pain Management Comment on above: Approved Medication Start: 11-03-2021 Chart abstracting Albert garber APRN.END TOUCHING MACHINE OPERATOR Work Phone: Pain Management Start: 10-20-2021 End: 10-20-2021 Subsequent hospital visit by physician Albert Mix NEUROSCIENTIST.END TOUCHING MACHINE OPERATOR Work Phone: [facility] Comment on above: VIRTUAL Start: 09-18-2021 End: 09-18-2021 Subsequent hospital visit by physician Albert Mix MD Work Phone: [facility] Comment on above: VIRTUAL Start: 08-18-2021 End: 08-18-2021 Subsequent hospital visit by physician Albert Mix MD Work Phone: [facility] Comment on above: VIRTUAL Start: 06-17-2021 End: 06-17-2021 Subsequent hospital visit by physician Albert Mix [facility] Comment on above: VIRTUAL Start: 05-20-2021 End: 05-20-2021 Subsequent hospital visit by physician [facility] Provider [facility] Comment on above: VIRTUAL Start: 12-22-2017 End: 12-22-2017 Patient encounter Prachi Antonio Facility:[facility] Start: 04-28-2017 End: 04-28-2017 Office outpatient visit 25 minutes [facility] Start: 08-25-2016 End: 08-25-2016 Office outpatient visit 25 minutes [facility] Start: 10-31-2015 End: 10-31-2015 Phone Encounter [facility]a [facility] Start: 10-24-2015 End: 10-24-2015 Office outpatient visit 40 minutes [facility] Start: 08-19-2015 End: 08-19-2015 Office outpatient visit 5 minutes [facility] Start: 08-05-2015 End: 08-06-2015 Office outpatient visit 5 minutes [facility] Start: 07-24-2015 End: 07-24-2015 Periodic preventive med est patient 18-39 yrs [facility] Start: 07-22-2015 End: 07-22-2015 Office outpatient visit 15 minutes [facility] Start: 07-08-2015 End: 07-09-2015 Lab Order [facility]a Patel [facility] Start: 07-08-2015 End: 07-08-2015 Office outpatient visit 5 minutes [facility] Start: 06-27-2015 End: 06-27-2015 Phone Encounter Shagufta Cristel [facility] Start: 06-24-2015 End: 06-24-2015 Office outpatient visit 5 minutes [facility] Start: 06-12-2015 End: 06-12-2015 Office outpatient visit 25 minutes Shagufta Fam [facility] Start: 06-10-2015 End: 06-10-2015 Phone Encounter Shagufta Cristel [facility] Start: 06-06-2015 End: 06-06-2015 Lab Order Shagufta Fam [facility] Start: 06-04-2015 End: 06-04-2015 Office outpatient visit 25 minutes Shagufta Fam [facility] Start: 04-14-2015 End: 04-14-2015 Lab Order Shagufta Patel [facility] Start: 12-11-2014 End: 12-11-2014 Office outpatient visit 15 minutes Shagufta Fam [facility] Start: 11-05-2014 End: 11-05-2014 Admission to establishment [facility] Start: 10-23-2014 End: 10-23-2014 Office outpatient visit 40 minutes Shagufta Fam [facility] [place] Start: 07-31-2014 End: 07-31-2014 Phone Encounter Shagufta Cristel [facility] Start: 07-26-2014 End: 07-26-2014 Office outpatient visit 25 minutes Shagufta Fam [facility] [place] Start: 06-18-2014 End: 06-18-2014 Phone Encounter Shagufta Cristel [facility] Start: 04-29-2014 End: 05-01-2014 Office outpatient visit 5 minutes Shagufta Fam [facility] Start: 04-08-2014 End: 04-08-2014 Phone Encounter Shagufta Fam [facility] Start: 04-05-2014 End: 04-05-2014 Office outpatient visit 25 minutes Shagufta Fam [facility] Start: 02-20-2014 End: 02-20-2014 Office outpatient visit 15 minutes Shagufta Fam [facility] Start: 12-19-2013 End: 12-19-2013 Office outpatient visit 25 minutes [facility] Start: 11-09-2013 End: 11-09-2013 Patient encounter procedure [facility] Start: 10-16-2013 End: 10-16-2013 Patient encounter procedure Shagufta Fam [facility] Start: 08-13-2013 End: 08-13-2013 Patient encounter procedure Shagufta Fam [facility] Procedures Date Procedure Procedure Detail Performing Clinician Start: 01-10-2018 End: 01-10-2018 Internal Medicine Office Visit Comments: See Note; NOTES: [facility] [address] [place] [address] [place] [address] OFFICE VISIT Date of Service: 01/09/18 MR#: [id number] Acct: [id number] Name: JEREMY FREEMAN Rep #: [id number] : 1960 Provider: Lianne Mary MD Age/Sex: 57/M Location: [facility] Status: Signed Intake Vital Signs01/09/18 Height 5 [...] HPI HPI Chief Complaint: establish care Details: JEREMY FREEMAN, is a 57yo M who presents to [...] acute distress Orientation: alert, awake, oriented x3 HENMT Head: atraumatic, normocephalic Ears: hearing grossly normal [...] diabetes and DDD. Continue follow-up with [facility]. Optimal blood sugar control discussed. 5. Anxiety F41.9 Plan Chronic, stable. Continue fluoxetine 40 mg daily. Follow-up at next visit. 6. Health care maintenance Z00.00 Plan Referred for screening colonoscopy. This note was generated with [employer]oshared[employer] software. It may contain incorrect words, spelling, [...] MD Cosigner Signature: Date (if applicable) CC: Shagufta Fam Start: 07-13-2017 End: 07-13-2017 Cerv Spine 4 or 5 Views Comments: See Note; NOTES: [facility] Services [address] [place] [address] Cerv Spine 4 or 5 Views MR#: [id number] Acct: [id number] Name: JEREMY FREEMAN Rep #: [id number] : 1960 M [id number] From: Lukas Fry MD PCP: Shagufta Fam DO Status: REG CLI Study: Cerv Spine 4 or 5 Views Date of Exam: 07/13/17 Exam# [id number] Ordering Dr: Vijaya Silva DO STUDY: X-RAY [...] with multilevel disc space narrowing. There is multi-level osseous foraminal stenosis. The soft tissue structures are unremarkable. RAD/Cerv Spine 4 or 5 Views IMPRESSION: There are degenerative changes as noted above. Electronically Signed: Lukas Fry MD at 16:54 EST , Service support , CC: Vijaya Silva; Shagufta Fam DO Rail Signal Designer: Signed Shagufta Fam Work Phone: Start: 07-13-2017 End: 07-13-2017 Knee 4 or More Views Comments: See Note; NOTES: [facility] Imaging Services [address] [place] [id number] Knee 4 or More Views MR#: [id number] Acct: [id number] Name: JEREMY FREEMAN Rep #: [id number] : 1960 M 56 From: Lukas Fry MD PCP: Shagufta Fam DO Status: REG CLI Study: Knee 4 or More Views Date of Exam: 07/13/17 Exam# [id number] Ordering Dr: Vijaya Silva DO STUDY: X-RAY [...] , CC: Vijaya Silva; Shagufta Fam DO Rail Signal Designer: Signed Shagufta Fam Work Phone: Start: 07-13-2017 End: 07-13-2017 Shoulder min 2 Views Comments: See Note; NOTES: [facility] Services [address] [place] [address] Shoulder min 2 Views MR#: [id number] Acct: [id number] Name: JEREMY FREEMAN Rep #: [id number] : 1960 M 56 From: Lukas Fry MD PCP: Shagufta Fam DO Status: REG CLI Study: Shoulder min 2 Views Date of Exam: 07/13/17 Exam# [id number] Ordering Dr: Vijaya Silva DO STUDY: X-RAY [...] , CC: Vijaya Silva; Shagufta Fam DO Rail Signal Designer: Signed Shagufta Fam Work Phone: Start: 10-24-2015 End: 10-24-2015 Spmtry w/vc expiratory james w/wo mxml vol vntj _ Shagufta Fam Work Phone: Comment on above: normal Start: 10-24-2015 End: 10-24-2015 Ecg routine ecg w/least 12 lds w/i&r [MEASUREMENTS ANALYSIS] Date of Test: 10/24/2015 09:16:50; Heart Rate: 72; WV Interval: 158; QRS: 95; QT Interval: 368; Corrected QT Interval (QTc): 389; P Wave Beggs: 36; QRS Wave Beggs: -4; T Wave Beggs: 36; Blood Pressure: 128/78 [ECG DIAGNOSTIC STATEMENTS] Date of Test: 10/24/2015 09:16:50; Summary: Sinus Rhythm WITHIN NORMAL LIMITS Shagufta Fam Work Phone: Comment on above: nsr no acute chg Start: 06-25-2015 End: 06-26-2015 Neck for Soft Tissue Comments: See Note; NOTES: [facility] Imaging Services [address] [place] [address] Verdana 4d Neck for Soft Tissue MR#: [id number] Acct: [id number] Name: JEREMY FREEMAN Rep #: [id number] : 1960 M 54 From: Vaibhav Schaefer MD PCP: Shagufta Fam DO Status: REG CLI Study: Neck for Soft Tissue Date of Exam: 06/25/15 Exam# [id number] Ordering Dr: Matthew Shaikh DO STUDY: X-RAY - SOFT TISSUE NECK REASON FOR EXAM: Male, 54 years old. Left-sided neck pain for 2 years with known injury TECHNIQUE: Total view(s) of the neck were obtained. COMPARISON: None. FINDINGS: Normal visualized nasopharynx, oropharynx, hypopharynx. Normal epiglottis. Normal visualized subglottic tracheal air column. Normal prevertebral soft tissue structures. There are degenerative changes of the cervical spine with cervical spondylosis. The soft tissue structures are unremarkable. IMPRESSION: Normal x-ray soft tissue neck. Cervical spondylosis Electronically Signed: Vaibhav Schaefer MD, FACR at 10:50 EST , Service support [phone], RAD/Neck for Soft Tissue IMPRESSION: Normal x-ray soft tissue neck. Cervical spondylosis Electronically Signed: Vaibhav Schaefer MD, FACR at 10:50 EST , Service support [phone], CC: Shagufta Fam DO; Matthew Shaikh D.O. Rail Signal Designer: Signed Shagufta Fam Start: 06-20-2015 End: 06-20-2015 Shoulder min 2 Views Comments: See Note; NOTES: [facility] Imaging Services [address] [place] [address] Verdana 4d Shoulder min 2 Views MR#: [id number] Acct: [id number] Name: JEREMY FREEMAN Rep #: [id number] : 1960 M 54 From: Roe Kwon MD PCP: Shagufta Fam DO Status: REG CLI Study: Shoulder min 2 Views Date of Exam: 06/20/15 Exam# [id number] Ordering Dr: Matthew Shaikh DO STUDY: X-RAY - LEFT SHOULDER REASON FOR EXAM: Male, 54 years old. Left shoulder pain. TECHNIQUE: 4 view(s) of the shoulder. COMPARISON: None. FINDINGS: Normal glenohumeral articulation. Normal acromioclavicular joint. Normal acromion. Normal humeral head and visualized proximal humerus. The soft tissue structures are unremarkable. Normal visualized pulmonary apex. IMPRESSION: Normal x-ray examination of the shoulder. Electronically Signed: Roe Kwon MD at 11:25 EST Tel [phone], Service support [phone], RAD/Shoulder min 2 Views IMPRESSION: Normal x-ray examination of the shoulder. Electronically Signed: Roe Kwon MD at 11:25 EST Tel [phone], Service support [phone], CC: Shagufta Fam DO; Matthew Shaikh D.O. Rail Signal Designer: Signed Shagufta Fam Start: 06-04-2015 End: 06-04-2015 Brain/Head without Contrast Comments: See Note; NOTES: [facility] Imaging Services [address] [place] [id number] Verdana 4d Brain/Head without Contrast MR#: [id number] Acct: [id number] Name: JEREMY FREEMAN Rep #: [id number] : 1960 M 54 From: Dimas Morris MD PCP: Shagufta Fam DO Status: REG CLI Study: Brain/Head without Contrast Date of Exam: 06/04/15 Exam# [id number] Ordering Dr: Christin Loredo STUDY: CT BRAIN WITHOUT CONTRAST REASON FOR EXAM: Male, 54 years old. Right-sided weakness. RADIATION DOSAGE (If Supplied By Facility): CTDIvol = ( 58.47 ) mGy, DLP = ( 1089.05 ) mGycm TECHNIQUE: Transaxial CT imaging of the brain was performed without administration of intravenous contrast material. COMPARISON: None. FINDINGS: Normal soft tissue structures. Left frontal bone parasagittal convexity a defect with beveled edges may be secondary to histiocytosis. No associated soft tissue mass. Normal size ventricles and extra-axial spaces for the patient's age. Normal white matter tracts of the cerebral hemispheres. Normal basal ganglia and thalami. Normal brainstem. Normal cerebellum. There is no intracranial hemorrhage. There are no findings of an acute ischemic infarction. Normal visualized paranasal sinuses. IMPRESSION: 1. No CT evidence of intracranial bleeding or acute intracranial abnormality. 2. 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 Electronically Signed: Dimas Morris MD at 13:57 EST , Service support [phone], CC: Christin Loredo; Shagufta Fam DO Rail Signal Designer: Signed Christin Loredo Work Phone: Start: 07-26-2014 End: 07-26-2014 Spmtry w/vc expiratory james w/wo mxml vol vntj _ Shagufta Fam Work Phone: Fracture Bessy Marley Comment on above: sx rt foot Ophthalmic examination and evaluation Bessy Marley Plan of Treatment Date Care Activity Detail Author Start: 01-12-2028 PROSTATE CANCER SCREENING DISCUSSION PROSTATE CANCER SCREENING DISCUSSION [facility] Start: 01-12-2028 Prostate specific antigen measurement Prostate Cancer Screening Discussion [facility] Start: 06-14-2027 Urine microalbumin profile DTaP,Tdap,Td Vaccine (2 - Td or Tdap) [facility] Start: 01-24-2027 Screening for malignant neoplasm of colon [facility] Start: 03-14-2024 End: 06-13-2024 TOXASSURE FLEX 23, URINE TOXASSURE FLEX 23, URINE Lab Routine Other chronic pain Expected: 03/14/2024, Expires: 06/13/2024 [facility] Work Phone: Comment on above: Expected: 03/14/2024, Expires: Start: 03-14-2024 End: 03-14-2024 Patient encounter procedure 03/14/2024 10:15 AM EDT Office Visit Pain Management [address] [place] [address] Salbador Gore MD [address] [place] [address] 3 month follow up Pain Management Comment on above: 3 month follow up Start: 01-29-2024 Covid-19 Vaccine () Covid-19 Vaccine () [facility] Start: 01-29-2024 Covid-19 Vaccine () Covid-19 Vaccine () [facility] Start: 01-29-2024 Influenza vaccination [facility] Start: 01-12-2024 Hepatitis B screening URINE ALBUMIN:CREATININE RATIO [facility] Start: 01-12-2024 Hepatitis B surface antibody level LDL CHOLESTEROL [facility] Start: 12-14-2023 End: 12-14-2023 Patient encounter procedure 12/14/2023 9:15 AM EDT Office Visit Pain Management [address] [place] [address] Salbador Gore MD [address] [facility] [place] [address] Follow Up Pain Management Comment on above: Follow Up Start: 09-15-2023 End: 12-15-2023 TOXASSURE FLEX 23, URINE TOXASSURE FLEX 23, URINE Lab Routine Chronic pain syndrome Expected: 09/15/2023, Expires: 12/15/2023 [facility] Work Phone: Comment on above: Expected: 09/15/2023, Expires: 4 Start: 03-14-2023 End: 05-14-2023 TOXASSURE FLEX 23, URINE TOXASSURE FLEX 23, URINE Lab Routine Chronic pain syndrome Myofascial pain syndrome High risk medication use Expected: 03/14/2023, Expires: 05/14/2023 [facility] Work Phone: Comment on above: Expected: 03/14/2023, Expires: 3 Start: 01-28-2023 Covid-19 Vaccine (4 - 2023-24 season) Covid-19 Vaccine ( season) [facility] Start: 01-28-2023 Influenza vaccination [facility] Start: 2022 Hepatitis B Vaccine (1 of 3 - Risk 3-dose series) Hepatitis B Vaccine (1 of 3 - Risk 3-dose series) [facility] Start: 2022 RSV Vaccine (1 - 1-dose 60+ series) RSV Vaccine (1 - 1-dose 60+ series) [facility] Start: 2022 RSV Vaccine (1 - Risk 60-74 years 1-dose series) RSV Vaccine (1 - Risk 60-74 years 1-dose series) [facility] Start: 03-07-2022 Screening for malignant neoplasm of colon [facility] Start: 03-02-2022 End: 05-02-2022 DRUG SCR TOXASURE DRUG SCR TOXASURE Lab Routine Other secondary osteoarthritis of both knees Expected: 03/02/2022, Expires: 05/02/2022 [facility] Work Phone: Comment on above: Expected: 03/02/2022, Expires: 2 Start: 01-28-2022 Influenza vaccination [facility] Start: 09-04-2021 COVID-19 VACCINE (4 - Booster for Moderna series) COVID-19 VACCINE (4 - Booster for Moderna series) [facility] Start: 07-01-2021 COVID-19 VACCINE (4 - Booster for Moderna series) COVID-19 VACCINE (4 - Booster for Moderna series) [facility] Start: 07-01-2021 COVID-19 VACCINE (4 - Moderna series) COVID-19 VACCINE (4 - Moderna series) [facility] Start: 05-30-2021 DEPRESSION ASSESSMENT DEPRESSION ASSESSMENT [facility] Start: 2017 PROSTATE CANCER SCREENING DISCUSSION PROSTATE CANCER SCREENING DISCUSSION [facility] Start: 04-28-2017 Procedure Education Eprescribed prescriptions (G8553) [facility] Work Phone: Start: 04-28-2017 Provider Instructions for Treatment [facility] Work Phone: Start: 08-25-2016 Patient Education Diabetes and Exercise: Preventing Low Blood Sugar: blood sugar [facility] Work Phone: Start: 08-25-2016 Procedure Education Eprescribed prescriptions (G8553) [facility] Work Phone: Start: 08-25-2016 Provider Instructions for Treatment [facility] Work Phone: Start: 08-25-2016 Urnls dip stick/tablet reagent auto microscopy URINALYSIS, W/ MICRO (25376) [facility] Work Phone: Start: 08-25-2016 Urine albumin quantitative MICROALBUMIN: CREATININE RATIO (90642) AND (05611) [facility] Work Phone: Start: 08-25-2016 Comprehensive metabolic panel METABOLIC PANEL, COMPREHENSIVE (65280) [facility] Work Phone: Start: 08-25-2016 Blood count complete auto&auto difrntl wbc CBC W/AUTO DIFF WBC (62068) [facility] Work Phone: Start: 08-25-2016 Lipid panel LIPID PANEL (67966) [facility] Work Phone: Start: 08-25-2016 TSH Qn TSH (01536) [facility] Work Phone: Start: 08-25-2016 Cobalamin (Vitamin B12) [Mass/Vol] VITAMIN B-12 (CYANOCOBALAMIN) (91506) [facility] Work Phone: Start: 10-31-2015 Lipid panel LIPID PANEL (21228) [facility] Work Phone: Start: 10-24-2015 Procedure Education Eprescribed prescriptions (G8553) [facility] Work Phone: Start: 10-24-2015 Provider Instructions for Treatment [facility] Work Phone: Start: 07-22-2015 Provider Instructions for Treatment [facility] Work Phone: Start: 07-08-2015 Cobalamin (Vitamin B12) [Mass/Vol] VITAMIN B-12 (CYANOCOBALAMIN) (10079) [facility] Work Phone: Start: 06-12-2015 Procedure Education Eprescribed prescriptions (G8553) [facility] Work Phone: Start: 06-06-2015 Protein electrophoretic fractj&quantj serum SPEP (81925) [facility] Work Phone: Start: 06-04-2015 Provider Instructions for Treatment Follow up in 1 week [facility] Work Phone: Start: 06-04-2015 Comprehensive metabolic panel Metabolic Panel, Comprehensive (02414) [facility] Work Phone: Start: 06-04-2015 Iaadiadoo influenza Rapid Flu (52872 x 2) [facility] Work Phone: Start: 06-04-2015 HbA1c (Bld) [Mass fraction] HgA1C , Office (40988) [facility] Work Phone: Start: 06-04-2015 Glucose [Mass/Vol] Blood Glucose , Office (91202) [facility] Work Phone: Start: 12-11-2014 Provider Instructions for Treatment [facility] Work Phone: Start: 10-23-2014 Patient Education Diabetes and Illness: blood glucose [facility] Work Phone: Start: 10-23-2014 Procedure Education Eprescribed prescriptions (G8553) [facility] Work Phone: Start: 10-23-2014 Provider Instructions for Treatment [facility] Work Phone: Start: 10-23-2014 Lipid panel LIPID PANEL (04696) [facility] Work Phone: Start: 07-26-2014 Procedure Education Eprescribed prescriptions (G8553) [facility] Work Phone: Start: 07-26-2014 Provider Instructions for Treatment [facility] Work Phone: Start: 07-26-2014 Urine albumin quantitative MICROALBUMIN: CREATININE RATIO (23834) AND (16677) [facility] Work Phone: Start: 07-26-2014 Urnls dip stick/tablet reagent auto microscopy URINALYSIS, W/ MICRO (06947) [facility] Work Phone: Start: 07-26-2014 Comprehensive metabolic panel METABOLIC PANEL, COMPREHENSIVE (46769) [facility] Work Phone: Start: 07-26-2014 Blood count complete auto&auto difrntl wbc CBC W/AUTO DIFF WBC (90256) [facility] Work Phone: Start: 07-26-2014 TSH Qn TSH (80605) [facility] Work Phone: Start: 07-26-2014 Lipid panel LIPID PANEL (73974) [facility] Work Phone: Start: 07-26-2014 25 hydroxy includes fractions if performed CALCIFIDIOL (71009) VIT D 25 [facility] Work Phone: Start: 04-05-2014 Patient Education Diabetes and Exercise: Preventing Low Blood Sugar: blood sugar [facility] Work Phone: Start: 04-05-2014 Provider Instructions for Treatment [facility] Work Phone: Start: 12-19-2013 Provider Instructions for Treatment Follow up in 2 weeks [facility] Work Phone: Start: 11-09-2013 Procedure Education Eprescribed prescriptions (G7091) [facility] Work Phone: Start: 11-09-2013 Provider Instructions for Treatment [facility] Work Phone: Start: 10-16-2013 Provider Instructions for Treatment [facility] Work Phone: Start: 08-13-2013 Provider Instructions for Treatment [facility] Work Phone: Start: 2012 SHINGRIX VACCINE (1 of 2) SHINGRIX VACCINE (1 of 2) [facility] Start: 12-01-2007 COLOGUARD (FIT-DNA) COLOGUARD (FIT-DNA) [facility] Start: 12-01-2007 Colonoscopy COLONOSCOPY [facility] Start: 12-01-2007 COLORECTAL CANCER SCREENING COLORECTAL CANCER SCREENING [facility] Start: 12-01-[address] COLONOGRAPHY [facility] Start: 12-01-2007 DIABETES SCREEN DIABETES SCREEN [facility] Start: 12-01-2007 FECAL OCCULT BLOOD FECAL OCCULT BLOOD [facility] Start: 12-01-2007 Screening for malignant neoplasm of colon [facility] Start: 12-01-2007 SIGMOIDOSCOPY SIGMOIDOSCOPY [facility] Start: 1997 LIPID SCREEN LIPID SCREEN [facility] Start: 1981 Urine microalbumin profile [facility] Start: 1980 ANNUAL PCP TEAM CHRONIC DISEASE VISIT ANNUAL PCP TEAM CHRONIC DISEASE VISIT [facility] Start: 1980 BP CONTROLLED (<130/80) BP CONTROLLED (<130/80) [facility] Start: 1980 Hepatitis B surface antibody level LDL CHOLESTEROL [facility] Start: 1980 HEPATITIS C SCREENING HEPATITIS C SCREENING [facility] Start: 1980 Hepatitis C screening Hepatitis C Screening [facility] Start: 1980 HIV SCREENING HIV SCREENING [facility] Start: 1980 HIV screening HIV Screening [facility] Start: 1974 Adult depression screening assessment DEPRESSION SCREENING [facility] Start: 1972 3 comp foot exam completed DIABETIC FOOT EXAM [facility] Start: 1972 Diabetic foot examination Diabetic Foot Exam [facility] Start: 1972 Glaucoma screening Dilated Retinal Exam [facility] Start: 1972 Hepatitis B screening URINE ALBUMIN:CREATININE RATIO [facility] Start: 1972 Hepatitis C antibody, confirmatory test DILATED RETINAL EXAM [facility] Start: 1968 PNEUMOCOCCAL (1 - PCV) PNEUMOCOCCAL (1 - PCV) [facility] Start: 1968 Pneumococcal vaccination [facility] Start: 12-01-1967 COVID-19 VACCINE (#1) COVID-19 VACCINE (#1) [facility] Start: 12-01-1967 Hemoglobin A1c measurement HbA1C [facility] Start: 12-01-1967 Hemoglobin A1c/Hemoglobin.total in Blood HBA1C [facility] End: 04-12-2024 Radex spine cervical 4 or 5 views XR CERV OTHER 4V AP/LAT/OBL Radiology Routine Cervical radiculopathy Cervical pain Bilateral arm weakness 1 Occurrences starting 03/14/2023 until 04/12/2024 [facility] Work Phone: Comment on above: 1 Occurrences starting 03/14/2023 until 04/12/2024 [facility] Work Phone: [facility] Work Phone: [facility] Work Phone: [facility] Work Phone: [facility] Work Phone: [facility] Work Phone: [facility] Work Phone: [facility] Work Phone[facility] Work Phone: [facility] Work Phone: [facility] Work Phone[facility] Work Phone: [facility] Work Phone[facility] Work Phone: [facility] Work Phone: [facility] Immunizations Immunization Date Immunization Notes Care Provider Gladis espana 05-06-2021 influenza virus vacc ine, unspecified formulation 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 Payers Date Payer Category Payer Unknown HOLLI JOYNERDAMON JAE [id number] 2021-Present [phone] [address] [place] [address] [employer] [id number] 2021 Unknown [id number] 2017 Unknown Social History Date Type Detail Facility Start: 08-30-2022 End: 11-22-2022 Caffeine Use Caffeine Use [facility] Work Phone: Comment on above: qd Exercise History: Exercise History: [facility] Work Phone: Living Situation: Living Situation: [facility]pr [facility] Work Phone: Pets/Animals: Pets/Animals: [facility] Work Phone: Tobacco use: Tobacco use: [facility] Work Phone: Tobacco smoking status NHIS Tobacco smoking consumption unknown [facility] Start: 1960 Sex Assigned At Not on file [facility] Start: 11-03-2021 End: 03-02-2022 Tobacco smoking status NHIS Never smoked tobacco [facility] Start: 11-08-2021 End: 04-08-2022 Exposure to SARS-CoV-2 (event) Not sure [facility] Start: 02-13-2022 End: 02-23-2022 Exposure to SARS-CoV-2 (event) Unable to assess [facility] Start: 03-02-2022 Tobacco use and exposure Smokeless tobacco non-user [facility] Start: 03-02-2022 End: 03-14-2024 Alcohol intake Lifetime non-drinker (finding) [facility] Start: 08-30-2022 End: 11-22-2022 Tobacco use panel [facility] National Score (1-100), lower number is lower risk 94 [facility] NEGATED: Highlighted rowStart: NINF History of tobacco use Passive smoker [facility] Medical Equipment Procedure Code Equipment Code Equipment Origin al Text Equipment Identifier Dates Start: 10-23-2014 Comment on above: USE THREE TIMES A DA Y FOR DM 2 BD PEN NEEDLE [place] NI U/F, 31G X 5 MM (Miscellaneous) 1 (one) Misc Misc qd for 0 days Quantity: 1 {Packet} Refills: 4 Ordered: 23-Oct-2014 Bettye Waldrop Start : 23-Oct-2014 Active Start: 10-23-2014 BD PEN NEEDLE [place] NI U/F, 31G X 5 MM (Miscellaneous) 1 (one) Misc Misc qd for 0 days Quantity: 1 {Packet} Refills: 4 Ordered: 23-Oct-2014 Bettye Waldrop Start : 23-Oct-2014 Active Start: 10-23-2014 USE THREE TIMES A DAY FOR DM 2 [id number] Start: 02-24-2023 Clinical Notes 12-02-2021 to 03-14-2024 Salbador Gore MD - 03/14/2024 10:15 AM EDTTelephone Encounter - Lamar Prince RN - 02/20/2024 12:44 PM EDTTelephone Encounter - Lamar Prince RN - 02/20/2024 12:44 PM EDT Note Date & Type Note Facility 03-14-2024 History of Presen t illness Narrative Dragon was used to dictate this note and therefore there may be some typographical errors. I attest to the fact that I spent a total of 16 min with the patient to include: Face to face time and non face to face time such as: Reviewing test's, reviewing medical records, reviewing imaging studies, ordering tests, etc. The patient was last seen on 12/14/2023. Treatment plan at that time included the following: Continue on Percocet as prescribed by Dr. Silva and her staff, patient was scheduled to have upcoming knee surgery. He was awaiting dental and medical clearance. I spoke with him in depth about weaning off the Percocet prior to surgery in order to up regulate or reset his opioid receptors. He voiced understanding and told me that this is something his surgeon had mentioned to him as well. He returns today for follow-up visit. PE: Alert and oriented no acute distress. Mood and affect within normal limits. Vital signs as indicated. Slightly antalgic gait favoring his right leg putting more weight on the left. Dx: Right knee osteoarthritis, right knee pain, severe degenerative changes right knee with [id number] phenomena, status post left total knee arthroplasty, gait disturbance, cervical DDD, cervical DJD, cervical's arthropathy, cervical set syndrome, cervical spondylosis, cervical radiculitis, cervical pain, history of right-sided hemiparesis, hypertension, hyperlipidemia, diabetes with diabetic neuropathy, history of rotator cuff syndrome, chronic pain syndrome, chronic opioid usage. Patient is on the above analgesic regimen. Patient denies any systemic side effects. Patient believes the pain meds have helped (as indicated by VAS). Patient has signed Medication Management Agreement and Informed Consent Form ( contract ). I have also utilized the Intractable Pain and Drug Prescription Checklist as promulgated by [facility]. Furthermore, I have adhered to the [facility] Administrative Code 4731-11. The medication clearly improves this patient's functionality and quality of life as evidence by improved social, recreational activities. There is no evidence of any: drug abuse, drug addiction nor drug diversion. The patient has never called in early for a refill, is not particularly focused on pain medication, has never shown up in our office unexpectedly without appointment, nor called in stating a lost prescription. The patient has been instructed not to drive if any [employer] side effects to pain medication. The patient has been informed that the analgesics are potentially addicting and need to be taken strictly as prescribed. I have checked an OARRS on this patient which came back as expected. The patient has received an opioid education handout and filled out an opioid screener (SOAPP). I have had the patient submit a random urine drug screen & the patient does have biological markers which would corroborate and substantiate chronic pain (see prior imaging studies). Additionally I did discuss Narcan with the patient and informed the patient that Narcan is now available at their pharmacy if they so request. Plan: As above, patient was last seen on 12/14/2023. Treatment plan at that time included the following: Continue on Percocet as prescribed by Dr. Silva and her staff, patient was scheduled to have upcoming knee surgery. He was awaiting dental and medical clearance. I spoke with him in depth about weaning off the Percocet prior to surgery in order to up regulate or reset his opioid receptors. He voiced understanding and told me that this is something his surgeon had mentioned to him as well.\ Patient is having upcoming right total knee arthroplasty with orthopedic surgeon in [place]. He states that postoperatively, he will not need any more pain medication. He has been weaning himself off of the Percocet in preparation for surgery and also weaning himself off of the gabapentin. He again reiterated that he will not be any more pain medicine from our office after surgery If he recovers from surgery. He therefore we will follow-up with us on appearing basis only. Patient is much to be commended. documented in this encounter [facility] 03-14-2024 Note HNO ID: [id number] Author: SALBADOR GORE MD Service: ? Author Type: Anesthesiologist Type: Progress Notes Filed: 03/14/2024 10:39 Note Text: Eduardojackie was used to dictate this note and therefore there may be some typographical errors. I attest to the fact that I spent a total of 16 min with the patient to include: Face to face time and non face to face time such as: Reviewing test's, reviewing medical records, reviewing imaging studies, ordering tests, etc. The patient was last seen on 12/14/2023. Treatment plan at that time included the following: Continue on Percocet as prescribed by Dr. Silva and her staff, patient was scheduled to have upcoming knee surgery. He was awaiting dental and medical clearance. I spoke with him in depth about weaning off the Percocet prior to surgery in order to up regulate or reset his opioid receptors. He voiced understanding and told me that this is something his surgeon had mentioned to him as well. He returns today for follow-up visit. PE: Alert and oriented no acute distress. Mood and affect within normal limits. Vital signs as indicated. Slightly antalgic gait favoring his right leg putting more weight on the left. Dx: Right knee osteoarthritis, right knee pain, severe degenerative changes right knee with [id number] phenomena, status post left total knee arthroplasty, gait disturbance, cervical DDD, cervical DJD, cervical's arthropathy, cervical set syndrome, cervical spondylosis, cervical radiculitis, cervical pain, history of right-sided hemiparesis, hypertension, hyperlipidemia, diabetes with diabetic neuropathy, history of rotator cuff syndrome, chronic pain syndrome, chronic opioid usage. Patient is on the above analgesic regimen. Patient denies any systemic side effects. Patient believes the pain meds have helped (as indicated by VAS). Patient has signed Medication Management Agreement and Informed Consent Form ( contract ). I have also utilized the Intractable Pain and Drug Prescription Checklist as promulgated by The [facility] Medical Board. Furthermore, I have adhered to the [facility] Medical Board [facility] Administrative Code 4731-11. The medication clearly improves this patient's functionality and quality of life as evidence by improved social, recreational activities. There is no evidence of any: drug abuse, drug addiction nor drug diversion. The patient has never called in early for a refill, is not particularly focused on pain medication, has never shown up in our office unexpectedly without appointment, nor called instating a lost prescription. The patient has been instructed not to drive if any FIELD C[employer] ADVOCATE side effects to pain medication. The patient has been informed that the analgesics are potentially addicting and need to be taken strictly as prescribed. I have checked an OARRS on this patient which came back as expected. The patient has received an opioid education handout and filled out an opioid screener (SOAPP). I have had the patient submit a random urine drug screen AND the patient does have biological markers which would corroborate and substantiate chronic pain (see prior imaging studies). Additionally I did discuss Narcan with the patient and informed the patient that Narcan is now available at their pharmacy if they so request. Plan: As above, patient was last seen on 12/14/2023. Treatment plan at that time included the following: Continue on Percocet as prescribed by Dr. Silva and her staff, patient was scheduled to have upcoming knee surgery. He was awaiting dental and medical clearance. I spoke with him in depth about weaning off the Percocet prior to surgery in order to up regulate or reset his opioid receptors. He voiced understanding and told me that this is something his surgeon had mentioned to him as well. Patient is having upcoming right total knee arthroplasty with orthopedic surgeon in [place]. He states that postoperatively, he will not need any more pain medication. He has been weaning himself off of the Percocet in preparation for surgery and also weaning himself off of the gabapentin. He again reiterated that he will not be any more pain medicine from our office after surgery If he recovers from surgery. He therefore we will follow-up with us on appearing basis only. Patient is much to be commended. [facility] 02-20-2024 Telephone encount er Note Patient phones requesting refills as follows: Requested Prescriptions Pending Prescriptions Disp Refills gabapentin (NEURONTIN) 600 mg tablet 90 tablet 0 Sig: Take 1 tablet by mouth three times a day for 90 days. Please review and advise. Lamar Prince RN [facility] 02-20-2024 Miscellaneous Notes Formattin g of this note is different from the original. Patient phones requesting refills as follows: Requested Prescriptions Pending Prescriptions Disp Refills gabapentin (NEURONTIN) 600 mg tablet 90 tablet 0 Sig: Take 1 tablet by mouth three times a day for 90 days. Please review and advise. Lamar Prince RN documented in this encounter [facility] 02-07-2024 Telephone encount er Note oxyCODONE-acetaminophen (PERCOCET) 7.5-325 mg tablet APPROVED Letter index to chart Cyndy La MA February 07, 2024 1:38 PM [facility] 02-07-2024 Miscellaneous Notes Formattin g of this note might be different from the original. oxyCODONE-acetaminophen (PERCOCET) 7.5-325 mg tablet APPROVED Letter index to chart Cyndy La MA February 07, 2024 1:38 PM documented in this encounter [facility] 02-07-2024 Telephone encount er Note Oxycodone acetaminophen pa sent through cover my meds [place]: [id number] Bessy Bojorquez MA February 07, 2024 11:36 AM [facility] 02-07-2024 Miscellaneous Notes Formattin g of this note might be different from the original. Oxycodone acetaminophen pa sent through cover my meds [place]red[place]: [id number] Bessy Bojorquez MA February 07, 2024 11:36 AM documented in this encounter [facility] 02-07-2024 Telephone encount er Note Patient phones requesting refills as follows: Requested Prescriptions Pending Prescriptions Disp Refills oxyCODONE-acetaminophen (PERCOCET) 7.5-325 mg tablet 90 tablet 0 Sig: Take 1 tablet by mouth three times a day as needed for pain for up to 30 days. Last UDS: 03/14/23 UDS Consistent GEORGE Summary Report Date Value Ref Range Status 09/15/2023 FINAL Final Comment: == Opiate Class, MS, Ur RFX Oxycodone Class, MS, Ur RFX Gabapentin, MS, Ur RFX Acetaminophen, MS, Ur RFX ToxAssure Flex 23, Ur == Test Result Flag Units Drug Present Oxycodone 2372 ng/mg creat Oxymorphone 568 ng/mg creat Noroxycodone 2953 ng/mg creat Noroxymorphone 145 ng/mg creat Sources of oxycodone are scheduled prescription medications. Oxymorphone, noroxycodone, and noroxymorphone are expected metabolites of oxycodone. Oxymorphone is also available as a scheduled prescription medication. Gabapentin PRESENT Acetaminophen PRESENT == Test Result Flag Units Ref Range Creatinine 47 mg/dL >=20 == Declared Medications: Medication list was not provided. == For clinical consultation, please call . == No results found for: UQNOTE , OPIATEPNMGT , DRUGSCRPAIN Urine Panel: No results found for: UQCANN , UQBNZL , [id number] , UQAMPH , UQMAMP , UQBUPRE , UQNORBUP , UQMTHD , UQEDDP , UQTRAM , UQDTRM , UQFNTL , UQNFTL , UQCODE , UQMORP , UQDCDN , UQHCOD , UQOXYC , UQHMOR , UQOXYM , UQCREA , UQPH , UQSPGR , UQOXID , UQSPQ @FLOW([id number])@ Lab Results Component Value Date SUMM FINAL 09/15/2023 Summary Report (Summary) Date Value Ref Range Status 03/02/2022 FINAL Final Comment: == TOXASSURE COMP DRUG ANALYSIS,UR == Test Result Flag Units Drug Present Oxycodone 1289 ng/mg creat Oxymorphone 1307 ng/mg creat Noroxycodone 2091 ng/mg creat Noroxymorphone 336 ng/mg creat Sources of oxycodone are scheduled prescription medications. Oxymorphone, noroxycodone, and noroxymorphone are expected metabolites of oxycodone. Oxymorphone is also available as a scheduled prescription medication. Gabapentin PRESENT Sertraline PRESENT Desmethylsertraline PRESENT Desmethylsertraline is an expected metabolite of sertraline. Acetaminophen PRESENT Ibuprofen PRESENT == Test Result Flag Units Ref Range Creatinine 120 mg/dL >=20 == Declared Medications: Medication list was not provided. == For clinical consultation, please call . == Last Opioid agreement effective date: 05/27/2022 Please review and advise. Lamar Prince RN [facility] 02-07-2024 Miscellaneous Notes Formattin g of this note is different from the original. Patient phones requesting refills as follows: Requested Prescriptions Pending Prescriptions Disp Refills oxyCODONE-acetaminophen (PERCOCET) 7.5-325 mg tablet 90 tablet 0 Sig: Take 1 tablet by mouth three times a day as needed for pain for up to 30 days. Last UDS: 03/14/23 UDS Consistent GEORGE Summary Report Date Value Ref Range Status 09/15/2023 FINAL Final Comment: == Opiate Class, MS, Ur RFX Oxycodone Class, MS, Ur RFX Gabapentin, MS, Ur RFX Acetaminophen, MS, Ur RFX ToxAssure Flex 23, Ur == Test Result Flag Units Drug Present Oxycodone 2372 ng/mg creat Oxymorphone 568 ng/mg creat Noroxycodone 2953 ng/mg creat Noroxymorphone 145 ng/mg creat Sources of oxycodone are scheduled prescription medications. Oxymorphone, noroxycodone, and noroxymorphone are expected metabolites of oxycodone. Oxymorphone is also available as a scheduled prescription medication. Gabapentin PRESENT Acetaminophen PRESENT == Test Result Flag Units Ref Range Creatinine 47 mg/dL >=20 == Declared Medications: Medication list was not provided. == For clinical consultation, please call . == No results found for: UQNOTE , OPIATEPNMGT , DRUGSCRPAIN Urine Panel: No results found for: UQCANN , UQBNZL , [id number] , UQAMPH , UQMAMP , UQBUPRE , UQNORBUP , UQMTHD , UQEDDP , UQTRAM , UQDTRM , UQFNTL , UQNFTL , UQCODE , UQMORP , UQDCDN , UQHCOD , UQOXYC , UQHMOR , UQOXYM , UQCREA , UQPH , UQSPGR , UQOXID , UQSPQ @FLOW([id number])@ Lab Results Component Value Date SUMM FINAL 09/15/2023 Summary Report (Summary) Date Value Ref Range Status 03/02/2022 FINAL Final Comment: == TOXASSURE COMP DRUG ANALYSIS,UR == Test Result Flag Units Drug Present Oxycodone 1289 ng/mg creat Oxymorphone 1307 ng/mg creat Noroxycodone 2091 ng/mg creat Noroxymorphone 336 ng/mg creat Sources of oxycodone are scheduled prescription medications. Oxymorphone, noroxycodone, and noroxymorphone are expected metabolites of oxycodone. Oxymorphone is also available as a scheduled prescription medication. Gabapentin PRESENT Sertraline PRESENT Desmethylsertraline PRESENT Desmethylsertraline is an expected metabolite of sertraline. Acetaminophen PRESENT Ibuprofen PRESENT == Test Result Flag Units Ref Range Creatinine 120 mg/dL >=20 == Declared Medications: Medication list was not provided. == For clinical consultation, please call . == Last Opioid agreement effective date: 05/27/2022 Please review and advise. Lamar Prince RN documented in this encounter [facility] 01-23-2024 Telephone encount er Note Patient phones requesting refills as follows: Requested Prescriptions Pending Prescriptions Disp Refills gabapentin (NEURONTIN) 600 mg tablet 90 tablet 0 Sig: Take 1 tablet by mouth three times a day for 90 days. Last UDS: 03/14/23 UDS Consistent GEORGE Summary Report Date Value Ref Range Status 09/15/2023 FINAL Final Comment: == Opiate Class, MS, Ur RFX Oxycodone Class, MS, Ur RFX Gabapentin, MS, Ur RFX Acetaminophen, MS, Ur RFX ToxAssure Flex 23, Ur == Test Result Flag Units Drug Present Oxycodone 2372 ng/mg creat Oxymorphone 568 ng/mg creat Noroxycodone 2953 ng/mg creat Noroxymorphone 145 ng/mg creat Sources of oxycodone are scheduled prescription medications. Oxymorphone, noroxycodone, and noroxymorphone are expected metabolites of oxycodone. Oxymorphone is also available as a scheduled prescription medication. Gabapentin PRESENT Acetaminophen PRESENT == Test Result Flag Units Ref Range Creatinine 47 mg/dL >=20 == Declared Medications: Medication list was not provided. == For clinical consultation, please call . == No results found for: UQNOTE , OPIATEPNMGT , DRUGSCRPAIN Urine Panel: No results found for: UQCANN , UQBNZL , [id number] , UQAMPH , UQMAMP , UQBUPRE , UQNORBUP , UQMTHD , UQEDDP , UQTRAM , UQDTRM , UQFNTL , UQNFTL , UQCODE , UQMORP , UQDCDN , UQHCOD , UQOXYC , UQHMOR , UQOXYM , UQCREA , UQPH , UQSPGR , UQOXID , UQSPQ @FLOW([id number])@ Lab Results Component Value Date SUMM FINAL 09/15/2023 Summary Report (Summary) Date Value Ref Range Status 03/02/2022 FINAL Final Comment: == TOXASSURE COMP DRUG ANALYSIS,UR == Test Result Flag Units Drug Present Oxycodone 1289 ng/mg creat Oxymorphone 1307 ng/mg creat Noroxycodone 2091 ng/mg creat Noroxymorphone 336 ng/mg creat Sources of oxycodone are scheduled prescription medications. Oxymorphone, noroxycodone, and noroxymorphone are expected metabolites of oxycodone. Oxymorphone is also available as a scheduled prescription medication. Gabapentin PRESENT Sertraline PRESENT Desmethylsertraline PRESENT Desmethylsertraline is an expected metabolite of sertraline. Acetaminophen PRESENT Ibuprofen PRESENT == Test Result Flag Units Ref Range Creatinine 120 mg/dL >=20 == Declared Medications: Medication list was not provided. == For clinical consultation, please call . == Last Opioid agreement effective date: 05/27/2022 Please review and advise. Vilma Alvarez RN [facility] 01-23-2024 Miscellaneous Notes Formattin g of this note is different from the original. Patient phones requesting refills as follows: Requested Prescriptions Pending Prescriptions Disp Refills gabapentin (NEURONTIN) 600 mg tablet 90 tablet 0 Sig: Take 1 tablet by mouth three times a day for 90 days. Last UDS: 03/14/23 UDS Consistent GEORGE Summary Report Date Value Ref Range Status 09/15/2023 FINAL Final Comment: == Opiate Class, MS, Ur RFX Oxycodone Class, MS, Ur RFX Gabapentin, MS, Ur RFX Acetaminophen, MS, Ur RFX ToxAssure Flex 23, Ur == Test Result Flag Units Drug Present Oxycodone 2372 ng/mg creat Oxymorphone 568 ng/mg creat Noroxycodone 2953 ng/mg creat Noroxymorphone 145 ng/mg creat Sources of oxycodone are scheduled prescription medications. Oxymorphone, noroxycodone, and noroxymorphone are expected metabolites of oxycodone. Oxymorphone is also available as a scheduled prescription medication. Gabapentin PRESENT Acetaminophen PRESENT == Test Result Flag Units Ref Range Creatinine 47 mg/dL >=20 == Declared Medications: Medication list was not provided. == For clinical consultation, please call . == No results found for: UQNOTE , OPIATEPNMGT , DRUGSCRPAIN Urine Panel: No results found for: UQCANN , UQBNZL , [id number] , UQAMPH , UQMAMP , UQBUPRE , UQNORBUP , UQMTHD , UQEDDP , UQTRAM , UQDTRM , UQFNTL , UQNFTL , UQCODE , UQMORP , UQDCDN , UQHCOD , UQOXYC , UQHMOR , UQOXYM , UQCREA , UQPH , UQSPGR , UQOXID , UQSPQ @FLOW([id number])@ Lab Results Component Value Date SUMM FINAL 09/15/2023 Summary Report (Summary) Date Value Ref Range Status 03/02/2022 FINAL Final Comment: == TOXASSURE COMP DRUG ANALYSIS,UR == Test Result Flag Units Drug Present Oxycodone 1289 ng/mg creat Oxymorphone 1307 ng/mg creat Noroxycodone 2091 ng/mg creat Noroxymorphone 336 ng/mg creat Sources of oxycodone are scheduled prescription medications. Oxymorphone, noroxycodone, and noroxymorphone are expected metabolites of oxycodone. Oxymorphone is also available as a scheduled prescription medication. Gabapentin PRESENT Sertraline PRESENT Desmethylsertraline PRESENT Desmethylsertraline is an expected metabolite of sertraline. Acetaminophen PRESENT Ibuprofen PRESENT == Test Result Flag Units Ref Range Creatinine 120 mg/dL >=20 == Declared Medications: Medication list was not provided. == For clinical consultation, please call . == Last Opioid agreement effective date: 05/27/2022 Please review and advise. Vilma Alvarez RN documented in this encounter [facility] 01-09-2024 Telephone encount er Note Patient phones requesting refills as follows: Requested Prescriptions Pending Prescriptions Disp Refills oxyCODONE-acetaminophen (PERCOCET) 7.5-325 mg tablet 90 tablet 0 Sig: Take 1 tablet by mouth three times a day as needed for pain for up to 30 days. Last UDS: 03/14/23 UDS Consistent GEORGE Summary Report Date Value Ref Range Status 09/15/2023 FINAL Final Comment: == Opiate Class, MS, Ur RFX Oxycodone Class, MS, Ur RFX Gabapentin, MS, Ur RFX Acetaminophen, MS, Ur RFX ToxAssure Flex 23, Ur == Test Result Flag Units Drug Present Oxycodone 2372 ng/mg creat Oxymorphone 568 ng/mg creat Noroxycodone 2953 ng/mg creat Noroxymorphone 145 ng/mg creat Sources of oxycodone are scheduled prescription medications. Oxymorphone, noroxycodone, and noroxymorphone are expected metabolites of oxycodone. Oxymorphone is also available as a scheduled prescription medication. Gabapentin PRESENT Acetaminophen PRESENT == Test Result Flag Units Ref Range Creatinine 47 mg/dL >=20 == Declared Medications: Medication list was not provided. == For clinical consultation, please call . == No results found for: UQNOTE , OPIATEPNMGT , DRUGSCRPAIN Urine Panel: No results found for: UQCANN , UQBNZL , [id number] , UQAMPH , UQMAMP , UQBUPRE , UQNORBUP , UQMTHD , UQEDDP , UQTRAM , UQDTRM , UQFNTL , UQNFTL , UQCODE , UQMORP , UQDCDN , UQHCOD , UQOXYC , UQHMOR , UQOXYM , UQCREA , UQPH , UQSPGR , UQOXID , UQSPQ @FLOW([id number])@ Lab Results Component Value Date SUMM FINAL 09/15/2023 Summary Report (Summary) Date Value Ref Range Status 03/02/2022 FINAL Final Comment: == TOXASSURE COMP DRUG ANALYSIS,UR == Test Result Flag Units Drug Present Oxycodone 1289 ng/mg creat Oxymorphone 1307 ng/mg creat Noroxycodone 2091 ng/mg creat Noroxymorphone 336 ng/mg creat Sources of oxycodone are scheduled prescription medications. Oxymorphone, noroxycodone, and noroxymorphone are expected metabolites of oxycodone. Oxymorphone is also available as a scheduled prescription medication. Gabapentin PRESENT Sertraline PRESENT Desmethylsertraline PRESENT Desmethylsertraline is an expected metabolite of sertraline. Acetaminophen PRESENT Ibuprofen PRESENT == Test Result Flag Units Ref Range Creatinine 120 mg/dL >=20 == Declared Medications: Medication list was not provided. == For clinical consultation, please call . == Last Opioid agreement effective date: 05/27/2022 Please review and advise. Vilma Alvarez RN [facility] 01-09-2024 Miscellaneous Notes Formattin g of this note is different from the original. Patient phones requesting refills as follows: Requested Prescriptions Pending Prescriptions Disp Refills oxyCODONE-acetaminophen (PERCOCET) 7.5-325 mg tablet 90 tablet 0 Sig: Take 1 tablet by mouth three times a day as needed for pain for up to 30 days. Last UDS: 03/14/23 UDS Consistent GEORGE Summary Report Date Value Ref Range Status 09/15/2023 FINAL Final Comment: == Opiate Class, MS, Ur RFX Oxycodone Class, MS, Ur RFX Gabapentin, MS, Ur RFX Acetaminophen, MS, Ur RFX ToxAssure Flex 23, Ur == Test Result Flag Units Drug Present Oxycodone 2372 ng/mg creat Oxymorphone 568 ng/mg creat Noroxycodone 2953 ng/mg creat Noroxymorphone 145 ng/mg creat Sources of oxycodone are scheduled prescription medications. Oxymorphone, noroxycodone, and noroxymorphone are expected metabolites of oxycodone. Oxymorphone is also available as a scheduled prescription medication. Gabapentin PRESENT Acetaminophen PRESENT == Test Result Flag Units Ref Range Creatinine 47 mg/dL >=20 == Declared Medications: Medication list was not provided. == For clinical consultation, please call . == No results found for: UQNOTE , OPIATEPNMGT , DRUGSCRPAIN Urine Panel: No results found for: UQCANN , UQBNZL , [id number] , UQAMPH , UQMAMP , UQBUPRE , UQNORBUP , UQMTHD , UQEDDP , UQTRAM , UQDTRM , UQFNTL , UQNFTL , UQCODE , UQMORP , UQDCDN , UQHCOD , UQOXYC , UQHMOR , UQOXYM , UQCREA , UQPH , UQSPGR , UQOXID , UQSPQ @FLOW([id number])@ Lab Results Component Value Date SUMM FINAL 09/15/2023 Summary Report (Summary) Date Value Ref Range Status 03/02/2022 FINAL Final Comment: == TOXASSURE COMP DRUG ANALYSIS,UR == Test Result Flag Units Drug Present Oxycodone 1289 ng/mg creat Oxymorphone 1307 ng/mg creat Noroxycodone 2091 ng/mg creat Noroxymorphone 336 ng/mg creat Sources of oxycodone are scheduled prescription medications. Oxymorphone, noroxycodone, and noroxymorphone are expected metabolites of oxycodone. Oxymorphone is also available as a scheduled prescription medication. Gabapentin PRESENT Sertraline PRESENT Desmethylsertraline PRESENT Desmethylsertraline is an expected metabolite of sertraline. Acetaminophen PRESENT Ibuprofen PRESENT == Test Result Flag Units Ref Range Creatinine 120 mg/dL >=20 == Declared Medications: Medication list was not provided. == For clinical consultation, please call . == Last Opioid agreement effective date: 05/27/2022 Please review and advise. Vilma Alvarez RN documented in this encounter [facility] 12-22-2023 Telephone encount er Note Patient phones requesting refills as follows: Requested Prescriptions Pending Prescriptions Disp Refills gabapentin (NEURONTIN) 600 mg tablet 90 tablet 0 Sig: Take 1 tablet by mouth three times a day for 90 days. Last UDS: 03/14/23 UDS Consistent GEORGE Summary Report Date Value Ref Range Status 09/15/2023 FINAL Final Comment: == Opiate Class, MS, Ur RFX Oxycodone Class, MS, Ur RFX Gabapentin, MS, Ur RFX Acetaminophen, MS, Ur RFX ToxAssure Flex 23, Ur == Test Result Flag Units Drug Present Oxycodone 2372 ng/mg creat Oxymorphone 568 ng/mg creat Noroxycodone 2953 ng/mg creat Noroxymorphone 145 ng/mg creat Sources of oxycodone are scheduled prescription medications. Oxymorphone, noroxycodone, and noroxymorphone are expected metabolites of oxycodone. Oxymorphone is also available as a scheduled prescription medication. Gabapentin PRESENT Acetaminophen PRESENT == Test Result Flag Units Ref Range Creatinine 47 mg/dL >=20 == Declared Medications: Medication list was not provided. == For clinical consultation, please call . == No results found for: UQNOTE , OPIATEPNMGT , DRUGSCRPAIN Urine Panel: No results found for: UQCANN , UQBNZL , VBP1FTR , UQAMPH , UQMAMP , UQBUPRE , UQNORBUP , UQMTHD , UQEDDP , UQTRAM , UQDTRM , UQFNTL , UQNFTL , UQCODE , UQMORP , UQDCDN , UQHCOD , UQOXYC , UQHMOR , UQOXYM , UQCREA , UQPH , UQSPGR , UQOXID , UQSPQ @FLOW([id number])@ Lab Results Component Value Date SUMM FINAL 09/15/2023 Summary Report (Summary) Date Value Ref Range Status 03/02/2022 FINAL Final Comment: == TOXASSURE COMP DRUG ANALYSIS,UR == Test Result Flag Units Drug Present Oxycodone 1289 ng/mg creat Oxymorphone 1307 ng/mg creat Noroxycodone 2091 ng/mg creat Noroxymorphone 336 ng/mg creat Sources of oxycodone are scheduled prescription medications. Oxymorphone, noroxycodone, and noroxymorphone are expected metabolites of oxycodone. Oxymorphone is also available as a scheduled prescription medication. Gabapentin PRESENT Sertraline PRESENT Desmethylsertraline PRESENT Desmethylsertraline is an expected metabolite of sertraline. Acetaminophen PRESENT Ibuprofen PRESENT == Test Result Flag Units Ref Range Creatinine 120 mg/dL >=20 == Declared Medications: Medication list was not provided. == For clinical consultation, please call . == Last Opioid agreement effective date: 05/27/2022 Please review and advise. Vilma Alvarez RN [facility] 12-22-2023 Miscellaneous Notes Formattin g of this note is different from the original. Patient phones requesting refills as follows: Requested Prescriptions Pending Prescriptions Disp Refills gabapentin (NEURONTIN) 600 mg tablet 90 tablet 0 Sig: Take 1 tablet by mouth three times a day for 90 days. Last UDS: 03/14/23 UDS Consistent GEORGE Summary Report Date Value Ref Range Status 09/15/2023 FINAL Final Comment: == Opiate Class, MS, Ur RFX Oxycodone Class, MS, Ur RFX Gabapentin, MS, Ur RFX Acetaminophen, MS, Ur RFX ToxAssure Flex 23, Ur == Test Result Flag Units Drug Present Oxycodone 2372 ng/mg creat Oxymorphone 568 ng/mg creat Noroxycodone 2953 ng/mg creat Noroxymorphone 145 ng/mg creat Sources of oxycodone are scheduled prescription medications. Oxymorphone, noroxycodone, and noroxymorphone are expected metabolites of oxycodone. Oxymorphone is also available as a scheduled prescription medication. Gabapentin PRESENT Acetaminophen PRESENT == Test Result Flag Units Ref Range Creatinine 47 mg/dL >=20 == Declared Medications: Medication list was not provided. == For clinical consultation, please call . == No results found for: UQNOTE , OPIATEPNMGT , DRUGSCRPAIN Urine Panel: No results found for: UQCANN , UQBNZL , RSS0RHV , UQAMPH , UQMAMP , UQBUPRE , UQNORBUP , UQMTHD , UQEDDP , UQTRAM , UQDTRM , UQFNTL , UQNFTL , UQCODE , UQMORP , UQDCDN , UQHCOD , UQOXYC , UQHMOR , UQOXYM , UQCREA , UQPH , UQSPGR , UQOXID , UQSPQ @FLOW([id number])@ Lab Results Component Value Date SUMM FINAL 09/15/2023 Summary Report (Summary) Date Value Ref Range Status 03/02/2022 FINAL Final Comment: == TOXASSURE COMP DRUG ANALYSIS,UR == Test Result Flag Units Drug Present Oxycodone 1289 ng/mg creat Oxymorphone 1307 ng/mg creat Noroxycodone 2091 ng/mg creat Noroxymorphone 336 ng/mg creat Sources of oxycodone are scheduled prescription medications. Oxymorphone, noroxycodone, and noroxymorphone are expected metabolites of oxycodone. Oxymorphone is also available as a scheduled prescription medication. Gabapentin PRESENT Sertraline PRESENT Desmethylsertraline PRESENT Desmethylsertraline is an expected metabolite of sertraline. Acetaminophen PRESENT Ibuprofen PRESENT == Test Result Flag Units Ref Range Creatinine 120 mg/dL >=20 == Declared Medications: Medication list was not provided. == For clinical consultation, please call . == Last Opioid agreement effective date: 05/27/2022 Please review and advise. Vilma Alvarez RN documented in this encounter [facility] 12-14-2023 History of Presen t illness Narrative Tree was used to dictate this note and therefore there may be some typographical errors. I attest to the fact that I spent a total of 16 min with the patient to include: Face to face time and non face to face time such as: Reviewing test's, reviewing medical records, reviewing imaging studies, ordering tests, etc. The patient was last seen on 09/15/2023. Treatment plan at that time included the following: Urine drug screen updated. Patient was doing fairly well on Percocet. No side effects. He wanted to hold off on the EMG nerve conduction study for presumed carpal tunnel syndrome. We spoke about using cock-up splints. He voiced understanding. I again spoke with him about the possibility of total knee arthroplasty and weaning off of medications prior to surgery in order to up regulate or reset his opioid receptors. He voiced understanding. He asked for refill his Motrin which she had been on for 10 years. He indicated to me that no one checks his blood work during that time. Explained to him this something he would have to address with his primary care physician he voiced understanding. The chronic Percocet have been prescribed by Dr. Silva and her staff. He returns today for follow-up visit. PE: Alert and oriented no acute distress. Mood and affect within normal limits. Vital signs as indicated. No difficulty rising from a chair and or descending into a chair. Gait within normal limits. Dx: Right knee osteoarthritis, right knee pain, severe degenerative changes right knee with [id number] phenomena, status post left total knee arthroplasty, gait disturbance, cervical DDD, cervical DJD, cervical's arthropathy, cervical set syndrome, cervical spondylosis, cervical radiculitis, cervical pain, history of right-sided hemiparesis, hypertension, hyperlipidemia, diabetes with diabetic neuropathy, history of rotator cuff syndrome, chronic pain syndrome, chronic opioid usage. Patient is on the above analgesic regimen. Patient denies any systemic side effects. Patient believes the pain meds have helped (as indicated by VAS). Patient has signed Medication Management Agreement and Informed Consent Form ( contract ). I have also utilized the Intractable Pain and Drug Prescription Checklist as promulgated by [facility]. Furthermore, I have adhered to the [facility] Administrative Code 4731-11. The medication clearly improves this patient's functionality and quality of life as evidence by improved social, recreational activities. There is no evidence of any: drug abuse, drug addiction nor drug diversion. The patient has never called in early for a refill, is not particularly focused on pain medication, has never shown up in our office unexpectedly without appointment, nor called in stating a lost prescription. The patient has been instructed not to drive if any FIELD C[employer] ADVOCATE side effects to pain medication. The patient has been informed that the analgesics are potentially addicting and need to be taken strictly as prescribed. I have checked an OARRS on this patient which came back as expected. The patient has received an opioid education handout and filled out an opioid screener (SOAPP). I have had the patient submit a random urine drug screen & the patient does have biological markers which would corroborate and substantiate chronic pain (see prior imaging studies). Additionally I did discuss Narcan with the patient and informed the patient that Narcan is now available at their pharmacy if they so request. Plan: As above, the patient was last seen on 09/15/2023. Treatment plan at that time included the following: Urine drug screen updated. Patient was doing fairly well on Percocet. No side effects. He wanted to hold off on the EMG nerve conduction study for presumed carpal tunnel syndrome. We spoke about using cock-up splints. He voiced understanding. I again spoke with him about the possibility of total knee arthroplasty and weaning off of medications prior to surgery in order to up regulate or reset his opioid receptors. He voiced understanding. He asked for refill his Motrin which she had been on for 10 years. He indicated to me that no one checks his blood work during that time. Explained to him this something he would have to address with his primary care physician he voiced understanding. The chronic Percocet have been prescribed by Dr. Silva and her staff. I again spoke with the patient about his upcoming knee surgery. He is waiting for dental and medical clearance. When he obtains this, he will likely then proceed with knee surgery. We spoke about weaning off of his Percocet prior to surgery in order to up regulate or reset his opioid receptors. He did voiced understanding. In fact mention that his surgeon told him something about this as well. He decided not to get cock-up splints. He is not been on any NSAID although he did discuss Motrin use with his primary care physician and had baseline CMP done. Follow-up in 3 months. documented in this encounter [facility] 12-14-2023 Note HNO ID: [id number] Author: SALBADOR GORE MD Service: ? Author Type: Anesthesiologist Type: Progress Notes Filed: 12/14/2023 09:36 Note Text: Tree was used to dictate this note and therefore there may be some typographical errors. I attest to the fact that I spent a total of 16 min with the patient to include: Face to face time and non face to face time such as: Reviewing test's, reviewing medical records, reviewing imaging studies, ordering tests, etc. The patient was last seen on 09/15/2023. Treatment plan at that time included the following: Urine drug screen updated. Patient was doing fairly well on Percocet. No side effects. He wanted to hold off on the EMG nerve conduction study for presumed carpal tunnel syndrome. We spoke about using cock-up splints. He voiced understanding. I again spoke with him about the possibility of total knee arthroplasty and weaning off of medications prior to surgery in order to up regulate or reset his opioid receptors. He voiced understanding. He asked for refill his Motrin which she had been on for 10 years. He indicated to me that no one checks his blood work during that time. Explained to him this something he would have to address with his primary care physician he voiced understanding. The chronic Percocet have been prescribed by Dr. Silva and her staff. He returns today for follow-up visit. PE: Alert and oriented no acute distress. Mood and affect within normal limits. Vital signs as indicated. No difficulty rising from a chair and or descending into a chair. Gait within normal limits. Dx: Right knee osteoarthritis, right knee pain, severe degenerative changes right knee with [id number] phenomena, status post left total knee arthroplasty, gait disturbance, cervical DDD, cervical DJD, cervical's arthropathy, cervical set syndrome, cervical spondylosis, cervical radiculitis, cervical pain, history of right-sided hemiparesis, hypertension, hyperlipidemia, diabetes with diabetic neuropathy, history of rotator cuff syndrome, chronic pain syndrome, chronic opioid usage. Patient is on the above analgesic regimen. Patient denies any systemic side effects. Patient believes the pain meds have helped (as indicated by VAS). Patient has signed Medication Management Agreement and Informed Consent Form ( contract ). I have also utilized the Intractable Pain and Drug Prescription Checklist as promulgated by [facility]. Furthermore, I have adhered to the [facility] Administrative Code 4731-11. The medication clearly improves this patient's functionality and quality of life as evidence by improved social, recreational activities. There is no evidence of any: drug abuse, drug addiction nor drug diversion. The patient has never called in early for a refill, is not particularly focused on pain medication, has never shown up in our office unexpectedly without appointment, nor called instating a lost prescription. The patient has been instructed not to drive if any FIELD [employer] ADVOCATE side effects to pain medication. The patient has been informed that the analgesics are potentially addicting and need to be taken strictly as prescribed. I have checked an OARRS on this patient which came back as expected. The patient has received an opioid education handout and filled out an opioid screener (SOAPP). I have had the patient submit a random urine drug screen AND the patient does have biological markers which would corroborate and substantiate chronic pain (see prior imaging studies). Additionally I did discuss Narcan with the patient and informed the patient that Narcan is now available at their pharmacy if they so request. Plan: As above, the patient was last seen on 09/15/2023. Treatment plan at that time included the following: Urine drug screen updated. Patient was doing fairly well on Percocet. No side effects. He wanted to hold off on the EMG nerve conduction study for presumed carpal tunnel syndrome. We spoke about using cock-up splints. He voiced understanding. I again spoke with him about the possibility of total knee arthroplasty and weaning off of medications prior to surgery in order to up regulate or reset his opioid receptors. He voiced understanding. He asked for refill his Motrin which she had been on for 10 years. He indicated to me that no one checks his blood work during that time. Explained to him this something he would have to address with his primary care physician he voiced understanding. The chronic Percocet have been prescribed by Dr. Silva and her staff. I again spoke with the patient about his upcoming knee surgery. He is waiting for dental and medical clearance. When he obtains this, he will likely then proceed with knee surgery. We spoke about weaning off of his Percocet prior to surgery in order to up regulate or reset his opioid receptors. He did voiced understanding. In fact mention th (more content not included)... [facility] 12-08-2023 Telephone encount er Note Patient phones requesting refills as follows: Requested Prescriptions Pending Prescriptions Disp Refills oxyCODONE-acetaminophen (PERCOCET) 7.5-325 mg tablet 90 tablet 0 Sig: Take 1 tablet by mouth three times a day as needed for pain for up to 30 days. Last UDS: 03/14/23 UDS Consistent GEORGE Summary Report Date Value Ref Range Status 09/15/2023 FINAL Final Comment: == Opiate Class, MS, Ur RFX Oxycodone Class, MS, Ur RFX Gabapentin, MS, Ur RFX Acetaminophen, MS, Ur RFX ToxAssure Flex 23, Ur == Test Result Flag Units Drug Present Oxycodone 2372 ng/mg creat Oxymorphone 568 ng/mg creat Noroxycodone 2953 ng/mg creat Noroxymorphone 145 ng/mg creat Sources of oxycodone are scheduled prescription medications. Oxymorphone, noroxycodone, and noroxymorphone are expected metabolites of oxycodone. Oxymorphone is also available as a scheduled prescription medication. Gabapentin PRESENT Acetaminophen PRESENT == Test Result Flag Units Ref Range Creatinine 47 mg/dL >=20 == Declared Medications: Medication list was not provided. == For clinical consultation, please call . == No results found for: UQNOTE , OPIATEPNMGT , DRUGSCRPAIN Urine Panel: No results found for: UQCANN , UQBNZL , [id number] , UQAMPH , UQMAMP , UQBUPRE , UQNORBUP , UQMTHD , UQEDDP , UQTRAM , UQDTRM , UQFNTL , UQNFTL , UQCODE , UQMORP , UQDCDN , UQHCOD , UQOXYC , UQHMOR , UQOXYM , UQCREA , UQPH , UQSPGR , UQOXID , UQSPQ @FLOW([id number])@ Lab Results Component Value Date SUMM FINAL 09/15/2023 Summary Report (Summary) Date Value Ref Range Status 03/02/2022 FINAL Final Comment: == TOXASSURE COMP DRUG ANALYSIS,UR == Test Result Flag Units Drug Present Oxycodone 1289 ng/mg creat Oxymorphone 1307 ng/mg creat Noroxycodone 2091 ng/mg creat Noroxymorphone 336 ng/mg creat Sources of oxycodone are scheduled prescription medications. Oxymorphone, noroxycodone, and noroxymorphone are expected metabolites of oxycodone. Oxymorphone is also available as a scheduled prescription medication. Gabapentin PRESENT Sertraline PRESENT Desmethylsertraline PRESENT Desmethylsertraline is an expected metabolite of sertraline. Acetaminophen PRESENT Ibuprofen PRESENT == Test Result Flag Units Ref Range Creatinine 120 mg/dL >=20 == Declared Medications: Medication list was not provided. == For clinical consultation, please call . == Last Opioid agreement effective date: 05/27/2022 Please review and advise. Alecia Maki RN [facility] 12-08-2023 Miscellaneous Notes Formattin g of this note is different from the original. Patient phones requesting refills as follows: Requested Prescriptions Pending Prescriptions Disp Refills oxyCODONE-acetaminophen (PERCOCET) 7.5-325 mg tablet 90 tablet 0 Sig: Take 1 tablet by mouth three times a day as needed for pain for up to 30 days. Last UDS: 03/14/23 UDS Consistent GEORGE Summary Report Date Value Ref Range Status 09/15/2023 FINAL Final Comment: == Opiate Class, MS, Ur RFX Oxycodone Class, MS, Ur RFX Gabapentin, MS, Ur RFX Acetaminophen, MS, Ur RFX ToxAssure Flex 23, Ur == Test Result Flag Units Drug Present Oxycodone 2372 ng/mg creat Oxymorphone 568 ng/mg creat Noroxycodone 2953 ng/mg creat Noroxymorphone 145 ng/mg creat Sources of oxycodone are scheduled prescription medications. Oxymorphone, noroxycodone, and noroxymorphone are expected metabolites of oxycodone. Oxymorphone is also available as a scheduled prescription medication. Gabapentin PRESENT Acetaminophen PRESENT == Test Result Flag Units Ref Range Creatinine 47 mg/dL >=20 == Declared Medications: Medication list was not provided. == For clinical consultation, please call . == No results found for: UQNOTE , OPIATEPNMGT , DRUGSCRPAIN Urine Panel: No results found for: UQCANN , UQBNZL , SAH0XPS , UQAMPH , UQMAMP , UQBUPRE , UQNORBUP , UQMTHD , UQEDDP , UQTRAM , UQDTRM , UQFNTL , UQNFTL , UQCODE , UQMORP , UQDCDN , UQHCOD , UQOXYC , UQHMOR , UQOXYM , UQCREA , UQPH , UQSPGR , UQOXID , UQSPQ @FLOW([id number])@ Lab Results Component Value Date SUMM FINAL 09/15/2023 Summary Report (Summary) Date Value Ref Range Status 03/02/2022 FINAL Final Comment: == TOXASSURE COMP DRUG ANALYSIS,UR == Test Result Flag Units Drug Present Oxycodone 1289 ng/mg creat Oxymorphone 1307 ng/mg creat Noroxycodone 2091 ng/mg creat Noroxymorphone 336 ng/mg creat Sources of oxycodone are scheduled prescription medications. Oxymorphone, noroxycodone, and noroxymorphone are expected metabolites of oxycodone. Oxymorphone is also available as a scheduled prescription medication. Gabapentin PRESENT Sertraline PRESENT Desmethylsertraline PRESENT Desmethylsertraline is an expected metabolite of sertraline. Acetaminophen PRESENT Ibuprofen PRESENT == Test Result Flag Units Ref Range Creatinine 120 mg/dL >=20 == Declared Medications: Medication list was not provided. == For clinical consultation, please call . == Last Opioid agreement effective date: 05/27/2022 Please review and advise. Alecia Maki RN documented in this encounter [facility] 11-22-2023 Telephone encount er Note Patient phones requesting refills as follows: Requested Prescriptions Pending Prescriptions Disp Refills gabapentin (NEURONTIN) 600 mg tablet 90 tablet 0 Sig: Take 1 tablet by mouth three times a day for 90 days. Last UDS: 03/14/23 UDS Consistent GEORGE Summary Report Date Value Ref Range Status 09/15/2023 FINAL Final Comment: == Opiate Class, MS, Ur RFX Oxycodone Class, MS, Ur RFX Gabapentin, MS, Ur RFX Acetaminophen, MS, Ur RFX ToxAssure Flex 23, Ur == Test Result Flag Units Drug Present Oxycodone 2372 ng/mg creat Oxymorphone 568 ng/mg creat Noroxycodone 2953 ng/mg creat Noroxymorphone 145 ng/mg creat Sources of oxycodone are scheduled prescription medications. Oxymorphone, noroxycodone, and noroxymorphone are expected metabolites of oxycodone. Oxymorphone is also available as a scheduled prescription medication. Gabapentin PRESENT Acetaminophen PRESENT == Test Result Flag Units Ref Range Creatinine 47 mg/dL >=20 == Declared Medications: Medication list was not provided. == For clinical consultation, please call . == No results found for: UQNOTE , OPIATEPNMGT , DRUGSCRPAIN Urine Panel: No results found for: UQCANN , UQBNZL , GAB1WLL , UQAMPH , UQMAMP , UQBUPRE , UQNORBUP , UQMTHD , UQEDDP , UQTRAM , UQDTRM , UQFNTL , UQNFTL , UQCODE , UQMORP , UQDCDN , UQHCOD , UQOXYC , UQHMOR , UQOXYM , UQCREA , UQPH , UQSPGR , UQOXID , UQSPQ @FLOW([id number])@ Lab Results Component Value Date SUMM FINAL 09/15/2023 Summary Report (Summary) Date Value Ref Range Status 03/02/2022 FINAL Final Comment: == TOXASSURE COMP DRUG ANALYSIS,UR == Test Result Flag Units Drug Present Oxycodone 1289 ng/mg creat Oxymorphone 1307 ng/mg creat Noroxycodone 2091 ng/mg creat Noroxymorphone 336 ng/mg creat Sources of oxycodone are scheduled prescription medications. Oxymorphone, noroxycodone, and noroxymorphone are expected metabolites of oxycodone. Oxymorphone is also available as a scheduled prescription medication. Gabapentin PRESENT Sertraline PRESENT Desmethylsertraline PRESENT Desmethylsertraline is an expected metabolite of sertraline. Acetaminophen PRESENT Ibuprofen PRESENT == Test Result Flag Units Ref Range Creatinine 120 mg/dL >=20 == Declared Medications: Medication list was not provided. == For clinical consultation, please call . == Last Opioid agreement effective date: 05/27/2022 Please review and advise. Vilma Alvarez RN [facility] 11-22-2023 Miscellaneous Notes Formattin g of this note is different from the original. Patient phones requesting refills as follows: Requested Prescriptions Pending Prescriptions Disp Refills gabapentin (NEURONTIN) 600 mg tablet 90 tablet 0 Sig: Take 1 tablet by mouth three times a day for 90 days. Last UDS: 03/14/23 UDS Consistent GEORGE Summary Report Date Value Ref Range Status 09/15/2023 FINAL Final Comment: == Opiate Class, MS, Ur RFX Oxycodone Class, MS, Ur RFX Gabapentin, MS, Ur RFX Acetaminophen, MS, Ur RFX ToxAssure Flex 23, Ur == Test Result Flag Units Drug Present Oxycodone 2372 ng/mg creat Oxymorphone 568 ng/mg creat Noroxycodone 2953 ng/mg creat Noroxymorphone 145 ng/mg creat Sources of oxycodone are scheduled prescription medications. Oxymorphone, noroxycodone, and noroxymorphone are expected metabolites of oxycodone. Oxymorphone is also available as a scheduled prescription medication. Gabapentin PRESENT Acetaminophen PRESENT == Test Result Flag Units Ref Range Creatinine 47 mg/dL >=20 == Declared Medications: Medication list was not provided. == For clinical consultation, please call . == No results found for: UQNOTE , OPIATEPNMGT , DRUGSCRPAIN Urine Panel: No results found for: UQCANN , UQBNZL , PCE3UEV , UQAMPH , UQMAMP , UQBUPRE , UQNORBUP , UQMTHD , UQEDDP , UQTRAM , UQDTRM , UQFNTL , UQNFTL , UQCODE , UQMORP , UQDCDN , UQHCOD , UQOXYC , UQHMOR , UQOXYM , UQCREA , UQPH , UQSPGR , UQOXID , UQSPQ @FLOW([id number])@ Lab Results Component Value Date SUMM FINAL 09/15/2023 Summary Report (Summary) Date Value Ref Range Status 03/02/2022 FINAL Final Comment: == TOXASSURE COMP DRUG ANALYSIS,UR == Test Result Flag Units Drug Present Oxycodone 1289 ng/mg creat Oxymorphone 1307 ng/mg creat Noroxycodone 2091 ng/mg creat Noroxymorphone 336 ng/mg creat Sources of oxycodone are scheduled prescription medications. Oxymorphone, noroxycodone, and noroxymorphone are expected metabolites of oxycodone. Oxymorphone is also available as a scheduled prescription medication. Gabapentin PRESENT Sertraline PRESENT Desmethylsertraline PRESENT Desmethylsertraline is an expected metabolite of sertraline. Acetaminophen PRESENT Ibuprofen PRESENT == Test Result Flag Units Ref Range Creatinine 120 mg/dL >=20 == Declared Medications: Medication list was not provided. == For clinical consultation, please call . == Last Opioid agreement effective date: 05/27/2022 Please review and advise. Vilma Alvarez RN documented in this encounter [facility] 11-09-2023 Telephone encount er Note Patient phones requesting refills as follows: Requested Prescriptions Pending Prescriptions Disp Refills oxyCODONE-acetaminophen (PERCOCET) 7.5-325 mg tablet 90 tablet 0 Sig: Take 1 tablet by mouth three times a day as needed for pain for up to 30 days. Last UDS: 03/14/23 UDS Consistent GEORGE Summary Report Date Value Ref Range Status 09/15/2023 FINAL Final Comment: == Opiate Class, MS, Ur RFX Oxycodone Class, MS, Ur RFX Gabapentin, MS, Ur RFX Acetaminophen, MS, Ur RFX ToxAssure Flex 23, Ur == Test Result Flag Units Drug Present Oxycodone 2372 ng/mg creat Oxymorphone 568 ng/mg creat Noroxycodone 2953 ng/mg creat Noroxymorphone 145 ng/mg creat Sources of oxycodone are scheduled prescription medications. Oxymorphone, noroxycodone, and noroxymorphone are expected metabolites of oxycodone. Oxymorphone is also available as a scheduled prescription medication. Gabapentin PRESENT Acetaminophen PRESENT == Test Result Flag Units Ref Range Creatinine 47 mg/dL >=20 == Declared Medications: Medication list was not provided. == For clinical consultation, please call . == No results found for: UQNOTE , OPIATEPNMGT , DRUGSCRPAIN Urine Panel: No results found for: UQCANN , UQBNZL , [id number] , UQAMPH , UQMAMP , UQBUPRE , UQNORBUP , UQMTHD , UQEDDP , UQTRAM , UQDTRM , UQFNTL , UQNFTL , UQCODE , UQMORP , UQDCDN , UQHCOD , UQOXYC , UQHMOR , UQOXYM , UQCREA , UQPH , UQSPGR , UQOXID , UQSPQ @FLOW([id number])@ Lab Results Component Value Date SUMM FINAL 09/15/2023 Summary Report (Summary) Date Value Ref Range Status 03/02/2022 FINAL Final Comment: == TOXASSURE COMP DRUG ANALYSIS,UR == Test Result Flag Units Drug Present Oxycodone 1289 ng/mg creat Oxymorphone 1307 ng/mg creat Noroxycodone 2091 ng/mg creat Noroxymorphone 336 ng/mg creat Sources of oxycodone are scheduled prescription medications. Oxymorphone, noroxycodone, and noroxymorphone are expected metabolites of oxycodone. Oxymorphone is also available as a scheduled prescription medication. Gabapentin PRESENT Sertraline PRESENT Desmethylsertraline PRESENT Desmethylsertraline is an expected metabolite of sertraline. Acetaminophen PRESENT Ibuprofen PRESENT == Test Result Flag Units Ref Range Creatinine 120 mg/dL >=20 == Declared Medications: Medication list was not provided. == For clinical consultation, please call . == Last Opioid agreement effective date: 05/27/2022 Please review and advise. Emily Weber RN T [facility] 11-09-2023 Miscellaneous Notes Formattin g of this note is different from the original. Patient phones requesting refills as follows: Requested Prescriptions Pending Prescriptions Disp Refills oxyCODONE-acetaminophen (PERCOCET) 7.5-325 mg tablet 90 tablet 0 Sig: Take 1 tablet by mouth three times a day as needed for pain for up to 30 days. Last UDS: 03/14/23 UDS Consistent GEORGE Summary Report Date Value Ref Range Status 09/15/2023 FINAL Final Comment: == Opiate Class, MS, Ur RFX Oxycodone Class, MS, Ur RFX Gabapentin, MS, Ur RFX Acetaminophen, MS, Ur RFX ToxAssure Flex 23, Ur == Test Result Flag Units Drug Present Oxycodone 2372 ng/mg creat Oxymorphone 568 ng/mg creat Noroxycodone 2953 ng/mg creat Noroxymorphone 145 ng/mg creat Sources of oxycodone are scheduled prescription medications. Oxymorphone, noroxycodone, and noroxymorphone are expected metabolites of oxycodone. Oxymorphone is also available as a scheduled prescription medication. Gabapentin PRESENT Acetaminophen PRESENT == Test Result Flag Units Ref Range Creatinine 47 mg/dL >=20 == Declared Medications: Medication list was not provided. == For clinical consultation, please call . == No results found for: UQNOTE , OPIATEPNMGT , DRUGSCRPAIN Urine Panel: No results found for: UQCANN , UQBNZL , [id number] , UQAMPH , UQMAMP , UQBUPRE , UQNORBUP , UQMTHD , UQEDDP , UQTRAM , UQDTRM , UQFNTL , UQNFTL , UQCODE , UQMORP , UQDCDN , UQHCOD , UQOXYC , UQHMOR , UQOXYM , UQCREA , UQPH , UQSPGR , UQOXID , UQSPQ @FLOW([id number])@ Lab Results Component Value Date SUMM FINAL 09/15/2023 Summary Report (Summary) Date Value Ref Range Status 03/02/2022 FINAL Final Comment: == TOXASSURE COMP DRUG ANALYSIS,UR == Test Result Flag Units Drug Present Oxycodone 1289 ng/mg creat Oxymorphone 1307 ng/mg creat Noroxycodone 2091 ng/mg creat Noroxymorphone 336 ng/mg creat Sources of oxycodone are scheduled prescription medications. Oxymorphone, noroxycodone, and noroxymorphone are expected metabolites of oxycodone. Oxymorphone is also available as a scheduled prescription medication. Gabapentin PRESENT Sertraline PRESENT Desmethylsertraline PRESENT Desmethylsertraline is an expected metabolite of sertraline. Acetaminophen PRESENT Ibuprofen PRESENT == Test Result Flag Units Ref Range Creatinine 120 mg/dL >=20 == Declared Medications: Medication list was not provided. == For clinical consultation, please call . == Last Opioid agreement effective date: 05/27/2022 Please review and advise. Emily Weber RN documented in this encounter [facility] 10-25-2023 Telephone encount er Note Patient phones requesting refills as follows: Requested Prescriptions Pending Prescriptions Disp Refills gabapentin (NEURONTIN) 600 mg tablet 90 tablet 0 Sig: Take 1 tablet by mouth three times a day for 90 days. Last UDS: 03/14/23 UDS Consistent GEORGE Summary Report Date Value Ref Range Status 09/15/2023 FINAL Final Comment: == Opiate Class, MS, Ur RFX Oxycodone Class, MS, Ur RFX Gabapentin, MS, Ur RFX Acetaminophen, MS, Ur RFX ToxAssure Flex 23, Ur == Test Result Flag Units Drug Present Oxycodone 2372 ng/mg creat Oxymorphone 568 ng/mg creat Noroxycodone 2953 ng/mg creat Noroxymorphone 145 ng/mg creat Sources of oxycodone are scheduled prescription medications. Oxymorphone, noroxycodone, and noroxymorphone are expected metabolites of oxycodone. Oxymorphone is also available as a scheduled prescription medication. Gabapentin PRESENT Acetaminophen PRESENT == Test Result Flag Units Ref Range Creatinine 47 mg/dL >=20 == Declared Medications: Medication list was not provided. == For clinical consultation, please call . == No results found for: UQNOTE , OPIATEPNMGT , DRUGSCRPAIN Urine Panel: No results found for: UQCANN , UQBNZL , [id number] , UQAMPH , UQMAMP , UQBUPRE , UQNORBUP , UQMTHD , UQEDDP , UQTRAM , UQDTRM , UQFNTL , UQNFTL , UQCODE , UQMORP , UQDCDN , UQHCOD , UQOXYC , UQHMOR , UQOXYM , UQCREA , UQPH , UQSPGR , UQOXID , UQSPQ @FLOW([id number])@ Lab Results Component Value Date SUMM FINAL 09/15/2023 Summary Report (Summary) Date Value Ref Range Status 03/02/2022 FINAL Final Comment: == TOXASSURE COMP DRUG ANALYSIS,UR == Test Result Flag Units Drug Present Oxycodone 1289 ng/mg creat Oxymorphone 1307 ng/mg creat Noroxycodone 2091 ng/mg creat Noroxymorphone 336 ng/mg creat Sources of oxycodone are scheduled prescription medications. Oxymorphone, noroxycodone, and noroxymorphone are expected metabolites of oxycodone. Oxymorphone is also available as a scheduled prescription medication. Gabapentin PRESENT Sertraline PRESENT Desmethylsertraline PRESENT Desmethylsertraline is an expected metabolite of sertraline. Acetaminophen PRESENT Ibuprofen PRESENT == Test Result Flag Units Ref Range Creatinine 120 mg/dL >=20 == Declared Medications: Medication list was not provided. == For clinical consultation, please call . == Last Opioid agreement effective date: 05/27/2022 Please review and advise. Vilma Alvarez RN [facility] 10-25-2023 Miscellaneous Notes Formattin g of this note is different from the original. Patient phones requesting refills as follows: Requested Prescriptions Pending Prescriptions Disp Refills gabapentin (NEURONTIN) 600 mg tablet 90 tablet 0 Sig: Take 1 tablet by mouth three times a day for 90 days. Last UDS: 03/14/23 UDS Consistent GEORGE Summary Report Date Value Ref Range Status 09/15/2023 FINAL Final Comment: == Opiate Class, MS, Ur RFX Oxycodone Class, MS, Ur RFX Gabapentin, MS, Ur RFX Acetaminophen, MS, Ur RFX ToxAssure Flex 23, Ur == Test Result Flag Units Drug Present Oxycodone 2372 ng/mg creat Oxymorphone 568 ng/mg creat Noroxycodone 2953 ng/mg creat Noroxymorphone 145 ng/mg creat Sources of oxycodone are scheduled prescription medications. Oxymorphone, noroxycodone, and noroxymorphone are expected metabolites of oxycodone. Oxymorphone is also available as a scheduled prescription medication. Gabapentin PRESENT Acetaminophen PRESENT == Test Result Flag Units Ref Range Creatinine 47 mg/dL >=20 == Declared Medications: Medication list was not provided. == For clinical consultation, please call . == No results found for: UQNOTE , OPIATEPNMGT , DRUGSCRPAIN Urine Panel: No results found for: UQCANN , UQBNZL , [id number] , UQAMPH , UQMAMP , UQBUPRE , UQNORBUP , UQMTHD , UQEDDP , UQTRAM , UQDTRM , UQFNTL , UQNFTL , UQCODE , UQMORP , UQDCDN , UQHCOD , UQOXYC , UQHMOR , UQOXYM , UQCREA , UQPH , UQSPGR , UQOXID , UQSPQ @FLOW([id number])@ Lab Results Component Value Date SUMM FINAL 09/15/2023 Summary Report (Summary) Date Value Ref Range Status 03/02/2022 FINAL Final Comment: == TOXASSURE COMP DRUG ANALYSIS,UR == Test Result Flag Units Drug Present Oxycodone 1289 ng/mg creat Oxymorphone 1307 ng/mg creat Noroxycodone 2091 ng/mg creat Noroxymorphone 336 ng/mg creat Sources of oxycodone are scheduled prescription medications. Oxymorphone, noroxycodone, and noroxymorphone are expected metabolites of oxycodone. Oxymorphone is also available as a scheduled prescription medication. Gabapentin PRESENT Sertraline PRESENT Desmethylsertraline PRESENT Desmethylsertraline is an expected metabolite of sertraline. Acetaminophen PRESENT Ibuprofen PRESENT == Test Result Flag Units Ref Range Creatinine 120 mg/dL >=20 == Declared Medications: Medication list was not provided. == For clinical consultation, please call . == Last Opioid agreement effective date: 05/27/2022 Please review and advise. Vilma Alvarez RN documented in this encounter [facility] 10-10-2023 Telephone encount er Note Patient phones requesting refills as follows: Requested Prescriptions Pending Prescriptions Disp Refills oxyCODONE-acetaminophen (PERCOCET) 7.5-325 mg tablet 90 tablet 0 Sig: Take 1 tablet by mouth three times a day as needed for pain for up to 30 days. Last UDS: 03/14/23 UDS Consistent GEORGE Summary Report Date Value Ref Range Status 09/15/2023 FINAL Final Comment: == Opiate Class, MS, Ur RFX Oxycodone Class, MS, Ur RFX Gabapentin, MS, Ur RFX Acetaminophen, MS, Ur RFX ToxAssure Flex 23, Ur == Test Result Flag Units Drug Present Oxycodone 2372 ng/mg creat Oxymorphone 568 ng/mg creat Noroxycodone 2953 ng/mg creat Noroxymorphone 145 ng/mg creat Sources of oxycodone are scheduled prescription medications. Oxymorphone, noroxycodone, and noroxymorphone are expected metabolites of oxycodone. Oxymorphone is also available as a scheduled prescription medication. Gabapentin PRESENT Acetaminophen PRESENT == Test Result Flag Units Ref Range Creatinine 47 mg/dL >=20 == Declared Medications: Medication list was not provided. == For clinical consultation, please call . == No results found for: UQNOTE , OPIATEPNMGT , DRUGSCRPAIN Urine Panel: No results found for: UQCANN , UQBNZL , [id number] , UQAMPH , UQMAMP , UQBUPRE , UQNORBUP , UQMTHD , UQEDDP , UQTRAM , UQDTRM , UQFNTL , UQNFTL , UQCODE , UQMORP , UQDCDN , UQHCOD , UQOXYC , UQHMOR , UQOXYM , UQCREA , UQPH , UQSPGR , UQOXID , UQSPQ @FLOW([id number])@ Lab Results Component Value Date SUMM FINAL 09/15/2023 Summary Report (Summary) Date Value Ref Range Status 03/02/2022 FINAL Final Comment: == TOXASSURE COMP DRUG ANALYSIS,UR == Test Result Flag Units Drug Present Oxycodone 1289 ng/mg creat Oxymorphone 1307 ng/mg creat Noroxycodone 2091 ng/mg creat Noroxymorphone 336 ng/mg creat Sources of oxycodone are scheduled prescription medications. Oxymorphone, noroxycodone, and noroxymorphone are expected metabolites of oxycodone. Oxymorphone is also available as a scheduled prescription medication. Gabapentin PRESENT Sertraline PRESENT Desmethylsertraline PRESENT Desmethylsertraline is an expected metabolite of sertraline. Acetaminophen PRESENT Ibuprofen PRESENT == Test Result Flag Units Ref Range Creatinine 120 mg/dL >=20 == Declared Medications: Medication list was not provided. == For clinical consultation, please call . == Last Opioid agreement effective date: 05/27/2022 Please review and advise. Vilma Alvarez RN [facility] 10-10-2023 Miscellaneous Notes Formattin g of this note is different from the original. Patient phones requesting refills as follows: Requested Prescriptions Pending Prescriptions Disp Refills oxyCODONE-acetaminophen (PERCOCET) 7.5-325 mg tablet 90 tablet 0 Sig: Take 1 tablet by mouth three times a day as needed for pain for up to 30 days. Last UDS: 03/14/23 UDS Consistent GEORGE Summary Report Date Value Ref Range Status 09/15/2023 FINAL Final Comment: == Opiate Class, MS, Ur RFX Oxycodone Class, MS, Ur RFX Gabapentin, MS, Ur RFX Acetaminophen, MS, Ur RFX ToxAssure Flex 23, Ur == Test Result Flag Units Drug Present Oxycodone 2372 ng/mg creat Oxymorphone 568 ng/mg creat Noroxycodone 2953 ng/mg creat Noroxymorphone 145 ng/mg creat Sources of oxycodone are scheduled prescription medications. Oxymorphone, noroxycodone, and noroxymorphone are expected metabolites of oxycodone. Oxymorphone is also available as a scheduled prescription medication. Gabapentin PRESENT Acetaminophen PRESENT == Test Result Flag Units Ref Range Creatinine 47 mg/dL >=20 == Declared Medications: Medication list was not provided. == For clinical consultation, please call . == No results found for: UQNOTE , OPIATEPNMGT , DRUGSCRPAIN Urine Panel: No results found for: UQCANN , UQBNZL , [id number] , UQAMPH , UQMAMP , UQBUPRE , UQNORBUP , UQMTHD , UQEDDP , UQTRAM , UQDTRM , UQFNTL , UQNFTL , UQCODE , UQMORP , UQDCDN , UQHCOD , UQOXYC , UQHMOR , UQOXYM , UQCREA , UQPH , UQSPGR , UQOXID , UQSPQ @FLOW([id number])@ Lab Results Component Value Date SUMM FINAL 09/15/2023 Summary Report (Summary) Date Value Ref Range Status 03/02/2022 FINAL Final Comment: == TOXASSURE COMP DRUG ANALYSIS,UR == Test Result Flag Units Drug Present Oxycodone 1289 ng/mg creat Oxymorphone 1307 ng/mg creat Noroxycodone 2091 ng/mg creat Noroxymorphone 336 ng/mg creat Sources of oxycodone are scheduled prescription medications. Oxymorphone, noroxycodone, and noroxymorphone are expected metabolites of oxycodone. Oxymorphone is also available as a scheduled prescription medication. Gabapentin PRESENT Sertraline PRESENT Desmethylsertraline PRESENT Desmethylsertraline is an expected metabolite of sertraline. Acetaminophen PRESENT Ibuprofen PRESENT == Test Result Flag Units Ref Range Creatinine 120 mg/dL >=20 == Declared Medications: Medication list was not provided. == For clinical consultation, please call . == Last Opioid agreement effective date: 05/27/2022 Please review and advise. Vilma Alvarez RN documented in this encounter [facility] 09-21-2023 Telephone encount er Note Patient phones requesting refills as follows: Requested Prescriptions Pending Prescriptions Disp Refills gabapentin (NEURONTIN) 600 mg tablet 90 tablet 0 Sig: Take 1 tablet by mouth three times a day for 90 days. Last UDS: 03/14/23 UDS Consistent GEORGE Summary Report Date Value Ref Range Status 09/15/2023 FINAL Final Comment: == Opiate Class, MS, Ur RFX Oxycodone Class, MS, Ur RFX Gabapentin, MS, Ur RFX Acetaminophen, MS, Ur RFX ToxAssure Flex 23, Ur == Test Result Flag Units Drug Present Oxycodone 2372 ng/mg creat Oxymorphone 568 ng/mg creat Noroxycodone 2953 ng/mg creat Noroxymorphone 145 ng/mg creat Sources of oxycodone are scheduled prescription medications. Oxymorphone, noroxycodone, and noroxymorphone are expected metabolites of oxycodone. Oxymorphone is also available as a scheduled prescription medication. Gabapentin PRESENT Acetaminophen PRESENT == Test Result Flag Units Ref Range Creatinine 47 mg/dL >=20 == Declared Medications: Medication list was not provided. == For clinical consultation, please call . == No results found for: UQNOTE , OPIATEPNMGT , DRUGSCRPAIN Urine Panel: No results found for: UQCANN , UQBNZL , [id number] , UQAMPH , UQMAMP , UQBUPRE , UQNORBUP , UQMTHD , UQEDDP , UQTRAM , UQDTRM , UQFNTL , UQNFTL , UQCODE , UQMORP , UQDCDN , UQHCOD , UQOXYC , UQHMOR , UQOXYM , UQCREA , UQPH , UQSPGR , UQOXID , UQSPQ @FLOW([id number])@ Lab Results Component Value Date SUMM FINAL 09/15/2023 Summary Report (Summary) Date Value Ref Range Status 03/02/2022 FINAL Final Comment: == TOXASSURE COMP DRUG ANALYSIS,UR == Test Result Flag Units Drug Present Oxycodone 1289 ng/mg creat Oxymorphone 1307 ng/mg creat Noroxycodone 2091 ng/mg creat Noroxymorphone 336 ng/mg creat Sources of oxycodone are scheduled prescription medications. Oxymorphone, noroxycodone, and noroxymorphone are expected metabolites of oxycodone. Oxymorphone is also available as a scheduled prescription medication. Gabapentin PRESENT Sertraline PRESENT Desmethylsertraline PRESENT Desmethylsertraline is an expected metabolite of sertraline. Acetaminophen PRESENT Ibuprofen PRESENT == Test Result Flag Units Ref Range Creatinine 120 mg/dL >=20 == Declared Medications: Medication list was not provided. == For clinical consultation, please call . == Last Opioid agreement effective date: 05/27/2022 Please review and advise. Lamar Prince RN [facility] 09-21-2023 Miscellaneous Notes Formattin g of this note is different from the original. Patient phones requesting refills as follows: Requested Prescriptions Pending Prescriptions Disp Refills gabapentin (NEURONTIN) 600 mg tablet 90 tablet 0 Sig: Take 1 tablet by mouth three times a day for 90 days. Last UDS: 03/14/23 UDS Consistent GEORGE Summary Report Date Value Ref Range Status 09/15/2023 FINAL Final Comment: == Opiate Class, MS, Ur RFX Oxycodone Class, MS, Ur RFX Gabapentin, MS, Ur RFX Acetaminophen, MS, Ur RFX ToxAssure Flex 23, Ur == Test Result Flag Units Drug Present Oxycodone 2372 ng/mg creat Oxymorphone 568 ng/mg creat Noroxycodone 2953 ng/mg creat Noroxymorphone 145 ng/mg creat Sources of oxycodone are scheduled prescription medications. Oxymorphone, noroxycodone, and noroxymorphone are expected metabolites of oxycodone. Oxymorphone is also available as a scheduled prescription medication. Gabapentin PRESENT Acetaminophen PRESENT == Test Result Flag Units Ref Range Creatinine 47 mg/dL >=20 == Declared Medications: Medication list was not provided. == For clinical consultation, please call . == No results found for: UQNOTE , OPIATEPNMGT , DRUGSCRPAIN Urine Panel: No results found for: UQCANN , UQBNZL , [id number] , UQAMPH , UQMAMP , UQBUPRE , UQNORBUP , UQMTHD , UQEDDP , UQTRAM , UQDTRM , UQFNTL , UQNFTL , UQCODE , UQMORP , UQDCDN , UQHCOD , UQOXYC , UQHMOR , UQOXYM , UQCREA , UQPH , UQSPGR , UQOXID , UQSPQ @FLOW([id number])@ Lab Results Component Value Date SUMM FINAL 09/15/2023 Summary Report (Summary) Date Value Ref Range Status 03/02/2022 FINAL Final Comment: == TOXASSURE COMP DRUG ANALYSIS,UR == Test Result Flag Units Drug Present Oxycodone 1289 ng/mg creat Oxymorphone 1307 ng/mg creat Noroxycodone 2091 ng/mg creat Noroxymorphone 336 ng/mg creat Sources of oxycodone are scheduled prescription medications. Oxymorphone, noroxycodone, and noroxymorphone are expected metabolites of oxycodone. Oxymorphone is also available as a scheduled prescription medication. Gabapentin PRESENT Sertraline PRESENT Desmethylsertraline PRESENT Desmethylsertraline is an expected metabolite of sertraline. Acetaminophen PRESENT Ibuprofen PRESENT == Test Result Flag Units Ref Range Creatinine 120 mg/dL >=20 == Declared Medications: Medication list was not provided. == For clinical consultation, please call . == Last Opioid agreement effective date: 05/27/2022 Please review and advise. Lamar Prince RN documented in this encounter [facility] 09-15-2023 History of Presen t illness Narrative Eduardoon was used to dictate this note and therefore there may be some typographical errors. I attest to the fact that I spent a total of 16 min with the patient to include: Face to face time and non face to face time such as: Reviewing test's, reviewing medical records, reviewing imaging studies, ordering tests, etc. The patient was last seen on 06/22/2023 by me. Treatment plan at that time included the following: We spoke with the fact that he should consider weaning off of his opioids if indeed he needs a total knee arthroplasty in the future, possibly EMG nerve conduction study of the upper extremities to confirm diagnosis of carpal tunnel syndrome (he wanted to hold off on that), continue on gabapentin 6 mg 3 times a day, and Percocet 7.5/[address] prescribed [address] Silva. He returns today for follow-up visit. PE: Alert and oriented no acute distress. Mood and affect within normal limits. Vital signs as indicated. No difficulty rising from a chair and or descending into a chair. Dx: Right knee osteoarthritis, right knee pain, severe degenerative changes right knee with [id number] phenomena, status post left total knee arthroplasty, gait disturbance, cervical DDD, cervical DJD, cervical's arthropathy, cervical set syndrome, cervical spondylosis, cervical radiculitis, cervical pain, history of right-sided hemiparesis, hypertension, hyperlipidemia, diabetes with diabetic neuropathy, history of rotator cuff syndrome, chronic pain syndrome, chronic opioid usage. Patient is on the above analgesic regimen. Patient denies any systemic side effects. Patient believes the pain meds have helped (as indicated by VAS). Patient has signed Medication Management Agreement and Informed Consent Form ( contract ). I have also utilized the Intractable Pain and Drug Prescription Checklist as promulgated by [facility]. Furthermore, I have adhered to the [facility] Administrative Code 4731-11. The medication clearly improves this patient's functionality and quality of life as evidence by improved social, recreational activities. There is no evidence of any: drug abuse, drug addiction nor drug diversion. The patient has never called in early for a refill, is not particularly focused on pain medication, has never shown up in our office unexpectedly without appointment, nor called in stating a lost prescription. The patient has been instructed not to drive if any [employer] side effects to pain medication. The patient has been informed that the analgesics are potentially addicting and need to be taken strictly as prescribed. I have checked an OARRS on this patient which came back as expected. The patient has received an opioid education handout and filled out an opioid screener (SOAPP). I have had the patient submit a random urine drug screen & the patient does have biological markers which would corroborate and substantiate chronic pain (see prior imaging studies). Additionally I did discuss Narcan with the patient and informed the patient that Narcan is now available at their pharmacy if they so request. Plan: As above, patient The patient was last seen on 06/22/2023 by me. Treatment plan at that time included the following: We spoke with the fact that he should consider weaning off of his opioids if indeed he needs a total knee arthroplasty in the future, possibly EMG nerve conduction study of the upper extremities to confirm diagnosis of carpal tunnel syndrome (he wanted to hold off on that), continue on gabapentin 600 mg 3 times a day, and Percocet 7.5/[address] Silva. UDS updated Patient is doing fairly well on the Percocet. No side effects. He again wants to hold off on EMG nerve conduction study for presumed carpal tunnel syndrome. We spoke about possibility of using cock-up splints. He voiced understanding. We again discussed the possibility of a total knee arthroplasty and weaning off medications prior to surgery in order to up regulate or reset his opioid receptors. He voiced understanding. He did ask for refill of his Motrin. Apparently he has been on this medication for 10 years. He states no one has checked blood work and he does not history of hypertension. I explained to him this is something I would not be willing to write for since he is at increased risk of stroke and heart attack and certainly elevated blood pressure and renal dysfunction on this medication. He will need to address this with his primary care physician. He voiced understanding and promised to do so. Follow-up in 3 months. documented in this encounter [facility] 09-15-2023 Note HNO ID: [id number] Author: SALBADOR GORE MD Service: ? Author Type: Anesthesiologist Type: Progress Notes Filed: 09/15/2023 09:43 Note Text: Tree was used to dictate this note and therefore there may be some typographical errors. I attest to the fact that I spent a total of 16 min with the patient to include: Face to face time and non face to face time such as: Reviewing test's, reviewing medical records, reviewing imaging studies, ordering tests, etc. The patient was last seen on 06/22/2023 by me. Treatment plan at that time included the following: We spoke with the fact that he should consider weaning off of his opioids if indeed he needs a total knee arthroplasty in the future, possibly EMG nerve conduction study of the upper extremities to confirm diagnosis of carpal tunnel syndrome (he wanted to hold off on that), continue on gabapentin 6 mg 3 times a day, and Percocet 7.5/[address] prescribed [address] Dr[address] Silva. He returns today for follow-up visit. PE: Alert and oriented no acute distress. Mood and affect within normal limits. Vital signs as indicated. No difficulty rising from a chair and or descending into a chair. Dx: Right knee osteoarthritis, right knee pain, severe degenerative changes right knee with [id number] phenomena, status post left total knee arthroplasty, gait disturbance, cervical DDD, cervical DJD, cervical's arthropathy, cervical set syndrome, cervical spondylosis, cervical radiculitis, cervical pain, history of right-sided hemiparesis, hypertension, hyperlipidemia, diabetes with diabetic neuropathy, history of rotator cuff syndrome, chronic pain syndrome, chronic opioid usage. Patient is on the above analgesic regimen. Patient denies any systemic side effects. Patient believes the pain meds have helped (as indicated by VAS). Patient has signed Medication Management Agreement and Informed Consent Form ( contract ). I have also utilized the Intractable Pain and Drug Prescription Checklist as promulgated by [facility]. Furthermore, I have adhered to the [facility] Administrative Code 4731-11. The medication clearly improves this patient's functionality and quality of life as evidence by improved social, recreational activities. There is no evidence of any: drug abuse, drug addiction nor drug diversion. The patient has never called in early for a refill, is not particularly focused on pain medication, has never shown up in our office unexpectedly without appointment, nor called instating a lost prescription. The patient has been instructed not to drive if any [employer] side effects to pain medication. The patient has been informed that the analgesics are potentially addicting and need to be taken strictly as prescribed. I have checked an OARRS on this patient which came back as expected. The patient has received an opioid education handout and filled out an opioid screener (SOAPP). I have had the patient submit a random urine drug screen AND the patient does have biological markers which would corroborate and substantiate chronic pain (see prior imaging studies). Additionally I did discuss Narcan with the patient and informed the patient that Narcan is now available at their pharmacy if they so request. Plan: As above, patient The patient was last seen on 06/22/2023 by me. Treatment plan at that time included the following: We spoke with the fact that he should consider weaning off of his opioids if indeed he needs a total knee arthroplasty in the future, possibly EMG nerve conduction study of the upper extremities to confirm diagnosis of carpal tunnel syndrome (he wanted to hold off on that), continue on gabapentin 600 mg 3 times a day, and Percocet 7.5/[address] prescribed [address] Dr[address] Silva. UDS updated Patient is doing fairly well on the Percocet. No side effects. He again wants to hold off on EMG nerve conduction study for presumed carpal tunnel syndrome. We spoke about possibility of using cock-up splints. He voiced understanding. We again discussed the possibility of a total knee arthroplasty and weaning off medications prior to surgery in order to up regulate or reset his opioid receptors. He voiced understanding. He did ask for refill of his Motrin. Apparently he has been on this medication for 10 years. He states no one has checked blood work and he does not history of hypertension. I explained to him this is something I would not be willing to write for since he is at increased risk of stroke and heart attack and certainly elevated blood pressure and renal dysfunction on this medication. He will need to address this with his primary care physician. He voiced understanding and promised to do so. Follow-up in [address] [facility] 09-08-2023 Miscellaneous Notes Formattin g of this note is different from the original. The following approved medication requests have been transmitted electronically. Requested Prescriptions Signed Prescriptions Disp Refills oxyCODONE-acetaminophen (PERCOCET) 7.5-325 mg tablet 90 tablet 0 Sig: Take 1 tablet by mouth three times a day as needed for pain for up to 30 days. 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 Last UDS: No specialty comments available. Summary Report Date Value Ref Range Status 03/14/2023 FINAL Final Comment: == Opiate Class, MS, Ur RFX Gabapentin, MS, Ur RFX Acetaminophen, MS, Ur RFX ToxAssure Flex 23, Ur == Test Result Flag Units Drug Present Hydrocodone 2258 ng/mg creat Hydromorphone 652 ng/mg creat Dihydrocodeine 131 ng/mg creat Norhydrocodone 3340 ng/mg creat Sources of hydrocodone include scheduled prescription medications. Hydromorphone, dihydrocodeine and norhydrocodone are expected metabolites of hydrocodone. Hydromorphone and dihydrocodeine are also available as scheduled prescription medications. Gabapentin PRESENT Acetaminophen PRESENT == Test Result Flag Units Ref Range Creatinine 124 mg/dL >=20 == Declared Medications: Medication list was not provided. == For clinical consultation, please call . == No results found for: UQNOTE , OPIATEPNMGT , DRUGSCRPAIN Urine Panel: No results found for: UQCANN , UQBNZL , [id number] , UQAMPH , UQMAMP , UQBUPRE , UQNORBUP , UQMTHD , UQEDDP , UQTRAM , UQDTRM , UQFNTL , UQNFTL , UQCODE , UQMORP , UQDCDN , UQHCOD , UQOXYC , UQHMOR , UQOXYM , UQCREA , UQPH , UQSPGR , UQOXID , UQSPQ @FLOW([id number])@ Lab Results Component Value Date SUMM FINAL 03/14/2023 Summary Report (Summary) Date Value Ref Range Status 03/02/2022 FINAL Final Comment: == TOXASSURE COMP DRUG ANALYSIS,UR == Test Result Flag Units Drug Present Oxycodone 1289 ng/mg creat Oxymorphone 1307 ng/mg creat Noroxycodone 2091 ng/mg creat Noroxymorphone 336 ng/mg creat Sources of oxycodone are scheduled prescription medications. Oxymorphone, noroxycodone, and noroxymorphone are expected metabolites of oxycodone. Oxymorphone is also available as a scheduled prescription medication. Gabapentin PRESENT Sertraline PRESENT Desmethylsertraline PRESENT Desmethylsertraline is an expected metabolite of sertraline. Acetaminophen PRESENT Ibuprofen PRESENT == Test Result Flag Units Ref Range Creatinine 120 mg/dL >=20 == Declared Medications: Medication list was not provided. == For clinical consultation, please call . == Last Opioid agreement effective date: 05/27/2022 Please review and advise. Emily Weber RN documented in this encounter [facility] 08-22-2023 Miscellaneous Notes Formattin g of this note is different from the original. Patient phones requesting refills as follows: Requested Prescriptions Pending Prescriptions Disp Refills gabapentin (NEURONTIN) 600 mg tablet 90 tablet 0 Sig: Take 1 tablet by mouth three times a day for 90 days. Last UDS: No specialty comments available. Summary Report Date Value Ref Range Status 03/14/2023 FINAL Final Comment: == Opiate Class, MS, Ur RFX Gabapentin, MS, Ur RFX Acetaminophen, MS, Ur RFX ToxAssure Flex 23, Ur == Test Result Flag Units Drug Present Hydrocodone 2258 ng/mg creat Hydromorphone 652 ng/mg creat Dihydrocodeine 131 ng/mg creat Norhydrocodone 3340 ng/mg creat Sources of hydrocodone include scheduled prescription medications. Hydromorphone, dihydrocodeine and norhydrocodone are expected metabolites of hydrocodone. Hydromorphone and dihydrocodeine are also available as scheduled prescription medications. Gabapentin PRESENT Acetaminophen PRESENT == Test Result Flag Units Ref Range Creatinine 124 mg/dL >=20 == Declared Medications: Medication list was not provided. == For clinical consultation, please call . == No results found for: UQNOTE , OPIATEPNMGT , DRUGSCRPAIN Urine Panel: No results found for: UQCANN , UQBNZL , [id number] , UQAMPH , UQMAMP , UQBUPRE , UQNORBUP , UQMTHD , UQEDDP , UQTRAM , UQDTRM , UQFNTL , UQNFTL , UQCODE , UQMORP , UQDCDN , UQHCOD , UQOXYC , UQHMOR , UQOXYM , UQCREA , UQPH , UQSPGR , UQOXID , UQSPQ @FLOW([id number])@ Lab Results Component Value Date SUMM FINAL 03/14/2023 Summary Report (Summary) Date Value Ref Range Status 03/02/2022 FINAL Final Comment: == TOXASSURE COMP DRUG ANALYSIS,UR == Test Result Flag Units Drug Present Oxycodone 1289 ng/mg creat Oxymorphone 1307 ng/mg creat Noroxycodone 2091 ng/mg creat Noroxymorphone 336 ng/mg creat Sources of oxycodone are scheduled prescription medications. Oxymorphone, noroxycodone, and noroxymorphone are expected metabolites of oxycodone. Oxymorphone is also available as a scheduled prescription medication. Gabapentin PRESENT Sertraline PRESENT Desmethylsertraline PRESENT Desmethylsertraline is an expected metabolite of sertraline. Acetaminophen PRESENT Ibuprofen PRESENT == Test Result Flag Units Ref Range Creatinine 120 mg/dL >=20 == Declared Medications: Medication list was not provided. == For clinical consultation, please call . == Last Opioid agreement effective date: 05/27/2022 Please review and advise. Emily Weber RN documented in this encounter [facility] 08-19-2023 Miscellaneous Notes Formattin g of this note is different from the original. Patient phones requesting refills as follows: Requested Prescriptions Pending Prescriptions Disp Refills ibuprofen (MOTRIN) 800 mg tablet 90 tablet 0 Sig: Take 1 tablet by mouth three times a day as needed for pain. Last UDS: No specialty comments available. Summary Report Date Value Ref Range Status 03/14/2023 FINAL Final Comment: == Opiate Class, MS, Ur RFX Gabapentin, MS, Ur RFX Acetaminophen, MS, Ur RFX ToxAssure Flex 23, Ur == Test Result Flag Units Drug Present Hydrocodone 2258 ng/mg creat Hydromorphone 652 ng/mg creat Dihydrocodeine 131 ng/mg creat Norhydrocodone 3340 ng/mg creat Sources of hydrocodone include scheduled prescription medications. Hydromorphone, dihydrocodeine and norhydrocodone are expected metabolites of hydrocodone. Hydromorphone and dihydrocodeine are also available as scheduled prescription medications. Gabapentin PRESENT Acetaminophen PRESENT == Test Result Flag Units Ref Range Creatinine 124 mg/dL >=20 == Declared Medications: Medication list was not provided. == For clinical consultation, please call . == No results found for: UQNOTE , OPIATEPNMGT , DRUGSCRPAIN Urine Panel: No results found for: UQCANN , UQBNZL , [id number] , UQAMPH , UQMAMP , UQBUPRE , UQNORBUP , UQMTHD , UQEDDP , UQTRAM , UQDTRM , UQFNTL , UQNFTL , UQCODE , UQMORP , UQDCDN , UQHCOD , UQOXYC , UQHMOR , UQOXYM , UQCREA , UQPH , UQSPGR , UQOXID , UQSPQ @FLOW([id number])@ Lab Results Component Value Date SUMM FINAL 03/14/2023 Summary Report (Summary) Date Value Ref Range Status 03/02/2022 FINAL Final Comment: == TOXASSURE COMP DRUG ANALYSIS,UR == Test Result Flag Units Drug Present Oxycodone 1289 ng/mg creat Oxymorphone 1307 ng/mg creat Noroxycodone 2091 ng/mg creat Noroxymorphone 336 ng/mg creat Sources of oxycodone are scheduled prescription medications. Oxymorphone, noroxycodone, and noroxymorphone are expected metabolites of oxycodone. Oxymorphone is also available as a scheduled prescription medication. Gabapentin PRESENT Sertraline PRESENT Desmethylsertraline PRESENT Desmethylsertraline is an expected metabolite of sertraline. Acetaminophen PRESENT Ibuprofen PRESENT == Test Result Flag Units Ref Range Creatinine 120 mg/dL >=20 == Declared Medications: Medication list was not provided. == For clinical consultation, please call . == Last Opioid agreement effective date: 05/27/2022 Please review and advise. Alecia Maki RN documented in this encounter [facility] 08-09-2023 Miscellaneous Notes Formattin g of this note is different from the original. Patient phones requesting refills as follows: Requested Prescriptions Pending Prescriptions Disp Refills oxyCODONE-acetaminophen (PERCOCET) 7.5-325 mg tablet 90 tablet 0 Sig: Take 1 tablet by mouth three times a day as needed for pain for up to 30 days. Last UDS: No specialty comments available. Summary Report Date Value Ref Range Status 03/14/2023 FINAL Final Comment: == Opiate Class, MS, Ur RFX Gabapentin, MS, Ur RFX Acetaminophen, MS, Ur RFX ToxAssure Flex 23, Ur == Test Result Flag Units Drug Present Hydrocodone 2258 ng/mg creat Hydromorphone 652 ng/mg creat Dihydrocodeine 131 ng/mg creat Norhydrocodone 3340 ng/mg creat Sources of hydrocodone include scheduled prescription medications. Hydromorphone, dihydrocodeine and norhydrocodone are expected metabolites of hydrocodone. Hydromorphone and dihydrocodeine are also available as scheduled prescription medications. Gabapentin PRESENT Acetaminophen PRESENT == Test Result Flag Units Ref Range Creatinine 124 mg/dL >=20 == Declared Medications: Medication list was not provided. == For clinical consultation, please call . == No results found for: UQNOTE , OPIATEPNMGT , DRUGSCRPAIN Urine Panel: No results found for: UQCANN , UQBNZL , [id number] , UQAMPH , UQMAMP , UQBUPRE , UQNORBUP , UQMTHD , UQEDDP , UQTRAM , UQDTRM , UQFNTL , UQNFTL , UQCODE , UQMORP , UQDCDN , UQHCOD , UQOXYC , UQHMOR , UQOXYM , UQCREA , UQPH , UQSPGR , UQOXID , UQSPQ @FLOW([id number])@ Lab Results Component Value Date SUMM FINAL 03/14/2023 Summary Report (Summary) Date Value Ref Range Status 03/02/2022 FINAL Final Comment: == TOXASSURE COMP DRUG ANALYSIS,UR == Test Result Flag Units Drug Present Oxycodone 1289 ng/mg creat Oxymorphone 1307 ng/mg creat Noroxycodone 2091 ng/mg creat Noroxymorphone 336 ng/mg creat Sources of oxycodone are scheduled prescription medications. Oxymorphone, noroxycodone, and noroxymorphone are expected metabolites of oxycodone. Oxymorphone is also available as a scheduled prescription medication. Gabapentin PRESENT Sertraline PRESENT Desmethylsertraline PRESENT Desmethylsertraline is an expected metabolite of sertraline. Acetaminophen PRESENT Ibuprofen PRESENT == Test Result Flag Units Ref Range Creatinine 120 mg/dL >=20 == Declared Medications: Medication list was not provided. == For clinical consultation, please call . == Last Opioid agreement effective date: 05/27/2022 Please review and advise. Vilma Alvarez RN documented in this encounter [facility] 07-19-2023 Miscellaneous Notes Formattin g of this note is different from the original. Patient phones requesting refills as follows: Requested Prescriptions Pending Prescriptions Disp Refills gabapentin (NEURONTIN) 600 mg tablet [Pharmacy Med Name: GABAPENTIN 600 MG TABLET] 90 tablet 0 Sig: Take 1 tablet by mouth three times a day. ibuprofen (MOTRIN) 800 mg tablet [Pharmacy Med Name: IBUPROFEN 800 MG TABLET] 90 tablet 0 Sig: take 1 tablet by mouth three times a day as needed for pain Last UDS: No specialty comments available. Summary Report Date Value Ref Range Status 03/14/2023 FINAL Final Comment: == Opiate Class, MS, Ur RFX Gabapentin, MS, Ur RFX Acetaminophen, MS, Ur RFX ToxAssure Flex 23, Ur == Test Result Flag Units Drug Present Hydrocodone 2258 ng/mg creat Hydromorphone 652 ng/mg creat Dihydrocodeine 131 ng/mg creat Norhydrocodone 3340 ng/mg creat Sources of hydrocodone include scheduled prescription medications. Hydromorphone, dihydrocodeine and norhydrocodone are expected metabolites of hydrocodone. Hydromorphone and dihydrocodeine are also available as scheduled prescription medications. Gabapentin PRESENT Acetaminophen PRESENT == Test Result Flag Units Ref Range Creatinine 124 mg/dL >=20 == Declared Medications: Medication list was not provided. == For clinical consultation, please call . == No results found for: UQNOTE , OPIATEPNMGT , DRUGSCRPAIN Urine Panel: No results found for: UQCANN , UQBNZL , [id number] , UQAMPH , UQMAMP , UQBUPRE , UQNORBUP , UQMTHD , UQEDDP , UQTRAM , UQDTRM , UQFNTL , UQNFTL , UQCODE , UQMORP , UQDCDN , UQHCOD , UQOXYC , UQHMOR , UQOXYM , UQCREA , UQPH , UQSPGR , UQOXID , UQSPQ @FLOW([id number])@ Lab Results Component Value Date SUMM FINAL 03/14/2023 Summary Report (Summary) Date Value Ref Range Status 03/02/2022 FINAL Final Comment: == TOXASSURE COMP DRUG ANALYSIS,UR == Test Result Flag Units Drug Present Oxycodone 1289 ng/mg creat Oxymorphone 1307 ng/mg creat Noroxycodone 2091 ng/mg creat Noroxymorphone 336 ng/mg creat Sources of oxycodone are scheduled prescription medications. Oxymorphone, noroxycodone, and noroxymorphone are expected metabolites of oxycodone. Oxymorphone is also available as a scheduled prescription medication. Gabapentin PRESENT Sertraline PRESENT Desmethylsertraline PRESENT Desmethylsertraline is an expected metabolite of sertraline. Acetaminophen PRESENT Ibuprofen PRESENT == Test Result Flag Units Ref Range Creatinine 120 mg/dL >=20 == Declared Medications: Medication list was not provided. == For clinical consultation, please call . == Last Opioid agreement effective date: 05/27/2022 Please review and advise. Lamar Prince RN documented in this encounter [facility] 07-12-2023 Miscellaneous Notes Formattin g of this note might be different from the original. Items addressed in this encounter: Prior Authorization Able to close encounter. Lauren Couch MA July 12, 2023 12:54 PM 12:54 PM documented in this encounter [facility] 07-12-2023 Miscellaneous Notes Formattin g of this note might be different from the original. Indexed approval letter Bessy Bojorquez MA July 12, 2023 11:01 AM documented in this encounter [facility] 07-12-2023 Miscellaneous Notes Formattin g of this note is different from the original. Items addressed in this encounter: Prior Authorization Percocet was approved Prior authorization approved Case ID: [id number] Payer: [facility] Approved. Approval Details Authorized from June 11, 2023 to January 10, 2024 Able to close encounter. Cyndy La MA July 12, 2023 10:41 AM 10:41 AM documented in this encounter [facility] 07-12-2023 Miscellaneous Notes Formattin g of this note might be different from the original. Oxycodone acetaminophen pa sent through the hub documented in this encounter [facility] 07-11-2023 Miscellaneous Notes Formattin g of this note is different from the original. Patient phones requesting refills as follows: Requested Prescriptions Pending Prescriptions Disp Refills oxyCODONE-acetaminophen (PERCOCET) 7.5-325 mg tablet 90 tablet 0 Sig: Take 1 tablet by mouth three times a day as needed for pain for up to 30 days. Last UDS: No specialty comments available. Summary Report Date Value Ref Range Status 03/14/2023 FINAL Final Comment: == Opiate Class, MS, Ur RFX Gabapentin, MS, Ur RFX Acetaminophen, MS, Ur RFX ToxAssure Flex 23, Ur == Test Result Flag Units Drug Present Hydrocodone 2258 ng/mg creat Hydromorphone 652 ng/mg creat Dihydrocodeine 131 ng/mg creat Norhydrocodone 3340 ng/mg creat Sources of hydrocodone include scheduled prescription medications. Hydromorphone, dihydrocodeine and norhydrocodone are expected metabolites of hydrocodone. Hydromorphone and dihydrocodeine are also available as scheduled prescription medications. Gabapentin PRESENT Acetaminophen PRESENT == Test Result Flag Units Ref Range Creatinine 124 mg/dL >=20 == Declared Medications: Medication list was not provided. == For clinical consultation, please call . == No results found for: UQNOTE , OPIATEPNMGT , DRUGSCRPAIN Urine Panel: No results found for: UQCANN , UQBNZL , [id number] , UQAMPH , UQMAMP , UQBUPRE , UQNORBUP , UQMTHD , UQEDDP , UQTRAM , UQDTRM , UQFNTL , UQNFTL , UQCODE , UQMORP , UQDCDN , UQHCOD , UQOXYC , UQHMOR , UQOXYM , UQCREA , UQPH , UQSPGR , UQOXID , UQSPQ @FLOW([id number])@ Lab Results Component Value Date SUMM FINAL 03/14/2023 Summary Report (Summary) Date Value Ref Range Status 03/02/2022 FINAL Final Comment: == TOXASSURE COMP DRUG ANALYSIS,UR == Test Result Flag Units Drug Present Oxycodone 1289 ng/mg creat Oxymorphone 1307 ng/mg creat Noroxycodone 2091 ng/mg creat Noroxymorphone 336 ng/mg creat Sources of oxycodone are scheduled prescription medications. Oxymorphone, noroxycodone, and noroxymorphone are expected metabolites of oxycodone. Oxymorphone is also available as a scheduled prescription medication. Gabapentin PRESENT Sertraline PRESENT Desmethylsertraline PRESENT Desmethylsertraline is an expected metabolite of sertraline. Acetaminophen PRESENT Ibuprofen PRESENT == Test Result Flag Units Ref Range Creatinine 120 mg/dL >=20 == Declared Medications: Medication list was not provided. == For clinical consultation, please call . == Last Opioid agreement effective date: 05/27/2022 Please review and advise. Lamar Prince RN documented in this encounter [facility] 06-22-2023 Note HNO ID: [id number] Author: SALBADOR GORE MD Service: ? Author Type: Anesthesiologist Type: Progress Notes Filed: 06/22/2023 15:58 Note Text: Tree was used to dictate this note and therefore there may be some typographical errors. I attest to the fact that I spent a total of 21 min with the patient to include: Face to face time and non face to face time such as: Reviewing test's, reviewing medical records, reviewing imaging studies, ordering tests, etc. Patient was last seen by Dr. Silva on 03/14/2023. The patient is been followed by Dr. Silva and her staff. This is a first visit for this patient with me. The notes indicate the patient was to be maintained on gabapentin 600 mg 3 times a day, continue Percocet 7.5/325 3 times a day, continue to be as active as possible. This again is a first visit for this patient with me. PE: Alert and oriented in some discomfort. Mood and affect within normal limits. Vital signs indicated. Antalgic gait favoring his right leg and right knee more than his left. Dx: Right knee osteoarthritis, right knee pain, severe degenerative changes right knee with [id number] phenomena, status post left total knee arthroplasty, gait disturbance, cervical DDD, cervical DJD, cervical's arthropathy, cervical set syndrome, cervical spondylosis, cervical radiculitis, cervical pain, history of right-sided hemiparesis, hypertension, hyperlipidemia, diabetes with diabetic neuropathy, history of rotator cuff syndrome, chronic pain syndrome, chronic opioid usage. Patient is on the above analgesic regimen. Patient denies any systemic side effects. Patient believes the pain meds have helped (as indicated by VAS). Patient has signed Medication Management Agreement and Informed Consent Form ( contract ). I have also utilized the Intractable Pain and Drug Prescription Checklist as promulgated by [facility]. Furthermore, I have adhered to the [facility] Administrative Code 4731-11. The medication clearly improves this patient's functionality and quality of life as evidence by improved social, recreational activities. There is no evidence of any: drug abuse, drug addiction nor drug diversion. The patient has never called in early for a refill, is not particularly focused on pain medication, has never shown up in our office unexpectedly without appointment, nor called instating a lost prescription. The patient has been instructed not to drive if any FIELD CARE ADVOCATE side effects to pain medication. The patient has been informed that the analgesics are potentially addicting and need to be taken strictly as prescribed. I have checked an OARRS on this patient which came back as expected. The patient has received an opioid education handout and filled out an opioid screener (SOAPP). I have had the patient submit a random urine drug screen AND the patient does have biological markers which would corroborate and substantiate chronic pain (see prior imaging studies). Additionally I did discuss Narcan with the patient and informed the patient that Narcan is now available at their pharmacy if they so request. Plan: As above, the patient was last seen by Dr. Silva on 03/14/2023. The patient is been followed by Dr. Silva and her staff. This is a first visit for this patient with me. The notes indicate the patient was to be maintained on gabapentin 600 mg 3 times a day, continue Percocet 7.5/325 3 times a day, continue to be as active as possible. This again is a first visit for this patient with me. Patient counseled about chronic opioids, tolerance, the moderate dose of opioids that he is currently taking, the need to wean off of the opioids IF indeed he is going to have a painful elective surgery in the future, compliant usage, etc. 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 Etc. Clearly His quality life is improved on the above medication. He denies any systemic side effects such as FIELD CARE ADVOCATE side effects, constipation, etc. And agrees to continue to use the medication compliantly. He has been told that he will need a right total knee arthroplasty. He already did have the left side done. We again spoke about weaning off his medication to reset her up regulate his opioid receptors if indeed he needs a total knee arthroplasty in the future. He voiced understanding. Patient continues to work in a demanding position. We did speak about his bilateral upper extremity paresthesias dysesthesias in his hands especially at nighttime. I explained this is likely due to carpal tunnel syndrome but would need bilateral upper extremity EMG and nerve conduction study to confirm this diagnosis. He voiced understanding. We decided to put this on hold for now. He will let us know if he wants us in the fut (more content not included)... [facility] 05-18-2023 Miscellaneous Notes Formattin g of this note is different from the original. Patient phones requesting refills as follows: Requested Prescriptions Pending Prescriptions Disp Refills gabapentin (NEURONTIN) 600 mg tablet 90 tablet 0 Sig: Take 1 tablet by mouth three times a day for 30 days. ibuprofen (MOTRIN) 800 mg tablet 90 tablet 0 Sig: Take 1 tablet by mouth three times a day as needed for pain. Last UDS: No specialty comments available. Summary Report Date Value Ref Range Status 03/14/2023 FINAL Final Comment: == Opiate Class, MS, Ur RFX Gabapentin, MS, Ur RFX Acetaminophen, MS, Ur RFX ToxAssure Flex 23, Ur == Test Result Flag Units Drug Present Hydrocodone 2258 ng/mg creat Hydromorphone 652 ng/mg creat Dihydrocodeine 131 ng/mg creat Norhydrocodone 3340 ng/mg creat Sources of hydrocodone include scheduled prescription medications. Hydromorphone, dihydrocodeine and norhydrocodone are expected metabolites of hydrocodone. Hydromorphone and dihydrocodeine are also available as scheduled prescription medications. Gabapentin PRESENT Acetaminophen PRESENT == Test Result Flag Units Ref Range Creatinine 124 mg/dL >=20 == Declared Medications: Medication list was not provided. == For clinical consultation, please call . == @FLOW([id number])@ Lab Results Component Value Date SUMM FINAL 03/14/2023 Summary Report (Summary) Date Value Ref Range Status 03/02/2022 FINAL Final Comment: == TOXASSURE COMP DRUG ANALYSIS,UR == Test Result Flag Units Drug Present Oxycodone 1289 ng/mg creat Oxymorphone 1307 ng/mg creat Noroxycodone 2091 ng/mg creat Noroxymorphone 336 ng/mg creat Sources of oxycodone are scheduled prescription medications. Oxymorphone, noroxycodone, and noroxymorphone are expected metabolites of oxycodone. Oxymorphone is also available as a scheduled prescription medication. Gabapentin PRESENT Sertraline PRESENT Desmethylsertraline PRESENT Desmethylsertraline is an expected metabolite of sertraline. Acetaminophen PRESENT Ibuprofen PRESENT == Test Result Flag Units Ref Range Creatinine 120 mg/dL >=20 == Declared Medications: Medication list was not provided. == For clinical consultation, please call . == Last Opioid agreement effective date: 05/27/2022 Please review and advise. Vilma Alvarez RN documented in this encounter [facility] 04-18-2023 Miscellaneous Notes Formattin g of this note is different from the original. Patient phones requesting refills as follows: Requested Prescriptions Pending Prescriptions Disp Refills ibuprofen (MOTRIN) 800 mg tablet 90 tablet 0 Sig: Take 1 tablet by mouth three times a day as needed for pain. gabapentin (NEURONTIN) 600 mg tablet 90 tablet 0 Sig: Take 1 tablet by mouth three times a day for 30 days. Last UDS: No specialty comments available. Summary Report Date Value Ref Range Status 03/14/2023 FINAL Final Comment: == Opiate Class, MS, Ur RFX Gabapentin, MS, Ur RFX Acetaminophen, MS, Ur RFX ToxAssure Flex 23, Ur == Test Result Flag Units Drug Present Hydrocodone 2258 ng/mg creat Hydromorphone 652 ng/mg creat Dihydrocodeine 131 ng/mg creat Norhydrocodone 3340 ng/mg creat Sources of hydrocodone include scheduled prescription medications. Hydromorphone, dihydrocodeine and norhydrocodone are expected metabolites of hydrocodone. Hydromorphone and dihydrocodeine are also available as scheduled prescription medications. Gabapentin PRESENT Acetaminophen PRESENT == Test Result Flag Units Ref Range Creatinine 124 mg/dL >=20 == Declared Medications: Medication list was not provided. == For clinical consultation, please call . == @FLOW([id number])@ Lab Results Component Value Date SUMM FINAL 03/14/2023 Summary Report (Summary) Date Value Ref Range Status 03/02/2022 FINAL Final Comment: == TOXASSURE COMP DRUG ANALYSIS,UR == Test Result Flag Units Drug Present Oxycodone 1289 ng/mg creat Oxymorphone 1307 ng/mg creat Noroxycodone 2091 ng/mg creat Noroxymorphone 336 ng/mg creat Sources of oxycodone are scheduled prescription medications. Oxymorphone, noroxycodone, and noroxymorphone are expected metabolites of oxycodone. Oxymorphone is also available as a scheduled prescription medication. Gabapentin PRESENT Sertraline PRESENT Desmethylsertraline PRESENT Desmethylsertraline is an expected metabolite of sertraline. Acetaminophen PRESENT Ibuprofen PRESENT == Test Result Flag Units Ref Range Creatinine 120 mg/dL >=20 == Declared Medications: Medication list was not provided. == For clinical consultation, please call . == Please review and advise. Vilma Alvarez RN documented in this encounter [facility] 04-12-2023 Miscellaneous Notes Formattin g of this note is different from the original. The following approved medication requests have been transmitted electronically. Requested Prescriptions Signed Prescriptions Disp Refills HYDROcodone-Acetaminophen (NORCO) 10-325 mg per tablet 90 tablet 0 Sig: Take 1 tablet by mouth three times a day as needed for pain for up to 30 days. Authorizing Provider: MATT SUTHERLAND APRN.CNP Pts called to report that [facility] does not have norco in stock. They were able to find medication at [facility] in [place]. RX is attached with corrected pharmacy. Pt has been out. Please send RX. Lamar Prince RN April 11, 2023 11:18 AM documented in this encounter [facility] 04-07-2023 Miscellaneous Notes Formattin g of this note is different from the original. The following approved medication requests have been transmitted electronically. Requested Prescriptions Pending Prescriptions Disp Refills HYDROcodone-Acetaminophen (NORCO) 10-325 mg per tablet 90 tablet 0 Sig: Take 1 tablet by mouth three times a day as needed for pain for up to 30 days. Do not start before April 08, 2023. Vijaya Silva DO Last ov has percocet listed as poc but also states Continue Percocet 7.5-325 mg TID PRN. Discussed changing over to Currie 10/325 3 times daily as needed or MS IR 15 mg 1 p.o. twice daily based on availability at local pharmacy. Pt requesting refill of Currie 10, this is also what was fill last month, Currie script attached, please advise Emily Weber RN April 06, 2023 11:44 AM documented in this encounter [facility] 03-14-2023 Instructions Vijaya Silva DO - 03/14/2023 10:58 AM EDT Continue Gabapentin 600 mg tablet TID Continue Percocet 7.5-325 mg TID PRN. Continue OTC ibuprofen and tylenol prn Continue to keep active as possible Schedule right knee Synvisc gel injection every 6 months as needed Continue applying Emla cream as needed. Follow-up in 3 months with [facility] or Dr. Gore Order xr cervical spine Obtain UDS documented in this encounter [facility] 03-14-2023 History of Presen t illness Narrative Summary: Pain Management follow-up DATE: March 14, 2023 Chief Complaint: Back and right knee _ History of Present Illness: Jeremy Freeman is a 62 year old male being seen at [facility] for a evaluation and/or management of their chronic pain. The patient was last seen in the office by Dr. Silva on and the plan of care was as follows: Continue Gabapentin 600 mg tablet TID Continue Percocet 7.5-325 mg TID PRN. Discussed changing over to Currie 10/325 3 times daily as needed or MS IR 15 mg 1 p.o. twice daily based on availability at local pharmacy. Patient will call back prior to refill date for decision . Continue OTC ibuprofen prn Continue to keep active as possible Schedule right knee Synvisc gel injection every 6 months as needed Continue applying Emla cream as needed. Follow-up in 3 months with [facility] Pain level: 01/06 Location: back pain, right knee Denies any ED visits or hospitalizations since last office visit Reports pain worse with walking and working Reports pain better with sitting, medications Describes pain in lower back throbbing/intermittently. Positive for intermittent sciatica symptoms on the right side. Describes pain in right knee as constant ache Denies radiation of knee pain He reports upper body weakness. He is dropping objects with his hands. 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 He has not had an x-ray of the cervical spine for further evaluation. He is not doing any exercises at home. Denies numbness/tingling Denies falls He is at 50% for improvement from right Synvisc 1 gel injection 01/13/23. He denies any bowel or bladder dysfunction. He gets about 6 hours of sleep at nights and wakes unrested/rested in the mornings. Last UDS: Consistent Summary Report Date Value Ref Range Status 08/30/2022 FINAL Final Comment: == Opiate Class, MS, Ur RFX Oxycodone Class, MS, Ur RFX Gabapentin, MS, Ur RFX Acetaminophen, MS, Ur RFX ToxAssure Flex 23, Ur == Test Result Flag Units Drug Present Oxycodone 440 ng/mg creat Oxymorphone 590 ng/mg creat Noroxycodone 1267 ng/mg creat Noroxymorphone 148 ng/mg creat Sources of oxycodone are scheduled prescription medications. Oxymorphone, noroxycodone, and noroxymorphone are expected metabolites of oxycodone. Oxymorphone is also available as a scheduled prescription medication. Gabapentin PRESENT Acetaminophen PRESENT == Test Result Flag Units Ref Range Creatinine 82 mg/dL >=20 == Declared Medications: Medication list was not provided. == For clinical consultation, please call . == Summary Report (Summary) Date Value Ref Range Status 03/02/2022 FINAL Final Comment: == TOXASSURE COMP DRUG ANALYSIS,UR == Test Result Flag Units Drug Present Oxycodone 1289 ng/mg creat Oxymorphone 1307 ng/mg creat Noroxycodone 2091 ng/mg creat Noroxymorphone 336 ng/mg creat Sources of oxycodone are scheduled prescription medications. Oxymorphone, noroxycodone, and noroxymorphone are expected metabolites of oxycodone. Oxymorphone is also available as a scheduled prescription medication. Gabapentin PRESENT Sertraline PRESENT Desmethylsertraline PRESENT Desmethylsertraline is an expected metabolite of sertraline. Acetaminophen PRESENT Ibuprofen PRESENT == Test Result Flag Units Ref Range Creatinine 120 mg/dL >=20 == Declared Medications: Medication list was not provided. == For clinical consultation, please call . == Chronic Pain Functional Assessment Tools Pain Disability Index: Pain Disability Index 12/27/2022 03/14/2023 Family/Home Responsibilities 5 8 Recreation 5 8 Social Activity 5 8 Occupation 5 8 Sexual Behavior 5 8 Self Care 5 8 Life Support Activity 5 8 PDI Score 35 56 Pain Enjoyment of Life and General Activity Scale (0-10): PEG: A Three-Item Scale Assessing Pain Intensity and Interference What number best describes your pain on average in the past week?: 8 (03/14/2023 10:00 AM) What number best describes how, during the past week, pain has interfered with your enjoyment of life?: 8 (03/14/2023 10:00 AM) What number best describes how, during the past week, pain has interfered with your general activity?: 8 (03/14/2023 10:00 AM) REVIEW OF SYSTEMS: GENERAL: No weight loss, malaise or fevers RESPIRATORY: Negative for cough, hemoptysis, wheezing, COPD, dyspnea or shortness of breath. CARDIOVASCULAR: Negative for chest pain, leg swelling, hypertension, CHF or palpitations GI: No nausea, vomiting, or diarrhea. MUSCULOSKELETAL: Positive for lower back pain that radiates to the buttock and lower legs. Positive for intermittent sciatica symptoms on the right side. Positive for upper body weakness. 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 REMV CATARACT EXTRACAP,INSERT LENS Bilateral FAMILY HISTORY Problem Relation Age of Onset Hypertension Mother Social History Tobacco Use Smoking status: Never Passive exposure: Never Smokeless tobacco: Never Substance Use Topics Alcohol use: Never Drug use: Never Work Status: working Allergies: No Known Allergies Current Outpatient Medications Medication Sig albuterol HFA (PROVENTIL HFA, VENTOLIN HFA) 90 mcg/actuation inhaler amLODIPine (NORVASC) 10 mg tablet IHSANAGLAR SANDRO U-100 INSULIN 100 unit/mL (3 mL) INJECT 20 UNITS EVERY DAY AT BEDTIME BD ULTRAFINE III MINI PEN 31 gauge x 3/16 USE THREE TIMES A DAY FOR DM 2 doxazosin (CARDURA) 2 mg tablet Take 2 mg by mouth twice daily. FLUoxetine (PROZAC) 40 mg capsule fluoxetine 40 mg capsule [START ON 03/18/2023] gabapentin (NEURONTIN) 600 mg tablet Take 1 tablet by mouth three times a day for 30 days. Do not start before March 18, 2023. glimepiride (AMARYL) 4 mg tablet hydroCHLOROthiazide (HYDRODIURIL, ESIDRIX) 25 mg tablet HYDROcodone-Acetaminophen (NORCO) 10-325 mg per tablet Take 1 tablet by mouth three times a day as needed for pain for up to 30 days. ibuprofen (MOTRIN) 800 mg tablet Take 1 tablet by mouth three times a day as needed for pain. lisinopril (ZESTRIL) 40 mg tablet Take 40 mg by mouth daily at bedtime. lisinopril-hydroCHLOROthiazide (PRINZIDE, ZESTORETIC) 20-25 mg per tablet lisinopril-hydrochlorothiazide 20-25 mg tablet metFORMIN (GLUCOPHAGE) 1,000 mg tablet metformin 1,000 mg tablet methylPREDNISolone (MEDROL DOSE-PACK) 4 mg Dose-Pack Medrol (Jonnie) 4 mg tablets,dose pack montelukast (SINGULAIR) 10 mg tablet nystatin (MYCOSTATIN) 100,000 unit/mL suspension oxyCODONE-acetaminophen (PERCOCET) 7.5-325 mg tablet Take 1 tablet by mouth three times daily as needed for pain for up to 30 days. rosuvastatin (CRESTOR) 20 mg tablet Take 20 mg by mouth daily at bedtime. sertraline (ZOLOFT) 100 mg tablet Take 100 mg by mouth once daily. SITagliptin (JANUVIA) 100 mg tablet Januvia 100 mg tablet No current facility-administered medications for this visit. PHYSICAL EXAMINATION: Vitals: BP 159/84 Pulse 79 Resp 18 Ht 5' 5 (1.65m) Wt 250 lb (113.4kg) SpO2 96% BMI 41.60 kg/(m^2). General appearance: Well appearing, in no acute distress, alert. Obese. Psych: Mood and affect appropriate. Skin: Skin color, texture, turgor normal, no rashes or lesions. Pulm: no conversational shortness of breath Musculoskeletal: Negative toe and heel raise. Negative knee bend. Lumbar range of motion without restriction throughout. Negative straight leg raise from sitting position bilaterally. Negative TYSHAWN sign bilaterally. Right knee without tenderness with palpation over the kneecap. Negative valgus/varus. Negative anterior shelf test. No swelling appreciated ASSESSMENT: Chronic pain syndrome (primary encounter diagnosis) Myofascial pain syndrome High risk medication use Osteoarthritis of right knee, unspecified osteoarthritis type Other secondary osteoarthritis of both knees Cervical radiculopathy Cervical pain Bilateral arm weakness Patient is stable. Chronic pain is persistent. Medications are helping Jeremy Freeman to have an improved quality of life. Patient compliance with Opioid Contract: patient is compliant PLAN: The patient understands the goal of our treatment is a reduction in pain and/or an improved level of functioning with activities of daily living. If at any time the patient does not feel the medications are helping them to achieve these goals, the medications may be discontinued. The patient reports a reduction in pain and/or an improved level of functioning with activities of daily living, denies any significant adverse effects, is compliant with the pain management agreement and there are no signs of medication misuse, abuse or diversion; therefore, the medications will be continued. Scribed for Vijaya Silva DO, by Janis Orellana bacteriologist medical, March 14, 2023. documented in this encounter [facility] 03-09-2023 Miscellaneous Notes Formattin g of this note might be different from the original. Pt notified Emily Weber RN March 09, 2023 2:31 PM Pt's Alana called in today stating that [facility] does not have the Currie in stock. She is asking for it to be sent to [facility] in [place]. Please sign attached script. Vilma Alvarez RN March 09, 2023 1:06 PM Patient phones requesting refills as follows: Requested Prescriptions Pending Prescriptions Disp Refills HYDROcodone-Acetaminophen (NORCO) 10-325 mg per tablet 90 tablet 0 Sig: Take 1 tablet by mouth three times a day as needed for pain for up to 30 days. Last UDS: Summary Report Date Value Ref Range Status 08/30/2022 FINAL Final Comment: == Opiate Class, MS, Ur RFX Oxycodone Class, MS, Ur RFX Gabapentin, MS, Ur RFX Acetaminophen, MS, Ur RFX ToxAssure Flex 23, Ur == Test Result Flag Units Drug Present Oxycodone 440 ng/mg creat Oxymorphone 590 ng/mg creat Noroxycodone 1267 ng/mg creat Noroxymorphone 148 ng/mg creat Sources of oxycodone are scheduled prescription medications. Oxymorphone, noroxycodone, and noroxymorphone are expected metabolites of oxycodone. Oxymorphone is also available as a scheduled prescription medication. Gabapentin PRESENT Acetaminophen PRESENT == Test Result Flag Units Ref Range Creatinine 82 mg/dL >=20 == Declared Medications: Medication list was not provided. == For clinical consultation, please call . == @FLOW([id number])@ Lab Results Component Value Date SUMM FINAL 08/30/2022 Summary Report (Summary) Date Value Ref Range Status 03/02/2022 FINAL Final Comment: == TOXASSURE COMP DRUG ANALYSIS,UR == Test Result Flag Units Drug Present Oxycodone 1289 ng/mg creat Oxymorphone 1307 ng/mg creat Noroxycodone 2091 ng/mg creat Noroxymorphone 336 ng/mg creat Sources of oxycodone are scheduled prescription medications. Oxymorphone, noroxycodone, and noroxymorphone are expected metabolites of oxycodone. Oxymorphone is also available as a scheduled prescription medication. Gabapentin PRESENT Sertraline PRESENT Desmethylsertraline PRESENT Desmethylsertraline is an expected metabolite of sertraline. Acetaminophen PRESENT Ibuprofen PRESENT == Test Result Flag Units Ref Range Creatinine 120 mg/dL >=20 == Declared Medications: Medication list was not provided. == For clinical consultation, please call . == Please review and advise. Vilma Alvarez RN documented in this encounter [facility] 03-08-2023 Miscellaneous Notes Formattin g of this note is different from the original. The following approved medication requests have been transmitted electronically. Requested Prescriptions Pending Prescriptions Disp Refills HYDROcodone-Acetaminophen (NORCO) 10-325 mg per tablet 90 tablet 0 Sig: Take 1 tablet by mouth three times a day as needed for pain for up to 30 days. Do not start before March 09, 2023. Vijaya Silva DO Patient phones requesting refills as follows: Requested Prescriptions Pending Prescriptions Disp Refills HYDROcodone-Acetaminophen (NORCO) 10-325 mg per tablet 90 tablet 0 Sig: Take 1 tablet by mouth three times a day as needed for pain for up to 30 days. Last UDS: Summary Report Date Value Ref Range Status 08/30/2022 FINAL Final Comment: == Opiate Class, MS, Ur RFX Oxycodone Class, MS, Ur RFX Gabapentin, MS, Ur RFX Acetaminophen, MS, Ur RFX ToxAssure Flex 23, Ur == Test Result Flag Units Drug Present Oxycodone 440 ng/mg creat Oxymorphone 590 ng/mg creat Noroxycodone 1267 ng/mg creat Noroxymorphone 148 ng/mg creat Sources of oxycodone are scheduled prescription medications. Oxymorphone, noroxycodone, and noroxymorphone are expected metabolites of oxycodone. Oxymorphone is also available as a scheduled prescription medication. Gabapentin PRESENT Acetaminophen PRESENT == Test Result Flag Units Ref Range Creatinine 82 mg/dL >=20 == Declared Medications: Medication list was not provided. == For clinical consultation, please call . == @FLOW([id number])@ Lab Results Component Value Date SUMM FINAL 08/30/2022 Summary Report (Summary) Date Value Ref Range Status 03/02/2022 FINAL Final Comment: == TOXASSURE COMP DRUG ANALYSIS,UR == Test Result Flag Units Drug Present Oxycodone 1289 ng/mg creat Oxymorphone 1307 ng/mg creat Noroxycodone 2091 ng/mg creat Noroxymorphone 336 ng/mg creat Sources of oxycodone are scheduled prescription medications. Oxymorphone, noroxycodone, and noroxymorphone are expected metabolites of oxycodone. Oxymorphone is also available as a scheduled prescription medication. Gabapentin PRESENT Sertraline PRESENT Desmethylsertraline PRESENT Desmethylsertraline is an expected metabolite of sertraline. Acetaminophen PRESENT Ibuprofen PRESENT == Test Result Flag Units Ref Range Creatinine 120 mg/dL >=20 == Declared Medications: Medication list was not provided. == For clinical consultation, please call . == Please review and advise. Lamar Prince RN documented in this encounter [facility] 02-15-2023 Miscellaneous Notes Formattin g of this note is different from the original. The following approved medication requests have been transmitted electronically. Requested Prescriptions Signed Prescriptions Disp Refills gabapentin (NEURONTIN) 600 mg tablet 90 tablet 0 Sig: Take 1 tablet by mouth three times daily for 30 days. Authorizing Provider: ALBERT MIX ibuprofen (MOTRIN) 800 mg tablet 90 tablet 0 Sig: Take 1 tablet by mouth three times daily as needed for pain. Authorizing Provider: ALBERT MIX APRN.CNP Patient phones requesting refills as follows: Requested Prescriptions Pending Prescriptions Disp Refills gabapentin (NEURONTIN) 600 mg tablet 90 tablet 0 Sig: Take 1 tablet by mouth three times daily for 30 days. ibuprofen (MOTRIN) 800 mg tablet 90 tablet 0 Sig: Take 1 tablet by mouth three times daily as needed for pain. Last UDS: Summary Report Date Value Ref Range Status 08/30/2022 FINAL Final Comment: == Opiate Class, MS, Ur RFX Oxycodone Class, MS, Ur RFX Gabapentin, MS, Ur RFX Acetaminophen, MS, Ur RFX ToxAssure Flex 23, Ur == Test Result Flag Units Drug Present Oxycodone 440 ng/mg creat Oxymorphone 590 ng/mg creat Noroxycodone 1267 ng/mg creat Noroxymorphone 148 ng/mg creat Sources of oxycodone are scheduled prescription medications. Oxymorphone, noroxycodone, and noroxymorphone are expected metabolites of oxycodone. Oxymorphone is also available as a scheduled prescription medication. Gabapentin PRESENT Acetaminophen PRESENT == Test Result Flag Units Ref Range Creatinine 82 mg/dL >=20 == Declared Medications: Medication list was not provided. == For clinical consultation, please call . == @FLOW([id number])@ Lab Results Component Value Date SUMM FINAL 08/30/2022 Summary Report (Summary) Date Value Ref Range Status 03/02/2022 FINAL Final Comment: == TOXASSURE COMP DRUG ANALYSIS,UR == Test Result Flag Units Drug Present Oxycodone 1289 ng/mg creat Oxymorphone 1307 ng/mg creat Noroxycodone 2091 ng/mg creat Noroxymorphone 336 ng/mg creat Sources of oxycodone are scheduled prescription medications. Oxymorphone, noroxycodone, and noroxymorphone are expected metabolites of oxycodone. Oxymorphone is also available as a scheduled prescription medication. Gabapentin PRESENT Sertraline PRESENT Desmethylsertraline PRESENT Desmethylsertraline is an expected metabolite of sertraline. Acetaminophen PRESENT Ibuprofen PRESENT == Test Result Flag Units Ref Range Creatinine 120 mg/dL >=20 == Declared Medications: Medication list was not provided. == For clinical consultation, please call . == Please review and advise. Vilma Alvarez RN documented in this encounter [facility] 02-09-2023 Miscellaneous Notes Formattin g of this note is different from the original. The following approved medication requests have been transmitted electronically. Requested Prescriptions Signed Prescriptions Disp Refills HYDROcodone-Acetaminophen (NORCO) 10-325 mg per tablet 90 tablet 0 Sig: Take 1 tablet by mouth three times daily as needed for pain for up to 30 days. Authorizing Provider: ALBERT MIX APRN.CNP Pts Alana called to report that pt is due to fill norco today but [facility] is closed due to a staffing issue. She is asking for norco RX to go to [facility]. RX attached. Lamar Prince RN February 08, 2023 12:42 PM documented in this encounter [facility] 01-15-2023 Miscellaneous Notes Formattin g of this note is different from the original. The following approved medication requests have been transmitted electronically. Requested Prescriptions Pending Prescriptions Disp Refills gabapentin (NEURONTIN) 600 mg tablet 90 tablet 0 Sig: Take 1 tablet by mouth three times daily for 30 days. ibuprofen (MOTRIN) 800 mg tablet 90 tablet 0 Sig: Take 1 tablet by mouth three times daily as needed for pain. Vijaya Silva DO Patient phones requesting refills as follows: Requested Prescriptions Pending Prescriptions Disp Refills gabapentin (NEURONTIN) 600 mg tablet 90 tablet 0 Sig: Take 1 tablet by mouth three times daily for 30 days. ibuprofen (MOTRIN) 800 mg tablet 90 tablet 0 Sig: Take 1 tablet by mouth three times daily as needed for pain. Last UDS: Summary Report Date Value Ref Range Status 08/30/2022 FINAL Final Comment: == Opiate Class, MS, Ur RFX Oxycodone Class, MS, Ur RFX Gabapentin, MS, Ur RFX Acetaminophen, MS, Ur RFX ToxAssure Flex 23, Ur == Test Result Flag Units Drug Present Oxycodone 440 ng/mg creat Oxymorphone 590 ng/mg creat Noroxycodone 1267 ng/mg creat Noroxymorphone 148 ng/mg creat Sources of oxycodone are scheduled prescription medications. Oxymorphone, noroxycodone, and noroxymorphone are expected metabolites of oxycodone. Oxymorphone is also available as a scheduled prescription medication. Gabapentin PRESENT Acetaminophen PRESENT == Test Result Flag Units Ref Range Creatinine 82 mg/dL >=20 == Declared Medications: Medication list was not provided. == For clinical consultation, please call . == @FLOW([id number])@ Lab Results Component Value Date SUMM FINAL 08/30/2022 Summary Report (Summary) Date Value Ref Range Status 03/02/2022 FINAL Final Comment: == TOXASSURE COMP DRUG ANALYSIS,UR == Test Result Flag Units Drug Present Oxycodone 1289 ng/mg creat Oxymorphone 1307 ng/mg creat Noroxycodone 2091 ng/mg creat Noroxymorphone 336 ng/mg creat Sources of oxycodone are scheduled prescription medications. Oxymorphone, noroxycodone, and noroxymorphone are expected metabolites of oxycodone. Oxymorphone is also available as a scheduled prescription medication. Gabapentin PRESENT Sertraline PRESENT Desmethylsertraline PRESENT Desmethylsertraline is an expected metabolite of sertraline. Acetaminophen PRESENT Ibuprofen PRESENT == Test Result Flag Units Ref Range Creatinine 120 mg/dL >=20 == Declared Medications: Medication list was not provided. == For clinical consultation, please call . == Please review and advise. Emily Weber RN documented in this encounter [facility] 01-06-2023 Miscellaneous Notes Formattin g of this note might be different from the original. Items addressed in this encounter: Prior Authorization Approval letter for Currie index to chart Able to close encounter. Cyndy La MA January 06, 2023 2:41 PM 2:41 PM documented in this encounter [facility] 01-06-2023 Miscellaneous Notes Formattin g of this note is different from the original. Items addressed in this encounter: Prior Authorization [place] approved for Currie Prior authorization approved Case ID: [id number] Payer: [facility] Approved. Approval Details Authorized from December 07, 2022 to July 10, 2023 Able to close encounter. Cyndy La MA January 06, 2023 2:27 PM 2:27 PM documented in this encounter [facility] 01-06-2023 Miscellaneous Notes Summary: Prior Auth Sent for Hydrocodone Acet-10-325 Items addressed in this encounter: Prior Authorization [place] for Hydrocodone-Acetaminophen 10-325. Able to close encounter. aLuren Couch MA January 06, 2023 1:08 PM 1:08 PM documented in this encounter [facility] 01-06-2023 Miscellaneous Notes Formattin g of this note might be different from the original. Alana states she was advised by to check with her pharmacy to see if they have norco 10/325 in stock, she is calling to say that they do have the generic, she states a refill needs sent, script is attached for your review, please advise Emily Weber RN January 06, 2023 10:29 AM documented in this encounter [facility] 12-27-2022 Instructions Vijaya Silva DO - 12/27/2022 11:12 AM EDT Continue Gabapentin 600 mg tablet TID Continue Percocet 7.5-325 mg TID PRN. Discussed changing over to Currie 10/325 3 times daily as needed or MS IR 15 mg 1 p.o. twice daily based on availability at local pharmacy .patient will call back prior to refill date for decision . Continue OTC ibuprofen prn Continue to keep active as possible Schedule right knee Synvisc gel injection every 6 months as needed Continue applying Emla cream as needed. Follow-up in 3 months with [facility] documented in this encounter [facility] 12-27-2022 History of Presen t illness Narrative Summary: Pain Management follow-up DATE: December 27, 2022 Chief Complaint: Back pain, right knee _ History of Present Illness: Jeremy Freeman is a 62 year old male being seen at [facility] for a evaluation and/or management of their chronic pain. The patient was last seen in the office by Dr. Silva on 08/30/2022 and the plan of care was as follows: Restarted Gabapentin 600 mg tablet TID one month ago. Patient to monitor for any memory loss issues while on the Gabapentin. Continue Percocet 7.5-325 mg TID PRN. Continue ibuprofen prn Keep active as possible UDS obtained Followup in 3 months with in office Schedule right knee Synvisc gel injection every 6 months as needed Continue applying Emla cream as needed. He had a gel knee injection on 04/08/2022 with 70% relief that lasted for about 6 months. He was restarted on Gabapentin 600 mg tablet with good benefit. He continues to use the topical Emla cream with benefit. He was not on norco or Dilaudid in the past. He is taking his Percocet and ibuprofen as needed with benefit and over side effects. Pain level: 12/06 Location: back pain, right knee Denies any ED visits or hospitalizations since last office visit Reports pain worse with walking and working Reports pain better with sitting, medications Stopped taking gabapentin Describes pain in lower back throbbing/intermittently Describes pain in right knee as constant pain Denies radiation of knee pain Denies numbness/tingling Denies falls He denies any bowel or bladder dysfunction. He gets about 6 hours of sleep at nights and wakes unrested/rested in the mornings. Last UDS: consistent Summary Report Date Value Ref Range Status 08/30/2022 FINAL Final Comment: == Opiate Class, MS, Ur RFX Oxycodone Class, MS, Ur RFX Gabapentin, MS, Ur RFX Acetaminophen, MS, Ur RFX ToxAssure Flex 23, Ur == Test Result Flag Units Drug Present Oxycodone 440 ng/mg creat Oxymorphone 590 ng/mg creat Noroxycodone 1267 ng/mg creat Noroxymorphone 148 ng/mg creat Sources of oxycodone are scheduled prescription medications. Oxymorphone, noroxycodone, and noroxymorphone are expected metabolites of oxycodone. Oxymorphone is also available as a scheduled prescription medication. Gabapentin PRESENT Acetaminophen PRESENT == Test Result Flag Units Ref Range Creatinine 82 mg/dL >=20 == Declared Medications: Medication list was not provided. == For clinical consultation, please call . == Summary Report (Summary) Date Value Ref Range Status 03/02/2022 FINAL Final Comment: == TOXASSURE COMP DRUG ANALYSIS,UR == Test Result Flag Units Drug Present Oxycodone 1289 ng/mg creat Oxymorphone 1307 ng/mg creat Noroxycodone 2091 ng/mg creat Noroxymorphone 336 ng/mg creat Sources of oxycodone are scheduled prescription medications. Oxymorphone, noroxycodone, and noroxymorphone are expected metabolites of oxycodone. Oxymorphone is also available as a scheduled prescription medication. Gabapentin PRESENT Sertraline PRESENT Desmethylsertraline PRESENT Desmethylsertraline is an expected metabolite of sertraline. Acetaminophen PRESENT Ibuprofen PRESENT == Test Result Flag Units Ref Range Creatinine 120 mg/dL >=20 == Declared Medications: Medication list was not provided. == For clinical consultation, please call . == Chronic Pain Functional Assessment Tools Pain Disability Index: Pain Disability Index 03/02/2022 12/27/2022 Family/Home Responsibilities 9 5 Recreation 9 5 Social Activity 9 5 Occupation 9 5 Sexual Behavior 0 No disability 5 Self Care 0 No disability 5 Life Support Activity 2 5 PDI Score 38 35 Pain Enjoyment of Life and General Activity Scale (0-10): PEG: A Three-Item Scale Assessing Pain Intensity and Interference What number best describes your pain on average in the past week?: 6 (12/27/2022 10:00 AM) What number best describes how, during the past week, pain has interfered with your enjoyment of life?: 6 (12/27/2022 10:00 AM) What number best describes how, during the past week, pain has interfered with your general activity?: 7 (12/27/2022 10:00 AM) REVIEW OF SYSTEMS: GENERAL: No weight loss, malaise or fevers RESPIRATORY: Negative for cough, hemoptysis, wheezing, COPD, dyspnea or shortness of breath. CARDIOVASCULAR: Negative for chest pain, leg swelling, hypertension, CHF or palpitations GI: No nausea, vomiting, or diarrhea. 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 FAMILY HISTORY Problem Relation Age of Onset Hypertension Mother Social History Tobacco Use Smoking status: Never Passive exposure: Never Smokeless tobacco: Never Substance Use Topics Alcohol use: Never Drug use: Never Work Status: Retired Allergies: No Known Allergies Current Outpatient Medications Medication Sig gabapentin (NEURONTIN) 600 mg tablet Take 1 tablet by mouth three times daily for 30 days. Do not start before December 18, 2022. ibuprofen (MOTRIN) 800 mg tablet Take 1 tablet by mouth three times daily as needed for pain. oxyCODONE-acetaminophen (PERCOCET) 7.5-325 mg tablet Take 1 tablet by mouth three times daily as needed for pain for up to 30 days. doxazosin (CARDURA) 2 mg tablet Take 2 mg by mouth twice daily. lisinopril (ZESTRIL) 40 mg tablet Take 40 mg by mouth daily at bedtime. sertraline (ZOLOFT) 100 mg tablet Take 100 mg by mouth once daily. albuterol HFA (PROVENTIL HFA, VENTOLIN HFA) 90 mcg/actuation inhaler hydroCHLOROthiazide (HYDRODIURIL, ESIDRIX) 25 mg tablet amLODIPine (NORVASC) 10 mg tablet montelukast (SINGULAIR) 10 mg tablet nystatin (MYCOSTATIN) 100,000 unit/mL suspension FLUoxetine (PROZAC) 40 mg capsule fluoxetine 40 mg capsule glimepiride (AMARYL) 4 mg tablet lisinopril-hydroCHLOROthiazide (PRINZIDE, ZESTORETIC) 20-25 mg per tablet lisinopril-hydrochlorothiazide 20-25 mg tablet metFORMIN (GLUCOPHAGE) 1,000 mg tablet metformin 1,000 mg tablet methylPREDNISolone (MEDROL DOSE-PACK) 4 mg Dose-Pack Medrol (Jonnie) 4 mg tablets,dose pack rosuvastatin (CRESTOR) 10 mg tablet SITagliptin (JANUVIA) 100 mg tablet Januvia 100 mg tablet No current facility-administered medications for this visit. PHYSICAL EXAMINATION: Vitals: BP 168/76 Pulse 80 Resp 19 Ht 5' 6 (1.68m) Wt 245 lb (111.1kg) SpO2 95% BMI 39.56 kg/(m^2). General appearance: Well appearing, in no acute distress, alert. Obese. Psych: Mood and affect appropriate. Skin: Skin color, texture, turgor normal, no rashes or lesions. Pulm: no conversational shortness of breath GI: Abdomen soft and non-tender. Musculoskeletal: Negative toe and heel raise. Negative knee bend. Lumbar range of motion without restriction throughout. Negative straight leg raise from sitting position bilaterally. Negative TYSHAWN sign bilaterally. Right knee without tenderness with palpation over the kneecap. Negative valgus/varus. Negative anterior shelf test. No swelling appreciated ASSESSMENT: High risk medication use (primary encounter diagnosis) Chronic pain syndrome Osteoarthritis of right knee, unspecified osteoarthritis type Other secondary osteoarthritis of both knees Myofascial pain syndrome Patient is stable. Chronic pain is persistent. Medications are helping Jeremy Freeman to have an improved quality of life. Patient compliance with Opioid Contract: patient is compliant PDMP website checked and validated. [place] report reviewed on December 27, 2022 by Ayala Swartz and is consistent with the patients medical history and medication intake. PLAN: The patient understands the goal of our treatment is a reduction in pain and/or an improved level of functioning with activities of daily living. If at any time the patient does not feel the medications are helping them to achieve these goals, the medications may be discontinued. The patient reports a reduction in pain and/or an improved level of functioning with activities of daily living, denies any significant adverse effects, is compliant with the pain management agreement and there are no signs of medication misuse, abuse or diversion; therefore, the medications will be continued. The documentation for this encounter was entered by Ayala Swartz, bacteriologist medical for Dr. Vijaya Silva on December 27, 2022. I, Dr. Vijaya Silva, personally performed the services described in this documentation. All medical record entries made by the scribe were at my direction and in my presence. I have reviewed the chart and discharge instructions and agree that the record reflects my personal performance and is accurate and complete. Electronically Signed: Dr. Silva. December 27, 2022. documented in this encounter [facility] 12-15-2022 Miscellaneous Notes Formattin g of this note is different from the original. The following approved medication requests have been transmitted electronically. Requested Prescriptions Signed Prescriptions Disp Refills gabapentin (NEURONTIN) 600 mg tablet 90 tablet 0 Sig: Take 1 tablet by mouth three times daily for 30 days. Do not start before December 18, 2022. Authorizing Provider: ANGIE BLACKWOOD ibuprofen (MOTRIN) 800 mg tablet 90 tablet 0 Sig: Take 1 tablet by mouth three times daily as needed for pain. Authorizing Provider: ANGIE BLACKWOOD APRN.[employer] Patient phones requesting refills as follows: Requested Prescriptions Pending Prescriptions Disp Refills gabapentin (NEURONTIN) 600 mg tablet 90 tablet 0 Sig: Take 1 tablet by mouth three times daily for 30 days. ibuprofen (MOTRIN) 800 mg tablet 90 tablet 0 Sig: Take 1 tablet by mouth three times daily as needed for pain. Last UDS: Summary Report Date Value Ref Range Status 08/30/2022 FINAL Final Comment: == Opiate Class, MS, Ur RFX Oxycodone Class, MS, Ur RFX Gabapentin, MS, Ur RFX Acetaminophen, MS, Ur RFX ToxAssure Flex 23, Ur == Test Result Flag Units Drug Present Oxycodone 440 ng/mg creat Oxymorphone 590 ng/mg creat Noroxycodone 1267 ng/mg creat Noroxymorphone 148 ng/mg creat Sources of oxycodone are scheduled prescription medications. Oxymorphone, noroxycodone, and noroxymorphone are expected metabolites of oxycodone. Oxymorphone is also available as a scheduled prescription medication. Gabapentin PRESENT Acetaminophen PRESENT == Test Result Flag Units Ref Range Creatinine 82 mg/dL >=20 == Declared Medications: Medication list was not provided. == For clinical consultation, please call . == @FLOW([id number])@ Lab Results Component Value Date SUMM FINAL 08/30/2022 Summary Report (Summary) Date Value Ref Range Status 03/02/2022 FINAL Final Comment: == TOXASSURE COMP DRUG ANALYSIS,UR == Test Result Flag Units Drug Present Oxycodone 1289 ng/mg creat Oxymorphone 1307 ng/mg creat Noroxycodone 2091 ng/mg creat Noroxymorphone 336 ng/mg creat Sources of oxycodone are scheduled prescription medications. Oxymorphone, noroxycodone, and noroxymorphone are expected metabolites of oxycodone. Oxymorphone is also available as a scheduled prescription medication. Gabapentin PRESENT Sertraline PRESENT Desmethylsertraline PRESENT Desmethylsertraline is an expected metabolite of sertraline. Acetaminophen PRESENT Ibuprofen PRESENT == Test Result Flag Units Ref Range Creatinine 120 mg/dL >=20 == Declared Medications: Medication list was not provided. == For clinical consultation, please call . == Please review and advise. Vilma Alvarez RN documented in this encounter [facility] 12-08-2022 Miscellaneous Notes Formattin g of this note might be different from the original. Items addressed in this encounter: Prior Authorization [place] approval letter indexed into chart Able to close encounter. Bessy Bojorquez MA December 08, 2022 1:02 PM 1:02 PM documented in this encounter [facility] 12-08-2022 Miscellaneous Notes Formattin g of this note might be different from the original. Items addressed in this encounter: Prior Authorization Oxycodone approved in epic hub Able to close encounter. Bessy Bojorquez MA December 08, 2022 12:56 PM 12:56 PM documented in this encounter [facility] 12-08-2022 Miscellaneous Notes Formattin g of this note might be different from the original. Items addressed in this encounter: Prior Authorization Oxycodone acetaminophen pa sent through epic hub. Able to close encounter. Bessy Bojorquez MA December 08, 2022 11:33 AM 11:33 AM documented in this encounter [facility] 12-08-2022 Miscellaneous Notes Formattin g of this note is different from the original. The following approved medication requests have been transmitted electronically. Requested Prescriptions Signed Prescriptions Disp Refills oxyCODONE-acetaminophen (PERCOCET) 7.5-325 mg tablet 90 tablet 0 Sig: Take 1 tablet by mouth three times daily as needed for pain for up to 30 days. Authorizing Provider: ANGIE BLACKWOOD APRN.[employer] Pt last ov was 08/2022, 11/22 is marked as rescheduled and next ov is 12/27, please advise refill Emily Weber RN December 08, 2022 10:30 AM documented in this encounter [facility] 11-15-2022 Miscellaneous Notes Formattin g of this note is different from the original. The following approved medication requests have been transmitted electronically. Requested Prescriptions Signed Prescriptions Disp Refills gabapentin (NEURONTIN) 600 mg tablet 90 tablet 0 Sig: Take 1 tablet by mouth three times daily for 30 days. Do not start before November 18, 2022. Authorizing Provider: ANGIE BLACKWOOD ibuprofen (MOTRIN) 800 mg tablet 90 tablet 0 Sig: Take 1 tablet by mouth three times daily as needed for pain. Authorizing Provider: ANGIE BLACKWOOD APRN.[employer] Patient phones requesting refills as follows: Requested Prescriptions Pending Prescriptions Disp Refills gabapentin (NEURONTIN) 600 mg tablet 90 tablet 0 Sig: Take 1 tablet by mouth three times daily for 30 days. ibuprofen (MOTRIN) 800 mg tablet 90 tablet 0 Sig: Take 1 tablet by mouth three times daily as needed for pain. Last UDS: Summary Report Date Value Ref Range Status 08/30/2022 FINAL Final Comment: == Opiate Class, MS, Ur RFX Oxycodone Class, MS, Ur RFX Gabapentin, MS, Ur RFX Acetaminophen, MS, Ur RFX ToxAssure Flex 23, Ur == Test Result Flag Units Drug Present Oxycodone 440 ng/mg creat Oxymorphone 590 ng/mg creat Noroxycodone 1267 ng/mg creat Noroxymorphone 148 ng/mg creat Sources of oxycodone are scheduled prescription medications. Oxymorphone, noroxycodone, and noroxymorphone are expected metabolites of oxycodone. Oxymorphone is also available as a scheduled prescription medication. Gabapentin PRESENT Acetaminophen PRESENT == Test Result Flag Units Ref Range Creatinine 82 mg/dL >=20 == Declared Medications: Medication list was not provided. == For clinical consultation, please call . == @FLOW([id number])@ Lab Results Component Value Date SUMM FINAL 08/30/2022 Summary Report (Summary) Date Value Ref Range Status 03/02/2022 FINAL Final Comment: == TOXASSURE COMP DRUG ANALYSIS,UR == Test Result Flag Units Drug Present Oxycodone 1289 ng/mg creat Oxymorphone 1307 ng/mg creat Noroxycodone 2091 ng/mg creat Noroxymorphone 336 ng/mg creat Sources of oxycodone are scheduled prescription medications. Oxymorphone, noroxycodone, and noroxymorphone are expected metabolites of oxycodone. Oxymorphone is also available as a scheduled prescription medication. Gabapentin PRESENT Sertraline PRESENT Desmethylsertraline PRESENT Desmethylsertraline is an expected metabolite of sertraline. Acetaminophen PRESENT Ibuprofen PRESENT == Test Result Flag Units Ref Range Creatinine 120 mg/dL >=20 == Declared Medications: Medication list was not provided. == For clinical consultation, please call . == Please review and advise. Lamar Prince RN documented in this encounter [facility] 10-07-2022 Miscellaneous Notes Formattin g of this note might be different from the original. Pt called and notified that script was sent. Vilma Alvarez RN October 07, 2022 9:52 AM [facility] but it will be a partial fill (80), they are just waiting for the script to be sent Emily Weber RN October 06, 2022 10:03 AM Ok to send script to another pharmacy Pt's called in today and now [facility] does not have the Percocet in stock. She is asking that the script be sent to [facility] in [place]. Please advise. Vilma Alvarez, RNPatient phones requesting refills as follows: Requested Prescriptions Pending Prescriptions Disp Refills oxyCODONE-acetaminophen (PERCOCET) 7.5-325 mg tablet 90 tablet 0 Sig: Take 1 tablet by mouth three times daily as needed for pain for up to 30 days. Last UDS: Summary Report Date Value Ref Range Status 08/30/2022 FINAL Final Comment: == Opiate Class, MS, Ur RFX Oxycodone Class, MS, Ur RFX Gabapentin, MS, Ur RFX Acetaminophen, MS, Ur RFX ToxAssure Flex 23, Ur == Test Result Flag Units Drug Present Oxycodone 440 ng/mg creat Oxymorphone 590 ng/mg creat Noroxycodone 1267 ng/mg creat Noroxymorphone 148 ng/mg creat Sources of oxycodone are scheduled prescription medications. Oxymorphone, noroxycodone, and noroxymorphone are expected metabolites of oxycodone. Oxymorphone is also available as a scheduled prescription medication. Gabapentin PRESENT Acetaminophen PRESENT == Test Result Flag Units Ref Range Creatinine 82 mg/dL >=20 == Declared Medications: Medication list was not provided. == For clinical consultation, please call . == @FLOW([id number])@ Lab Results Component Value Date SUMM FINAL 08/30/2022 Summary Report (Summary) Date Value Ref Range Status 03/02/2022 FINAL Final Comment: == TOXASSURE COMP DRUG ANALYSIS,UR == Test Result Flag Units Drug Present Oxycodone 1289 ng/mg creat Oxymorphone 1307 ng/mg creat Noroxycodone 2091 ng/mg creat Noroxymorphone 336 ng/mg creat Sources of oxycodone are scheduled prescription medications. Oxymorphone, noroxycodone, and noroxymorphone are expected metabolites of oxycodone. Oxymorphone is also available as a scheduled prescription medication. Gabapentin PRESENT Sertraline PRESENT Desmethylsertraline PRESENT Desmethylsertraline is an expected metabolite of sertraline. Acetaminophen PRESENT Ibuprofen PRESENT == Test Result Flag Units Ref Range Creatinine 120 mg/dL >=20 == Declared Medications: Medication list was not provided. == For clinical consultation, please call . == Please review and advise. Vilma Alvarez RN October 05, 2022 2:59 PM documented in this encounter [facility] 09-21-2022 Miscellaneous Notes Formattin g of this note is different from the original. Pt's called in today stating that [facility] does not have the Percocet 7.5/325mg in stock. She is asking for the script to be sent to [facility] in [place]. Please advise. Vilma Alvarez RN September 21, 2022 9:44 AM Patient phones requesting refills as follows: Requested Prescriptions Pending Prescriptions Disp Refills oxyCODONE-acetaminophen (PERCOCET) 7.5-325 mg tablet 90 tablet 0 Sig: Take 1 tablet by mouth three times daily as needed for pain for up to 30 days. Last UDS: Summary Report Date Value Ref Range Status 08/30/2022 FINAL Final Comment: == Opiate Class, MS, Ur RFX Oxycodone Class, MS, Ur RFX Gabapentin, MS, Ur RFX Acetaminophen, MS, Ur RFX ToxAssure Flex 23, Ur == Test Result Flag Units Drug Present Oxycodone 440 ng/mg creat Oxymorphone 590 ng/mg creat Noroxycodone 1267 ng/mg creat Noroxymorphone 148 ng/mg creat Sources of oxycodone are scheduled prescription medications. Oxymorphone, noroxycodone, and noroxymorphone are expected metabolites of oxycodone. Oxymorphone is also available as a scheduled prescription medication. Gabapentin PRESENT Acetaminophen PRESENT == Test Result Flag Units Ref Range Creatinine 82 mg/dL >=20 == Declared Medications: Medication list was not provided. == For clinical consultation, please call . == @FLOW([id number])@ Lab Results Component Value Date SUMM FINAL 08/30/2022 Summary Report (Summary) Date Value Ref Range Status 03/02/2022 FINAL Final Comment: == TOXASSURE COMP DRUG ANALYSIS,UR == Test Result Flag Units Drug Present Oxycodone 1289 ng/mg creat Oxymorphone 1307 ng/mg creat Noroxycodone 2091 ng/mg creat Noroxymorphone 336 ng/mg creat Sources of oxycodone are scheduled prescription medications. Oxymorphone, noroxycodone, and noroxymorphone are expected metabolites of oxycodone. Oxymorphone is also available as a scheduled prescription medication. Gabapentin PRESENT Sertraline PRESENT Desmethylsertraline PRESENT Desmethylsertraline is an expected metabolite of sertraline. Acetaminophen PRESENT Ibuprofen PRESENT == Test Result Flag Units Ref Range Creatinine 120 mg/dL >=20 == Declared Medications: Medication list was not provided. == For clinical consultation, please call . == Please review and advise. Vilma Alvarez RN documented in this encounter [facility] 07-16-2022 Miscellaneous Notes Formattin g of this note is different from the original. The following approved medication requests have been transmitted electronically. Requested Prescriptions Signed Prescriptions Disp Refills ibuprofen (MOTRIN) 800 mg tablet 90 tablet 0 Sig: Take 1 tablet by mouth three times daily as needed for pain. Authorizing Provider: ANGIE BLACKWOOD oxyCODONE-acetaminophen (PERCOCET) 7.5-325 mg tablet 90 tablet 0 Sig: Take 1 tablet by mouth three times daily as needed for pain for up to 30 days. DTF 05/23/22 OK TO FILL 05/22/22 D/T THE HOLIDAY Do not start before July 21, 2022. Authorizing Provider: ANGIE BLACKWOOD APRN.[employer] Patient phones requesting refills as follows: Requested Prescriptions Pending Prescriptions Disp Refills ibuprofen (MOTRIN) 800 mg tablet 90 tablet 0 Sig: Take 1 tablet by mouth three times daily as needed for pain. oxyCODONE-acetaminophen (PERCOCET) 7.5-325 mg tablet 90 tablet 0 Sig: Take 1 tablet by mouth three times daily as needed for pain for up to 30 days. DTF 05/23/22 OK TO FILL 05/22/22 D/T THE HOLIDAY Last UDS: No results found for: SUMM @FLOW([id number])@ No results found for: SUMM Summary Report (Summary) Date Value Ref Range Status 03/02/2022 FINAL Final Comment: == TOXASSURE COMP DRUG ANALYSIS,UR == Test Result Flag Units Drug Present Oxycodone 1289 ng/mg creat Oxymorphone 1307 ng/mg creat Noroxycodone 2091 ng/mg creat Noroxymorphone 336 ng/mg creat Sources of oxycodone are scheduled prescription medications. Oxymorphone, noroxycodone, and noroxymorphone are expected metabolites of oxycodone. Oxymorphone is also available as a scheduled prescription medication. Gabapentin PRESENT Sertraline PRESENT Desmethylsertraline PRESENT Desmethylsertraline is an expected metabolite of sertraline. Acetaminophen PRESENT Ibuprofen PRESENT == Test Result Flag Units Ref Range Creatinine 120 mg/dL >=20 == Declared Medications: Medication list was not provided. == For clinical consultation, please call . == Please review and advise. Lamar Prince RN documented in this encounter [facility] 05-27-2022 Instructions Angie Blackwood APRN.[employer] - 05/27/2022 4:01 PM EST Discontinue Gabapentin Patient stopped taking Continue Percocet 7.5-325 mg TID PRN. 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 OARRS reviewed and consistent UDS reviewed and consistent Sign Pain contract Continue ibuprofen prn Keep active as possible Followup in 2 months coordinate with who is seen by provider documented in this encounter [facility] 05-27-2022 History of Presen t illness Narrative SUBJECTIVE: Jeremy Freeman presents to [facility] Management Department for a follow-up appointment for back and knee pain Last seen by Dr Silva on 03/02/22 Last procedure 04/08/22 right knee synvisc injection Pain level:8/10 States had 70% relief from injection Denies any ED visits or hospitalizations since last office visit Reports pain worse with walking and working Reports pain better with sitting, medications Stopped taking gabapentin Describes pain in lower back as resolved Describes pain in right knee as constant pain Denies radiation of knee pain Denies numbness/tingling Denies falls REVIEW OF SYSTEMS: GENERAL: No weight loss, malaise or fevers. HEENT: Negative for frequent or significant headaches. RESPIRATORY: Negative for cough, wheezing or shortness of breath. CARDIOVASCULAR: Negative for chest pain, leg swelling or palpitations. GI: Negative for abdominal discomfort, blood in stools or black stools or change in bowel habits. 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 Family History: FAMILY HISTORY Problem Relation Age of Onset Hypertension Mother Social History: Social History Tobacco Use Smoking status: Never Passive exposure: Never Smokeless tobacco: Never Substance Use Topics Alcohol use: Never Drug use: Never OBJECTIVE: There were no vitals taken for this visit. PHYSICAL EXAMINATION: General appearance: Well appearing, in no acute distress, alert. Psych: Mood and affect appropriate. Skin: Skin color, texture, turgor normal, no rashes or lesions. Pulm: no conversational shortness of breath GI: Abdomen soft and non-tender. Musculoskeletal: Negative toe and heel raise. Negative knee bend. Lumbar range of motion without restriction throughout. Negative straight leg raise from sitting position bilaterally. Negative TYSHAWN sign bilaterally. Right knee without tenderness with palpation over the kneecap. Negative valgus/varus. Negative anterior shelf test. No swelling appreciated. 5/5 bilateral lower extremity muscle strength ASSESSMENT: High risk medication use Chronic pain syndrome Osteoarthritis of right knee, unspecified osteoarthritis type (primary encounter diagnosis) PLAN: The above plan and management options were discussed at length with the patient. The patient is in agreement with the above and verbalized understanding. Angie Blackwood APRN.CNS May 27, 2022 documented in this encounter [facility] 05-19-2022 Miscellaneous Notes Formattin g of this note is different from the original. The following approved medication requests have been transmitted electronically. Requested Prescriptions Signed Prescriptions Disp Refills oxyCODONE-acetaminophen (PERCOCET) 7.5-325 mg tablet 90 tablet 0 Sig: Take 1 tablet by mouth three times daily as needed for pain for up to 30 days. DTF 05/23/22 OK TO FILL 05/22/22 D/T THE HOLIDAY Do not start before May 22, 2022. Authorizing Provider: ALBERT MIX APRN.CNP Patient phones requesting refills as follows: Requested Prescriptions Pending Prescriptions Disp Refills oxyCODONE-acetaminophen (PERCOCET) 7.5-325 mg tablet 90 tablet 0 Sig: Take 1 tablet by mouth three times daily as needed for pain for up to 30 days. Please review and advise. Carla Crawford RN documented in this encounter [facility] 05-15-2022 Miscellaneous Notes Formattin g of this note is different from the original. The following approved medication requests have been transmitted electronically. Requested Prescriptions Pending Prescriptions Disp Refills ibuprofen (MOTRIN) 800 mg tablet 90 tablet 0 Sig: Take 1 tablet by mouth three times daily as needed for pain. Vijaya Silva DO Patient phones requesting refills as follows: Requested Prescriptions Pending Prescriptions Disp Refills ibuprofen (MOTRIN) 800 mg tablet 90 tablet 0 Sig: Take 1 tablet by mouth three times daily as needed for pain. Please review and advise. Alecia Maki RN documented in this encounter [facility] 04-30-2022 Miscellaneous Notes Formattin g of this note is different from the original. The following approved medication requests have been transmitted electronically. Requested Prescriptions Signed Prescriptions Disp Refills gabapentin (NEURONTIN) 600 mg tablet 90 tablet 0 Sig: Take 1 tablet by mouth three times daily for 30 days. Do not start before May 01, 2022. Authorizing Provider: ALBERT MIX APRN.OSCAR Last pain contract 04/2021 Patient phones requesting refills as follows: Requested Prescriptions Pending Prescriptions Disp Refills gabapentin (NEURONTIN) 600 mg tablet 90 tablet 0 Sig: Take 1 tablet by mouth three times daily for 30 days. Please review and advise. Emily Weber RN documented in this encounter [facility] 04-20-2022 Miscellaneous Notes Formattin g of this note is different from the original. The following approved medication requests have been transmitted electronically. Requested Prescriptions Pending Prescriptions Disp Refills oxyCODONE-acetaminophen (PERCOCET) 7.5-325 mg tablet 90 tablet 0 Sig: Take 1 tablet by mouth three times daily as needed for pain for up to 30 days. Do not start before April 23, 2022. Vijaya Silva DO Pt requesting refill as follows Requested Prescriptions Pending Prescriptions Disp Refills oxyCODONE-acetaminophen (PERCOCET) 7.5-325 mg tablet 90 tablet 0 Sig: Take 1 tablet by mouth three times daily as needed for pain for up to 30 days. Please review and advise. Vilma Alvarez RN documented in this encounter [facility] 03-15-2022 Miscellaneous Notes Formattin g of this note is different from the original. Patient phones requesting refills as follows: Requested Prescriptions Pending Prescriptions Disp Refills ibuprofen (MOTRIN) 800 mg tablet 90 tablet 0 Sig: Take 1 tablet by mouth three times daily as needed for pain. Please review and advise. Lamar Prince RN documented in this encounter [facility] 03-02-2022 History of Past i llness Narrative Problem Noted Date Resolved Date Apnea 03/02/2022 11/05/2022 documented as of this encounter (statuses as of 11/15/2022) [facility] History of Past illness Narrative* Problem Noted Date Diagnosed Date Resolved Date Apnea 03/02/2022 11/05/2022 documented as of this encounter (statuses as of 12/08/2022) [facility] History of Past illness Narrative* Problem Noted Date Diagnosed Date Resolved Date Apnea 03/02/2022 11/05/2022 documented as of this encounter (statuses as of 12/08/2022) [facility] History of Past illness Narrative* Problem Noted Date Diagnosed Date Resolved Date Apnea 03/02/2022 11/05/2022 documented as of this encounter (statuses as of 12/09/2022) [facility] History of Past illness Narrative* Problem Noted Date Diagnosed Date Resolved Date Apnea 03/02/2022 11/05/2022 documented as of this encounter (statuses as of 12/09/2022) [facility] History of Past illness Narrative* Problem Noted Date Diagnosed Date Resolved Date Apnea 03/02/2022 11/05/2022 documented as of this encounter (statuses as of 12/15/2022) [facility] History of Past illness Narrative* Problem Noted Date Diagnosed Date Resolved Date Apnea 03/02/2022 11/05/2022 documented as of this encounter (statuses as of 12/31/2022) [address]04-2022 History of Past illness Narrative* Problem Noted Date Diagnosed Date Resolved Date Apnea 03/02/2022 11/05/2022 documented as of this encounter (statuses as of 01/06/2023) [facility] History of Past illness Narrative* Problem Noted Date Diagnosed Date Resolved Date Apnea 03/02/2022 11/05/2022 documented as of this encounter (statuses as of 01/06/2023) [address]04-2022 History of Past illness Narrative* Problem Noted Date Diagnosed Date Resolved Date Apnea 03/02/2022 11/05/2022 documented as of this encounter (statuses as of 01/15/2023) [address]04-2022 History of Past illness Narrative* Problem Noted Date Diagnosed Date Resolved Date Apnea 03/02/2022 11/05/2022 documented as of this encounter (statuses as of 02/02/2023) [address]04-2022 History of Past illness Narrative* Problem Noted Date Diagnosed Date Resolved Date Apnea 03/02/2022 11/05/2022 documented as of this encounter (statuses as of 02/09/2023) [address]04-2022 History of Past illness Narrative* Problem Noted Date Diagnosed Date Resolved Date Apnea 03/02/2022 11/05/2022 documented as of this encounter (statuses as of 02/16/2023) [address]04-2022 History of Past illness Narrative* Problem Noted Date Diagnosed Date Resolved Date Apnea 03/02/2022 11/05/2022 documented as of this encounter (statuses as of 03/09/2023) [address]04-2022 History of Past illness Narrative* Problem Noted Date Diagnosed Date Resolved Date Apnea 03/02/2022 11/05/2022 documented as of this encounter (statuses as of 03/11/2023) [address]04-2022 History of Past illness Narrative* Problem Noted Date Diagnosed Date Resolved Date Apnea 03/02/2022 11/05/2022 documented as of this encounter (statuses as of 03/14/2023) [address]04-2022 History of Past illness Narrative* Problem Noted Date Diagnosed Date Resolved Date Apnea 03/02/2022 11/05/2022 documented as of this encounter (statuses as of 04/07/2023) [address]04-2022 History of Past illness Narrative* Problem Noted Date Diagnosed Date Resolved Date Apnea 03/02/2022 11/05/2022 documented as of this encounter (statuses as of 04/12/2023) [address]04-2022 History of Past illness Narrative* Problem Noted Date Diagnosed Date Resolved Date Apnea 03/02/2022 11/05/2022 documented as of this encounter (statuses as of 04/20/2023) [address]04-2022 History of Past illness Narrative* Problem Noted Date Diagnosed Date Resolved Date Apnea 03/02/2022 11/05/2022 documented as of this encounter (statuses as of 05/19/2023) [address]04-2022 History of Past illness Narrative* Problem Noted Date Diagnosed Date Resolved Date Apnea 03/02/2022 11/05/2022 documented as of this encounter (statuses as of 07/11/2023) [address]04-2022 History of Past illness Narrative* Problem Noted Date Diagnosed Date Resolved Date Apnea 03/02/2022 11/05/2022 documented as of this encounter (statuses as of 07/12/2023) [address]04-2022 History of Past illness Narrative* Problem Noted Date Diagnosed Date Resolved Date Apnea 03/02/2022 11/05/2022 documented as of this encounter (statuses as of 07/12/2023) [address]04-2022 History of Past illness Narrative* Problem Noted Date Diagnosed Date Resolved Date Apnea 03/02/2022 11/05/2022 documented as of this encounter (statuses as of 07/15/2023) [address]04-2022 History of Past illness Narrative* Problem Noted Date Diagnosed Date Resolved Date Apnea 03/02/2022 11/05/2022 documented as of this encounter (statuses as of 07/19/2023) [address]04-2022 History of Past illness Narrative* Problem Noted Date Diagnosed Date Resolved Date Apnea 03/02/2022 11/05/2022 documented as of this encounter (statuses as of 08/09/2023) [address]04-2022 History of Past illness Narrative* Problem Noted Date Diagnosed Date Resolved Date Apnea 03/02/2022 11/05/2022 documented as of this encounter (statuses as of 08/18/2023) [address]04-2022 History of Past illness Narrative* Problem Noted Date Diagnosed Date Resolved Date Apnea 03/02/2022 11/05/2022 documented as of this encounter (statuses as of 08/19/2023) [address]04-2022 History of Past illness Narrative* Problem Noted Date Diagnosed Date Resolved Date Apnea 03/02/2022 11/05/2022 documented as of this encounter (statuses as of 08/22/2023) [address]04-2022 History of Past illness Narrative* Problem Noted Date Diagnosed Date Resolved Date Apnea 03/02/2022 11/05/2022 documented as of this encounter (statuses as of 08/22/2023) [address]04-2022 History of Past illness Narrative* Problem Noted Date Diagnosed Date Resolved Date Apnea 03/02/2022 11/05/2022 documented as of this encounter (statuses as of 09/07/2023) [address]04-2022 History of Past illness Narrative* Problem Noted Date Diagnosed Date Resolved Date Apnea 03/02/2022 11/05/2022 documented as of this encounter (statuses as of 09/08/2023) [address]04-2022 History of Past illness Narrative* Problem Noted Date Diagnosed Date Resolved Date Apnea 03/02/2022 11/05/2022 documented as of this encounter (statuses as of 09/15/2023) [address]04-2022 History of Past illness Narrative* Problem Noted Date Diagnosed Date Resolved Date Apnea 03/02/2022 11/05/2022 documented as of this encounter (statuses as of 09/19/2023) [facility] Miscellaneous Notes* Addendum Note - Vijaya Silva DO - 03/02/2022 12:13 PM EDTAddended by: VIJAYA SILVA on: 03/02/2022 12:13 PM Modules accepted: [facility] Instructions* Patient Instructions* Gladis Carrasco MA - 03/02/2022 11:59 AM EDT Continue Gabapentin 600 mg TID. 2. Continue Percocet 7.5-325 mg TID PRN. 3. Continue care with PCP, Dr. Retana. 4. Continue Ibuprofen 800 mg. 5. F/U with an orthopedic surgeon(Dr. Lopez). Pt. will need right TKR- no date yet 6. Encouraged the patient to keep himself physically active. 7. Order right knee synvisc one gel injection 8. Follow up in 1 month 9. Obtain UDS [facility] History of Present illness Narrative* Vijaya Silva, DO - 03/02/2022 11:05 AM EDTSummary: Pain Management Follow Up DATE: March 02, 2022 Chief Complaint: knee and back pain History of Present Illness: Jeremy Freeman is a 61 year old male being seen at [facility] for a evaluation and/or management of their chronic pain. He reports 50% pain relief since his left knee replacement. He is walking for minimal exercise. He reports 50% pain relief for three to four months following his last right knee synvisc one gel injection. VAS 7/10 Timing: constant Severity: moderate Quality: aching Radiation: denies Numbness: yes, b/l arms & feet Burning: denies Tingling: yes, b/l arms & feet Weakness: yes, b/l arms Falls:denies The patient denies any bowel or bladder dysfunction. The patient is currently prescribed Percocet and Gabapentin from our office.The medications are partially effective. The patient denies nausea, vomiting, constipation,rashes, drowsiness,weight gain, weight loss,dizziness,and fatigue. The OARRS report has been reviewed and is consistent with the patients medical history and medication intake. The last prescription for pain medication was filled on 09/21/21. Last Urine Drug Screen (UDS): 08/04/2021. The UDS has been reviewed and is consistent with medications prescribed. REVIEW OF SYSTEMS: GENERAL: No weight loss, malaise or fevers RESPIRATORY: Negative for cough, hemoptysis, wheezing, COPD, dyspnea or shortness of breath. CARDIOVASCULAR: Negative for chest pain, leg swelling, hypertension, CHF or palpitations GI: No nausea, vomiting, or diarrhea. 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 FAMILY HISTORY Problem Relation Age of Onset Hypertension Mother Social History Tobacco Use Smoking status: Never Passive exposure: Never Smokeless tobacco: Never Substance Use Topics Alcohol use: Never Drug use: Never Allergies: No Known Allergies Current Outpatient Medications Medication Sig albuterol HFA (PROVENTIL HFA, VENTOLIN HFA) 90 mcg/actuation inhaler Inhale as instructed. albuterol HFA (PROVENTIL HFA, VENTOLIN HFA) 90 mcg/actuation inhaler oxyCODONE ir (OXYIR) 5 mg capsule Take by mouth. HYDROcodone-acetaminophen (NORCO) 5-325 mg per tablet hydroCHLOROthiazide (HYDRODIURIL, ESIDRIX) 25 mg tablet amLODIPine (NORVASC) 10 mg tablet montelukast (SINGULAIR) 10 mg tablet nystatin (MYCOSTATIN) 100,000 unit/mL suspension gabapentin (NEURONTIN) 600 mg tablet Take 1 tablet by mouth three times daily for 30 days. oxyCODONE-acetaminophen (PERCOCET) 7.5-325 mg tablet Take 1 tablet by mouth three times daily as needed for pain for up to 30 days. Do not start before February 19, 2022. ibuprofen (MOTRIN) 800 mg tablet Take 1 tablet by mouth three times daily as needed for pain. amLODIPine-Olmesartan 5-20 mg tab amlodipine-olmesartan 5-20 mg tablet budesonide-formoterol (SYMBICORT) 160-4.5 mcg/actuation inhaler Symbicort 160- 4.5 mcg/actuation HFAaerosol inhaler buPROPion XL (WELLBUTRIN XL) 300 mg 24 hr tablet bupropion HCl 300 mg tablet extended release 24 hr DULoxetine (CYMBALTA) 20 mg capsule duloxetine 20 mg capsule,delayed release(DR/EC) FLUoxetine (PROZAC) 40 mg capsule fluoxetine 40 mg capsule glimepiride (AMARYL) 4 mg tablet lisinopril-hydroCHLOROthiazide (PRINZIDE, ZESTORETIC) 20-25 mg per tablet lisinopril-hydrochlorothiazide 20-25 mg tablet metFORMIN (GLUCOPHAGE) 1,000 mg tablet metformin 1,000 mg tablet methylPREDNISolone (MEDROL DOSE-PACK) 4 mg Dose-Pack Medrol (Jonnie) 4 mg tablets,dose pack rosuvastatin (CRESTOR) 10 mg tablet SITagliptin (JANUVIA) 100 mg tablet Januvia 100 mg tablet No current facility-administered medications for this visit. I have reviewed the nurses notes and I am aware of the family/social history. Since the last evaluation the medical history has not changed. PHYSICAL EXAMINATION: Vitals: BP 170/71 Pulse 90 Resp 19 Ht 5' 6 (1.68m) Wt 250 lb (113.4kg) SpO2 94% BMI 40.37 kg/(m^2). GENERAL: healthy, alert, no distress, cooperative, smiling SKIN: Skin color, texture, turgor normal. No rashes or lesions. HEENT: PERRL, EOMI, and normal dentition CARDIAC: normal S1 and S2; no rubs, murmurs, or gallops LUNGS: Lungs clear to auscultation. Good diaphragmatic excursion. Musculoskeletal: deferred ASSESSMENT: Chronic pain syndrome B/L knee osteoarthritis Patient is stable. Chronic pain is persistent. Medications are helping Jeremy Freeman to have an improved quality of life. Patient compliance with Opioid Contract: patient is compliant PDMP website checked and validated. All prescriptions have been APPROPRIATELY filled. No suspiciousactivity was identified. 03/02/2022 by Gladis Carrasco MA PLAN: The patient understands the goal of our treatment is a reduction in pain and/or an improved level of functioning with activities of daily living. If at any time the patient does not feel the medications are helping them to achieve these goals, the medications may be discontinued. The patient reports a reduction in pain and/or an improved level of functioning with activities of daily living, denies any significant adverse effects, is compliant with the pain management agreement and there are no signs of medication misuse, abuse or diversion; therefore, the medications will be continued. The documentation for this encounter was entered by maryanne Abdalla scribe, for Dr. Vijaya Silva on March 02, 2022 I, Dr. Vijaya Silva, personally performed the services described in this documentation. All medical record entries made by the scribe were at my direction and in my presence. I have reviewed the chart and discharge instructions and agree that the record reflects my personal performance and is accurate and complete. Electronically Signed: Dr. Silva. March 02, 2022 documented in this [facility] Miscellaneous Notes* Telephone Encounter - Lamar Prince RN - 03/01/2022 1:31 PM EDT Pt has a f/u with Dr Silva tomorrow. Lamar Prince RN March 01, 2022 1:31 PM * Telephone Encounter - Albert Mix APRN.CNP - 03/01/2022 1:10 PM EDT Please call the pt and let him know that I sent the Gabapentin to the pharmacy. He needs to make anoffice appointment. Thank you * Telephone Encounter - Lamar Prince RN - 03/01/2022 10:36 AM EDT Patient phones requesting refills as follows: Requested Prescriptions Pending Prescriptions Disp Refills gabapentin (NEURONTIN) 600 mg tablet 90 tablet 0 Sig: Take 1 tablet by mouth three times daily for 30 days. Please review and advise. Lamar Prince RN documented in this encounterOhio[facility]-23-2022 Miscellaneous Notes* Telephone Encounter - Albert Mix APRN.CNP - 01/19/2022 7:51 PM EDT The following approved medication requests have been transmitted electronically. Requested Prescriptions Signed Prescriptions Disp Refills oxyCODONE-acetaminophen (PERCOCET) 7.5-325 mg tablet 90 tablet 0 Sig: Take 1 tablet by mouth three times daily as needed for pain for up to 30 days. Authorizing Provider: ALBERT MIX APRN.CNP * Telephone Encounter - Vilma Alvarez RN - 01/19/2022 10:40 AM EDT Pt requesting refill as follows Requested Prescriptions Pending Prescriptions Disp Refills oxyCODONE-acetaminophen (PERCOCET) 7.5-325 mg tablet 90 tablet 0 Sig: Take 1 tablet by mouth three times daily as needed for pain for up to 30 days. Please review and advise. Vilma Alvarez RN documented in this encounterOhio[facility]08-16-2022 Instructions* Patient Instructions* Albert Mix APRN.CNP - 01/12/2022 1:43 PM EDT Continue Gabapentin 600 mg TID. Continue Percocet 7.5-325 mg TID PRN. Continue care with PCP, Dr. Retana. Continue Ibuprofen 800 mg. F/U with an orthopedic surgeon(Dr. Lopez). Pt. will need right TKR- no date yet Encouraged the patient to keep himself physically active. Follow up in 1 month . documented in this encounterOhio[facility]08-16-2022 History of Present illness Narrative* Albert Mix APRN.CNP - 01/12/2022 1:40 PM EDT . documented in this [facility]08-03-2022 Miscellaneous Notes* Telephone Encounter - Albert Mix APRN.CNP - 12/30/2021 4:57 PM EDT The following approved medication requests have been transmitted electronically. Signed Prescriptions Disp Refills gabapentin (NEURONTIN) 600 mg tablet 90 tablet 0 Sig: Take 1 tablet by mouth three times daily for 30 days. SALOME: No Authorizing Provider: ALBERT MIX ibuprofen (MOTRIN) 800 mg tablet 90 tablet 0 Sig: Take 1 tablet by mouth three times daily as needed for pain. SALOME: No Authorizing Provider: ALBERT MIX APRN.CNP documented in this [facility]07-26-2022 Miscellaneous Notes* Telephone Encounter - Carla Crawford RN - 12/22/2021 12:57 PM EDT Patient left a message on the nurse line stating he received a letter from us stating we no longer accept [facility] insurance. According to our script manager, the patient can still be seen at [facility], butany appts or services will need to be prior auth'd first. Patient notified. Carla Crawford RN documented in this [facility]-21-2022 Miscellaneous Notes* Telephone Encounter - Albert Mix APRN.CNP - 12/17/2021 11:05 AM EDT The following approved medication requests have been transmitted electronically. Signed Prescriptions Disp Refills oxyCODONE-acetaminophen (PERCOCET) 7.5-325 mg tablet 90 tablet 0 Sig: Take 1 tablet by mouth three times daily as needed for pain for up to 30 days. Do not start before December 20, 2021. CAMERON Class: C-II SALOME: No Authorizing Provider: ALBERT MIX APRN.CNP * Telephone Encounter - Vilma Alvarez RN - 12/17/2021 10:53 AM EDT Pt requesting refill as follows Pending Prescriptions Disp Refills OXYCODONE-ACETAMINOPHEN 7.5 MG-325 MG TABLET 90 tablet 0 Sig: Take 1 tablet by mouth three times daily as needed for pain for up to 30 days. CAMERON Class: C-II SALOME: No Please review and advise. Vilma Alvarez RN documented in this encounterOhio[facility]07-15-2022 Miscellaneous Notes* Telephone Encounter - Albert Mix APRN.CNP - 12/11/2021 12:50 PM EDT The following approved medication requests have been transmitted electronically. Signed Prescriptions Disp Refills ibuprofen (MOTRIN) 800 mg tablet 90 tablet 0 Sig: Take 1 tablet by mouth three times daily as needed for pain. SALOME: No Authorizing Provider: ALBERT MIX APRN.CNP * Telephone Encounter - Lamar Prince RN - 12/11/2021 11:08 AM EDT Patient phones requesting refills as follows: Pending Prescriptions Disp Refills IBUPROFEN 800 MG TABLET 90 tablet 0 Sig: Take 1 tablet by mouth three times daily as needed for pain. SALOME: No Please review and advise. Lamar Prince RN documented in this encounterOhiohealth [facility]07-06-2022 Miscellaneous Notes* Telephone Encounter - Lisa Delgado MA - 12/02/2021 1:44 PM EDTSummary: Approved Medication Approved oxyCODONE-Acetaminophen 7.5-325MG tablets Covermymeds Hered[place] [id number] [facility]* Diagnosis High risk medication use Encounter for long-term (current) use of other medications [facility] Diagnosis Chronic pain syndrome- Primary documented in this encounter [facility]* Diagnosis High risk medication use Encounter for long-term (current) use of other medications [facility]* Diagnosis Other secondary osteoarthritis of both knees- Primary [facility]* Diagnosis High risk medication use Encounter for long-term (current) use of other medications Chronic pain syndrome documented in this encounter [facility]* Diagnosis High risk medication use Encounter for long-term (current) use of other medications Chronic pain syndrome [facility]* Diagnosis Osteoarthritis of right knee, unspecified osteoarthritis type- Primary High risk medication use Encounter for long-term (current) use of other medications Chronic pain syndrome [facility] Diagnosis High risk medication use Encounter for long-term (current) use of other medications Chronic pain syndrome [facility] Diagnosis High risk medication use Encounter for long-term (current) use of other medications Chronic pain syndrome [facility]* Diagnosis High risk medication use Encounter for long-term (current) use of other medications Chronic pain syndrome [facility] Diagnosis High risk medication use Encounter for long-term (current) use of other medications Chronic pain syndrome documented in this encounter [facility]* Diagnosis High risk medication use- Primary Encounter for long-term (current) use of other medications Chronic pain syndrome Osteoarthritis of right knee, unspecified osteoarthritis type Other secondary osteoarthritis of both knees Myofascial pain syndrome Mylagia and myositis, unspecified Osteoarthritis of right knee, unspecified osteoarthritis type Other secondary osteoarthritis of both knees [facility]* Diagnosis Chronic pain syndrome- Primary Myofascial pain syndrome Mylagia and myositis, unspecified documented in this encounter [facility]* Diagnosis Chronic pain syndrome Myofascial pain syndrome Mylagia and myositis, unspecified documented in this encounter [facility]* Diagnosis Chronic pain syndrome Myofascial pain syndrome Mylagia and myositis, unspecified documented in this encounter [facility] note* Diagnosis Chronic pain syndrome- Primary Myofascial pain syndrome Mylagia and myositis, unspecified High risk medication use Encounter for long-term (current) use of other medications Osteoarthritis of right knee, unspecified osteoarthritis type Other secondary osteoarthritis of both knees Cervical radiculopathy Brachial neuritis or radiculitis nos Cervical pain Cervicalgia Bilateral arm weakness Other musculoskeletal symptoms referable to limbs documented in this encounter [facility] note* Diagnosis Chronic pain syndrome Myofascial pain syndrome Mylagia and myositis, unspecified documented in this encounter [facility] note* Diagnosis High risk medication use Encounter for long-term (current) use of other medications Chronic pain syndrome documented in this encounter [facility] note* Diagnosis High risk medication use Encounter for long-term (current) use of other medications Chronic pain syndrome documented in this encounter [facility] note* Diagnosis High risk medication use Encounter for long-term (current) use of other medications Chronic pain syndrome documented in this encounter [facility] note* Diagnosis Chronic pain syndrome- Primary documented in this encounter [facility] note* Diagnosis High risk medication use Encounter for long-term (current) use of other medications Chronic pain syndrome documented in this encounter [facility] note* Diagnosis Chronic pain syndrome- Primary documented in this encounter [facility] note* Diagnosis High risk medication use Encounter for long-term (current) use of other medications Chronic pain syndrome documented in this encounter [facility] note* Diagnosis Chronic pain syndrome- Primary Other chronic pain documented in this encounter [facility] for referral (narrative)* Diagnostic Procedure Only (Routine) - Pending Review Specialty Diagnoses / Procedures Referred By Maria L t Referred To Contact XR IMAGING Diagnoses Cervical radiculopathy Cervical pain Bilateral arm weakness Procedures XR CERV OTHER 4V AP/LAT/OBL RADEX SPINE CERVICAL 4 OR 5 VIEWS Vijaya Silva, DO [address] [place] [address] [place] [id number] Referral ID Status Reason Start Date Expiration Date Visits Requested Visits Authorized [id number] Pending Review Auto-Generat ed Referral 3 04/12/2024 1 1 [facility] Summary Purpose Family History No Family History Records FoundUnknown Family Member Name Dates Details Depression Status:Active Diabetes Mellitus Type II Comments:Paternal Great Aunt . Status:Active Hypercholesterolemia Comments:Father. Status:Active Hypertension Comments:Mother. Status:Active Advance Directives No Advanced Directives Records FoundNo Advanced Directives Records FoundNo Advanced Directives Records FoundNo Advanced Directives Records Found Instructions Name Dates Details How to access health informa tion online Indication:Diabetes mellitus type II, uncontrolled Start:28-Apr-2017 Instruction Type:Patient Education How to access health informa tion online - Detail Indication:Diabetes mellitus type II, uncontrolled Start:28-Apr-2017 Instruction Type:Patient Education Patient Instructions Indication:Diabetes mellitus type II, uncontrolled Start:28-Apr-2017 Instruction Type:Provider Instructions for Treatment How to access health informa tion online Indication:Diabetes mellitus type II, uncontrolled Start:25-Aug-2016 Instruction Type:Patient Education How to access health informa tion online - Detail Indication:Diabetes mellitus type II, uncontrolled Start:25-Aug-2016 Instruction Type:Patient Education Patient Instructions Indication:Diabetes mellitus type II, uncontrolled Start:25-Aug-2016 Instruction Type:Provider Instructions for Treatment How to access health informa tion online Indication:Diabetes mellitus type II, controlled, with no complications Start:24-Oct-2015 Instruction Type:Patient Education How to access health informa tion online - Detail Indication:Diabetes mellitus type II, controlled, with no complications Start:24-Oct-2015 Instruction Type:Patient Education Patient Instructions Indication:Diabetes mellitus type II, controlled, with no complications Start:24-Oct-2015 Instruction Type:Provider Instructions for Treatment How to access health informa tion online Indication:Cough Start:24-Jul-2015 Instruction Type:Patient Education How to access health informa tion online - Detail Indication:Cough Start:24-Jul-2015 Instruction Type:Patient Education Patient Instructions Indication:Cough Start:24-Jul-2015 Instruction Type:Provider Instructions for Treatment Patient Instructions Indication:Deficiency of vitamin B12 Start:12-Jun-2015 Instruction Type:Provider Instructions for Treatment How to access health informa tion online Indication:Deficiency of vitamin B12 Start:12-Jun-2015 Instruction Type:Patient Education How to access health informa tion online - Detail Indication:Deficiency of vitamin B12 Start:12-Jun-2015 Instruction Type:Patient Education How to access health informa tion online Indication:Diabetes mellitus type II, uncontrolled Start:23-Oct-2014 Instruction Type:Patient Education How to access health informa tion online - Detail Indication:Diabetes mellitus type II, uncontrolled Start:23-Oct-2014 Instruction Type:Patient Education Patient Instructions Indication:Diabetes mellitus type II, uncontrolled Start:23-Oct-2014 Instruction Type:Provider Instructions for Treatment Patient Instructions Indication:Diabetes mellitus type II, controlled, with no complications Start:26-Jul-2014 Instruction Type:Provider Instructions for Treatment Patient Instructions Indication:Diabetes mellitus type II, uncontrolled Start:05-Apr-2014 Instruction Type:Provider Instructions for Treatment Patient Instructions Indication:Bronchitis Start:20-Feb-2014 Instruction Type:Provider Instructions for Treatment How to access health informa tion online Indication:Bronchitis Start:20-Feb-2014 Instruction Type:Patient Education How to access health informa tion online - Detail Indication:Bronchitis Start:20-Feb-2014 Instruction Type:Patient Education Patient Instructions Indication:Diabetes mellitus type II, uncontrolled Start:09-Nov-2013 Instruction Type:Provider Instructions for Treatment Patient Instructions Indication:Vitamin D deficiency, unspecified Start:16-Oct-2013 Instruction Type:Provider Instructions for Treatment obesity counseling Indication:BMI 39.0-39.9,adult Start:13-Aug-2013 Instruction Type:Provider Instructions for Treatment Reason for Referral Specialty Diagnoses / Procedures Referred By Contac t Referred To Contact Diagnoses High risk medication use Albert Mix, NEUROSCIENTIST.END TOUCHING MACHINE OPERATOR [address] [place] [address] Referral ID Status Reason Start Date Expiration Date Visits Re quested Visits Authorized [id number] Closed 1 1 Referral ID Status Reason Start Date Expiration Date Visits Re quested Visits Authorized [id number] Closed 1 1 Specialty Diagnoses / Procedures Referred By Contac t Referred To Contact Diagnoses High risk medication use Chronic pain syndrome Vijaya Silva, DO [address] [place] [address] Referral ID Status Reason Start Date Expiration Date Visits Re quested Visits Authorized [id number] Closed 1 1 Specialty Diagnoses / Procedures Referred By Contac t Referred To Contact Diagnoses High risk medication use Chronic pain syndrome Dominguez, Albert Bob, NEUROSCIENTIST.END TOUCHING MACHINE OPERATOR [address] [place] [address] Referral ID Status Reason Start Date Expiration Date V isits Requested Visits Authorized [id number] Authorized 04/19/2022 11/15/2022 1 1 Specialty Diagnoses / Procedures Referred By Contac t Referred To Contact Diagnoses High risk medication use Chronic pain syndrome Angie Blackwood, NEUROSCIENTIST.FIELD CARE ADVOCATE [address] [place] [address] Referral ID Status Reason Start Date Expiration Date V isits Requested Visits Authorized [id number] Authorized 11/08/2022 06/10/2023 1 1 Specialty Diagnoses / Procedures Referred By Contac t Referred To Contact Diagnoses Chronic pain syndrome Myofascial pain syndrome Vijaya Silva, DO [address] [place] [address] Referral ID Status Reason Start Date Expiration Date V isits Requested Visits Authorized [id number] Authorized 12/07/2022 07/10/2023 1 1 Specialty Diagnoses / Procedures Referred By Contac t Referred To Contact Diagnoses High risk medication use Chronic pain syndrome Salbador Gore MD [address] [place] [address] Referral ID Status Reason Start Date Expiration Date V isits Requested Visits Authorized [id number] Pending Review 1 1 Additional Source Comments (unrecognized sect ion and content) No Status Records FoundNo Status Records FoundNo Status Records FoundNo Status Records Found INFORMATION SOURCE (unrecogn ized section and content) DATE CREATED AUTHOR 12/28/2017 [facility] DATE CREATED AUTHOR AUTHOR'S ORGANIZ ATION 07/21/2021 [facility] [place] DATE CREATED AUTHOR AUTHOR'S ORGANIZ ATION 01/13/2023 [facility] DATE CREATED AUTHOR AUTHOR'S ORGANIZ ATION 03/16/2024 [facility] Source Comments (unrecognize d section and content) In the event this informatio n is protected by the Federal Confidentiality of Alcohol and Drug Abuse Patient Records regulations: The Federal rules restrict any use of the information to criminally investigate or prosecute any alcohol or drug abuse patient.[facility] Center[facility] the event this information is protected by the Federal Confidentiality of Alcohol and Drug Abuse Patient Records regulations: The Federal rules restrict any use of the information to criminally investigate or prosecute any alcohol or drug abuse patient.[facility] Center[facility] the event this information is protected by the Federal Confidentiality of Alcohol and Drug Abuse Patient Records regulations: The Federal rules restrict any use of the information to criminally investigate or prosecute any alcohol or drug abuse patient.[facility] CenterIn the event this information is protected by the Federal Confidentiality of Alcohol and Drug Abuse Patient Records regulations: The Federal rules restrict any use of the information to criminally investigate or prosecute any alcohol or drug abuse patient.[facility] Center[facility] the event this information is protected by the Federal Confidentiality of Alcohol and Drug Abuse Patient Records regulations: The Federal rules restrict any use of the information to criminally investigate or prosecute any alcohol or drug abuse patient.[facility] Center[facility] the event this information is protected by the Federal Confidentiality of Alcohol and Drug Abuse Patient Records regulations: The Federal rules restrict any use of the information to criminally investigate or prosecute any alcohol or drug abuse patient.[facility] CenterIn the event this information is protected by the Federal Confidentiality of Alcohol and Drug Abuse Patient Records regulations: The Federal rules restrict any use of the information to criminally investigate or prosecute any alcohol or drug abuse patient.[facility] CenterIn the event this information is protected by the Federal Confidentiality of Alcohol and Drug Abuse Patient Records regulations: The Federal rules restrict any use of the information to criminally investigate or prosecute any alcohol or drug abuse patient.[facility] CenterIn the event this information is protected by the Federal Confidentiality of Alcohol and Drug Abuse Patient Records regulations: The Federal rules restrict any use of the information to criminally investigate or prosecute any alcohol or drug abuse patient.[facility] CenterIn the event this information is protected by the Federal Confidentiality of Alcohol and Drug Abuse Patient Records regulations: The Federal rules restrict any use of the information to criminally investigate or prosecute any alcohol or drug abuse patient.[facility] CenterIn the event this information is protected by the Federal Confidentiality of Alcohol and Drug Abuse Patient Records regulations: The Federal rules restrict any use of the information to criminally investigate or prosecute any alcohol or drug abuse patient.[facility] CenterIn the event this information is protected by the Federal Confidentiality of Alcohol and Drug Abuse Patient Records regulations: The Federal rules restrict any use of the information to criminally investigate or prosecute any alcohol or drug abuse patient.[facility] CenterIn the event this information is protected by the Federal Confidentiality of Alcohol and Drug Abuse Patient Records regulations: The Federal rules restrict any use of the information to criminally investigate or prosecute any alcohol or drug abuse patient.[facility] CenterIn the event this information is protected by the Federal Confidentiality of Alcohol and Drug Abuse Patient Records regulations: The Federal rules restrict any use of the information to criminally investigate or prosecute any alcohol or drug abuse patient.[facility] CenterIn the event this information is protected by the Federal Confidentiality of Alcohol and Drug Abuse Patient Records regulations: The Federal rules restrict any use of the information to criminally investigate or prosecute any alcohol or drug abuse patient.[facility] CenterIn the event this information is protected by the Federal Confidentiality of Alcohol and Drug Abuse Patient Records regulations: The Federal rules restrict any use of the information to criminally investigate or prosecute any alcohol or drug abuse patient.[facility] CenterIn the event this information is protected by the Federal Confidentiality of Alcohol and Drug Abuse Patient Records regulations: The Federal rules restrict any use of the information to criminally investigate or prosecute any alcohol or drug abuse patient.[facility] CenterIn the event this information is protected by the Federal Confidentiality of Alcohol and Drug Abuse Patient Records regulations: The Federal rules restrict any use of the information to criminally investigate or prosecute any alcohol or drug abuse patient.[facility] CenterIn the event this information is protected by the Federal Confidentiality of Alcohol and Drug Abuse Patient Records regulations: The Federal rules restrict any use of the information to criminally investigate or prosecute any alcohol or drug abuse patient.[facility] CenterIn the event this information is protected by the Federal Confidentiality of Alcohol and Drug Abuse Patient Records regulations: The Federal rules restrict any use of the information to criminally investigate or prosecute any alcohol or drug abuse patient.[facility] the event this information is protected by the Federal Confidentiality of Alcohol and Drug Abuse Patient Records regulations: The Federal rules restrict any use of the information to criminally investigate or prosecute any alcohol or drug abuse patient.[facility] CenterIn the event this information is protected by the Federal Confidentiality of Alcohol and Drug Abuse Patient Records regulations: The Federal rules restrict any use of the information to criminally investigate or prosecute any alcohol or drug abuse patient.[facility] CenterIn the event this information is protected by the Federal Confidentiality of Alcohol and Drug Abuse Patient Records regulations: The Federal rules restrict any use of the information to criminally investigate or prosecute any alcohol or drug abuse patient.[facility]In the event this information is protected by the Federal Confidentiality of Alcohol and Drug Abuse Patient Records regulations: The Federal rules restrict any use of the information to criminally investigate or prosecute any alcohol or drug abuse patient.[facility] CenterIn the event this information is protected by the Federal Confidentiality of Alcohol and Drug Abuse Patient Records regulations: The Federal rules restrict any use of the information to criminally investigate or prosecute any alcohol or drug abuse patient.[facility] CenterIn the event this information is protected by the Federal Confidentiality of Alcohol and Drug Abuse Patient Records regulations: The Federal rules restrict any use of the information to criminally investigate or prosecute any alcohol or drug abuse patient.[facility] CenterIn the event this information is protected by the Federal Confidentiality of Alcohol and Drug Abuse Patient Records regulations: The Federal rules restrict any use of the information to criminally investigate or prosecute any alcohol or drug abuse patient.[facility] CenterIn the event this information is protected by the Federal Confidentiality of Alcohol and Drug Abuse Patient Records regulations: The Federal rules restrict any use of the information to criminally investigate or prosecute any alcohol or drug abuse patient.[facility] CenterIn the event this information is protected by the Federal Confidentiality of Alcohol and Drug Abuse Patient Records regulations: The Federal rules restrict any use of the information to criminally investigate or prosecute any alcohol or drug abuse patient.[facility] CenterIn the event this information is protected by the Federal Confidentiality of Alcohol and Drug Abuse Patient Records regulations: The Federal rules restrict any use of the information to criminally investigate or prosecute any alcohol or drug abuse patient.[facility] CenterIn the event this information is protected by the Federal Confidentiality of Alcohol and Drug Abuse Patient Records regulations: The Federal rules restrict any use of the information to criminally investigate or prosecute any alcohol or drug abuse patient.[facility] CenterIn the event this information is protected by the Federal Confidentiality of Alcohol and Drug Abuse Patient Records regulations: The Federal rules restrict any use of the information to criminally investigate or prosecute any alcohol or drug abuse patient.[facility] CenterIn the event this information is protected by the Federal Confidentiality of Alcohol and Drug Abuse Patient Records regulations: The Federal rules restrict any use of the information to criminally investigate or prosecute any alcohol or drug abuse patient.[facility] CenterIn the event this information is protected by the Federal Confidentiality of Alcohol and Drug Abuse Patient Records regulations: The Federal rules restrict any use of the information to criminally investigate or prosecute any alcohol or drug abuse patient.[facility] CenterIn the event this information is protected by the Federal Confidentiality of Alcohol and Drug Abuse Patient Records regulations: The Federal rules restrict any use of the information to criminally investigate or prosecute any alcohol or drug abuse patient.[facility] CenterIn the event this information is protected by the Federal Confidentiality of Alcohol and Drug Abuse Patient Records regulations: The Federal rules restrict any use of the information to criminally investigate or prosecute any alcohol or drug abuse patient.[facility] CenterIn the event this information is protected by the Federal Confidentiality of Alcohol and Drug Abuse Patient Records regulations: The Federal rules restrict any use of the information to criminally investigate or prosecute any alcohol or drug abuse patient.[facility] CenterIn the event this information is protected by the Federal Confidentiality of Alcohol and Drug Abuse Patient Records regulations: The Federal rules restrict any use of the information to criminally investigate or prosecute any alcohol or drug abuse patient.[facility] CenterIn the event this information is protected by the Federal Confidentiality of Alcohol and Drug Abuse Patient Records regulations: The Federal rules restrict any use of the information to criminally investigate or prosecute any alcohol or drug abuse patient.[facility] CenterIn the event this information is protected by the Federal Confidentiality of Alcohol and Drug Abuse Patient Records regulations: The Federal rules restrict any use of the information to criminally investigate or prosecute any alcohol or drug abuse patient.[facility] CenterIn the event this information is protected by the Federal Confidentiality of Alcohol and Drug Abuse Patient Records regulations: The Federal rules restrict any use of the information to criminally investigate or prosecute any alcohol or drug abuse patient.[facility] CenterIn the event this information is protected by the Federal Confidentiality of Alcohol and Drug Abuse Patient Records regulations: The Federal rules restrict any use of the information to criminally investigate or prosecute any alcohol or drug abuse patient.[facility] CenterIn the event this information is protected by the Federal Confidentiality of Alcohol and Drug Abuse Patient Records regulations: The Federal rules restrict any use of the information to criminally investigate or prosecute any alcohol or drug abuse patient.[facility] CenterIn the event this information is protected by the Federal Confidentiality of Alcohol and Drug Abuse Patient Records regulations: The Federal rules restrict any use of the information to criminally investigate or prosecute any alcohol or drug abuse patient.[facility] CenterIn the event this information is protected by the Federal Confidentiality of Alcohol and Drug Abuse Patient Records regulations: The Federal rules restrict any use of the information to criminally investigate or prosecute any alcohol or drug abuse patient.[facility] CenterIn the event this information is protected by the Federal Confidentiality of Alcohol and Drug Abuse Patient Records regulations: The Federal rules restrict any use of the information to criminally investigate or prosecute any alcohol or drug abuse patient.[facility] CenterIn the event this information is protected by the Federal Confidentiality of Alcohol and Drug Abuse Patient Records regulations: The Federal rules restrict any use of the information to criminally investigate or prosecute any alcohol or drug abuse patient.[facility] CenterIn the event this information is protected by the Federal Confidentiality of Alcohol and Drug Abuse Patient Records regulations: The Federal rules restrict any use of the information to criminally investigate or prosecute any alcohol or drug abuse patient.[facility] CenterIn the event this information is protected by the Federal Confidentiality of Alcohol and Drug Abuse Patient Records regulations: The Federal rules restrict any use of the information to criminally investigate or prosecute any alcohol or drug abuse patient.[facility] CenterIn the event this information is protected by the Federal Confidentiality of Alcohol and Drug Abuse Patient Records regulations: The Federal rules restrict any use of the information to criminally investigate or prosecute any alcohol or drug abuse patient.[facility] CenterIn the event this information is protected by the Federal Confidentiality of Alcohol and Drug Abuse Patient Records regulations: The Federal rules restrict any use of the information to criminally investigate or prosecute any alcohol or drug abuse patient.[facility] CenterIn the event this information is protected by the Federal Confidentiality of Alcohol and Drug Abuse Patient Records regulations: The Federal rules restrict any use of the information to criminally investigate or prosecute any alcohol or drug abuse patient.[facility] CenterIn the event this information is protected by the Federal Confidentiality of Alcohol and Drug Abuse Patient Records regulations: The Federal rules restrict any use of the information to criminally investigate or prosecute any alcohol or drug abuse patient.[facility] CenterIn the event this information is protected by the Federal Confidentiality of Alcohol and Drug Abuse Patient Records regulations: The Federal rules restrict any use of the information to criminally investigate or prosecute any alcohol or drug abuse patient.[facility] CenterIn the event this information is protected by the Federal Confidentiality of Alcohol and Drug Abuse Patient Records regulations: The Federal rules restrict any use of the information to criminally investigate or prosecute any alcohol or drug abuse patient.[facility] CenterIn the event this information is protected by the Federal Confidentiality of Alcohol and Drug Abuse Patient Records regulations: The Federal rules restrict any use of the information to criminally investigate or prosecute any alcohol or drug abuse patient.[facility] CenterIn the event this information is protected by the Federal Confidentiality of Alcohol and Drug Abuse Patient Records regulations: The Federal rules restrict any use of the information to criminally investigate or prosecute any alcohol or drug abuse patient.[facility] CenterIn the event this information is protected by the Federal Confidentiality of Alcohol and Drug Abuse Patient Records regulations: The Federal rules restrict any use of the information to criminally investigate or prosecute any alcohol or drug abuse patient.[facility] CenterIn the event this information is protected by the Federal Confidentiality of Alcohol and Drug Abuse Patient Records regulations: The Federal rules restrict any use of the information to criminally investigate or prosecute any alcohol or drug abuse patient.[facility] CenterIn the event this information is protected by the Federal Confidentiality of Alcohol and Drug Abuse Patient Records regulations: The Federal rules restrict any use of the information to criminally investigate or prosecute any alcohol or drug abuse patient.[facility] CenterIn the event this information is protected by the Federal Confidentiality of Alcohol and Drug Abuse Patient Records regulations: The Federal rules restrict any use of the information to criminally investigate or prosecute any alcohol or drug abuse patient.[facility] CenterIn the event this information is protected by the Federal Confidentiality of Alcohol and Drug Abuse Patient Records regulations: The Federal rules restrict any use of the information to criminally investigate or prosecute any alcohol or drug abuse patient.[facility] CenterIn the event this information is protected by the Federal Confidentiality of Alcohol and Drug Abuse Patient Records regulations: The Federal rules restrict any use of the information to criminally investigate or prosecute any alcohol or drug abuse patient.[facility] CenterIn the event this information is protected by the Federal Confidentiality of Alcohol and Drug Abuse Patient Records regulations: The Federal rules restrict any use of the information to criminally investigate or prosecute any alcohol or drug abuse patient.[facility] CenterIn the event this information is protected by the Federal Confidentiality of Alcohol and Drug Abuse Patient Records regulations: The Federal rules restrict any use of the information to criminally investigate or prosecute any alcohol or drug abuse patient.[facility] CenterIn the event this information is protected by the Federal Confidentiality of Alcohol and Drug Abuse Patient Records regulations: The Federal rules restrict any use of the information to criminally investigate or prosecute any alcohol or drug abuse patient.[facility] CenterIn the event this information is protected by the Federal Confidentiality of Alcohol and Drug Abuse Patient Records regulations: The Federal rules restrict any use of the information to criminally investigate or prosecute any alcohol or drug abuse patient.[facility] CenterIn the event this information is protected by the Federal Confidentiality of Alcohol and Drug Abuse Patient Records regulations: The Federal rules restrict any use of the information to criminally investigate or prosecute any alcohol or drug abuse patient.[facility] CenterIn the event this information is protected by the Federal Confidentiality of Alcohol and Drug Abuse Patient Records regulations: The Federal rules restrict any use of the information to criminally investigate or prosecute any alcohol or drug abuse patient.[facility] CenterIn the event this information is protected by the Federal Confidentiality of Alcohol and Drug Abuse Patient Records regulations: The Federal rules restrict any use of the information to criminally investigate or prosecute any alcohol or drug abuse patient.[facility] the event this information is protected by the Federal Confidentiality of Alcohol and Drug Abuse Patient Records regulations: The Federal rules restrict any use of the information to criminally investigate or prosecute any alcohol or drug abuse patient.[facility] CenterIn the event this information is protected by the Federal Confidentiality of Alcohol and Drug Abuse Patient Records regulations: The Federal rules restrict any use of the information to criminally investigate or prosecute any alcohol or drug abuse patient.[facility] CenterIn the event this information is protected by the Federal Confidentiality of Alcohol and Drug Abuse Patient Records regulations: The Federal rules restrict any use of the information to criminally investigate or prosecute any alcohol or drug abuse patient.[facility]In the event this information is protected by the Federal Confidentiality of Alcohol and Drug Abuse Patient Records regulations: The Federal rules restrict any use of the information to criminally investigate or prosecute any alcohol or drug abuse patient.[facility] CenterIn the event this information is protected by the Federal Confidentiality of Alcohol and Drug Abuse Patient Records regulations: The Federal rules restrict any use of the information to criminally investigate or prosecute any alcohol or drug abuse patient.[facility] CenterIn the event this information is protected by the Federal Confidentiality of Alcohol and Drug Abuse Patient Records regulations: The Federal rules restrict any use of the information to criminally investigate or prosecute any alcohol or drug abuse patient.[facility] CenterIn the event this information is protected by the Federal Confidentiality of Alcohol and Drug Abuse Patient Records regulations: The Federal rules restrict any use of the information to criminally investigate or prosecute any alcohol or drug abuse patient.[facility] CenterIn the event this information is protected by the Federal Confidentiality of Alcohol and Drug Abuse Patient Records regulations: The Federal rules restrict any use of the information to criminally investigate or prosecute any alcohol or drug abuse patient.[facility] CenterIn the event this information is protected by the Federal Confidentiality of Alcohol and Drug Abuse Patient Records regulations: The Federal rules restrict any use of the information to criminally investigate or prosecute any alcohol or drug abuse patient.[facility] CenterIn the event this information is protected by the Federal Confidentiality of Alcohol and Drug Abuse Patient Records regulations: The Federal rules restrict any use of the information to criminally investigate or prosecute any alcohol or drug abuse patient.[facility] CenterIn the event this information is protected by the Federal Confidentiality of Alcohol and Drug Abuse Patient Records regulations: The Federal rules restrict any use of the information to criminally investigate or prosecute any alcohol or drug abuse patient.[facility] CenterIn the event this information is protected by the Federal Confidentiality of Alcohol and Drug Abuse Patient Records regulations: The Federal rules restrict any use of the information to criminally investigate or prosecute any alcohol or drug abuse patient.[facility] Reason for Visit (unrecogniz ed section and content) Reason Comments Approved Medication Reason Onset Date Comments Refill Request 12/11/2021 Reason Onset Date Comments Refill Request 12/17/2021 Reason Comments Call from patient about [facility] not b eing within network Reason Onset Date Comments Refill Request 12/29/2021 Reason Comments Pain Specialty Diagnoses / Procedures Referred By Contac t Referred To Contact PAIN MANAGEMENT Diagnoses medication refill Procedures medication refill Self, MD Oziel Sparks [address] [place] [address] Referral ID Status Reason Start Date Expiration Date V isits Requested Visits Authorized [id number] Closed OON/Self Pay Override Patient Cleared - INN Insurance Found 11/18/2021 02/16/2022 1 1 Reason Onset Date Comments Refill Request 01/19/2022 Reason Onset Date Comments Refill Request 03/01/2022 Reason Comments Knee Pain Specialty Diagnoses / Procedures Referred By Contac t Referred To Contact PAIN MANAGEMENT Diagnoses FOLLOW UP KNEE PAIN Procedures KNEE PAIN Vijaya Silva DO [address] [place] [address] Pain [facility] [address] [place] [id number] Referral ID Status Reason Start Date Expiration Date Visits Requested Visits Authorized [id number] Pending Review OON/Self Pay Override 01/12/2022 04/12/2022 1 1 Reason Comments Refill Request Reason Onset Date Comments Refill Request 03/15/2022 Reason Onset Date Comments Refill Request 04/30/2022 Reason Onset Date Comments Refill Request 04/19/2022 Reason Onset Date Comments Refill Request 05/14/2022 Reason Onset Date Comments Refill Request 05/18/2022 Reason Comments Back Pain Knee Pain Specialty Diagnoses / Procedures Referred By Contac t Referred To Contact PAIN MANAGEMENT Diagnoses 3 month follow up Procedures est patient Self Pain [facility] [address] [place] [address] Referral ID Status Reason Start Date Expiration Date Visits Requested Visits Authorized [id number] Outside PCP OON/Self Pay Override 03/02/2022 05/31/2022 1 1 Reason Onset Date Comments Refill Request 07/16/2022 Reason Comments Medication Problem Reason Onset Date Comments Refill Request 11/15/2022 Reason Onset Date Comments Refill Request 12/08/2022 Reason Comments med pa Reason Comments oxycodone approval Reason Comments approval letter indexed Reason Onset Date Comments Refill Request 12/15/2022 Reason Comments Knee Pain RT Specialty Diagnoses / Procedures [facility] Referred To Contact PAIN MANAGEMENT Diagnoses Encounter for general adult medical examination without abnormal findings Procedures EST PATIENT VISIT LEVEL 1 Vijaya Silva, [address] [place] [address] Pain [facility] [address] [place] [address] Referral ID Status Reason Start Date Expiration Date V isits Requested Visits Authorized [id number] Closed OON/Self Pay Override 11/19/2022 05/29/2023 1 1 Reason Comments Prior Auth Sent for [place]-Acet 10-325 Reason Comments PA approved for Currie Reason Comments approval letter index for Currie Reason Onset Date Comments Refill Request 01/14/2023 Reason Comments calling back about norco Reason Comments Medication Problem [facility] closed Reason Onset Date Comments Refill Request 02/14/2023 Reason Onset Date Comments Refill Request 03/07/2023 Reason Comments Knee Pain Right Reason Onset Date Comments Refill Request 04/06/2023 Reason Onset Date Comments Refill Request 04/11/2023 Reason Onset Date Comments Refill Request 04/18/2023 Reason Onset Date Comments Refill Request 05/18/2023 Reason Onset Date Comments Refill Request 07/11/2023 Reason Comments oxycodone acetaminophen pa Reason Comments percocet approved Reason Comments indexed approval letter Reason Comments Other Reason Onset Date Comments Refill Request 08/09/2023 Reason Onset Date Comments Refill Request 08/19/2023 Reason Onset Date Comments Refill Request 08/22/2023 Reason Onset Date Comments Refill Request 09/08/2023 Reason Comments Chronic Pain Reason Onset Date Comments Refill Request 09/21/2023 Reason Onset Date Comments Refill Request 10/10/2023 Reason Onset Date Comments Refill Request 10/25/2023 Reason Onset Date Comments Refill Request 11/09/2023 Reason Onset Date Comments Refill Request 12/08/2023 Reason Onset Date Comments Refill Request 12/22/2023 Reason Onset Date Comments Refill Request 01/09/2024 Reason Onset Date Comments Refill Request 01/23/2024 Reason Onset Date Comments Refill Request 02/07/2024 Reason Comments oxycodone samina pa Reason Onset Date Comments Refill Request 02/20/2024 Reason Comments Knee Pain Right Care Teams (unrecognized sec tion and content) Label Tacker Relationship Specialty Start Date End Date Miranda Argueta (Physical Scientist) [address] [place] [address] PCP - General Family Medicine 03/24/22 Label Tacker Relationship Specialty Start Date End Date Miranda Argueta (Physical Scientist) [address] [place] [address] PCP - General Family Medicine 03/24/22 Label Tacker Relationship Specialty Start Date End Date Miranda Argueta (Physical Scientist) [address] [place] [address] PCP - General Family Medicine 03/24/22 Label Tacker Relationship Specialty Start Date End Date Miranda Argueta (Physical Scientist) [address] [place] [address] PCP - General Family Medicine 03/24/22 Label Tacker Relationship Specialty Start Date End Date Miranda Argueta (Physical Scientist) [address] [place] [address] PCP - General Family Medicine 03/24/22 Label Tacker Relationship Specialty Start Date End Date Jackelyn Miranda (Physical Scientist) [address] [place] [address] PCP - General Family Medicine 03/24/22 Label Tacker Relationship Specialty Start Date End Date Jackelyn Miranda (Physical Scientist) [address] [place] [address] PCP - General Family Medicine 03/24/22 Label Tacker Relationship Specialty Start Date End Date Jackelyn Miranda (Physical Scientist) [address] [place] [address] PCP - General Family Medicine 03/24/22 Label Tacker Relationship Specialty Start Date End Date Miranda Argueta (Physical Scientist) [address] [place] [address] PCP - General Family Medicine 03/24/22 Label Tacker Relationship Specialty Start Date End Date Miranda Argueta (Physical Scientist) [address] [place] [address] PCP - General Family Medicine 03/24/22 Label Tacker Relationship Specialty Start Date End Date Miranda Argueta (Physical Scientist) [address] [place] [address] PCP - General Family Medicine 03/24/22 Label Tacker Relationship Specialty Start Date End Date Miranda Argueta (Physical Scientist) [address] [place] [address] PCP - General Family Medicine 03/24/22 Label Tacker Relationship Specialty Start Date End Date Miranda Argueta (Physical Scientist) [address] [place] [address] PCP - General Family Medicine 03/24/22 Label Tacker Relationship Specialty Start Date End Date Miranda Argueta (Physical Scientist) [address] [place] [address] PCP - General Family Medicine 03/24/22 Label Tacker Relationship Specialty Start Date End Date Miranda Argueta (Physical Scientist) [address] [place] [address] PCP - General Family Medicine 03/24/22 Label Tacker Relationship Specialty Start Date End Date Miranda Argueta (Physical Scientist) [address] [place] [address] PCP - General Family Medicine 03/24/22 Label Tacker Relationship Specialty Start Date End Date Miranda Argueta CNP [address] [place] [address] PCP - General Family Medicine 03/24/22 Label Tacker Relationship Specialty Start Date End Date Miranda Argueta CNP [address] [place] [address] PCP - General Family Medicine 03/24/22 Label Tacker Relationship Specialty Start Date End Date Miranda Argueta CNP [address] [place] [address] PCP - General Family Medicine 03/24/22 Label Tacker Relationship Specialty Start Date End Date Miranda Argueta CNP [address] [place] [address] PCP - General Family Medicine 03/24/22 Label Tacker Relationship Specialty Start Date End Date Miranda Argueta CNP [address] [place] [address] PCP - General Family Medicine 03/24/22 Label Tacker Relationship Specialty Start Date End Date Miranda Argueta CNP [address] [place] [address] PCP - General Family Medicine 03/24/22 Label Tacker Relationship Specialty Start Date End Date Miranda Argueta CNP [address] [place] [address] PCP - General Family Medicine 03/24/22 Label Tacker Relationship Specialty Start Date End Date Miranda Argueta CNP [address] [place] [address] PCP - General Family Medicine 03/24/22 Label Tacker Relationship Specialty Start Date End Date Miranda Argueta CNP [address] [place] [address] PCP - General Family Medicine 03/24/22 Label Tacker Relationship Specialty Start Date End Date Miranda Argueta CNP [address] [place] [address] PCP - General Family Medicine 03/24/22 Label Tacker Relationship Specialty Start Date End Date Miranda Argueta CNP [address] [place] [address] PCP - General Family Medicine 03/24/22 Label Tacker Relationship Specialty Start Date End Date Miranda Argueta CNP [address] [place] [address] PCP - General Family Medicine 03/24/22 Label Tacker Relationship Specialty Start Date End Date Miranda Argueta CNP [address] [place] [address] PCP - General Family Medicine 03/24/22 Label Tacker Relationship Specialty Start Date End Date Miranda Argueta CNP [address] [place] [address] PCP - General Family Medicine 03/24/22 FOR RECORDS PERTAINING TO PATIENTS WHO ARE OR HAVE BEEN ENROLLED IN A CHEMICAL DEPENDENCY/SUBSTANCEABUSE PROGRAM, SOME INFORMATION MAY BE OMITTED. This clinical summary was aggregated from multiple sources. Caution should be exercised in using it in the provision of clinical care. This summary normalizes information from multiple sources, and as a consequence, information in this document may materially change the coding, format and clinical context of patient data. In addition, data may be omitted in some cases. CLINICAL DECISIONS SHOULD BE BASED ON THE PRIMARY CLINICAL RECORDS. [facility]. provides no warranty or guarantee of the accuracy or completeness of information in this document.
[2024-03-27] MEDS: Lactated Ringers 1,000 ML 15 ML IV (05:50)
[2024-03-27] MEDS: Magnesium 1 GM over 15 mins IV (06:40)
[2024-03-27] MEDS: Gabapentin 600 MG Tablet PO (06:46)
[2024-03-27] MEDS: Scopolamine 1mg/72hr Patch 1 PATCH TD (06:46)
[2024-03-27] MEDS: Celecoxib 200 MG Capsule 400 MG PO (06:46)
[2024-03-27] MEDS: Acetaminophen 500 MG Tablet 1000 MG PO (06:47)
--- NOTE | 2024-03-27 07:07 | PCM.PRE.AN2 ---
ASA Classification* ASA Classification ASA Classification: 3 Assessment & Plan Anesthesia* Anesthesia Assessment Anesthesia Assessment: Discussed sedation and/or anesthesia options, risks, benefits, and alternatives with patient/parents/legal guardian/POA. Questions invited. The patient/parents/legal guardian/POA seems to understand and agrees to proceed with anesthesia plan. Reviewed the physical assessment, medical history, allergy history and patient home medications list prior to surgery/procedure/anesthetic and documented any changes. Performed airway and anesthesia risk assessments. Anesthesia Type Anesthesia Type: Spinal (SEE WRITTEN PRE ANESTHESIA RECORD FOR FULL ASSESSMENT) and Block Anesthesia Focused Assessment* Temperature: 98.5 F Pulse Rate: 80 Blood Pressure: 150/54 Respiratory Rate: 18 Pulse Ox: 96 Airway Assessment Mouth opens: >3 cm Mallampati Score: II Focused Labs Anesthesia Preop lab: CBC WBC 7.0 K/mm3 (4.4-11.0) 03/13/24 13:03 RBC 5.13 M/mm3 (4.6-6.2) 03/13/24 13:03 Hgb 14.8 g/dL (13.0-16.5) 03/13/24 13:03 Hct 44.3 % (40-54) 03/13/24 13:03 Plt Count 326 K/mm3 (150-450) 03/13/24 13:03 CHEMISTRY Potassium 4.0 mmol/L (3.5-5.1) 03/13/24 13:03 Sodium 139 mmol/L (136-145) 03/13/24 13:03 Magnesium 2.0 mg/dL (1.6-2.6) 03/13/24 13:02 BUN 26 mg/dL (7-18) H 03/13/24 13:03 Creatinine 0.93 mg/dL (0.70-1.30) 03/13/24 13:03 Glucose 110 mg/dL (74-106) H 03/13/24 13:03 POC Glucose 213 mg/dL (70-110) H 11/25/20 10:13 TSH 0.46 uIU/mL (0.358-3.74) 10/13/23 11:04 COAG PT 12.9 SECONDS (11.7-14.9) 03/13/24 13:03 Pre-Assessment Diagnosis/Proposed Procedure Planned Operative Procedure(s): RIGHT TOTAL KNEE ARTHROPLASTY Anesthesia History Anesthesia History - patient assessment coordinator: Anesthesia History - patient assessment coordinator Hx Hospitalization No 03/08/24 10:11 Any Problems With Anesthesia No 03/08/24 10:11 Cholinesterase deficiency No 03/08/24 10:11 You/Your Family Experience No 03/08/24 10:11 fever (hyperthermia) with Relationship Recent Exposure to Contagious No 03/27/24 05:45 Disease Does patient have nerve No 03/08/24 10:11 stimulator Patient instructed to have device shut off --Does patient have Pacemaker No 03/27/24 05:45 or ICD? When Was Last Pacemaker Check QUESTION #4 FULL TEXT: You/Your Family Experience fever (hyperthermia) with Anesthesia Last Oral Intake Last Oral intake: Last Oral Intake NPO since 04:00 03/27/24 05:45 Meds taken in AM with sips of Yes 03/27/24 05:45 water? Meds patient instructed to see med rec 03/27/24 05:45 take am of surgery PONV PONV - patient assessment coordinator: PONV - patient assessment coordinator Female No 03/08/24 10:11 HX of Motion Sickness No 03/08/24 10:11 HX of N/V After Surgery No 03/08/24 10:11 Non-Smoker Yes 03/08/24 10:11 Duration of Surgery greater Yes 03/08/24 10:11 than 60 minutes Number of Risk Factors 2 03/08/24 10:11 PONV Score Moderate Risk 03/08/24 10:11 Height & Weight Height & Weight: Anesthesia: Height & Weight Height 5 ft 5 in 03/27/24 05:45 Weight: 104.6 kg 03/27/24 05:45 Body Mass Index (BMI) 38.3 03/27/24 05:45 Respiratory Assessment Respiratory Assessment - patient assessment coordinator: Respiratory Tract Infection Hx - patient assessment coordinator Hx Respiratory Tract Infection No 03/08/24 10:11 STOP Sleep Apnea STOP Sleep Apnea - patient assessment coordinator: STOP Sleep Apnea - patient assessment coordinator Hx Hypertension Yes: CONTROLLED WITH MED 03/08/24 10:11 Hx Sleep Apnea No 03/08/24 10:11 CPAP BIPAP Do you snore loudly (louder Yes 03/08/24 10:11 than talking or can be heard Do you often feel tired/ Yes 03/08/24 10:11 fatigued/ sleepy during daytime? Has anyone observed you stop No 03/08/24 10:11 breathing during sleep? STOP Results Positive 03/08/24 10:11 QUESTION #5 FULL TEXT : Do you snore loudly (louder than talking or can be heard through closed doors)? 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 Specify any problems Hx of Preganancy in last 3 N/A 03/08/24 10:11 Months Nurse Filling Out Transfusion DSCHRIBER 03/08/24 10:11 & Questions: Date: 03/08/24 03/08/24 10:11 Time: 10:13 03/08/24 10:11 Patient unable to answer at this time (ie. confused, unrespo /Reproduction History /Reproductive History - patient assessment coordinator: /Reproductive Hx- patient assessment coordinator Hx Now No 03/08/24 10:11 Gestational Age (in weeks): EDC: Hx Hx Para Hx Section SAB No 03/08/24 10:11 Active Medications Active Medications: Current Medications Generic Name Dose Route Start Last Admin Trade Name Freq PRN Reason Stop Dose Admin Acetaminophen 1,000 mg 03/27/24 07:30 03/27/24 06:47 Acetaminophen 500 Mg Tablet PO 03/27/24 07:31 1,000 mg X1 ONE Administration Celecoxib 400 mg 03/27/24 07:30 03/27/24 06:46 Celecoxib 200 Mg Capsule PO 03/27/24 07:31 400 mg X1 ONE Administration Dexamethasone Sodium Phosphate 10 mg 03/27/24 07:30 Dexamethasone 10 Mg/Ml Vial IV 03/27/24 07:31 X1 ONE Gabapentin 600 mg 03/27/24 07:30 03/27/24 06:46 Gabapentin 600 Mg Tablet PO 03/27/24 07:31 600 mg X1 ONE Administration Tranexamic Acid 1,000 mg/ 110 mls @ 660 mls/hr 03/27/24 07:30 Sodium Chloride IV 03/27/24 07:39 X1 ONE Tranexamic Acid 1,000 mg/ 110 mls @ 660 mls/hr 03/27/24 07:30 Sodium Chloride IV 03/27/24 07:39 X1 ONE Lactated Ringer's 1,000 mls @ 125 mls/hr 03/27/24 07:30 IV 03/27/24 15:29 .Q8H BRONWYN Cefazolin Sodium 2 gm/ N/A 20 mls @ 400 mls/hr 03/27/24 07:30 IV 03/27/24 07:32 PREOP ONE Magnesium Sulfate 1 gm/ 102 mls @ 408 mls/hr 03/27/24 07:30 03/27/24 06:40 Dextrose IV 03/27/24 07:44 408 mls/hr X1 ONE Administration Lactated Ringer's 1,000 mls @ 15 mls/hr 03/27/24 06:00 03/27/24 05:50 IV 04/01/24 19:19 15 mls/hr .Q48H BRONWYN Administration Protocol Insulin Human Lispro 1 - 6 unit 03/27/24 07:30 Insulin Lispro 100 Unit/Ml Insuln.Pen SC 03/27/24 18:00 Q4H PRN PRN BG>/= 180, SEE PROTOCOL Protocol Scopolamine HBr 1 patch 03/27/24 07:30 03/27/24 06:46 Scopolamine 1mg/72hr Patch TD 03/27/24 07:31 1 mg X1 ONE Administration PFSH Medical History Wears partial dentures Anxiety Alcohol use Easy bruising Syncope Leg cramps Wears glasses Depression Diabetes High cholesterol Restless legs Dietary restriction Former smoker Shortness of breath on exertion History of pain when walking Osteoarthritis, knee Preoperative clearance Asthma History of traumatic head injury Neuropathy Hyperlipemia Hypertension Chronic pain Type 2 diabetes mellitus Arthritis Home Medications ?Medication ?Instructions ?Recorded ?Last Taken ?Type gabapentin 300 mg capsule 600 mg (2 x 300 mg) PO TID #90 caps 02/22/18 Unknown Rx oxycodone 5 mg capsule 5 mg PO Q4H PRN pain 7 days #60 11/25/20 Unknown Rx caps montelukast 10 mg tablet 10 mg PO QHS #90 tabs 01/15/22 Unknown Rx hydrochlorothiazide 25 mg tablet 25 mg PO DAILY #90 tabs 04/29/22 Unknown Rx lisinopril 40 mg tablet 40 mg PO DAILY #90 tabs 08/26/22 03/27/24 04:00 Rx amlodipine 10 mg tablet 10 mg PO DAILY #90 tabs 09/30/22 Unknown Rx metformin 1,000 mg tablet 1,000 mg PO BID #180 tabs 09/30/22 Unknown Rx sertraline 100 mg tablet 100 mg PO QDAY #90 tabs 09/30/22 03/27/24 04:00 Rx glimepiride 4 mg tablet 4 mg PO BID #180 tabs 10/06/22 Unknown Rx pen needle, diabetic 31 gauge x #100 ea 10/06/22 Unknown Rx 3/16 (Sure-Fine Pen [place]) doxazosin 2 mg tablet 2 mg PO BID #180 tabs 10/26/22 03/27/24 04:00 Rx bupropion HCl 200 mg tablet,12 hr 200 mg PO BID 10/26/23 Unknown History sustained-release dapagliflozin propanediol 10 mg 10 mg PO DAILY 10/26/23 Unknown History tablet (Farxiga) meloxicam 15 mg tablet 15 mg PO QDAY 10/26/23 Unknown History rosuvastatin 10 mg tablet 20 mg PO QHS 10/26/23 Unknown History insulin glargine 100 unit/mL (3 35 unit subcut QPM 03/08/24 Unknown History mL) subcutaneous pen (Basaglar KwikPen U-100 Insulin) Allergy/AdvReac Type Severity Reaction Status Date / Time No Known Allergies Allergy Verified 03/27/24 06:36 Family History Mother Hypertension Father Hyperlipemia Aunt Diabetes Surgical History Hx of right cataract extraction Hx of left cataract extraction Hx of total knee arthroplasty Hx of brain surgery History of foot surgery Social History household members: spouse housing: house Smoking Status: Former smoker how long ago did patient quit smokin alcohol intake: current alcohol intake frequency: holidays/special occasions only substance use type: does not use what type of physical activity do you participate in: none do you feel safe at home: Yes Review of Systems (Anesthesia) ROS Narrative System reviewed and no additional complaints, except as documented.
--- NOTE | 2024-03-27 07:18 | HP.PCM_ITS ---
History and Physical Date of Admission: 03/27/24 [facility] [address] [place] [address] OFFICE VISIT Date of Service: 02/29/24 MR#: [id number] Acct: [id number] Name: BONY PAREKH Rep #: [id number] : 1960 Provider: Dr. Tre Rhoades DO Age/Sex: 63/M Location: [facility] [place] Status: Signed Intake Vital Signs 10/25/2408:55 02/28/2413:11 Height 5 ft 5 in 5 ft 5 in Weight: 242 lb 2 oz 237 lb BMI 40.3 39.4 Intake Visit Reasons: right knee Allergies No Known Allergies Allergy (Verified 02/29/24 13:13) PFSH Medical History Wears glasses Depression Diabetes High cholesterol Easy bruising Restless legs Dietary restriction Former smoker Shortness of breath on exertion History of pain when walking Osteoarthritis, knee Preoperative clearance Asthma History of traumatic head injury Neuropathy Hyperlipemia Hypertension Chronic pain Type 2 diabetes mellitus Arthritis Surgical History Hx of brain surgery History of foot surgery Family History Mother HypertensionFather HyperlipemiaAunt Diabetes Social History household members: spouse housing: house Smoking Status: Former smoker how long ago did patient quit smokin alcohol intake: current alcohol intake frequency: holidays/special occasions only substance use type: does not use what type of physical activity do you participate in: none do you feel safe at home: Yes HPI right knee Details: This documentation accurately reflects the service provided and the decisions made by me, Dr. Tre Rhoades, 02/29/24 1311. Part of today?s visit was documented by Nancy HORVATH, acting as scribe. BONY PAREKH is a 63 year old M here today for his right knee. Patient is here for a weight check in order to have his surgery approved. Patient is unsure of the date of his last injection but knows it was over a year ago with a doctor in [place]. He is taking the oxycodone but is only taking 1 a day. Ortho Exam General General: Yes no acute distress Neurologic: Yes alert and Yes oriented x3 Psychologic: Yes reasonable and appropriate Right Knee Skin/Wound: No erythema, No ecchymosis and No swelling Homans Sign: No Knee ROM: Yes ROM-Extension -20 to 0 and No ROM-Flexion 0-140 Examination: No Med jt line tenderness, No Lat jt line tenderness and Yes Crepitus Stability: NML: Anterior Drawer, NML: Posterior Drawer, NML: Valgus 0, NML: Valgus 30, NML: Varus 0 and NML: Varus 30 KNEE: full extension. no joint effusion no patellar instability, 102 flexion. No joint line tenderness. Head: Normocephalic Atraumatic Chest: symmetrical rise, non-labored breathing, no audible wheeze Abdomen: no guarding, non-rigidI have examined the patient and the H&P has been reviewed. There are no clinical changes since date of exam. Supplemental Info 10/26/2023 x-ray right knee: Vexy-rw-hesb medial compartment with varus deformity severe patellofemoral arthrosis 11/25/2020 left total knee arthroplasty: Dr. Rhoades Coding Level of Care Code Off vis,est,level 2 Diagnoses Primary osteoarthritis of right knee M17.11 Osteoarthritis type: primary Assessment and Plan Assessment and Plan (1) Right knee DJD: Status: Acute Qualifiers: Osteoarthritis type: primary Qualified Code(s): M17.11 - Unilateral primary osteoarthritis, right knee Plan Patient has advanced knee arthritis. He has failed conservative treatment. His BMI is 39.4 today. He has had steroid injections in the past that were unsuccessful last 1 being a year ago. His knee is debilitating him and he wishes to proceed with total knee arthroplasty which was previously scheduled. We will plan to proceed as previously scheduled he was given drinks and soaps today. He will need to get a CT scan. 02/29/24 1325 <Electronically signed by Tre Rhoades DO> Date Tre Blairso DO Cosigner Signature: Date (if applicable)
--- NOTE | 2024-03-27 07:30 | KNEE_PTH ---
PATHOLOGY RESULTS PATIENT: BONY PAREKH LOC: [facility] [place] U#:[id number] AGE/SX: 63/M ROOM: RE03/27/[address]: Dr. Tre Rhoades DO : 1960 BED: DIS: 03/27/2024 SPEC #: [id number] RECD: 03/27/24 10:26 STATUS: MARIA GUADALUPE REJoesfa #: [id number] MICHELLE: 03/27/24 07:[address]: Tre Rhoades DEPT: SURGICAL PATHOLOGY RECD BY: Rell Sanchez ENTERED: 03/27/24 11:16 SP TYPE: TOTAL KNEE OTHR DR: LEVI Huerta Tissues: Knee, NOS Procedures: Decalcification bone/plaque Surgery Specimen Level IV HEADER OPERATION: Right total knee replacement robotic arm assist PRE-OP DIAGNOSIS: Right knee degenerative joint disease TISSUE SUBMITTED: Bone and soft tissue right knee MICROSCOPIC DIAGNOSIS Bone and soft tissue, right knee, total knee replacement/resection: Pieces of bone with degenerative osteoarthritic changes. MARII: 03/30/2024 MICROSCOPIC DESCRIPTION Slides are reviewed. GROSS DESCRIPTION Received is one container designated bone and soft tissue right knee. The specimen consists of multiple fragments of church-yellow bone measuring in aggregate 11.0 x 10.0 x 4.0 cm. No soft tissue is identified. A number of bony fragments contain articular surfaces consistent with tibial plateau and femoral condyle and displaying prominent osteophyte formation, eburnation and bone erosion. Resort Manager sections are submitted in one cassette after decalcification. 03/27/2024 TC:5 CPT:03031,56164
[2024-03-27] MEDS: Cefazolin 2 GM in Syringe IV ×2 (07:38→12:29)
[2024-03-27] MEDS: dexAMETHasone 10 MG/ML Vial IV (07:45)
[2024-03-27] MEDS: TXA 1000mg in NS100 100ml (IVPB at Incision) 660 MG IV (07:45)
[2024-03-27 08:07] LABS: Bedside Glucose 169 mg/dL (74-106)
[2024-03-27] MEDS: TXA 1000mg in NS100 100ml (IVPB at Closure) 660 MG IV (08:14)
[2024-03-27] MEDS: dexAMETHasone 4 MG/ML Vial (09:14)
[2024-03-27] MEDS: Bupivacaine 0.5% PF 10 ML VIAL (09:14)
[2024-03-27] MEDS: Epinephrine (1 mg/ml) 1 MG/ML VIAL (09:14)
[2024-03-27] MEDS: 0.9% Normal Saline (Pres. free 10 ML Vial (09:14)
--- NOTE | 2024-03-27 09:59 | OP.PCM_ITS ---
Operative Report (Standard) Operative Information Surgery/Procedure Performed: Right total knee arthroplasty Surgeon: Tre Rhoades Date of Procedure: 03/27/24 Procedure Start Time: 08:01 Procedure Stop Time: 09:45 Pre-Operative Diagnosis: Right knee DJD Post-Operative Diagnosis: Right knee DJD Select all DRAINS/GRAFTS/IMPLANTS that apply: None Type of Anesthesia: Spinal Estimated Blood Loss: 125 Specimen collected: Yes Description of specimen(s) removed: Bone Description of surgery: Preoperative diagnosis: Right knee DJD Postoperative diagnosis: Same Procedure: Right total knee arthroplasty CT guided Robotic Assisted Implant: Arnaud triathlon press fit, femoral component size 4, tibial baseplate size 4, asymmetric patella size 35, polyethylene X3 size 9 CS Anesthesia: Spinal with adductor canal block postoperatively Tourniquet time: 12 minutes at 300 mmHg Complications: None Condition: Stable to PACU Estimated blood loss: 125 cc Textile Machine Mechanic Alec Azevedo. My physician administrative personal assistant was a vital part of this case. He was important in appropriate retraction during the case, and protection of soft tissues during procedure. His intimate knowledge of the case and my steps aided in safe and expedient completion of the procedure as well as appropriate position of the extremity during the case. He was also vital in assisting with closure under my direct supervision. Indication for procedure: This is a 63-year-old male with long standing degenerative joint disease of the knee who has failed conservative treatment and wished to proceed with elective total knee arthroplasty. Risk benefits and alternatives were reviewed including; risk of bleeding, infection, nerve artery and tissue damage, continued pain, postoperative stiffness, venous thromboembolism, need for postoperative rehabilitation, mechanical feel to the knee, and expected postoperative course. The pre- operative CT and templating was performed with component sizing. Procedure: The patient was met in the preoperative holding area. The operative extremity was identified by both patient and physician and was marked. Patient was met by anesthesia. An adductor canal block was placed by anesthesia postoperatively the patient was brought back to the operating room on a wheeled cart and transferred to the operating table in the supine position. Anesthesia was started. A well-padded tourniquet was placed on the operative extremity. The patient was prepped and draped in the usual sterile fashion. A timeout was called to ensure the proper patient procedure and extremity were being contemplated. An esmarch was used to exsanguinate the extremity. The tourniquet was inflated. A 10 blade scalpel was used to make a midline incision down through the skin and subcutaneous tissue. Skin retractors placed. Bovie and Aquamantis were used to perform meticulous hemostasis. full-thickness flaps were elevated medial and lateral along the joint capsule. A deep blade scalpel was used to perform a medial parapatellar arthrotomy. The knee was brought to full extension. A bovie was used to release the soft tissues off the most proximal aspect of the medial tibial plateau, a three-quarter inch curved osteotome was also used in this process. The infrapatellar fat pad was excised. The suprapatellar fat pad was excised partially anteriorolateraly and portion the anterioromedial pad was elevated from the femur. At this point our intra-articular femoral array was placed at a 45 degree angle proximal and posterior to the medial epicondyle. femoral checkpoint was placed at this time. Our tibial array was placed partially intra incisional 1 stab incision was made for the inferior pin with a 15 blade scaple, and pins were placed and attached to the tibial array , tibial checkpoint was placed in the proximal tibial metaphysis. Tourniquet was let down. At this point registration valenzuela were taken throughout the knee . Once the knee was registered we then tensioned the medial and lateral ligaments in extension and 90 degrees of flexion. We then used these numbers to adjust our components within parameters to balance the knee in both flexion and extension once this was done on our monitor we then proceeded with using the robotic arm to make our tibial plateau cut, anterior and posterior chamfer and distal femur cuts. we removed the cut fragments with the use of a bovie and Scott, we did use a lamina chair inspector and leveler to insure we visualized and removed all posterior osteophytes and at this time also used the Aquamantis on the posterior joint capsule. we then trialed and achieved the desired plan with a well-balanced knee. we used the green probe to mindy the corresponding tibial rotation based on our CT template. Lug holes were drilled in the femur the tibia preparation was completed with the appropriate sized base plate pinned based on previous rotation mindy. An appropriate sized fin punch was used on the tibia and 4 corner drill was used for the press fit component and the patella was prepared by first using a caliper to ensure sufficient bone stock and a patellar reamer to remove the desired amount of bone. lug holes drilled for an asymmetric poly. We then brought the knee through range of motion with excellent patellar tracking. We thoroughly irrigated the knee. Trial components were removed a posterior capsular injection was preformed with our standard cocktail. In addition the aqua Mantis was also used to aid in hemostasis. Betadine rinse was allowed to sit and washed out completely. Components were press-fit into place. Aricept rinse was then used followed by several more liters of irrigation after it was allowed to sit. The joint capsule was closed with #1 Ethibond [id number] in the upper part of the arthrotomy and #1 Vicryl in the lower part of the arthrotomy. , Followed by 2-0 Vicryl in the subcutaneous tissues with palmer in the skin. Arrays and checkpoints were removed prior to closure all counts were correct stab incisions were closed with a staple standard dressing in the form of Mepilex AG for the main incision and a small Mepilex over the pin holes. Thigh-high SHIRA hose applied over top of dressing. Patient tolerated the procedure well and was directed to PACU in stable condition . There were no intraoperative complications. Surgical Findings: Degenerative joint disease Tub Chucker director of corporate marketing: Yes Surgery Consultant: Alec Azevedo Tasks completed by assistant branch manager: Closing Complications Complications: No
--- NOTE | 2024-03-27 10:10 | RAD_ITS ---
STUDY: X-RAY - RIGHT KNEE REASON FOR EXAM: Male, 63 years old. Postop in PACU -- in PACU TECHNIQUE: 2 views of the right knee. COMPARISON: Right knee radiographs dated 10/26/2023. FINDINGS: There are new postoperative changes related to right total knee arthroplasty with patellar resurfacing. There is a vertical staple line along the anterior aspect of the knee. There is gas in the patellofemoral joint recess and anterior soft tissues, compatible with recent surgery. The orthopedic hardware components are intact. There is no periprosthetic fracture. Normal proximal tibiofibular articulation. RAD/Knee 1 or 2 Views IMPRESSION: New postoperative changes related to right total knee arthroplasty. Electronically Signed: Jitendra Kathleen MD at 10:20 EDT ,
--- NOTE | 2024-03-27 12:11 | PCM.POST.ANE ---
Anesthesia: Postop Eval I Current Vital Signs Temperature: 98.8 F Pulse Rate: 77 Blood Pressure: 146/62 Respiratory Rate: 16 Pulse Ox: 94 Oxygen Delivery Method: Room Air Assessment Airway patent: Yes Spontaneous unlabored respirations: Yes Mental status: Awake and Calm nausea: No Vomiting: No Anesthesia Complication: No Fluid Hydration Crystalloid volume administer (ml): 1,500 Total IV fluid infused: 1,500 Progress Note Anesthesia document: Postop Eval 1 completed: Yes
[2024-03-27] MEDS: oxyCODONE 5 MG Tablet PO (12:37)
--- NOTE | 2024-03-27 13:24 | EX.PCM.DISCH ---
Discharge Instructions Diet Discharge Diet: No restrictions Dressing / Incision Call your doctor if you observe: Shortness of breath and Chest pain Additional Dressing/Incision Instructions:: Ice and elevate lower extremities 2 weeks while not ambulating. Ambulation is encouraged. Weight bearing as tolerated. Use assistive devise for stability. Encourage FULL knee extension and flexion 1 time EVERY time you get up and down and MULTIPLE times per day. No showering until 72 hours after surgery. Begin showering postop day #3. Remove the dressing prior to shower and gently wash with warm water and antibacterial soap then pat dry and place abdominal pad (or plain gauze) and SHIRA hose over top. This is to be done daily. Do not submerge for 3 weeks. If not showering daily after the initial 72 hours then you must clean incision and change dressing daily. Do not allow animals near the incision area. Keep clean. Follow anti-coagulation recommendations as prescribed. Do not take any NSAIDs while on blood thinner. Do not take any additional narcotic pain medication other than what was prescribed on your surgery day without discussing with physician. Narcotic medication can be addictive. Do not drink alcohol while taking narcotics. Supplement narcotic prescription with acetaminophen 1000 mg 4 times a day. Start physical therapy. If you are not currently scheduled for physical therapy or you are unsure of appointment time please call office [facility] to arrange. Call Dr. Rhoades with any concerns. Follow Up Care Please Follow Up With: Tre Rhoades DO When: 2 weeks Test Results: Test results from this visit will be discussed in further detail at your follow-up appointment, if applicable. Discharge Plan Admission Primary Reason for Your Visit: Right total knee arthroplasty Attending Provider: Tre Rhoades Primary Care Provider: Amandeep Hayden [facility] Instructions Print Language: Maltese Discharge Orders/Prescriptions Prescriptions: New acetaminophen 500 mg tablet 1,000 mg PO Q6H Qty: 90 0RF cephalexin 500 mg capsule 1,000 mg PO Q8H Qty: 4 0RF Rx Instructions: Take 2 tabs before you go to bed and 2 tabs after 5 AM morning after surgery when you wake up Eliquis 2.5 mg tablet 2.5 mg PO BID Qty: 28 0RF Rx Instructions: Begin morning after surgery. oxycodone 5 mg tablet 5 - 10 mg PO Q6H PRN (Reason: pain) 7 Days Qty: 60 0RF Continued montelukast 10 mg tablet 10 mg PO QHS Qty: 90 3RF lisinopril 40 mg tablet 40 mg PO DAILY Qty: 90 3RF bupropion HCl 200 mg tablet sustained-release 12 hr 200 mg PO BID rosuvastatin 10 mg tablet 20 mg PO QHS dapagliflozin propanediol [Farxiga] 10 mg tablet 10 mg PO DAILY insulin glargine [Basaglar KwikPen U-100 Insulin] 100 unit/mL (3 mL) insulin pen 35 unit subcut QPM gabapentin 300 mg capsule 600 mg PO TID Qty: 90 1RF hydrochlorothiazide 25 mg tablet 25 mg PO DAILY Qty: 90 3RF amlodipine 10 mg tablet 10 mg PO DAILY Qty: 90 3RF metformin 1,000 mg tablet 1,000 mg PO BID Qty: 180 3RF sertraline 100 mg tablet 100 mg PO QDAY Qty: 90 1RF glimepiride 4 mg tablet 4 mg PO BID Qty: 180 3RF (DME) pen needle, diabetic [Sure-Fine Pen [place]] 31 gauge x 3/16 needle See Rx Instructions .Route Qty: 100 4RF Rx Instructions: As directed doxazosin 2 mg tablet 2 mg PO BID Qty: 180 3RF Held meloxicam 15 mg tablet 15 mg PO QDAY Hold Instructions: May resume after completion of blood thinner if needed Discontinued oxycodone 5 mg capsule 5 mg PO Q4H PRN (Reason: pain) 7 Days Qty: 60 0RF Referrals / Follow Up: Amandeep Hayden [facility], CARPET CLEANING TECHNICIAN-C [Primary Care Provider] - Disposition Disposition (needs filled in before D/C Order can be placed): Home, Self Care
== END 2024-03-27 14:48 | disposition home or self-care (01) ==
LOC: SDC 05:18 → AC 05:21
PROVIDERS: Anesthesiology; PCP Nurse Practitioner Family; Referring Provider Orthopaedic Surgery; Visit Provider Orthopaedic Surgery
PROC: 0SRC0JZ Replacement of Right Knee Joint with Synthetic Substitute, Open Approach (ICD-10-PCS; CPT 27447; principal; 2024-03-27 07:00)
DX: M17.11 Unilateral primary osteoarthritis, right knee (principal); E11.40 Type 2 diabetes mellitus with diabetic neuropathy, unspecified; M21.161 Varus deformity, not elsewhere classified, right knee; E78.00 Pure hypercholesterolemia, unspecified; I10 Essential (primary) hypertension; J45.909 Unspecified asthma, uncomplicated; Z79.01 Long term (current) use of anticoagulants; Z79.84 Long term (current) use of oral hypoglycemic drugs; Z79.899 Other long term (current) drug therapy; Z79.891 Long term (current) use of opiate analgesic; Z87.891 Personal history of nicotine dependence
CPT/HCPCS: 27447; S2900; 01402; 64447; 36415; 73560; 80048; 80076; 82962; 82985; 83036; 83735; 85025; 85610; 85730; 86850; 86900; 86901; 87077; 87081; 88305; 88311; 93005; 97162; C1776; J7120; J2405; J3475; J3490

== ENCOUNTER 2024-04-13 09:00 | Outpatient (RCR) | payer OTHER, SELFPAY ==
--- NOTE | 2024-03-30 08:52 | HP.PTEVAL_ITS ---
Patient's Visit Information Visit Information Visit Information: BONY PAREKH is a 63 year old M referred to Physical Therapy by Dr. Tre Rhoades DO with a diagnosis of R TKA 03/27/24. Date of Evaluation: 03/30/24 Physical Therapist: Lukas Baird, PT, ATC Visit Plan Frequency: 1-2x /Week Duration: 6 Weeks Plan: R knee PROM/mobs, stretching and strengthening, balance and proprio, core stab ex's, nustep, and HEP Subjective Subjective: DOS: 03/27/24. Pt had a R TKA performed at that time. Pt reports he has been in pain for several years. Pt notes he had is L knee replaced 2 years ago, and his R knee was in worse shape than his L knee at that time. Pt reports he is in a lot of pain today. Pt reports he is unable to sleep in bed at this time secondary to pain. Pt denies any tingling or numbness in R LE. Pt reports he is able to sleep now for a couple hours until waking up to go to the bathroom. Pt reports his bedroom is upstairs, and he has to negotiate stairs one step at a time. 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 Pt reports he has been limited for several years with performing recreational activity secondary to pain. 6/10 pain while sitting here in the clinic, 9/10 pain at worst. Pain R Knee: Pain Intensity (Out of 10): 6 Pain Intensity Range: 9 Objective Objective: Neuro: B LE sensation is WNL to light touch. Girth at joint line: R knee 46 cm, L knee 41 cm TU sec ROM: L knee 0- 110; R knee 0-30-88 degrees MMT: L knee flex= 49, ext= 50 #F; R knee flex= 19, ext= 0 #F Balance/Special Test Scores WOMAC Total Score: 70 WOMAC Percentatge: 27.0900 Goals Goal 1:: Decrease R knee pain x 50% to aid with sleep Goal Time Frame: 4-6 Weeks Goal 2:: Increase R knee ROM x 30 degrees to aid with RTW Goal Time Frame: 4-6 Weeks Goal 3:: Increase R knee ext strength x 20#F to aid with stair negotiation Goal Time Frame: 4-6 Weeks Goal 4:: I with HEP Goal Time Frame: 4-6 Weeks Rehabilitation Potential Physical Therapy Diagnosis: Pt has R knee pain, weakness, and limited ROM secondary to R TKA Rehabilitation Potential: Good Anticipated Interventions Patient/Client Instruction: Educate patient on: Condition and Plan of Care For the Purpose of:: To improve self management Therapeutic Exercise to Include: Strength training, Endurance training, Balance training, Flexibilty training, Gait and locomotor training, Passive ROM, Active ROM and Dynamic Lumbar Stabilization For the Purpose of:: To decrease pain, To increase ROM and To improve muscle performance and motor function Cryotherapy (ice pack, ice massage): Yes For the Purpose of:: To decrease pain Text: Thank you for the opportunity to evaluate your patient. For Medicare and Medicare HMO plans, please review the plan of care and approve it. It will need to be FAXED BACK to us at [phone] for Medicare purposes. For Medicare only, by signing this I certify the plan of care. Please let me know if there are questions or concerns regarding this plan of care. Physician Signature: Date:
--- NOTE | 2024-07-09 11:07 | HP.PT.NRP ---
Patient Information Patient Information: BONY PAREKH was seen in my office for initial evaluation on 03/30/24. The following Plan of Care was established for this patient: POC Established Initial Frequency: 1-2x /Week Initial Duration: 6 Weeks Anticipated Interventions Patient/Client Instruction: Educate patient on: Condition and Plan of Care For the Purpose of:: To improve self management Therapeutic Exercise to Include: Strength training, Endurance training, Balance training, Flexibilty training, Gait and locomotor training, Passive ROM, Active ROM and Dynamic Lumbar Stabilization For the Purpose of:: To decrease pain, To increase ROM and To improve muscle performance and motor function Cryotherapy (ice pack, ice massage): Yes For the Purpose of:: To decrease pain Last Seen Last Seen: This patient was last seen in our office . Pertinent comments regarding their Physical therapy will appear below: Pt has not returned to physical therapy for greater than 30 days. Discontinue at this time. At this point I will be discontinuing this patient from physical therapy. I would be happy to see this patient again in the future if found appropriate by the physician. Thank you! Lukas Baird, PT, ATC Balance/Gait/Functional tests Balance/Special Test Scores WOMAC Total Score: 70 WOMAC Percentage: 27.0900
== END 2024-04-13 19:00 | disposition home or self-care (01) ==
LOC: PT 09:00
PROVIDERS: PCP Nurse Practitioner Family; Referring Provider Orthopaedic Surgery; Visit Provider Orthopaedic Surgery
DX: Z96.651 Presence of right artificial knee joint (principal); M17.11 Unilateral primary osteoarthritis, right knee
CPT/HCPCS: 97110; 97140; 97161

== ENCOUNTER → 2025-03-20 | Outpatient (CLI) | payer OTHER, SELFPAY ==
[2025-03-20 11:24] LABS: Hematocrit 43.5 % (40-54); Hemoglobin 15.0 g/dL (13.0-16.5); Immature Granulocytes Count 0.020 X10^3/uL (0.0-0.0); Mean Corp Hgb Conc 34.5 g/dL (32-36); Mean Corpuscular Volume 85.6 fL (80-94); Mean Platelet Vol. 9.7 fl (6.2-12.0); NRBC Flagged by Analyzer 0 % (0-5); Platelet Count 347 K/mm3 (150-450); RBC Distribution Width CV 12.0 % (11.6-14.6); RBC Distribution Width SD 37.6 fl (35.1-43.9); Red Blood Count 5.08 M/mm3 (4.6-6.2); White Blood Count 6.3 K/mm3 (4.4-11.0)
[2025-03-20 11:53] LABS: Microalbumin,Random Urine < 12.0 mg/L (<20 mg/L)
[2025-03-20 12:10] LABS: AST(SGOT) 24 U/L (<=37); Alanine Aminotransfer ALT/SGPT 24 U/L (<=46); Albumin, Serum 4.7 g/dL (3.4-4.8); Alkaline Phosphatase 79 U/L (40-129); Anion Gap 12 (5-15); BUN 26 mg/dL (4-19); BUN/Creat Ratio 30.5 RATIO (10-20); Calcium,Total 10.0 mg/dL (7.6-11.0); Carbon Dioxide 25.5 mmol/L (21.0-32.0); Chloride 99 mmol/L (98-108); Cholesterol 107 mg/dL (<=200); Globulin 2.6 g/dL (2.2-4.2); Glucose 198 mg/dL (70-99); Low Density Lipoprotein Calc. 41 mg/dL; PSA,Total- Diagnostic 1.40 ng/mL (0.00-4.00); Potassium 4.2 mmol/L (3.3-5.1); Triglycerides 203 mg/dL; Very Low Density Lipoprotein 41 mg/dL (5-40); Vitamin B12 321 pg/mL (180-914); Vitamin D,25 Hydroxy 33.7 ng/mL (30-100); cholesterol:hdl ratio screen 3.17
== END | disposition home or self-care (01) ==
LOC: VSLAB 10:41
PROVIDERS: PCP Nurse Practitioner Family; Visit Provider Nurse Practitioner Family
DX: E11.9 Type 2 diabetes mellitus without complications (principal); F32.A Depression, unspecified
CPT/HCPCS: 36415; 80053; 80061; 82043; 82306; 82607; 84153; 84443; 85025